=== PATIENT | male | born 1965 | race Hispanic/Latino ===

== ENCOUNTER 2016-05-14 18:41 | Emergency (ER) | payer MEDICAID ==
[2016-05-14 19:24] VITALS: BP 96/55
== END 2016-05-15 00:56 | disposition left against medical advice (07) ==
LOC: ED 18:41
DX: H92.09 Otalgia, unspecified ear (principal); M54.2 Cervicalgia; Z53.21 Procedure and treatment not carried out due to patient leaving prior to being seen by health care provider

== ENCOUNTER 2017-09-07 06:59 | Emergency (ER) | payer SELFPAY ==
[2017-09-07 07:24] VITALS: BP 159/55
[2017-09-07] MEDS ORDERED: TORADOL IM ONE (07:45)
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
== END 2017-09-07 09:20 | disposition home or self-care (01) ==
LOC: ED 06:59
DX: S16.1XXA Strain of muscle, fascia and tendon at neck level, initial encounter (principal); G89.29 Other chronic pain; M54.5 Low back pain; I10 Essential (primary) hypertension; E11.9 Type 2 diabetes mellitus without complications; Z90.49 Acquired absence of other specified parts of digestive tract; Z87.891 Personal history of nicotine dependence; W22.8XXA Striking against or struck by other objects, initial encounter; Y93.89 Activity, other specified; Y92.410 Unspecified street and highway as the place of occurrence of the external cause; Y99.8 Other external cause status
CPT/HCPCS: 72040; 72100; 96372; 99283; J1885

== ENCOUNTER 2018-08-16 11:37 | Emergency (ER) | payer MEDICARE ==
[2018-08-16] MEDS ORDERED: BOOSTRIX IM ONE (11:44)
--- NOTE | 2018-08-16 11:44 | Event Note ---
ED Screening Note Date of service: 08/16/18 Time: 11:41 ED Screening Note: This is a 53 y.o. M. that presents to the ER with puncture wound to left 3rd distal digit. Patient was bitten by his daughters dog last night. The dogs shot record is up to date. Tetanus not UTD. This initial assessment/diagnostic orders/clinical plan/treatment(s) is/are subject to change based on patients health status, clinical progression and re- assessment by fellow clinical providers in the ED. Further treatment and workup at subsequent clinical providers discretion. Patient/guardian urged not to elope from the ED as their condition may be serious if not clinically assessed and managed. Initial orders include: Boostrix XR left fingers ACC for further evaluation
--- NOTE | 2018-08-16 12:09 | XRay Report ---
LEFT FINGER RADIOGRAPHS INDICATION: Puncture wound distal third phalanx. COMPARISON: None similar. FINDINGS: AP view of the left hand with oblique and lateral projections centered on the third digit demonstrate no radiopaque foreign body or bony abnormality. Intact imaged bony articulation. Vascular calcifications noted about the wrist. Subtle laceration may involve the pulp of the third digit. CONCLUSION: Left third digit soft tissue injury distally without acute bony abnormality, as described. Thank you for the opportunity to participate in this patient's care.
--- NOTE | 2018-08-16 12:49 | Emergency Department Report ---
ED Animal Bite HPI - General Chief Complaint: Animal Bite Stated Complaint: DOG BITE ON L FINGER Time Seen by Provider: 08/16/18 11:41 Source: patient Mode of arrival: Ambulatory Limitations: No Limitations - History of Present Illness Initial Comments: D3-year-old male presents to the emergency room for left finger puncture wound from his daughter's dog that happened last night. Patient reports she was trying to break up a dog fight when the other dog bit him. Patient reports he is not up-to-date on his tetanus. Patient reports this mcmillan ppened about 10 PM. Patient reports that the dog has all his vaccines. MD Complaint: animal bite -: Last night Left: Hand (middle digit) Animal: dog Animal Control Notified: No Description: household pet, immunizations UTD Mechanism: bite Context: animals fighting Associated Symptoms: denies: erythema, discharge from wound, bleeding, fever Treatments Prior to Arrival: irrigation - Related Data Patient Tetanus UTD: No Previous Rx's Medication Instructions Recorded Last Taken Type Amitriptyline [Elavil] 25 mg PO QHS tablet 11/22/17 Unknown Rx Cyclobenzaprine [Flexeril 10 MG 10 mg PO TID PRN tablet 11/22/17 Unknown Rx TAB] Lisinopril [Zestril TAB] 10 mg PO QDAY tablet 11/22/17 Unknown Rx Ondansetron [Zofran ODT TAB] 8 mg PO Q8HR tab.rapdis 11/22/17 Unknown Rx Prochlorperazine [Compazine] 10 mg PO Q6HR PRN tablet 11/22/17 Unknown Rx dexAMETHasone [Decadron] 4 mg PO BID tablet 11/22/17 Unknown Rx traMADol [Ultram 50 MG tab] 50 mg PO Q6HR PRN tablet 11/22/17 Unknown Rx Doxycycline Hyclate [Doxycycline 100 mg PO Q12HR #14 tab 06/28/18 Unknown Rx Hyclate TAB] Amoxicillin/Potassium Clav 1 each PO BID #20 tablet 08/16/18 Unknown Rx [Augmentin 875-125 Tablet] Allergies Allergy/AdvReac Type Severity Reaction Status Date / Time No Known Allergies Allergy Verified 08/16/18 11:38 ED Review of Systems ROS: Stated complaint: DOG BITE ON L FINGER Other details as noted in HPI ED Past Medical Hx - Past Medical History Hx Hypertension: Yes Hx Congestive Heart Failure: No Hx Diabetes: Yes Hx Asthma: No Hx COPD: No Additional medical history: CHRONIC BACK PAIN/INJURY - Surgical History Hx Cholecystectomy: Yes Hx Appendectomy: Yes Additional Surgical History: appendectomy - Social History Smoking Status: Never Smoker - Medications Home Medications: Home Medications Medication Instructions Recorded Confirmed Last Taken Type Amitriptyline [Elavil] 25 mg PO QHS tablet 11/22/17 Unknown Rx Cyclobenzaprine [Flexeril 10 MG 10 mg PO TID PRN tablet 11/22/17 Unknown Rx TAB] Lisinopril [Zestril TAB] 10 mg PO QDAY tablet 11/22/17 Unknown Rx Ondansetron [Zofran ODT TAB] 8 mg PO Q8HR tab.rapdis 11/22/17 Unknown Rx Prochlorperazine [Compazine] 10 mg PO Q6HR PRN tablet 11/22/17 Unknown Rx dexAMETHasone [Decadron] 4 mg PO BID tablet 11/22/17 Unknown Rx traMADol [Ultram 50 MG tab] 50 mg PO Q6HR PRN tablet 11/22/17 Unknown Rx Doxycycline Hyclate [Doxycycline 100 mg PO Q12HR #14 tab 06/28/18 Unknown Rx Hyclate TAB] Amoxicillin/Potassium Clav 1 each PO BID #20 tablet 08/16/18 Unknown Rx [Augmentin 875-125 Tablet] ED Physical Exam - General Limitations: No Limitations General appearance: alert, in no apparent distress - Head Head exam: Present: atraumatic, normocephalic - Eye Eye exam: Present: normal appearance - ENT ENT exam: Present: mucous membranes moist - Neck Neck exam: Present: normal inspection - Expanded Upper Extremity Exam Left Shoulder Exam: Present: normal inspection Upper Arm exam: Present: normal inspection Elbow exam: Present: normal inspection Forearm Wrist exam: Present: normal inspection Hand Wrist exam: Present: normal inspection, tenderness (left middle digit), swelling (left middle digit) Vascular: Present: normal capillary refill - Back Exam Back exam: Present: normal inspection - Neurological Exam Neurological exam: Present: alert, oriented X3, normal gait - Psychiatric Psychiatric exam: Present: normal affect, normal mood - Skin Skin exam: Present: warm, dry, intact, normal color. Absent: rash ED Course Vital Signs 08/16/18 11:41 Temperature 98 F Pulse Rate 65 Respiratory 20 Rate Blood Pressure 116/43 O2 Sat by Pulse 96 Oximetry Critical care attestation.: If time is entered above; I have spent that time in minutes in the direct care of this critically ill patient, excluding procedure time. ED Disposition Clinical Impression: Dog bite, Puncture wound Disposition: DC-01 TO HOME OR SELFCARE Is pt being admited?: No Does the pt Need Aspirin: No Condition: Stable Instructions: Animal Bite (ED) Additional Instructions: Complete antibiotics as prescribed. [id number] pain medication as needed. Keep wound clean and dry. Prescriptions: Amoxicillin/Potassium Clav [Augmentin 875-125 Tablet] 1 each PO BID #20 tablet Referrals: Your,provider [Other] - 3-5 Days Forms: Work/School Release Form(ED) Medical Decision Making - Radiology Data Radiology results: report reviewed Patient: LETTY MUNOZ MR#: [id number] : 1965 Acct:[id number] Age/Sex: 53 / M ADM Date: 08/16/18 Loc: ED Attending Dr: Ordering Physician: GRACIELA BARCLAY Date of Service: 08/16/18 Procedure(s): XR finger(s) 2+V LT Accession Number(s): [id number] cc: GRACIELA BARCLAY Fluoro Time In Minutes: LEFT FINGER RADIOGRAPHS INDICATION: Puncture wound distal third phalanx. COMPARISON: None similar. FINDINGS: AP view of the left hand with oblique and lateral projections centered on the third digit demonstrate no radiopaque foreign body or bony abnormality. Intact imaged bony articulation. Vascular calcifications noted about the wrist. Subtle laceration may involve the pulp of the third digit. CONCLUSION: Left third digit soft tissue injury distally without acute bony abnormality, as described. Thank you for the opportunity to participate in this patient's care. Transcribed By: RS Dictated By: JUAN DANIEL TEJADA MD Electronically Authenticated By: JUAN DANIEL TEJADA MD Signed Date/Time: 08/16/18 120 DD/ 04 TD/TT: 08/16/181207
[2018-08-16 13:42] VITALS: BP 117/69
== END 2018-08-16 13:20 | disposition home or self-care (01) ==
LOC: ED 11:37
DX: S61.233A Puncture wound without foreign body of left middle finger without damage to nail, initial encounter (principal); I10 Essential (primary) hypertension; E11.9 Type 2 diabetes mellitus without complications; G89.29 Other chronic pain; M54.9 Dorsalgia, unspecified; Z90.49 Acquired absence of other specified parts of digestive tract; Z79.899 Other long term (current) drug therapy; W54.0XXA Bitten by dog, initial encounter; Y93.89 Activity, other specified; Y92.89 Other specified places as the place of occurrence of the external cause; Y99.8 Other external cause status
CPT/HCPCS: 90471; 90715; 99283

== ENCOUNTER 2020-02-12 14:01 | Inpatient (IN) | payer MEDICARE ==
--- NOTE | 2020-02-12 15:17 | Emergency Department Report ---
HPI - General Chief Complaint: Weakness Time Seen by Provider: 02/12/20 15:07 - HPI HPI: This is a 54-year-old male presents to the emergency department via EMS from home with complaint of a 4-day history of pain to the bilateral shoulders, low back, bilateral legs, as well as pain to the throat. The patient also says that this morning, while walking to the bathroom, he became very dizzy/lightheaded and had a fall. He does admit to hitting his head but is unsure whether or not he lost any consciousness. He was able to get himself up and did not call EMS immediately. The patient did not take anything or receive anything for his symptoms prior to presentation. He has a primary care physician but says he is not able to pronounce their name. He has a history of throat cancer in remission, diabetes, GERD, hypertension. Previous records state that he also has a history of chronic back pains. He denies any problems with bowel or bladder, numbness or paresthesias, or any neurological deficits. ED Past Medical Hx - Past Medical History Hx Hypertension: Yes Hx Congestive Heart Failure: No Hx Diabetes: Yes Hx GERD: Yes Hx of Cancer: Yes (throat) Hx Arthritis: Yes Hx Asthma: No Hx COPD: No Additional medical history: CHRONIC BACK PAIN/INJURY, anxiety - Surgical History Hx Cholecystectomy: Yes Hx Appendectomy: Yes Additional Surgical History: appendectomy - Social History Smoking Status: Former Smoker - Medications Home Medications: Home Medications Medication Instructions Recorded Confirmed Last Taken Type Amitriptyline [Elavil] 25 mg PO QHS tablet 11/22/17 02/13/20 Unknown Rx Ondansetron [Zofran ODT TAB] 8 mg PO Q8HR tab.rapdis 11/22/17 02/13/20 Unknown Rx Prochlorperazine [Compazine] 10 mg PO Q6HR PRN tablet 11/22/17 02/13/20 Unknown Rx lisinopriL [Zestril TAB] 10 mg PO QDAY tablet 11/22/17 02/13/20 Unknown Rx Levothyroxine 100 mcg PO DAILY 02/12/20 02/12/20 Unknown History Mupirocin 1 tab PO BID 02/12/20 02/13/20 Unknown History Tramadol HCl/Acetaminophen 37.5 mg PO BID 02/12/20 02/13/20 Unknown History ED Review of Systems ROS: Stated complaint: GENERAL WEAKNESS/FALL/DEHYDRATED Other details as noted in HPI Comment: All other systems reviewed and negative Constitutional: denies: chills, fever Eyes: denies: eye pain, vision change ENT: denies: ear pain, throat pain Respiratory: cough. denies: shortness of breath Cardiovascular: syncope. denies: chest pain Gastrointestinal: denies: abdominal pain, vomiting Genitourinary: denies: dysuria, discharge Musculoskeletal: back pain, arthralgia, myalgia Skin: denies: rash, lesions Neurological: denies: numbness, paresthesias Physical Exam - Physical Exam Vital Signs: Vital Signs 02/12/20 02/12/20 14:33 14:39 Temperature 96.6 F L 96.6 F L Pulse Rate 64 62 Respiratory 17 17 Rate Blood Pressure 114/57 Blood Pressure 114/57 [Right] O2 Sat by Pulse 98 96 Oximetry Physical Exam: GENERAL: Ill-appearing. HENT: Normocephalic. Atraumatic. No tonsillar hypertrophy, erythema or exudate. No drooling or trismus. There is some type of growth seen to the posterior palate. EYES: Extraocular motions are intact. NECK: Supple. Trachea is midline. CHEST/LUNGS: Clear to auscultation. No tachypnea or accessory muscle use. There is no respiratory distress noted. HEART/CARDIOVASCULAR: Regular. There is no tachycardia. There is no murmur. ABDOMEN: Abdomen is soft, nontender. Patient has normal bowel sounds. SKIN: Skin is warm and dry. NEURO: The patient is awake, alert, and oriented. The patient is cooperative. The patient has no focal neurologic deficits. Normal speech. MUSCULOSKELETAL: There is no tenderness or deformity. There is no limitation range of motion. BACK: Bilateral paraspinal lumbar and thoracic tenderness to palpation. ED Course Vital Signs 02/12/20 02/12/20 14:33 14:39 Temperature 96.6 F L 96.6 F L Pulse Rate 64 62 Respiratory 17 17 Rate Blood Pressure 114/57 Blood Pressure 114/57 [Right] O2 Sat by Pulse 98 96 Oximetry ED Medical Decision Making - Lab Data Result diagrams: 02/12/20 15:46 02/12/20 15:46 Lab Results 12/24/20 12/24/20 12/24/20 Range/Units 15:46 15:46 15:46 WBC 27.1 H (4.5-11.0) K/mm3 RBC 3.37 L (3.65-5.03) M/mm3 Hgb 10.3 L (11.8-15.2) gm/dl Hct 30.5 L (35.5-45.6) % MCV 90 (84-94) fl MCH 30 (28-32) pg MCHC 34 (32-34) % RDW 13.8 (13.2-15.2) % Plt Count 240 (140-440) K/mm3 Seg Neutrophils % [employer] Sodium 133 L (137-145) mmol/L Potassium 4.0 (3.6-5.0) mmol/L Chloride 93.1 L (98-107) mmol/L Carbon Dioxide 32 H (22-30) mmol/L Anion Gap 12 mmol/L BUN 59 H (9-20) mg/dL Creatinine 2.4 H (0.8-1.3) mg/dL Estimated GFR 28 ml/min BUN/Creatinine Ratio 25 % Glucose 98 (75-100) mg/dL Calcium 8.0 L (8.4-10.2) mg/dL Total Bilirubin 0.30 (0.1-1.2) mg/dL AST 260 H (5-40) units/L ALT 65 H (7-56) units/L Alkaline Phosphatase 66 (35-129) units/L Total Creatine Kinase 9691 H (55-170) units/L Troponin T 0.066 H (0.00-0.029) ng/mL Total Protein 6.4 (6.3-8.2) g/dL Albumin 2.7 L (3.9-5) g/dL Albumin/Globulin Ratio 0.7 % Triglycerides 189 H (2-149) mg/dL Cholesterol 143 (50-199) mg/dL LDL Cholesterol Direct 69 (50-130) mg/dL HDL Cholesterol 34 L (40-59) mg/dL Cholesterol/HDL Ratio 4.20 % TSH 33.890 H (0.270-4.200) mlU/mL Free T4 (0.76-1.46) ng/dL Urine Color (Yellow) Urine Turbidity (Clear) Urine pH (5.0-7.0) Ur Specific [place] (1.003-1.030) Urine Protein (Negative) mg/dL Urine Glucose (UA) (Negative) mg/dL Urine Ketones (Negative) mg/dL Urine Blood (Negative) Urine Nitrite (Negative) Urine Bilirubin (Negative) Urine Urobilinogen (<2.0) mg/dL Ur Leukocyte Esterase (Negative) Urine WBC (Auto) (0.0-6.0) /HPF Urine RBC (Auto) (0.0-6.0) /HPF U Epithel Cells (Auto) (0-13.0) /HPF Hyaline Casts /LPF Urine Mucus /HPF Urine Opiates Screen Urine Methadone Screen Ur Barbiturates Screen Ur Phencyclidine Scrn Ur Amphetamines Screen U Benzodiazepines Scrn Urine Cocaine Screen U Marijuana (THC) Screen Drugs of Abuse Note Plasma/Serum Alcohol (0-0.07) % 02/12/20 02/12/20 02/12/20 Range/Units 15:46 17:42 17:42 WBC (4.5-11.0) K/mm3 RBC (3.65-5.03) M/mm3 Hgb (11.8-15.2) gm/dl Hct (35.5-45.6) % MCV (84-94) fl MCH (28-32) pg MCHC (32-34) % RDW (13.2-15.2) % Plt Count (140-440) K/mm3 Seg Neutrophils % Sodium (137-145) mmol/L Potassium (3.6-5.0) mmol/L Chloride (98-107) mmol/L Carbon Dioxide (22-30) mmol/L Anion Gap mmol/L BUN (9-20) mg/dL Creatinine (0.8-1.3) mg/dL Estimated GFR ml/min BUN/Creatinine Ratio % Glucose (75-100) mg/dL Calcium (8.4-10.2) mg/dL Total Bilirubin (0.1-1.2) mg/dL AST (5-40) units/L ALT (7-56) units/L Alkaline Phosphatase (35-129) units/L Total Creatine Kinase (55-170) units/L Troponin T (0.00-0.029) ng/mL Total Protein (6.3-8.2) g/dL Albumin (3.9-5) g/dL Albumin/Globulin Ratio % Triglycerides (2-149) mg/dL Cholesterol (50-199) mg/dL LDL Cholesterol Direct (50-130) mg/dL HDL Cholesterol (40-59) mg/dL Cholesterol/HDL Ratio % TSH (0.270-4.200) mlU/mL Free T4 (0.76-1.46) ng/dL Urine Color Yellow (Yellow) Urine Turbidity Slightly-cloudy (Clear) Urine pH 5.0 (5.0-7.0) Ur Specific [place] 1.014 (1.003-1.030) Urine Protein >500 (Negative) mg/dL Urine Glucose (UA) Neg (Negative) mg/dL Urine Ketones Neg (Negative) mg/dL Urine Blood Lg (Negative) Urine Nitrite Neg (Negative) Urine Bilirubin Neg (Negative) Urine Urobilinogen < 2.0 (<2.0) mg/dL Ur Leukocyte Esterase Neg (Negative) Urine WBC (Auto) 13.0 H (0.0-6.0) /HPF Urine RBC (Auto) 5.0 (0.0-6.0) /HPF U Epithel Cells (Auto) < 1.0 (0-13.0) /HPF Hyaline Casts 2 /LPF Urine Mucus Few /HPF Urine Opiates Screen Negative Urine Methadone Screen Negative Ur Barbiturates Screen Negative Ur Phencyclidine Scrn Negative Ur Amphetamines Screen Negative U Benzodiazepines Scrn Negative Urine Cocaine Screen Negative U Marijuana (THC) Screen Negative Drugs of Abuse Note Disclamer Plasma/Serum Alcohol < 0.01 (0-0.07) % 12/24/20 Range/Units Unknown WBC (4.5-11.0) K/mm3 RBC (3.65-5.03) M/mm3 Hgb (11.8-15.2) gm/dl Hct (35.5-45.6) % MCV (84-94) fl MCH (28-32) pg MCHC (32-34) % RDW (13.2-15.2) % Plt Count (140-440) K/mm3 Seg Neutrophils % Sodium (137-145) mmol/L Potassium (3.6-5.0) mmol/L Chloride (98-107) mmol/L Carbon Dioxide (22-30) mmol/L Anion Gap mmol/L BUN (9-20) mg/dL Creatinine (0.8-1.3) mg/dL Estimated GFR ml/min BUN/Creatinine Ratio % Glucose (75-100) mg/dL Calcium (8.4-10.2) mg/dL Total Bilirubin (0.1-1.2) mg/dL AST (5-40) units/L ALT (7-56) units/L Alkaline Phosphatase (35-129) units/L Total Creatine Kinase (55-170) units/L Troponin T (0.00-0.029) ng/mL Total Protein (6.3-8.2) g/dL Albumin (3.9-5) g/dL Albumin/Globulin Ratio % Triglycerides (2-149) mg/dL Cholesterol (50-199) mg/dL LDL Cholesterol Direct (50-130) mg/dL HDL Cholesterol (40-59) mg/dL Cholesterol/HDL Ratio % TSH (0.270-4.200) mlU/mL Free T4 0.74 L (0.76-1.46) ng/dL Urine Color (Yellow) Urine Turbidity (Clear) Urine pH (5.0-7.0) Ur Specific [place] (1.003-1.030) Urine Protein (Negative) mg/dL Urine Glucose (UA) (Negative) mg/dL Urine Ketones (Negative) mg/dL Urine Blood (Negative) Urine Nitrite (Negative) Urine Bilirubin (Negative) Urine Urobilinogen (<2.0) mg/dL Ur Leukocyte Esterase (Negative) Urine WBC (Auto) (0.0-6.0) /HPF Urine RBC (Auto) (0.0-6.0) /HPF U Epithel Cells (Auto) (0-13.0) /HPF Hyaline Casts /LPF Urine Mucus /HPF Urine Opiates Screen Urine Methadone Screen Ur Barbiturates Screen Ur Phencyclidine Scrn Ur Amphetamines Screen U Benzodiazepines Scrn Urine Cocaine Screen U Marijuana (THC) Screen Drugs of Abuse Note Plasma/Serum Alcohol (0-0.07) % - EKG Data -: EKG Interpreted by Me EKG shows normal: sinus rhythm (PACs), axis, intervals, QRS complexes, ST-T waves Rate: normal - EKG Data When compared to previous EKG there are: no significant change Interpretation: normal EKG, unchanged when compared t (11/22/17) - Radiology Data Radiology results: report reviewed CT head/brain wo con INDICATION / CLINICAL INFORMATION: 54 years Male; dizziness, fall, hit head. TECHNIQUE: Routine CT head without contrast. All CT scans at this location are performed using CT dose reduction for ALARA by means of automated exposure control. COMPARISON: None. FINDINGS: BRAIN / INTRACRANIAL CONTENTS: There appears be mild cerebral white matter disease most consistent with mild periventricular microvascular angiopathy. The jugular system is within normal limits in size and configuration. The motion degrades the image quality. However, there is no clear CT evidence of acute intracranial hemorrhage or significant mass effect. ORBITS: No significant abnormality of visualized orbits. SINUSES / MASTOIDS: There is minimal mucosal thickening within the ethmoid air cells. There is extensive opacification of the right mastoid air cells which appears to extend into the right middle ear cavity. CRANIOCERVICAL JUNCTION: No significant abnormality. ADDITIONAL FINDINGS: None. IMPRESSION: 1. There is no clear CT evidence of acute intracranial process. 2. There is complete opacification of the right mastoid air cells with extension into the right middle ear cavity. CHEST 1 VIEW INDICATION: cough COMPARISON: None FINDINGS: SUPPORT DEVICES: None. HEART / MEDIASTINUM: No significant abnormality. LUNGS / PLEURA: Diffuse reticular nodular parenchymal changes right lung. No pneumothorax. ADDITIONAL FINDINGS: IMPRESSION: 1. Probable inflammatory process right lung - Medical Decision Making This patient presents to the emergency department with a complaint of pain to the bilateral shoulders, upper and lower back, and bilateral lower extremities. He also complains of some throat pain. The patient says that he had an episode of dizziness this morning that led to him having a fall. On examination the patient does have reproducible pain to the bilateral paraspinal thoracic and lumbar back but no midline tenderness, step-off or deformity. The patient is seen moving all of his extremities. A CT scan of the head without contrast was completed that does not show any bleed, shift, mass, ischemia. I do see the read from radiology saying that there is complete opacification of the mastoid and into the inner ear. However the patient has no complaints of any lateral head pain, ear pain, neck pain, and has no tenderness to palpation over the mastoid bone, nor any skin color change or bulging. Chest x-ray was read by radiology as showing a probable inflammatory process of the right lung. Patient's labs shows many abnormalities. He has acute renal failure with a GFR of 28. The patient appears to be in rhabdomyolysis with a CK level of 9600. The patient has been started on IV fluid resuscitation. His first troponin came back at 0.066. This may be secondary to his renal insufficiency and he has no complaints of any chest pain. EKG does not show any morphology consistent with ST elevation myocardial infarction. The troponin will be trended. The patient has a leukocytosis of 27,000. The differential is still pending. The patient has signs of hypothyroidism with a TSH of 33 and a low free T4. Blood alcohol and urine drug screen are negative. The patient was treated empirically with some Rocephin and azithromycin. He was given an aspirin secondary to the elevated troponin level. He will be admitted to the hospital for further evaluation and treatment. Critical Care Time: Yes Critical care time in (mins) excluding proc time.: 35 Critical care attestation.: If time is entered above; I have spent that time in minutes in the direct care of this critically ill patient, excluding procedure time. Critical care time was spent on this patient in doing his initial evaluation, multiple reevaluations, ordering and interpretation of labs and imaging, IV hydration for the rhabdomyolysis and acute renal failure, IV antibiotics, multiple discussions with the patient. Critical Care Time: 35 minutes ED Disposition Clinical Impression: SIRS (systemic inflammatory response syndrome), Elevated troponin, Dehydration Acute renal failure Qualifiers: Acute renal failure type: unspecified Qualified Code(s): N17.9 - Acute kidney failure, unspecified Rhabdomyolysis Qualifiers: Rhabdomyolysis type: non-traumatic Qualified Code(s): M62.82 - Rhabdomyolysis Hypothyroidism Qualifiers: Hypothyroidism type: unspecified Qualified Code(s): E03.9 - Hypothyroidism, unspecified Disposition: OP ADMIT IP TO THIS HOSP Is pt being admited?: Yes Condition: Serious Time of Disposition: 19:39
--- NOTE | 2020-02-12 15:48 | XRay Report ---
CHEST 1 VIEW INDICATION: cough COMPARISON: None FINDINGS: SUPPORT DEVICES: None. HEART / MEDIASTINUM: No significant abnormality. LUNGS / PLEURA: Diffuse reticular nodular parenchymal changes right lung. No pneumothorax. ADDITIONAL FINDINGS: IMPRESSION: 1. Probable inflammatory process right lung Signer Name: Azam Sloan MD Signed: 02/12/2020 3:43 PM Workstation Name: [id number]
--- NOTE | 2020-02-12 16:17 | Cat Scan Report ---
CT head/brain wo con INDICATION / CLINICAL INFORMATION: 54 years Male; dizziness, fall, hit head. TECHNIQUE: Routine CT head without contrast. All CT scans at this location are performed using CT dos e reduction for ALARA by means of automated exposure control. COMPARISON: None. FINDINGS: BRAIN / INTRACRANIAL CONTENTS: There appears be mild cerebral white matter disease most consistent wi th mild periventricular microvascular angiopathy. The jugular system is within normal limits in size and configuration. The motion degrades the image quality. However, there is no clear CT evidence of a cute intracranial hemorrhage or significant mass effect. ORBITS: No significant abnormality of visualized orbits. SINUSES / MASTOIDS: There is minimal mucosal thickening within the ethmoid air cells. There is extens erik opacification of the right mastoid air cells which appears to extend into the right middle ear ca vity. CRANIOCERVICAL JUNCTION: No significant abnormality. ADDITIONAL FINDINGS: None. IMPRESSION: 1. There is no clear CT evidence of acute intracranial process. 2. There is complete opacification of the right mastoid air cells with extension into the right middl e ear cavity. Signer Name: Marito Rose MD Signed: 02/12/2020 4:13 PM Workstation Name: [id number]
[2020-02-12 16:29] LABS: Albumin 2.7 g/dL (3.9-5)
[2020-02-12] MEDS ORDERED: SODIUM CHLORIDE 0.9% 1000 ML 1,000 ML IV ONE ×2 (16:36→18:09)
[2020-02-12] MEDS ORDERED: ASPIRIN 81 MG TAB CHEW PO ONE (16:37)
[2020-02-12 17:38] LABS: Chol/HDL Ratio 4.2 %; Hematocrit 30.5 % (35.5-45.6); Hemoglobin 10.3 gm/dl (11.8-15.2); Mean Corpuscular HGB Conc 34 % (32-34); Mean Corpuscular Volume 90 fl (84-94); Platelet Count 240 K/mm3 (140-440); Red Blood Count 3.37 M/mm3 (3.65-5.03); Red Cell Distribution Width 13.8 % (13.2-15.2)
[2020-02-12 18:10] LABS: Bilirubin,Urine NEG (Negative); Blood,Urine LG (Negative); Color,Urine Yellow (Yellow); Hyaline Casts,Urine 2 /LPF; Mucus,Urine FEW /HPF; Urobilinogen,Urine < 2.0 mg/dL (<2.0)
[2020-02-12 18:11] LABS: Protein,Urine >500 mg/dL (Negative)
[2020-02-12 18:12] LABS: Amphetamine Screen,Urine Negative; Benzodiazepines Screen,Urine Negative; Cannabinoid Screen,Urine Negative; Cocaine Screen,Urine Negative; Methadone Screen,Urine Negative; Opiate Screen,Urine Negative
[2020-02-12] MEDS ORDERED: cefTRIAXone/NS 1 GM/50 ML 1 GM/50 ML BAG IV ONE (18:24)
[2020-02-12] MEDS ORDERED: AZITHROMYCIN 500 MG in SODIUM CHLORIDE 0.9% 250ML 250 ML IV ONE (18:24)
[2020-02-12] MEDS ORDERED: DEXTROSE 50% IN WATER (25GM) 50 ML SYRINGE IV PRN (22:39)
[2020-02-12] MEDS ORDERED: ONDANSETRON 4 MG/2 ML INJ IV PRN (22:39)
[2020-02-12] MEDS ORDERED: MAGNESIUM HYDROXIDE (MOM) ORAL LIQD UDC PO PRN (22:39)
--- NOTE | 2020-02-12 22:55 | History and Physical Report ---
History of Present Illness Date of examination: 02/12/20 Date of admission: 02/12/2020 Chief complaint: Bilateral Shoulder and Back pain Fall History of present illness: 84-year-old male with known history of diabetes mellitus, throat cancer in remission, chronic back pain and hypertension presenting to the emergency room today with a complaint of bilateral shoulder pain, low back pain lower extremity pain and also pain along the throat. He states he was dizzy this morning and felt lightheaded and subsequently had a fall. He denies any loss of consciousness but states that he had he feet his head. He denies any fever or chills, no chest pain or shortness of breath, no nausea or vomiting, no abdominal pain, no hematuria or dysuria. Patient denies any sic k contacts and no recent travel. Denies any contact with anyone with COVID-19. Work-up in the emergency room today reveals slightly elevated troponin, elevated TSH, leukocytosis, elevated creatinine kinase and patient was also found to be in acute renal failure. Patient is being admitted with rhabdomyolysis, acute renal failure, hypothyroidism and elevated troponin. Past History Past Medical History: arthritis, diabetes, GERD, hypertension, hypothyroidism, other (Chronic back pain, anxiety, throat cancer on remission) Past Surgical History: appendectomy, cholecystectomy Social history: smoking Family history: no significant family history Medications and Allergies Allergies Allergy/AdvReac Type Severity Reaction Status Date / Time No Known Allergies Allergy Verified 08/16/18 11:38 Home Medications Medication Instructions Recorded Confirmed Last Taken Type Amitriptyline [Elavil] 25 mg PO QHS tablet 11/22/17 Unknown Rx Ondansetron [Zofran ODT TAB] 8 mg PO Q8HR tab.rapdis 11/22/17 Unknown Rx Prochlorperazine [Compazine] 10 mg PO Q6HR PRN tablet 11/22/17 Unknown Rx lisinopriL [Zestril TAB] 10 mg PO QDAY tablet 11/22/17 Unknown Rx Levothyroxine 100 mcg PO DAILY 02/12/20 02/12/20 Unknown History Mupirocin 1 02/12/20 Unknown History Tramadol HCl/Acetaminophen 37.5 PO BID 02/12/20 Unknown History Active Meds: Active Medications Acetaminophen (Acetaminophen 325 Mg Tab) 650 mg PO Q4H PRN PRN Reason: Pain MILD(1-3)/Fever >100.5/PETER Dextrose (Dextrose 50% In Water (25gm) 50 Ml Syringe) 50 ml IV Q30MIN PRN; Protocol PRN Reason: Hypoglycemia Heparin Sodium (Porcine) (Heparin 5,000 Unit/1 Ml Vial) 5,000 unit SUB-Q Q8HR RYAN Sodium Chloride (Nacl 0.9% 1000 Ml) 1,000 mls @ 150 mls/hr IV DIRECT RYAN Insulin Human Lispro (Insulin Lispro 100 Unit/Ml Vial 3 Ml) 0 unit SUB-Q ACHS RYAN; Protocol Magnesium Hydroxide (Magnesium Hydroxide (Mom) Oral Liqd Udc) 30 ml PO Q4H PRN PRN Reason: Constipation Morphine Sulfate (Morphine 2 Mg/1 Ml Inj) 2 mg IV Q4H PRN PRN Reason: Pain, Moderate (4-6) Ondansetron HCl (Ondansetron 4 Mg/2 Ml Inj) 4 mg IV Q8H PRN PRN Reason: Nausea And Vomiting Sodium Chloride (Sodium Chloride 0.9% 10 Ml Flush Syringe) 10 ml IV BID RYAN Sodium Chloride (Sodium Chloride 0.9% 10 Ml Flush Syringe) 10 ml IV PRN PRN PRN Reason: LINE FLUSH Review of Systems Constitutional: no fever, no chills Ears, nose, mouth and throat: no nasal congestion, no sore throat Cardiovascular: no chest pain, no palpitations Respiratory: no cough, no shortness of breath Gastrointestinal: no abdominal pain, no nausea, no vomiting, no diarrhea Genitourinary Male: no dysuria, no hematuria, no flank pain, no nocturia Musculoskeletal: low back pain, arthritis, no neck pain Integumentary: no rash, no pruritis Neurological: other (Dizziness), no headaches, no confusion Psychiatric: anxiety, no depression Exam - Constitutional Vitals: Temp Pulse Resp BP Pulse Ox 96.6 F L 83 24 138/44 90 02/12/20 14:39 02/12/20 21:01 02/12/20 21:01 02/12/20 21:01 02/12/20 21:01 General appearance: Present: no acute distress, well-nourished - EENT Eyes: Present: PERRL, EOM intact. Absent: scleral icterus ENT: hearing intact, clear oral mucosa, dentition normal - Neck Neck: Present: supple, normal ROM - Respiratory Respiratory effort: normal Respiratory: bilateral: CTA - Cardiovascular Rhythm: regular Heart Sounds: Present: S1 & S2. Absent: gallop, systolic murmur, diastolic murmur, rub - Extremities Extremities: no ischemia, pulses intact, pulses symmetrical, No edema, Full ROM Peripheral Pulses: within normal limits - Abdominal General gastrointestinal: Present: soft, non-tender, non-distended, normal bowel sounds. Absent: mass - Integumentary Integumentary: Present: clear, warm, dry - Musculoskeletal Musculoskeletal: strength equal bilaterally - Psychiatric Psychiatric: appropriate mood/affect, intact judgment & insight, memory intact, cooperative - Neurologic Neurologic: CNII-XII intact, no focal deficits, moves all extremities HEART Score - HEART Score Troponin: Troponin T 0.066 ng/mL (0.00-0.029) H 02/12/20 15:46 Results - Labs CBC & Chem 7: 02/12/20 15:46 02/12/20 15:46 Labs: Abnormal lab results 02/12/20 02/12/2024 Range/Units 15:46 15:46 15:46 WBC 27.1 H (4.5-11.0) K/mm3 RBC 3.37 L (3.65-5.03) M/mm3 Hgb 10.3 L (11.8-15.2) gm/dl Hct 30.5 L (35.5-45.6) % Sodium 133 L (137-145) mmol/L Chloride 93.1 L (98-107) mmol/L Carbon Dioxide 32 H (22-30) mmol/L BUN 59 H (9-20) mg/dL Creatinine 2.4 H (0.8-1.3) mg/dL Calcium 8.0 L (8.4-10.2) mg/dL AST 260 H (5-40) units/L ALT 65 H (7-56) units/L Total Creatine Kinase 9691 H (55-170) units/L Troponin T 0.066 H (0.00-0.029) ng/mL Albumin 2.7 L (3.9-5) g/dL Triglycerides 189 H (2-149) mg/dL HDL Cholesterol 34 L (40-59) mg/dL TSH 33.890 H (0.270-4.200) mlU/mL Free T4 (0.76-1.46) ng/dL Urine WBC (Auto) (0.0-6.0) /HPF 02/12/20 02/12/20 Range/Units 17:42 Unknown WBC (4.5-11.0) K/mm3 RBC (3.65-5.03) M/mm3 Hgb (11.8-15.2) gm/dl Hct (35.5-45.6) % Sodium (137-145) mmol/L Chloride (98-107) mmol/L Carbon Dioxide (22-30) mmol/L BUN (9-20) mg/dL Creatinine (0.8-1.3) mg/dL Calcium (8.4-10.2) mg/dL AST (5-40) units/L ALT (7-56) units/L Total Creatine Kinase (55-170) units/L Troponin T (0.00-0.029) ng/mL Albumin (3.9-5) g/dL Triglycerides (2-149) mg/dL HDL Cholesterol (40-59) mg/dL TSH (0.270-4.200) mlU/mL Free T4 0.74 L (0.76-1.46) ng/dL Urine WBC (Auto) 13.0 H (0.0-6.0) /HPF Assessment and Plan - Patient Problems (1) Acute renal failure Current Visit: Yes Status: Acute Plan to address problem: Patient commenced on IV fluid. Will monitor input and output. We will place consult to nephrology for evaluation and recommendation. (2) Rhabdomyolysis Current Visit: Yes Status: Acute Plan to address problem: Patient commenced on IV fluid. Will monitor creatinine kinase level. (3) Elevated troponin Current Visit: Yes Status: Acute Plan to address problem: No chest pain. Will monitor troponin levels. We will place consult to cardiology if needed. (4) Hypothyroidism Current Visit: Yes Status: Acute Plan to address problem: TSH significantly elevated. Will resume patient's levothyroxine. (5) SIRS (systemic inflammatory response syndrome) Current Visit: Yes Status: Acute (6) Diabetes Current Visit: No Status: Acute Plan to address problem: We will monitor Accu-Cheks. (7) HTN (hypertension) Current Visit: No Status: Acute Qualifiers: Plan to address problem: We will resume routine home medications and monitor vital signs. (8) DVT prophylaxis Current Visit: No Status: Acute Plan to address problem: Patient placed on subcutaneous heparin. (9) Full code status Current Visit: Yes Status: Acute Plan to address problem: Patient is a full code.
[2020-02-12] MEDS: MORPHINE 2 MG/1 ML INJ IV PRN (23:06)
[2020-02-12 23:16] LABS: Platelet Estimate Consistent w Auto; RBC Morphology Normal; Total Cells Counted 100
[2020-02-13] MEDS: SODIUM CHLORIDE 0.9% 1000 ML 1,000 ML IV SCH ×2 (05:23→14:45)
[2020-02-13] MEDS: LEVOTHYROXINE 100 MCG TAB PO SCH (05:26)
[2020-02-13] MEDS: HEPARIN 5,000 UNIT/1 ML VIAL SUB-Q SCH ×3 (05:26→22:46)
[2020-02-13] MEDS: MORPHINE 2 MG/1 ML INJ IV PRN (07:31)
[2020-02-13] MEDS: ACETAMINOPHEN 325 MG TAB PO PRN (08:05)
[2020-02-13] MEDS: INSULIN LISPRO 100 UNIT/ML VIAL 3 mL SUB-Q SCH ×4 (10:51→22:36)
--- NOTE | 2020-02-13 11:05 | Progress Note ---
Assessment and Plan Assessment and plan: Acute renal failure. Etiology secondary to acute kidney injury from vasomotor nephropathy/dehydration. Nephrology consultation pending. Rhabdomyolysis. Patient with elevated CK level. Continue to monitor Elevated troponin. Patient denies chest pain. Check echocardiogram. Hypothyroidism. TSH significantly elevated. Resume Synthroid and consider increasing dose if patient has been compliant with medications. Sepsis. Patient has significant leukocytosis. Afebrile. Etiology likely secondary to UTI. Follow-up urine culture. UTI. Follow-up urine and blood cultures. Diabetes mellitus type 2. Continue Accu-Cheks and sliding scale insulin. Tight glycemic control. Hypertension. Resume antihypertensive medications. DVT prophylaxis. Continue subcutaneous heparin. History Interval history: No new issues overnight. Hospitalist Physical - Constitutional Vitals: Temp Pulse Resp BP Pulse Ox 96.6 F L 81 17 124/47 97 02/12/20 14:39 02/13/20 02:29 02/13/20 01:01 02/13/20 01:01 02/13/20 01:01 General appearance: Present: no acute distress, well-nourished - EENT Eyes: Present: PERRL, EOM intact ENT: hearing intact, clear oral mucosa, dentition normal - Neck Neck: Present: supple, normal ROM - Respiratory Respiratory effort: normal Respiratory: bilateral: CTA - Cardiovascular Rhythm: regular Heart Sounds: Present: S1 & S2. Absent: gallop, rub - Extremities Extremities: no ischemia, No edema, Full ROM - Abdominal General gastrointestinal: soft, non-tender, non-distended, normal bowel sounds - Integumentary Integumentary: Present: clear, warm, dry - Neurologic Neurologic: CNII-XII intact, moves all extremities HEART Score - HEART Score Troponin: Troponin T 0.066 ng/mL (0.00-0.029) H 02/12/20 15:46 Results - Labs CBC & Chem 7: 02/12/20 15:46 02/12/20 15:46 Labs: Laboratory Last Values WBC 27.1 K/mm3 (4.5-11.0) H 02/12/20 15:46 RBC 3.37 M/mm3 (3.65-5.03) L 02/12/20 15:46 Hgb 10.3 gm/dl (11.8-15.2) L 02/12/20 15:46 Hct 30.5 % (35.5-45.6) L 02/12/20 15:46 MCV 90 fl (84-94) 02/12/20 15:46 MCH 30 pg (28-32) 02/12/20 15:46 MCHC 34 % (32-34) 02/12/20 15:46 RDW 13.8 % (13.2-15.2) 02/12/20 15:46 Plt Count 240 K/mm3 (140-440) 02/12/20 15:46 Add Manual Diff Complete 02/12/20 15:46 Total Counted 100 02/12/20 15:46 Seg Neutrophils % [employer] 02/12/20 15:46 Seg Neuts % (Manual) 69.0 % (40.0-70.0) 02/12/20 15:46 Band Neutrophils % 26.0 % 02/12/20 15:46 Lymphocytes % (Manual) 2.0 % (13.4-35.0) L 02/12/20 15:46 Monocytes % (Manual) 3.0 % (0.0-7.3) 02/12/20 15:46 Nucleated RBC % Not Reportable 02/12/20 15:46 Seg Neutrophils # Man 18.7 K/mm3 (1.8-7.7) H 02/12/20 15:46 Band Neutrophils # 7.0 K/mm3 02/12/20 15:46 Lymphocytes # (Manual) 0.5 K/mm3 (1.2-5.4) L 02/12/20 15:46 Abs React Lymphs (Man) 0.0 K/mm3 02/12/20 15:46 Monocytes # (Manual) 0.8 K/mm3 (0.0-0.8) 02/12/20 15:46 Eosinophils # (Manual) 0.0 K/mm3 (0.0-0.4) 02/12/20 15:46 Basophils # (Manual) 0.0 K/mm3 (0.0-0.1) 02/12/20 15:46 Metamyelocytes # 0.0 K/mm3 02/12/20 15:46 Myelocytes # 0.0 K/mm3 02/12/20 15:46 Promyelocytes # 0.0 K/mm3 02/12/20 15:46 Blast Cells # 0.0 K/mm3 02/12/20 15:46 Pathologist Review [employer] 02/12/20 15:46 WBC Morphology Not Reportable 02/12/20 15:46 Hypersegmented Neuts Not Reportable 02/12/20 15:46 Hyposegmented Neuts Not Reportable 02/12/20 15:46 Hypogranular Neuts Not Reportable 02/12/20 15:46 Smudge Cells Not Reportable 02/12/20 15:46 Toxic Granulation Not Reportable 02/12/20 15:46 Toxic Vacuolation Not Reportable 02/12/20 15:46 Dohle Bodies Not Reportable 02/12/20 15:46 Pelger-Huet Anomaly Not Reportable 02/12/20 15:46 Cherelle Rods Not Reportable 02/12/20 15:46 Platelet Estimate Consistent w auto 02/12/20 15:46 Clumped Platelets Not Reportable 02/12/20 15:46 Plt Clumps, EDTA Not Reportable 02/12/20 15:46 Large Platelets Not Reportable 02/12/20 15:46 Giant Platelets Not Reportable 02/12/20 15:46 Platelet Satelliting Not Reportable 02/12/20 15:46 Plt Morphology Comment Not Reportable 02/12/20 15:46 RBC Morphology Normal 02/12/20 15:46 Dimorphic RBCs Not Reportable 02/12/20 15:46 Polychromasia Not Reportable 02/12/20 15:46 Hypochromasia Not Reportable 02/12/20 15:46 Poikilocytosis Not Reportable 02/12/20 15:46 Anisocytosis Not Reportable 02/12/20 15:46 Microcytosis Not Reportable 02/12/20 15:46 Macrocytosis Not Reportable 02/12/20 15:46 Spherocytes Not Reportable 02/12/20 15:46 Pappenheimer Bodies Not Reportable 02/12/20 15:46 Sickle Cells Not Reportable 02/12/20 15:46 Target Cells Not Reportable 02/12/20 15:46 Tear Drop Cells Not Reportable 02/12/20 15:46 Ovalocytes Not Reportable 02/12/20 15:46 Helmet Cells Not Reportable 02/12/20 15:46 [place] Bodies Not Reportable 02/12/20 15:46 [place] Rings Not Reportable 02/12/20 15:46 [place] Cells Not Reportable 02/12/20 15:46 Bite Cells Not Reportable 02/12/20 15:46 Crenated Cell Not Reportable 02/12/20 15:46 Elliptocytes Not Reportable 02/12/20 15:46 Acanthocytes (Spur) Not Reportable 02/12/20 15:46 Rouleaux Not Reportable 02/12/20 15:46 Hemoglobin C Crystals Not Reportable 02/12/20 15:46 Schistocytes Not Reportable 02/12/20 15:46 Malaria parasites Not Reportable 02/12/20 15:46 Christian Bodies Not Reportable 02/12/20 15:46 Hem Pathologist Commnt No 02/12/20 15:46 Sodium 133 mmol/L (137-145) L 02/12/20 15:46 Potassium 4.0 mmol/L (3.6-5.0) 02/12/20 15:46 Chloride 93.1 mmol/L (98-107) L 02/12/20 15:46 Carbon Dioxide 32 mmol/L (22-30) H 02/12/20 15:46 Anion Gap 12 mmol/L 02/12/20 15:46 BUN 59 mg/dL (9-20) H 02/12/20 15:46 Creatinine 2.4 mg/dL (0.8-1.3) H 02/12/20 15:46 Estimated GFR 28 ml/min 02/12/20 15:46 BUN/Creatinine Ratio 25 % 02/12/20 15:46 Glucose 98 mg/dL (75-100) 02/12/20 15:46 POC Glucose 68 mg/dL (70-105) L 02/13/20 07:46 Calcium 8.0 mg/dL (8.4-10.2) L 02/12/20 15:46 Total Bilirubin 0.30 mg/dL (0.1-1.2) 02/12/20 15:46 AST 260 units/L (5-40) H 02/12/20 15:46 ALT 65 units/L (7-56) H 02/12/20 15:46 Alkaline Phosphatase 66 units/L (35-129) 02/12/20 15:46 Total Creatine Kinase 9691 units/L (55-170) H 02/12/20 15:46 Troponin T 0.066 ng/mL (0.00-0.029) H 02/12/20 15:46 Total Protein 6.4 g/dL (6.3-8.2) 02/12/20 15:46 Albumin 2.7 g/dL (3.9-5) L 02/12/20 15:46 Albumin/Globulin Ratio 0.7 % 02/12/20 15:46 Triglycerides 189 mg/dL (2-149) H 02/12/20 15:46 Cholesterol 143 mg/dL (50-199) 02/12/20 15:46 LDL Cholesterol Direct 69 mg/dL (50-130) 02/12/20 15:46 HDL Cholesterol 34 mg/dL (40-59) L 02/12/20 15:46 Cholesterol/HDL Ratio 4.20 % 02/12/20 15:46 TSH 33.890 mlU/mL (0.270-4.200) H 02/12/20 15:46 Free T4 0.74 ng/dL (0.76-1.46) L 02/12/20 Unknown Urine Color Yellow (Yellow) 02/12/20 17:42 Urine Turbidity Slightly-cloudy (Clear) 02/12/20 17:42 Urine pH 5.0 (5.0-7.0) 02/12/20 17:42 Ur Specific [place] 1.014 (1.003-1.030) 02/12/20 17:42 Urine Protein >500 mg/dL (Negative) 02/12/20 17:42 Urine Glucose (UA) Neg mg/dL (Negative) 02/12/20 17:42 Urine Ketones Neg mg/dL (Negative) 02/12/20 17:42 Urine Blood Lg (Negative) 02/12/20 17:42 Urine Nitrite Neg (Negative) 02/12/20 17:42 Urine Bilirubin Neg (Negative) 02/12/20 17:42 Urine Urobilinogen < 2.0 mg/dL (<2.0) 02/12/20 17:42 Ur Leukocyte Esterase Neg (Negative) 02/12/20 17:42 Urine WBC (Auto) 13.0 /HPF (0.0-6.0) H 02/12/20 17:42 Urine RBC (Auto) 5.0 /HPF (0.0-6.0) 02/12/20 17:42 U Epithel Cells (Auto) < 1.0 /HPF (0-13.0) 02/12/20 17:42 Hyaline Casts 2 /LPF 02/12/20 17:42 Urine Mucus Few /HPF 02/12/20 17:42 Urine Opiates Screen Negative 02/12/20 17:42 Urine Methadone Screen Negative 02/12/20 17:42 Ur Barbiturates Screen Negative 02/12/20 17:42 Ur Phencyclidine Scrn Negative 02/12/20 17:42 Ur Amphetamines Screen Negative 02/12/20 17:42 U Benzodiazepines Scrn Negative 02/12/20 17:42 Urine Cocaine Screen Negative 02/12/20 17:42 U Marijuana (THC) Screen Negative 02/12/20 17:42 Drugs of Abuse Note Disclamer 02/12/20 17:42 Plasma/Serum Alcohol < 0.01 % (0-0.07) 02/12/20 15:46 Webb/IV: Voiding Method Urinal IV Catheter Type [Right INT / Saline Lock Antecubital] Active Medications - Current Medications Current Medications: Generic Name Dose Route Start Last Admin Trade Name Freq PRN Reason Stop Dose Admin Acetaminophen 650 mg 02/12/20 22:39 02/13/20 08:05 Acetaminophen 325 Mg Tab PO 650 mg Q4H PRN Administration Pain MILD(1-3)/Fever >100.5/PETER Amitriptyline HCl 25 mg 02/13/20 22:00 Amitriptyline 25 Mg Tab PO QHS RYAN Dextrose 0 ml 02/12/20 22:39 Dextrose 50% In Water (25gm) 50 Ml Syringe IV Q30MIN PRN Hypoglycemia Protocol Heparin Sodium (Porcine) 5,000 unit 02/13/20 06:00 02/13/20 05:26 Heparin 5,000 Unit/1 Ml Vial SUB-Q 5,000 unit Q8HR RYAN Administration Sodium Chloride 1,000 mls @ 150 mls/hr 02/12/20 22:45 02/13/20 05:23 Nacl 0.9% 1000 Ml IV 150 mls/hr DIRECT RYAN Administration Insulin Human Lispro 0 unit 02/13/20 07:30 02/13/20 10:51 Insulin Lispro 100 Unit/Ml Vial 3 Ml SUB-Q Not Given ACHS RYAN Protocol Levothyroxine Sodium 100 mcg 02/13/20 06:00 02/13/20 05:26 Levothyroxine 100 Mcg Tab PO 100 mcg 0600 RYAN Administration Magnesium Hydroxide 30 ml 02/12/20 22:39 Magnesium Hydroxide (Mom) Oral Liqd Udc PO Q4H PRN Constipation Morphine Sulfate 2 mg 02/12/20 22:39 02/13/20 07:31 Morphine 2 Mg/1 Ml Inj IV 2 mg Q4H PRN Administration Pain, Moderate (4-6) Ondansetron HCl 4 mg 02/12/20 22:39 02/12/20 23:06 Ondansetron 4 Mg/2 Ml Inj IV 4 mg Q8H PRN Administration Nausea And Vomiting Sodium Chloride 10 ml 02/13/20 10:00 02/13/20 10:51 Sodium Chloride 0.9% 10 Ml Flush Syringe IV Not Given BID RYAN Sodium Chloride 10 ml 02/12/20 22:39 Sodium Chloride 0.9% 10 Ml Flush Syringe IV PRN PRN LINE FLUSH Nutrition/Malnutrition Assess - Dietary Evaluation Nutrition/Malnutrition Findings: Nutrition Notes Start: 02/13/20 10:18 Freq: Status: Active Protocol: Document 02/13/20 10:20 LM (Rec: 02/13/20 10:26 LM [id number]) Nutrition Notes Need for Assessment generated from: MD Order,heel gouger,MST Initial or Follow up Assessment Current Diagnosis Acute Kidney Injury,Diabetes, Hypertension Other Pertinent Diagnosis multiple wounds,SIRS, Rhabdomyolysis, hypothyroid, throat Ca (in remission) Current Diet Cardiac/consisent CHO Labs/Tests POC glu 68 Pertinent Medications NS at 150ml/hr Height 5 ft 8 in Weight 62.142 kg [place] Body Weight (kg) 70.00 BMI 20.8 Weight Status Appropriate Subjective/Other Information MD consult for diet education. Rn screen for MST. Pt asleep at time of visit. Pt has wounds. Burn Absent Trauma Absent Minimum of two criteria No physical signs of malnutrition #1 Nutrition Diagnosis Increased nutrient needs ( specify in comment below) Comments: Protein Etiology Wound healing As Evidenced by Signs and Symptoms multiple wounds Is patient on ventilator? No Is Patient Ambulatory and/or Out of Bed No REE-([facility]-confined to bed) 5629.912 Calculation Used for Recommendations [facility] Additional Notes Protein: 50-93g (0.8-1.5g/kg) Fluid: 1ml/kcal Nutrition Intervention Change Diet Order: Continue Goal #1 Meet at least 75% of energy and protein needs Goal #2 Wound healing Anticipated Discharge Needs: cardiac/consistent CHO Follow-Up By: 02/17/20 Additional Comments F/u for diet ed needs, full assessment
[2020-02-13 12:48] LABS: Hematocrit 24.7 % (35.5-45.6); Hemoglobin 8.4 gm/dl (11.8-15.2); Mean Corpuscular HGB Conc 34 % (32-34); Mean Corpuscular Volume 90 fl (84-94); Platelet Count 199 K/mm3 (140-440); Red Blood Count 2.74 M/mm3 (3.65-5.03); Red Cell Distribution Width 14.1 % (13.2-15.2)
[2020-02-13 12:57] LABS: INR 1.01 (0.87-1.13)
[2020-02-13 13:08] LABS: Calcium 7.4 mg/dL (8.4-10.2)
[2020-02-13] MEDS: cefTRIAXone/NS 1 GM/50 ML 1 GM/50 ML BAG IV SCH (14:43)
[2020-02-13 16:29] LABS: Total Cells Counted 100
[2020-02-13 16:30] LABS: Platelet Estimate Consistent w Auto; RBC Morphology Normal
--- NOTE | 2020-02-13 17:46 | Consultation ---
History of Present Illness - Reason for Consult Consult date: 02/13/20 acute renal failure - History of Present Illness This is a 84-year-old man with history of diabetes mellitus type 2, hyperte nsion, history of throat cancer currently in remission and chronic back pain who presented with complaints of generalized body aches and dizziness. He also noted an episode of lightheadedness with subsequent fall without loss of consciousness. Work-up in the emergency department was notable for le ukocytosis, elevated CPK and acute kidney injury. Patient was subsequently admitted. Nephrology was consulted for acute kidney injury Past History Past Medical History: arthritis, diabetes, GERD, hypertension, hypothyroidism, other (Chronic back pain, anxiety, throat cancer on remission) Past Surgical History: appendectomy, cholecystectomy Social history: smoking Family history: no significant family history Medications and Allergies Allergies Allergy/AdvReac Type Severity Reaction Status Date / Time No Known Allergies Allergy Verified 08/16/18 11:38 Home Medications Medication Instructions Recorded Confirmed Last Taken Type Amitriptyline [Elavil] 25 mg PO QHS tablet 11/22/17 02/13/20 Unknown Rx Ondansetron [Zofran ODT TAB] 8 mg PO Q8HR tab.rapdis 11/22/17 02/13/20 Unknown Rx Prochlorperazine [Compazine] 10 mg PO Q6HR PRN tablet 11/22/17 02/13/20 Unknown Rx lisinopriL [Zestril TAB] 10 mg PO QDAY tablet 11/22/17 02/13/20 Unknown Rx Levothyroxine 100 mcg PO DAILY 02/12/20 02/12/20 Unknown History Mupirocin 1 tab PO BID 02/12/20 02/13/20 Unknown History Tramadol HCl/Acetaminophen 37.5 mg PO BID 02/12/20 02/13/20 Unknown History Active Meds: Active Medications Acetaminophen (Acetaminophen 325 Mg Tab) 650 mg PO Q4H PRN PRN Reason: Pain MILD(1-3)/Fever >100.5/PETER Last Admin: 02/13/20 08:05 Dose: 650 mg Documented by: Amitriptyline HCl (Amitriptyline 25 Mg Tab) 25 mg PO QHS RYAN Dextrose (Dextrose 50% In Water (25gm) 50 Ml Syringe) 0 ml IV Q30MIN PRN; Protocol PRN Reason: Hypoglycemia Heparin Sodium (Porcine) (Heparin 5,000 Unit/1 Ml Vial) 5,000 unit SUB-Q Q8HR [facility] Last Admin: 02/13/20 14:43 Dose: 5,000 unit Documented by: Sodium Chloride (Nacl 0.9% 1000 Ml) 1,000 mls @ 150 mls/hr IV DIRECT [facility] Last Admin: 02/13/20 14:45 Dose: 150 mls/hr Documented by: Ceftriaxone Sodium (Rocephin/Ns 1 Gm/50 Ml) 1 gm in 50 mls @ 100 mls/hr IV Q24H [facility]; Protocol Last Admin: 02/13/20 14:43 Dose: 100 mls/hr Documented by: Insulin Human Lispro (Insulin Lispro 100 Unit/Ml Vial 3 Ml) 0 unit SUB-Q ACHS [facility]; Protocol Last Admin: 02/13/20 16:37 Dose: Not Given Documented by: Levothyroxine Sodium (Levothyroxine 100 Mcg Tab) 100 mcg PO 0600 [facility] Last Admin: 02/13/20 05:26 Dose: 100 mcg Documented by: Magnesium Hydroxide (Magnesium Hydroxide (Mom) Oral Liqd Udc) 30 ml PO Q4H PRN PRN Reason: Constipation Morphine Sulfate (Morphine 2 Mg/1 Ml Inj) 2 mg IV Q4H PRN PRN Reason: Pain, Moderate (4-6) Last Admin: 02/13/20 07:31 Dose: 2 mg Documented by: Ondansetron HCl (Ondansetron 4 Mg/2 Ml Inj) 4 mg IV Q8H PRN PRN Reason: Nausea And Vomiting Last Admin: 02/12/20 23:06 Dose: 4 mg Documented by: Sodium Chloride (Sodium Chloride 0.9% 10 Ml Flush Syringe) 10 ml IV BID [facility] Last Admin: 02/13/20 10:51 Dose: Not Given Documented by: Sodium Chloride (Sodium Chloride 0.9% 10 Ml Flush Syringe) 10 ml IV PRN PRN PRN Reason: LINE FLUSH Review of Systems Constitutional: weakness, no fever Eyes: bilateral: blurred vision (No), diplopia (No) Ears, nose, mouth and throat: no nose pain, no nasal congestion Cardiovascular: lightheadedness, no chest pain Respiratory: no cough, no shortness of breath Gastrointestinal: no abdominal pain, no nausea, no vomiting Musculoskeletal: low back pain, myalgias, no arm numbness/tingling Integumentary: no rash, no pruritis Neurological: weakness, no syncope Psychiatric: no disorientation, no hallucinations Endocrine: no cold intolerance, no heat intolerance Hematologic/Lymphatic: no easy bleeding Allergic/Immunologic: no urticaria Exam - Vital Signs Vital signs: Vital Signs BP Pulse Ox 114/57 99 02/12/20 14:30 02/12/20 14:30 - Physical Exam Narrative exam: Constitutional: no acute distress Head: NC/AT Neck: supple Lungs: clear to auscultation CV: RRR, no M/R/G Abdomen: soft, non-tender, bowel sounds present Back: nontender Extremities: no edema, pulses WNL Skin: intact Neuro: no focal deficits, alert and oriented x4 Results - Lab Results 02/13/20 12:29 02/13/20 12:29 Most recent lab results Calcium 7.4 mg/dL (8.4-10.2) L 02/13/20 12:29 Assessment and Plan Assessment * Acute kidney injury, unknown baseline * Rhabdomyolysis, mild * Hypocalcemia * Anemia * Hypertension, uncontrolled * Diabetes mellitus Recommendations * Continue IV hydration * Trend CPK * Check renal ultrasound * Check ionized calcium * Check phosphorus * Check renal studies * Continue home antihypertensives * Renally dose medications * Avoid nephrotoxins * Strict I's/O * Keep glucose less than 200 mg/dL
[2020-02-13] MEDS: AMITRIPTYLINE 25 MG TAB PO SCH (22:45)
[2020-02-13] MEDS: guaiFENesin/CODEINE 100-10MG ORAL LIQD 5 ML PO PRN (22:45)
[2020-02-14] MEDS: SODIUM CHLORIDE 0.9% 1000 ML 1,000 ML IV SCH ×4 (00:43→19:41)
[2020-02-14] MEDS: ACETAMINOPHEN 325 MG TAB PO PRN ×3 (00:43→19:43)
[2020-02-14] MEDS: HEPARIN 5,000 UNIT/1 ML VIAL SUB-Q SCH ×4 (05:41→22:09)
[2020-02-14] MEDS: LEVOTHYROXINE 100 MCG TAB PO SCH (05:41)
[2020-02-14 07:52] LABS: Hemoglobin 9.5 gm/dl (11.8-15.2); Mean Corpuscular HGB Conc 34 % (32-34); Mean Corpuscular Volume 90 fl (84-94); Platelet Count 178 K/mm3 (140-440); Red Blood Count 3.11 M/mm3 (3.65-5.03); Red Cell Distribution Width 14.1 % (13.2-15.2)
[2020-02-14 08:16] LABS: Calcium 7.5 mg/dL (8.4-10.2)
[2020-02-14 08:58] LABS: Anisocytosis 1+; Helmet Cells Rare; Total Cells Counted 100
[2020-02-14 08:59] LABS: Platelet Estimate Consistent w Auto
[2020-02-14] MEDS: INSULIN LISPRO 100 UNIT/ML VIAL 3 mL SUB-Q SCH ×3 (10:08→18:53)
--- NOTE | 2020-02-14 11:09 | Progress Note ---
Assessment and Plan Assessment and plan: Acute renal failure. Etiology secondary to acute kidney injury from vasomotor nephropathy/dehydration. Nephrology consultation pending. Rhabdomyolysis. Patient with elevated CK level. Continue to monitor Elevated troponin. Patient denies chest pain. Check echocardiogram. Hypothyroidism. TSH significantly elevated. Resume Synthroid and consider increasing dose if patient has been compliant with medications. Sepsis. Patient has significant leukocytosis. Afebrile. Etiology likely secondary to UTI. Follow-up urine culture. UTI. Follow-up urine and blood cultures. Diabetes mellitus type 2. Continue Accu-Cheks and sliding scale insulin. Tight glycemic control. Hypertension. DVT prophylaxis. Continue subcutaneous heparin. 02/14/2020. Check Covid testing. Hold on restarting lisinopril for blood pressure given the acute renal failure. Start Procardia 60 mg twice daily. Rhabdomyolysis and kidney function improved with IV fluid hydration. Continue to monitor. PT evaluation for deconditioning. Await echocardiogram History Interval history: Patient with complaints of cough, fever and sore throat. Hospitalist Physical - Constitutional Vitals: Temp Pulse Resp BP Pulse Ox 102.3 F H 77 18 194/78 90 02/14/20 07:50 02/14/20 07:50 02/14/20 07:50 02/14/20 07:50 02/14/20 07:50 General appearance: Present: no acute distress, well-nourished - EENT Eyes: Present: PERRL, EOM intact ENT: hearing intact, clear oral mucosa, dentition normal - Neck Neck: Present: supple, normal ROM - Respiratory Respiratory effort: normal Respiratory: bilateral: CTA - Cardiovascular Rhythm: regular Heart Sounds: Present: S1 & S2. Absent: gallop, rub - Extremities Extremities: no ischemia, No edema, Full ROM - Abdominal General gastrointestinal: soft, non-tender, non-distended, normal bowel sounds - Integumentary Integumentary: Present: clear, warm, dry - Neurologic Neurologic: CNII-XII intact, moves all extremities HEART Score - HEART Score Troponin: Troponin T 0.045 ng/mL (0.00-0.029) H D 02/13/20 12:29 Results - Labs CBC & Chem 7: 02/14/20 07:38 02/14/20 07:38 Labs: Laboratory Last Values WBC 6.8 K/mm3 (4.5-11.0) 02/14/20 07:38 RBC 3.11 M/mm3 (3.65-5.03) L 02/14/20 07:38 Hgb 9.5 gm/dl (11.8-15.2) L 02/14/20 07:38 Hct 28.0 % (35.5-45.6) L 02/14/20 07:38 MCV 90 fl (84-94) 02/14/20 07:38 MCH 31 pg (28-32) 02/14/20 07:38 MCHC 34 % (32-34) 02/14/20 07:38 RDW 14.1 % (13.2-15.2) 02/14/20 07:38 Plt Count 178 K/mm3 (140-440) 02/14/20 07:38 Add Manual Diff Complete 02/14/20 07:38 Total Counted 100 02/14/20 07:38 Seg Neutrophils % Educational Adviser 02/14/20 07:38 Seg Neuts % (Manual) 99.0 % (40.0-70.0) H 02/14/20 07:38 Band Neutrophils % 26.0 % 02/12/20 15:46 Lymphocytes % (Manual) 1.0 % (13.4-35.0) L 02/14/20 07:38 Monocytes % (Manual) 3.0 % (0.0-7.3) 02/12/20 15:46 Nucleated RBC % Not Reportable 02/14/20 07:38 Seg Neutrophils # Man 6.7 K/mm3 (1.8-7.7) 02/14/20 07:38 Band Neutrophils # 0.0 K/mm3 02/14/20 07:38 Lymphocytes # (Manual) 0.1 K/mm3 (1.2-5.4) L 02/14/20 07:38 Abs React Lymphs (Man) 0.0 K/mm3 02/14/20 07:38 Monocytes # (Manual) 0.0 K/mm3 (0.0-0.8) 02/14/20 07:38 Eosinophils # (Manual) 0.0 K/mm3 (0.0-0.4) 02/14/20 07:38 Basophils # (Manual) 0.0 K/mm3 (0.0-0.1) 02/14/20 07:38 Metamyelocytes # 0.0 K/mm3 02/14/20 07:38 Myelocytes # 0.0 K/mm3 02/14/20 07:38 Promyelocytes # 0.0 K/mm3 02/14/20 07:38 Blast Cells # 0.0 K/mm3 02/14/20 07:38 Pathologist Review Educational Adviser 02/12/20 15:46 WBC Morphology Not Reportable 02/14/20 07:38 Hypersegmented Neuts Not Reportable 02/14/20 07:38 Hyposegmented Neuts Not Reportable 02/14/20 07:38 Hypogranular Neuts Not Reportable 02/14/20 07:38 Smudge Cells Not Reportable 02/14/20 07:38 Toxic Granulation Not Reportable 02/14/20 07:38 Toxic Vacuolation Not Reportable 02/14/20 07:38 Dohle Bodies Not Reportable 02/14/20 07:38 Pelger-Huet Anomaly Not Reportable 02/14/20 07:38 Cherelle Rods Not Reportable 02/14/20 07:38 Platelet Estimate Consistent w auto 02/14/20 07:38 Clumped Platelets Not Reportable 02/14/20 07:38 Plt Clumps, EDTA Not Reportable 02/14/20 07:38 Large Platelets Not Reportable 02/14/20 07:38 Giant Platelets Not Reportable 02/14/20 07:38 Platelet Satelliting Not Reportable 02/14/20 07:38 Plt Morphology Comment Not Reportable 02/14/20 07:38 RBC Morphology Not Reportable 02/14/20 07:38 Dimorphic RBCs Not Reportable 02/14/20 07:38 Polychromasia Not Reportable 02/14/20 07:38 Hypochromasia Not Reportable 02/14/20 07:38 Poikilocytosis Not Reportable 02/14/20 07:38 Anisocytosis 1+ 02/14/20 07:38 Microcytosis Not Reportable 02/14/20 07:38 Macrocytosis Not Reportable 02/14/20 07:38 Spherocytes Not Reportable 02/14/20 07:38 Pappenheimer Bodies Not Reportable 02/14/20 07:38 Sickle Cells Not Reportable 02/14/20 07:38 Target Cells Not Reportable 02/14/20 07:38 Tear Drop Cells Not Reportable 02/14/20 07:38 Ovalocytes Not Reportable 02/14/20 07:38 Helmet Cells Rare 02/14/20 07:38 [place] Bodies Not Reportable 02/14/20 07:38 [place] Rings Not Reportable 02/14/20 07:38 [place] Cells Not Reportable 02/14/20 07:38 Bite Cells Not Reportable 02/14/20 07:38 Crenated Cell Not Reportable 02/14/20 07:38 Elliptocytes Not Reportable 02/14/20 07:38 Acanthocytes (Spur) Not Reportable 02/14/20 07:38 Rouleaux Not Reportable 02/14/20 07:38 Hemoglobin C Crystals Not Reportable 02/14/20 07:38 Schistocytes Not Reportable 02/14/20 07:38 Malaria parasites Not Reportable 02/14/20 07:38 [place] Bodies Not Reportable 02/14/20 07:38 Hem Pathologist Commnt No 02/14/20 07:38 PT 13.2 Sec. (12.2-14.9) 02/13/20 12:29 INR 1.01 (0.87-1.13) 02/13/20 12:29 Sodium 139 mmol/L (137-145) 02/14/20 07:38 Potassium 3.5 mmol/L (3.6-5.0) L 02/14/20 07:38 Chloride 102.7 mmol/L (98-107) 02/14/20 07:38 Carbon Dioxide 27 mmol/L (22-30) 02/14/20 07:38 Anion Gap 13 mmol/L 02/14/20 07:38 BUN 34 mg/dL (9-20) H 02/14/20 07:38 Creatinine 1.3 mg/dL (0.8-1.3) 02/14/20 07:38 Estimated GFR 57 ml/min 02/14/20 07:38 BUN/Creatinine Ratio 26 % 02/14/20 07:38 Glucose 87 mg/dL (75-100) 02/14/20 07:38 POC Glucose 75 mg/dL (70-105) 02/14/20 08:39 Calcium 7.5 mg/dL (8.4-10.2) L 02/14/20 07:38 Total Bilirubin 0.30 mg/dL (0.1-1.2) 02/12/20 15:46 AST 260 units/L (5-40) H 02/12/20 15:46 ALT 65 units/L (7-56) H 02/12/20 15:46 Alkaline Phosphatase 66 units/L (35-129) 02/12/20 15:46 Total Creatine Kinase 3825 units/L (55-170) H 02/14/20 07:38 Troponin T 0.045 ng/mL (0.00-0.029) H D 02/13/20 12:29 Total Protein 6.4 g/dL (6.3-8.2) 02/12/20 15:46 Albumin 2.7 g/dL (3.9-5) L 02/12/20 15:46 Albumin/Globulin Ratio 0.7 % 02/12/20 15:46 Triglycerides 189 mg/dL (2-149) H 02/12/20 15:46 Cholesterol 143 mg/dL (50-199) 02/12/20 15:46 LDL Cholesterol Direct 69 mg/dL (50-130) 02/12/20 15:46 HDL Cholesterol 34 mg/dL (40-59) L 02/12/20 15:46 Cholesterol/HDL Ratio 4.20 % 02/12/20 15:46 TSH 33.890 mlU/mL (0.270-4.200) H 02/12/20 15:46 Free T4 0.74 ng/dL (0.76-1.46) L 02/12/20 Unknown Urine Color Yellow (Yellow) 02/12/20 17:42 Urine Turbidity Slightly-cloudy (Clear) 02/12/20 17:42 Urine pH 5.0 (5.0-7.0) 02/12/20 17:42 Ur Specific [place] 1.014 (1.003-1.030) 02/12/20 17:42 Urine Protein >500 mg/dL (Negative) 02/12/20 17:42 Urine Glucose (UA) Neg mg/dL (Negative) 02/12/20 17:42 Urine Ketones Neg mg/dL (Negative) 02/12/20 17:42 Urine Blood Lg (Negative) 02/12/20 17:42 Urine Nitrite Neg (Negative) 02/12/20 17:42 Urine Bilirubin Neg (Negative) 02/12/20 17:42 Urine Urobilinogen < 2.0 mg/dL (<2.0) 02/12/20 17:42 Ur Leukocyte Esterase Neg (Negative) 02/12/20 17:42 Urine WBC (Auto) 13.0 /HPF (0.0-6.0) H 02/12/20 17:42 Urine RBC (Auto) 5.0 /HPF (0.0-6.0) 02/12/20 17:42 U Epithel Cells (Auto) < 1.0 /HPF (0-13.0) 02/12/20 17:42 Hyaline Casts 2 /LPF 02/12/20 17:42 Urine Mucus Few /HPF 02/12/20 17:42 Urine Opiates Screen Negative 02/12/20 17:42 Urine Methadone Screen Negative 02/12/20 17:42 Ur Barbiturates Screen Negative 02/12/20 17:42 Ur Phencyclidine Scrn Negative 02/12/20 17:42 Ur Amphetamines Screen Negative 02/12/20 17:42 U Benzodiazepines Scrn Negative 02/12/20 17:42 Urine Cocaine Screen Negative 02/12/20 17:42 U Marijuana (THC) Screen Negative 02/12/20 17:42 Drugs of Abuse Note Disclamer 02/12/20 17:42 Plasma/Serum Alcohol < 0.01 % (0-0.07) 02/12/20 15:46 Microbiology: Microbiology 02/13/20 12:29 Peripheral/Venous Blood Culture - Preliminary Culture in Progress 02/13/20 12:29 Peripheral/Venous Blood Culture - Preliminary Culture in Progress Webb/IV: Voiding Method Urinal IV Catheter Type [Left Forearm Peripheral IV ] IV Catheter Type [Right INT / Saline Lock Antecubital] Active Medications - Current Medications Current Medications: Generic Name Dose Route Start Last Admin Trade Name Freq PRN Reason Stop Dose Admin Acetaminophen 650 mg 02/12/20 22:39 02/14/20 09:25 Acetaminophen 325 Mg Tab PO 650 mg Q4H PRN Administration Pain MILD(1-3)/Fever >100.5/PETER Amitriptyline HCl 25 mg 02/13/20 22:00 02/13/20 22:45 Amitriptyline 25 Mg Tab PO 25 mg QHS RYAN Administration Dextrose 0 ml 02/12/20 22:39 Dextrose 50% In Water (25gm) 50 Ml Syringe IV Q30MIN PRN Hypoglycemia Protocol Heparin Sodium (Porcine) 5,000 unit 02/13/20 06:00 02/14/20 05:41 Heparin 5,000 Unit/1 Ml Vial SUB-Q 5,000 unit Q8HR RYAN Administration Sodium Chloride 1,000 mls @ 150 mls/hr 02/12/20 22:45 02/14/20 05:45 Nacl 0.9% 1000 Ml IV 150 mls/hr DIRECT RYAN Administration Ceftriaxone Sodium 1 gm in 50 mls @ 100 mls/hr 02/13/20 12:00 02/13/20 14:43 Rocephin/Ns 1 Gm/50 Ml IV 100 mls/hr Q24H RYAN Administration Protocol Insulin Human Lispro 0 unit 02/13/20 07:30 02/14/20 10:08 Insulin Lispro 100 Unit/Ml Vial 3 Ml SUB-Q Not Given ACHS RYAN Protocol Levothyroxine Sodium 100 mcg 02/13/20 06:00 02/14/20 05:41 Levothyroxine 100 Mcg Tab PO 100 mcg 0600 RYAN Administration Magnesium Hydroxide 30 ml 02/12/20 22:39 Magnesium Hydroxide (Mom) Oral Liqd Udc PO Q4H PRN Constipation Morphine Sulfate 2 mg 02/12/20 22:39 02/13/20 07:31 Morphine 2 Mg/1 Ml Inj IV 2 mg Q4H PRN Administration Pain, Moderate (4-6) Ondansetron HCl 4 mg 02/12/20 22:39 02/12/20 23:06 Ondansetron 4 Mg/2 Ml Inj IV 4 mg Q8H PRN Administration Nausea And Vomiting Pseudoephedrine/Acetam/Chlorphenir 10 ml 02/13/20 21:25 02/13/20 22:45 Guaifenesin/Codeine 100-10mg Oral Liqd 5 Ml PO 10 ml Q6H PRN Administration Cough Sodium Chloride 10 ml 02/13/20 10:00 02/14/20 10:08 Sodium Chloride 0.9% 10 Ml Flush Syringe IV 10 ml BID RYAN Administration Sodium Chloride 10 ml 02/12/20 22:39 Sodium Chloride 0.9% 10 Ml Flush Syringe IV PRN PRN LINE FLUSH Nutrition/Malnutrition Assess - Dietary Evaluation Nutrition/Malnutrition Findings: Nutrition Notes Start: 02/13/20 10:18 Freq: Status: Active Protocol: Document 02/13/20 10:20 LM (Rec: 02/13/20 10:26 LM [id number]) Nutrition Notes Need for Assessment 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 Rn screen for MST. Pt asleep at time of visit. Pt has wounds. Burn Absent Trauma Absent Minimum of two criteria No physical signs of malnutrition #1 Nutrition Diagnosis Increased nutrient needs ( specify in comment below) Comments: Protein Etiology Wound healing As Evidenced by Signs and Symptoms multiple wounds Is patient on ventilator? No Is Patient Ambulatory and/or Out of Bed No REE-([place]. Jeor-confined to bed) [phone] Calculation [facility] for [facility]ations [facility] Additional Notes Protein: 50-93g (0.8-1.5g/kg) Fluid: 1ml/kcal Nutrition Intervention Change Diet Order: Continue Goal #1 Meet at least 75% of energy and protein needs Goal #2 Wound healing Anticipated Discharge Needs: cardiac/consistent CHO Follow-Up By: 02/17/20 Additional Comments F/u for diet ed needs, full assessment
[2020-02-14] MEDS: NIFEdipine XL 60 MG TAB PO SCH ×2 (13:39→19:45)
[2020-02-14] MEDS: LISINOPRIL 10 MG TAB PO SCH (13:39)
[2020-02-14] MEDS: cefTRIAXone/NS 1 GM/50 ML 1 GM/50 ML BAG IV SCH (13:39)
[2020-02-14] MEDS: guaiFENesin/CODEINE 100-10MG ORAL LIQD 5 ML PO PRN (19:43)
[2020-02-14] MEDS: AMITRIPTYLINE 25 MG TAB PO SCH (19:44)
--- NOTE | 2020-02-14 20:34 | Progress Note ---
Assessment and Plan Assessment * Acute kidney injury, unknown baseline * Rhabdomyolysis, mild * Hypocalcemia, mild * Hypokalemia, mild * Anemia * Hypertension, uncontrolled * Diabetes mellitus Recommendations * Can discontinue IV hydration and encourage p.o. hydration * Trend CPK * Monitor calcium and potassium, replete as needed * Continue home antihypertensives * Renally dose medications * Avoid nephrotoxins * Strict I's/O * Keep glucose less than 200 mg/dL * Renal function has improved to within normal range, will sign off. Please call with questions. Subjective Date of service: 02/14/20 Principal diagnosis: Acute kidney injury Interval history: Patient was seen for his renal issues Nursing, interdisciplinary and consult notes were reviewed Vitals, input and output, medications and labs were reviewed Good urine output, on 3 L of oxygen via nasal cannula Objective - Exam Narrative Exam: Constitutional: no acute distress Head: NC/AT Neck: supple Lungs: clear to auscultation CV: RRR, no M/R/G Abdomen: soft, non-tender, bowel sounds present Back: nontender Extremities: no edema, pulses WNL Skin: intact Neuro: no focal deficits, alert and oriented x4 - Vital Signs Vital signs: Vital Signs - 12hr 02/14/20 02/14/20 02/14/20 10:00 12:00 12:36 Temperature 99.5 F Pulse Rate 74 Respiratory 20 19 Rate Blood Pressure 125/53 O2 Sat by Pulse Oximetry 02/14/20 02/14/20 19:40 19:41 Temperature 100.4 F H Pulse Rate 61 Respiratory 17 Rate Blood Pressure 101/42 O2 Sat by Pulse 87 92 Oximetry - Lab 02/14/20 07:38 02/14/20 07:38 Most recent lab results Calcium 7.5 mg/dL (8.4-10.2) L 02/14/20 07:38 Medications & Allergies - Medications Allergies/Adverse Reactions: Allergies No Known Allergies Allergy (Verified 08/16/18 11:38) Home Medications: Home Medications Medication Instructions Recorded Confirmed Last Taken Type Amitriptyline [Elavil] 25 mg PO QHS tablet 11/22/17 02/13/20 Unknown Rx Ondansetron [Zofran ODT TAB] 8 mg PO Q8HR tab.rapdis 11/22/17 02/13/20 Unknown Rx Prochlorperazine [Compazine] 10 mg PO Q6HR PRN tablet 11/22/17 02/13/20 Unknown Rx lisinopriL [Zestril TAB] 10 mg PO QDAY tablet 11/22/17 02/13/20 Unknown Rx Levothyroxine 100 mcg PO DAILY 02/12/20 02/12/20 Unknown History Mupirocin 1 tab PO BID 02/12/20 02/13/20 Unknown History Tramadol HCl/Acetaminophen 37.5 mg PO BID 02/12/20 02/13/20 Unknown History Active Medications: Generic Name Dose Route Start Last Admin Trade Name Freq PRN Reason Stop Dose Admin Acetaminophen 650 mg 02/12/20 22:39 02/14/20 19:43 Acetaminophen 325 Mg Tab PO 650 mg Q4H PRN Administration Pain MILD(1-3)/Fever >100.5/PETER Amitriptyline HCl 25 mg 02/13/20 22:00 02/14/20 19:44 Amitriptyline 25 Mg Tab PO 25 mg QHS RYAN Administration Dextrose 0 ml 02/12/20 22:39 Dextrose 50% In Water (25gm) 50 Ml Syringe IV Q30MIN PRN Hypoglycemia Protocol Heparin Sodium (Porcine) 5,000 unit 02/13/20 06:00 02/14/20 19:43 Heparin 5,000 Unit/1 Ml Vial SUB-Q 5,000 unit Q8HR RYAN Administration Sodium Chloride 1,000 mls @ 150 mls/hr 02/12/20 22:45 02/14/20 19:41 Nacl 0.9% 1000 Ml IV 150 mls/hr DIRECT RYAN Administration Ceftriaxone Sodium 1 gm in 50 mls @ 100 mls/hr 02/13/20 12:00 02/14/20 13:39 Rocephin/Ns 1 Gm/50 Ml IV 100 mls/hr Q24H RYAN Administration Protocol Insulin Human Lispro 0 unit 02/13/20 07:30 02/14/20 18:53 Insulin Lispro 100 Unit/Ml Vial 3 Ml SUB-Q Not Given ACHS RYAN Protocol Levothyroxine Sodium 100 mcg 02/13/20 06:00 02/14/20 05:41 Levothyroxine 100 Mcg Tab PO 100 mcg 0600 RYAN Administration Lisinopril 10 mg 02/14/20 12:00 02/14/20 13:39 Lisinopril 10 Mg Tab PO 10 mg QDAY RYAN Administration Magnesium Hydroxide 30 ml 02/12/20 22:39 Magnesium Hydroxide (Mom) Oral Liqd Udc PO Q4H PRN Constipation Morphine Sulfate 2 mg 02/12/20 22:39 02/13/20 07:31 Morphine 2 Mg/1 Ml Inj IV 2 mg Q4H PRN Administration Pain, Moderate (4-6) Nifedipine 60 mg 02/14/20 12:00 02/14/20 19:45 Nifedipine Xl 60 Mg Tab PO 60 mg Q12HR RYAN Administration Ondansetron HCl 4 mg 02/12/20 22:39 02/12/20 23:06 Ondansetron 4 Mg/2 Ml Inj IV 4 mg Q8H PRN Administration Nausea And Vomiting Pseudoephedrine/Acetam/Chlorphenir 10 ml 02/13/20 21:25 02/14/20 19:43 Guaifenesin/Codeine 100-10mg Oral Liqd 5 Ml PO 10 ml Q6H PRN Administration Cough Sodium Chloride 10 ml 02/13/20 10:00 02/14/20 19:46 Sodium Chloride 0.9% 10 Ml Flush Syringe IV 10 ml BID RYAN Administration Sodium Chloride 10 ml 02/12/20 22:39 Sodium Chloride 0.9% 10 Ml Flush Syringe IV PRN PRN LINE FLUSH
[2020-02-15] MEDS: INSULIN LISPRO 100 UNIT/ML VIAL 3 mL SUB-Q SCH ×5 (00:52→20:59)
[2020-02-15] MEDS: AMITRIPTYLINE 25 MG TAB PO SCH ×2 (01:08→22:01)
[2020-02-15] MEDS: NIFEdipine XL 60 MG TAB PO SCH (01:10)
[2020-02-15] MEDS ORDERED: SODIUM CHLORIDE 0.9% 1000 ML 1,000 ML IV ONE (01:12)
--- NOTE | 2020-02-15 01:29 | Event Note ---
Date: 02/15/20 Code MET called to room 487. Patient found unresponsive. Blood sugar checked 34 and blood pressure-77/40 1 Amp 50% dextrose given blood rechecked 311 and patient awake. 500 NS bolus given-repeat blood pressure 80/44 and 94/44. Additional 250cc NS given. patient condition has improved.
[2020-02-15] MEDS: LEVOTHYROXINE 100 MCG TAB PO SCH (06:52)
[2020-02-15] MEDS: HEPARIN 5,000 UNIT/1 ML VIAL SUB-Q SCH ×2 (06:52→14:48)
[2020-02-15] MEDS: SODIUM CHLORIDE 0.9% 1000 ML 1,000 ML IV SCH (06:56)
--- NOTE | 2020-02-15 09:47 | Progress Note ---
Assessment and Plan Assessment and plan: Acute renal failure. Etiology secondary to acute kidney injury from vasomotor nephropathy/dehydration. Nephrology consultation pending. Rhabdomyolysis. Patient with elevated CK level. Continue to monitor Elevated troponin. Patient denies chest pain. Check echocardiogram. Hypothyroidism. TSH significantly elevated. Resume Synthroid and consider increasing dose if patient has been compliant with medications. Sepsis. Patient has significant leukocytosis. Afebrile. Etiology likely secondary to UTI. Follow-up urine culture. UTI. Follow-up urine and blood cultures. Diabetes mellitus type 2. Continue Accu-Cheks and sliding scale insulin. Tight glycemic control. Hypertension. DVT prophylaxis. Continue subcutaneous heparin. 02/14/2020. Check Covid testing. Hold on restarting lisinopril for blood pressure given the acute renal failure. Start Procardia 60 mg twice daily. Rhabdomyolysis and kidney function improved with IV fluid hydration. Continue to monitor. PT evaluation for deconditioning. Await echocardiogram 02/15/2020. Patient with asymptomatic hypotension this morning with systolic blood pressure 84. Discontinue Procardia and hold lisinopril for now. Continue IV fluid hydration for acute renal failure/acute kidney injury/rhabdomyolysis. Nurse reports patient had coughing with eating. Speech therapy evaluation for History Interval history: Nurse reports hypotension this morning with systolic blood pressure 84. However, patient asymptomatic Hospitalist Physical - Constitutional Vitals: Temp Pulse Resp BP Pulse Ox 97.9 F 49 L 18 83/46 93 02/15/20 08:24 02/15/20 08:24 02/15/20 08:24 02/15/20 08:24 02/15/20 08:24 General appearance: Present: no acute distress, well-nourished - EENT Eyes: Present: PERRL, EOM intact ENT: hearing intact, clear oral mucosa, dentition normal - Neck Neck: Present: supple, normal ROM - Respiratory Respiratory effort: normal Respiratory: bilateral: CTA - Cardiovascular Rhythm: regular Heart Sounds: Present: S1 & S2. Absent: gallop, rub - Extremities Extremities: no ischemia, No edema, Full ROM - Abdominal General gastrointestinal: soft, non-tender, non-distended, normal bowel sounds - Integumentary Integumentary: Present: clear, warm, dry - Neurologic Neurologic: CNII-XII intact, moves all extremities HEART Score - HEART Score Troponin: Troponin T 0.045 ng/mL (0.00-0.029) H D 02/13/20 12:29 Results - Labs CBC & Chem 7: 02/14/20 07:38 02/14/20 07:38 Labs: Laboratory Last Values WBC 6.8 K/mm3 (4.5-11.0) 02/14/20 07:38 RBC 3.11 M/mm3 (3.65-5.03) L 02/14/20 07:38 Hgb 9.5 gm/dl (11.8-15.2) L 02/14/20 07:38 Hct 28.0 % (35.5-45.6) L 02/14/20 07:38 MCV 90 fl (84-94) 02/14/20 07:38 MCH 31 pg (28-32) 02/14/20 07:38 MCHC 34 % (32-34) 02/14/20 07:38 RDW 14.1 % (13.2-15.2) 02/14/20 07:38 Plt Count 178 K/mm3 (140-440) 02/14/20 07:38 Add Manual Diff Complete 02/14/20 07:38 Total Counted 100 02/14/20 07:38 Seg Neutrophils % Senior [employer] 02/14/20 07:38 Seg Neuts % (Manual) 99.0 % (40.0-70.0) H 02/14/20 07:38 Band Neutrophils % 26.0 % 02/12/20 15:46 Lymphocytes % (Manual) 1.0 % (13.4-35.0) L 02/14/20 07:38 Monocytes % (Manual) 3.0 % (0.0-7.3) 02/12/20 15:46 Nucleated RBC % Not Reportable 02/14/20 07:38 Seg Neutrophils # Man 6.7 K/mm3 (1.8-7.7) 02/14/20 07:38 Band Neutrophils # 0.0 K/mm3 02/14/20 07:38 Lymphocytes # (Manual) 0.1 K/mm3 (1.2-5.4) L 02/14/20 07:38 Abs React Lymphs (Man) 0.0 K/mm3 02/14/20 07:38 Monocytes # (Manual) 0.0 K/mm3 (0.0-0.8) 02/14/20 07:38 Eosinophils # (Manual) 0.0 K/mm3 (0.0-0.4) 02/14/20 07:38 Basophils # (Manual) 0.0 K/mm3 (0.0-0.1) 02/14/20 07:38 Metamyelocytes # 0.0 K/mm3 02/14/20 07:38 Myelocytes # 0.0 K/mm3 02/14/20 07:38 Promyelocytes # 0.0 K/mm3 02/14/20 07:38 Blast Cells # 0.0 K/mm3 02/14/20 07:38 Pathologist Review Senior [employer]er 02/12/20 15:46 WBC Morphology Not Reportable 02/14/20 07:38 Hypersegmented Neuts Not Reportable 02/14/20 07:38 Hyposegmented Neuts Not Reportable 02/14/20 07:38 Hypogranular Neuts Not Reportable 02/14/20 07:38 Smudge Cells Not Reportable 02/14/20 07:38 Toxic Granulation Not Reportable 02/14/20 07:38 Toxic Vacuolation Not Reportable 02/14/20 07:38 Dohle Bodies Not Reportable 02/14/20 07:38 Pelger-Huet Anomaly Not Reportable 02/14/20 07:38 Cherelle Rods Not Reportable 02/14/20 07:38 Platelet Estimate Consistent w auto 02/14/20 07:38 Clumped Platelets Not Reportable 02/14/20 07:38 Plt Clumps, EDTA Not Reportable 02/14/20 07:38 Large Platelets Not Reportable 02/14/20 07:38 Giant Platelets Not Reportable 02/14/20 07:38 Platelet Satelliting Not Reportable 02/14/20 07:38 Plt Morphology Comment Not Reportable 02/14/20 07:38 RBC Morphology Not Reportable 02/14/20 07:38 Dimorphic RBCs Not Reportable 02/14/20 07:38 Polychromasia Not Reportable 02/14/20 07:38 Hypochromasia Not Reportable 02/14/20 07:38 Poikilocytosis Not Reportable 02/14/20 07:38 Anisocytosis 1+ 02/14/20 07:38 Microcytosis Not Reportable 02/14/20 07:38 Macrocytosis Not Reportable 02/14/20 07:38 Spherocytes Not Reportable 02/14/20 07:38 Pappenheimer Bodies Not Reportable 02/14/20 07:38 Sickle Cells Not Reportable 02/14/20 07:38 Target Cells Not Reportable 02/14/20 07:38 Tear Drop Cells Not Reportable 02/14/20 07:38 Ovalocytes Not Reportable 02/14/20 07:38 Helmet Cells Rare 02/14/20 07:38 Mcmahon-Kappa Bodies Not Reportable 02/14/20 07:38 [place] Rings Not Reportable 02/14/20 07:38 [place] Cells Not Reportable 02/14/20 07:38 Bite Cells Not Reportable 02/14/20 07:38 Crenated Cell Not Reportable 02/14/20 07:38 Elliptocytes Not Reportable 02/14/20 07:38 Acanthocytes (Spur) Not Reportable 02/14/20 07:38 Rouleaux Not Reportable 02/14/20 07:38 Hemoglobin C Crystals Not Reportable 02/14/20 07:38 Schistocytes Not Reportable 02/14/20 07:38 Malaria parasites Not Reportable 02/14/20 07:38 Christian Bodies Not Reportable 02/14/20 07:38 Hem Pathologist Commnt No 02/14/20 07:38 PT 13.2 Sec. (12.2-14.9) 02/13/20 12:29 INR 1.01 (0.87-1.13) 02/13/20 12:29 Sodium 139 mmol/L (137-145) 02/14/20 07:38 Potassium 3.5 mmol/L (3.6-5.0) L 02/14/20 07:38 Chloride 102.7 mmol/L (98-107) 02/14/20 07:38 Carbon Dioxide 27 mmol/L (22-30) 02/14/20 07:38 Anion Gap 13 mmol/L 02/14/20 07:38 BUN 34 mg/dL (9-20) H 02/14/20 07:38 Creatinine 1.3 mg/dL (0.8-1.3) 02/14/20 07:38 Estimated GFR 57 ml/min 02/14/20 07:38 BUN/Creatinine Ratio 26 % 02/14/20 07:38 Glucose 87 mg/dL (75-100) 02/14/20 07:38 POC Glucose 184 mg/dL (70-105) H 02/15/20 08:21 Hemoglobin A1c 6.5 % (4-6) H 02/15/20 06:04 Calcium 7.5 mg/dL (8.4-10.2) L 02/14/20 07:38 Total Bilirubin 0.30 mg/dL (0.1-1.2) 02/12/20 15:46 AST 260 units/L (5-40) H 02/12/20 15:46 ALT 65 units/L (7-56) H 02/12/20 15:46 Alkaline Phosphatase 66 units/L (35-129) 02/12/20 15:46 Total Creatine Kinase 1923 units/L (55-170) H 02/15/20 06:04 Troponin T 0.045 ng/mL (0.00-0.029) H D 02/13/20 12:29 Total Protein 6.4 g/dL (6.3-8.2) 02/12/20 15:46 Albumin 2.7 g/dL (3.9-5) L 02/12/20 15:46 Albumin/Globulin Ratio 0.7 % 02/12/20 15:46 Triglycerides 189 mg/dL (2-149) H 02/12/20 15:46 Cholesterol 143 mg/dL (50-199) 02/12/20 15:46 LDL Cholesterol Direct 69 mg/dL (50-130) 02/12/20 15:46 HDL Cholesterol 34 mg/dL (40-59) L 02/12/20 15:46 Cholesterol/HDL Ratio 4.20 % 02/12/20 15:46 TSH 33.890 mlU/mL (0.270-4.200) H 02/12/20 15:46 Free T4 0.74 ng/dL (0.76-1.46) L 02/12/20 Unknown Urine Color Yellow (Yellow) 02/12/20 17:42 Urine Turbidity Slightly-cloudy (Clear) 02/12/20 17:42 Urine pH 5.0 (5.0-7.0) 02/12/20 17:42 Ur Specific [place] 1.014 (1.003-1.030) 02/12/20 17:42 Urine Protein >500 mg/dL (Negative) 02/12/20 17:42 Urine Glucose (UA) Neg mg/dL (Negative) 02/12/20 17:42 Urine Ketones Neg mg/dL (Negative) 02/12/20 17:42 Urine Blood Lg (Negative) 02/12/20 17:42 Urine Nitrite Neg (Negative) 02/12/20 17:42 Urine Bilirubin Neg (Negative) 02/12/20 17:42 Urine Urobilinogen < 2.0 mg/dL (<2.0) 02/12/20 17:42 Ur Leukocyte Esterase Neg (Negative) 02/12/20 17:42 Urine WBC (Auto) 13.0 /HPF (0.0-6.0) H 02/12/20 17:42 Urine RBC (Auto) 5.0 /HPF (0.0-6.0) 02/12/20 17:42 U Epithel Cells (Auto) < 1.0 /HPF (0-13.0) 02/12/20 17:42 Hyaline Casts 2 /LPF 02/12/20 17:42 Urine Mucus Few /HPF 02/12/20 17:42 Urine Opiates Screen Negative 02/12/20 17:42 Urine Methadone Screen Negative 02/12/20 17:42 Ur Barbiturates Screen Negative 02/12/20 17:42 Ur Phencyclidine Scrn Negative 02/12/20 17:42 Ur Amphetamines Screen Negative 02/12/20 17:42 U Benzodiazepines Scrn Negative 02/12/20 17:42 Urine Cocaine Screen Negative 02/12/20 17:42 U Marijuana (THC) Screen Negative 02/12/20 17:42 Drugs of Abuse Note Disclamer 02/12/20 17:42 Plasma/Serum Alcohol < 0.01 % (0-0.07) 02/12/20 15:46 Microbiology: Microbiology 02/13/20 12:29 Peripheral/Venous Blood Culture - Preliminary NO GROWTH AFTER 24 HOURS 02/13/20 12:29 Peripheral/Venous Blood Culture - Preliminary NO GROWTH AFTER 24 HOURS 02/12/20 17:42 Urine,Clean Catch Urine Culture - Preliminary NO GROWTH AFTER 24 HOURS Webb/IV: Voiding Method Urinal IV Catheter Type [Left Forearm Peripheral IV ] IV Catheter Type [Right INT / Saline Lock Antecubital] Active Medications - Current Medications Current Medications: Generic Name Dose Route Start Last Admin Trade Name Freq PRN Reason Stop Dose Admin Acetaminophen 650 mg 02/12/20 22:39 02/14/20 19:43 Acetaminophen 325 Mg Tab PO 650 mg Q4H PRN Administration Pain MILD(1-3)/Fever >100.5/PETER Amitriptyline HCl 25 mg 02/13/20 22:00 02/15/20 01:08 Amitriptyline 25 Mg Tab PO Not Given QHS RYAN Dextrose 0 ml 02/12/20 22:39 02/15/20 00:20 Dextrose 50% In Water (25gm) 50 Ml Syringe IV 50 ml Q30MIN PRN Administration Hypoglycemia Protocol Heparin Sodium (Porcine) 5,000 unit 02/13/20 06:00 02/15/20 06:52 Heparin 5,000 Unit/1 Ml Vial SUB-Q 5,000 unit Q8HR RYAN Administration Sodium Chloride 1,000 mls @ 150 mls/hr 02/12/20 22:45 02/15/20 06:56 Nacl 0.9% 1000 Ml IV 150 mls/hr DIRECT RYAN Administration Ceftriaxone Sodium 1 gm in 50 mls @ 100 mls/hr 02/13/20 12:00 02/14/20 13:39 Rocephin/Ns 1 Gm/50 Ml IV 100 mls/hr Q24H RYAN Administration Protocol Insulin Human Lispro 0 unit 02/13/20 07:30 02/15/20 00:52 Insulin Lispro 100 Unit/Ml Vial 3 Ml SUB-Q Not Given ACHS RYAN Protocol Levothyroxine Sodium 100 mcg 02/13/20 06:00 02/15/20 06:52 Levothyroxine 100 Mcg Tab PO 100 mcg 0600 RYAN Administration Lisinopril 10 mg 02/14/20 12:00 02/14/20 13:39 Lisinopril 10 Mg Tab PO 10 mg QDAY RYAN Administration Magnesium Hydroxide 30 ml 02/12/20 22:39 Magnesium Hydroxide (Mom) Oral Liqd Udc PO Q4H PRN Constipation Morphine Sulfate 2 mg 02/12/20 22:39 02/13/20 07:31 Morphine 2 Mg/1 Ml Inj IV 2 mg Q4H PRN Administration Pain, Moderate (4-6) Nifedipine 60 mg 02/14/20 12:00 02/15/20 01:10 Nifedipine Xl 60 Mg Tab PO Not Given Q12HR [facility] Ondansetron HCl 4 mg 02/12/20 22:39 02/12/20 23:06 Ondansetron 4 Mg/2 Ml Inj IV 4 mg Q8H PRN Administration Nausea And Vomiting Pseudoephedrine/Acetam/Chlorphenir 10 ml 02/13/20 21:25 02/14/20 19:43 Guaifenesin/Codeine 100-10mg Oral Liqd 5 Ml PO 10 ml Q6H PRN Administration Cough Sodium Chloride 10 ml 02/13/20 10:00 02/15/20 01:10 Sodium Chloride 0.9% 10 Ml Flush Syringe IV Not Given BID RYAN Sodium Chloride 10 ml 02/12/20 22:39 Sodium Chloride 0.9% 10 Ml Flush Syringe IV PRN PRN LINE FLUSH Nutrition/Malnutrition Assess - Dietary Evaluation Nutrition/Malnutrition Findings: Nutrition Notes Start: 02/13/20 10:18 Freq: Status: Active Protocol: Document 02/13/20 10:20 LM (Rec: 02/13/20 10:26 LM [id number]) Nutrition Notes Need for Assessment generated from: MD Order,bed manager,MST Initial or Follow up Assessment Current Diagnosis Acute Kidney Injury,Diabetes, Hypertension Other Pertinent Diagnosis multiple wounds,SIRS, Rhabdomyolysis, hypothyroid, throat Ca (in remission) Current Diet Cardiac/consisent CHO Labs/Tests POC glu 68 Pertinent Medications NS at 150ml/hr Height 5 ft 8 in Weight 62.142 kg [place] Body Weight (kg) 70.00 BMI 20.8 Weight Status Appropriate Subjective/Other Information MD consult for diet education. Rn screen for MST. Pt asleep at time of visit. Pt has wounds. Burn Absent Trauma Absent Minimum of two criteria No physical signs of malnutrition #1 Nutrition Diagnosis Increased nutrient needs ( specify in comment below) Comments: Protein Etiology Wound healing As Evidenced by Signs and Symptoms multiple wounds Is patient on ventilator? No Is Patient Ambulatory and/or Out of Bed No REE-([facility]-confined to bed) 0253.005 Calculation Used for Recommendations [facility] Additional Notes Protein: 50-93g (0.8-1.5g/kg) Fluid: 1ml/kcal Nutrition Intervention Change Diet Order: Continue Goal #1 Meet at least 75% of energy and protein needs Goal #2 Wound healing Anticipated Discharge Needs: cardiac/consistent CHO Follow-Up By: 12/29/20 Additional Comments F/u for diet ed needs, full assessment
[2020-02-15] MEDS: LISINOPRIL 10 MG TAB PO SCH (10:35)
[2020-02-15] MEDS: NACL IV SCH ×2 (11:45→22:06)
[2020-02-15] MEDS: D5W IV SCH ×2 (11:45→22:06)
[2020-02-15 11:48] LABS: Calcium 7.3 mg/dL (8.4-10.2)
[2020-02-15 11:51] LABS: C-Reactive Protein 18.2 mg/dL (0.00-1.30)
[2020-02-15] MEDS: cefTRIAXone/NS 1 GM/50 ML 1 GM/50 ML BAG IV SCH (13:11)
--- NOTE | 2020-02-15 20:11 | Progress Note ---
Assessment and Plan Assessment * Acute kidney injury, unknown baseline * Rhabdomyolysis, mild * Hypocalcemia, mild * Hypokalemia, mild * Anemia * Hypertension, uncontrolled * Diabetes mellitus * Covid positive Recommendations * Renal function had improved to within normal range, but has started trending up today. This is likely secondary to sudden decline in blood pressure from antihypertensives leading to ATN. Hold antihypertensives. Hold lisinopril * Keep MAP more than 65 * Status post IV hydration, encourage p.o. hydration * Trend CPK * Monitor calcium and potassium, replete as needed * Continue home antihypertensives * Renally dose medications * Avoid nephrotoxins * Strict I's/O * Keep glucose less than 200 mg/dL Subjective Date of service: 02/15/20 Principal diagnosis: Acute kidney injury Interval history: Patient was seen for his renal issues Nursing, interdisciplinary and consult notes were reviewed Vitals, input and output, medications and labs were reviewed Urine output 960 cc Objective - Exam Narrative Exam: Deferred as patient is Covid positive in order to prevent spread of infection an d for PPE preservation. - Vital Signs Vital signs: Vital Signs - 12hr 02/15/20 02/15/20 02/15/20 08:24 09:59 10:00 Temperature 97.9 F Pulse Rate 49 L Pulse Rate [ 55 L Apical] Pulse Rate [ 55 L From Monitor] Respiratory 18 15 Rate Blood Pressure 83/46 Blood Pressure [Right] O2 Sat by Pulse 93 85 90 Oximetry 02/15/20 02/15/20 02/15/20 12:00 12:05 13:53 Temperature 98.2 F Pulse Rate 54 L 79 Pulse Rate [ Apical] Pulse Rate [ From Monitor] Respiratory 16 Rate Blood Pressure Blood Pressure 94/77 [Right] O2 Sat by Pulse 90 88 Oximetry 02/15/20 02/15/20 14:59 17:07 Temperature 98.1 F 98.4 F Pulse Rate 52 L 89 Pulse Rate [ Apical] Pulse Rate [ From Monitor] Respiratory 19 16 Rate Blood Pressure Blood Pressure 96/71 98/72 [Right] O2 Sat by Pulse 89 92 Oximetry - Lab 02/14/20 07:38 02/15/20 10:48 Most recent lab results Calcium 7.3 mg/dL (8.4-10.2) L 02/15/20 10:48 Medications & Allergies - Medications Allergies/Adverse Reactions: Allergies No Known Allergies Allergy (Verified 08/16/18 11:38) Home Medications: Home Medications Medication Instructions Recorded Confirmed Last Taken Type Amitriptyline [Elavil] 25 mg PO QHS tablet 11/22/17 02/13/20 Unknown Rx Ondansetron [Zofran ODT TAB] 8 mg PO Q8HR tab.rapdis 11/22/17 02/13/20 Unknown Rx Prochlorperazine [Compazine] 10 mg PO Q6HR PRN tablet 11/22/17 02/13/20 Unknown Rx lisinopriL [Zestril TAB] 10 mg PO QDAY tablet 11/22/17 02/13/20 Unknown Rx Levothyroxine 100 mcg PO DAILY 02/12/20 02/12/20 Unknown History Mupirocin 1 tab PO BID 02/12/20 02/13/20 Unknown History Tramadol HCl/Acetaminophen 37.5 mg PO BID 02/12/20 02/13/20 Unknown History Active Medications: Generic Name Dose Route Start Last Admin Trade Name Freq PRN Reason Stop Dose Admin Acetaminophen 650 mg 02/12/20 22:39 02/14/20 19:43 Acetaminophen 325 Mg Tab PO 650 mg Q4H PRN Administration Pain MILD(1-3)/Fever >100.5/PETER Amitriptyline HCl 25 mg 02/13/20 22:00 02/15/20 01:08 Amitriptyline 25 Mg Tab PO Not Given QHS RYAN Dextrose 0 ml 02/12/20 22:39 02/15/20 00:20 Dextrose 50% In Water (25gm) 50 Ml Syringe IV 50 ml Q30MIN PRN Administration Hypoglycemia Protocol Heparin Sodium (Porcine) 5,000 unit 02/13/20 06:00 02/15/20 14:48 Heparin 5,000 Unit/1 Ml Vial SUB-Q 5,000 unit Q8HR RYAN Administration Ceftriaxone Sodium 1 gm in 50 mls @ 100 mls/hr 02/13/20 12:00 02/15/20 13:11 Rocephin/Ns 1 Gm/50 Ml IV 100 mls/hr Q24H RYAN Administration Protocol Dextrose/Sodium Chloride 2,000 mls @ 125 mls/hr 02/15/20 10:00 02/15/20 11:45 D5/0.45ns IV 125 mls/hr DIRECT RYAN Administration Insulin Human Lispro 0 unit 02/13/20 07:30 02/15/20 18:07 Insulin Lispro 100 Unit/Ml Vial 3 Ml SUB-Q Not Given ACHS [facility] Protocol Levothyroxine Sodium 100 mcg 02/13/20 06:00 02/15/20 06:52 Levothyroxine 100 Mcg Tab PO 100 mcg 0600 [facility] Administration Lisinopril 10 mg 02/14/20 12:00 02/15/20 10:35 Lisinopril 10 Mg Tab PO Not Given QDAY [facility] Magnesium Hydroxide 30 ml 02/12/20 22:39 Magnesium Hydroxide (Mom) Oral Liqd Udc PO Q4H PRN Constipation Morphine Sulfate 2 mg 02/12/20 22:39 02/13/20 07:31 Morphine 2 Mg/1 Ml Inj IV 2 mg Q4H PRN Administration Pain, Moderate (4-6) Ondansetron HCl 4 mg 02/12/20 22:39 02/12/20 23:06 Ondansetron 4 Mg/2 Ml Inj IV 4 mg Q8H PRN Administration Nausea And Vomiting Pseudoephedrine/Acetam/Chlorphenir 10 ml 02/13/20 21:25 02/14/20 19:43 Guaifenesin/Codeine 100-10mg Oral Liqd 5 Ml PO 10 ml Q6H PRN Administration Cough Sodium Chloride 10 ml 02/13/20 10:00 02/15/20 13:39 Sodium Chloride 0.9% 10 Ml Flush Syringe IV 10 ml BID RYAN Administration Sodium Chloride 10 ml 02/12/20 22:39 Sodium Chloride 0.9% 10 Ml Flush Syringe IV PRN PRN LINE FLUSH
--- NOTE | 2020-02-15 20:53 | Consultation ---
History of Present Illness Consult date: 02/15/20 Requesting physician: MIRANDA MOORE Reason for consult: dyspnea History of present illness: 54-year-old male with known history of diabetes mellitus, throat cancer in remission, chronic back pain and hypertension presenting to the emergency room with a complaint of bilateral shoulder pain, low back pain lower extremity pain and also pain along the throat. He stated he was dizzy this morning and felt lightheaded and subsequently had a fall. He denies any loss of consciousness. He denies any fever or chills, no chest pain, no nausea or vomiting, no abdominal pain, no hematuria or dysuria. Since admit noted to have hypoxia and SOB, now on HFNC at 100% FiO2 and 40LPM. Active Medications Acetaminophen (Acetaminophen 325 Mg Tab) 650 mg PO Q4H PRN PRN Reason: Pain MILD(1-3)/Fever >100.5/PETER Last Admin: 02/14/20 19:43 Dose: 650 mg Documented by: Amitriptyline HCl (Amitriptyline 25 Mg Tab) 25 mg PO QHS YRAN Last Admin: 02/15/20 01:08 Dose: Not Given Documented by: Dextrose (Dextrose 50% In Water (25gm) 50 Ml Syringe) 0 ml IV Q30MIN PRN; Protocol PRN Reason: Hypoglycemia Last Admin: 02/15/20 00:20 Dose: 50 ml Documented by: Enoxaparin Sodium (Enoxaparin 30 Mg/0.3 Ml Inj) 30 mg SUB-Q BID RYAN; Protocol Ceftriaxone Sodium (Rocephin/Ns 1 Gm/50 Ml) 1 gm in 50 mls @ 100 mls/hr IV Q24H RYAN; Protocol Last Admin: 02/15/20 13:11 Dose: 100 mls/hr Documented by: Dextrose/Sodium Chloride (D5/0.45ns) 2,000 mls @ 125 mls/hr IV DIRECT RYAN Last Admin: 02/15/20 11:45 Dose: 125 mls/hr Documented by: Insulin Human Lispro (Insulin Lispro 100 Unit/Ml Vial 3 Ml) 0 unit SUB-Q ACHS RYAN; Protocol Last Admin: 02/15/20 18:07 Dose: Not Given Documented by: Levothyroxine Sodium (Levothyroxine 100 Mcg Tab) 100 mcg PO 0600 RYAN Last Admin: 02/15/20 06:52 Dose: 100 mcg Documented by: Lisinopril (Lisinopril 10 Mg Tab) 10 mg PO QDAY [facility] Last Admin: 02/15/20 10:35 Dose: Not Given Documented by: Magnesium Hydroxide (Magnesium Hydroxide (Mom) Oral Liqd Udc) 30 ml PO Q4H PRN PRN Reason: Constipation Morphine Sulfate (Morphine 2 Mg/1 Ml Inj) 2 mg IV Q4H PRN PRN Reason: Pain, Moderate (4-6) Last Admin: 02/13/20 07:31 Dose: 2 mg Documented by: Ondansetron HCl (Ondansetron 4 Mg/2 Ml Inj) 4 mg IV Q8H PRN PRN Reason: Nausea And Vomiting Last Admin: 02/12/20 23:06 Dose: 4 mg Documented by: Pseudoephedrine/Acetam/Chlorphenir (Guaifenesin/Codeine 100-10mg Oral Liqd 5 Ml) 10 ml PO Q6H PRN PRN Reason: Cough Last Admin: 02/14/20 19:43 Dose: 10 ml Documented by: Sodium Chloride (Sodium Chloride 0.9% 10 Ml Flush Syringe) 10 ml IV BID [facility] Last Admin: 02/15/20 13:39 Dose: 10 ml Documented by: Sodium Chloride (Sodium Chloride 0.9% 10 Ml Flush Syringe) 10 ml IV PRN PRN PRN Reason: LINE FLUSH Past History Past Medical History: arthritis, diabetes, GERD, hypertension, hypothyroidism, other (Chronic back pain, anxiety, throat cancer on remission) Past Surgical History: appendectomy, cholecystectomy Social history: full code. denies: smoking, alcohol abuse, prescription drug abuse, IV drug use Family history: no significant family history (denies pulm issues) Medications and Allergies Allergies Allergy/AdvReac Type Severity Reaction Status Date / Time No Known Allergies Allergy Verified 08/16/18 11:38 Home Medications Medication Instructions Recorded Confirmed Last Taken Type Amitriptyline [Elavil] 25 mg PO QHS tablet 11/22/17 02/13/20 Unknown Rx Ondansetron [Zofran ODT TAB] 8 mg PO Q8HR tab.rapdis 11/22/17 02/13/20 Unknown Rx Prochlorperazine [Compazine] 10 mg PO Q6HR PRN tablet 11/22/17 02/13/20 Unknown Rx lisinopriL [Zestril TAB] 10 mg PO QDAY tablet 11/22/17 02/13/20 Unknown Rx Levothyroxine 100 mcg PO DAILY 02/12/20 02/12/20 Unknown History Mupirocin 1 tab PO BID 02/12/20 02/13/20 Unknown History Tramadol HCl/Acetaminophen 37.5 mg PO BID 02/12/20 02/13/20 Unknown History Active Meds: Active Medications Acetaminophen (Acetaminophen 325 Mg Tab) 650 mg PO Q4H PRN PRN Reason: Pain MILD(1-3)/Fever >100.5/PETER Last Admin: 02/14/20 19:43 Dose: 650 mg Documented by: Amitriptyline HCl (Amitriptyline 25 Mg Tab) 25 mg PO QHS RYAN Last Admin: 02/15/20 01:08 Dose: Not Given Documented by: Dextrose (Dextrose 50% In Water (25gm) 50 Ml Syringe) 0 ml IV Q30MIN PRN; Protocol PRN Reason: Hypoglycemia Last Admin: 02/15/20 00:20 Dose: 50 ml Documented by: Enoxaparin Sodium (Enoxaparin 30 Mg/0.3 Ml Inj) 30 mg SUB-Q BID RYAN; Protocol Ceftriaxone Sodium (Rocephin/Ns 1 Gm/50 Ml) 1 gm in 50 mls @ 100 mls/hr IV Q24H RYAN; Protocol Last Admin: 02/15/20 13:11 Dose: 100 mls/hr Documented by: Dextrose/Sodium Chloride (D5/0.45ns) 2,000 mls @ 125 mls/hr IV DIRECT RYAN Last Admin: 02/15/20 11:45 Dose: 125 mls/hr Documented by: Insulin Human Lispro (Insulin Lispro 100 Unit/Ml Vial 3 Ml) 0 unit SUB-Q ACHS RYAN; Protocol Last Admin: 02/15/20 18:07 Dose: Not Given Documented by: Levothyroxine Sodium (Levothyroxine 100 Mcg Tab) 100 mcg PO 0600 RYAN Last Admin: 02/15/20 06:52 Dose: 100 mcg Documented by: Lisinopril (Lisinopril 10 Mg Tab) 10 mg PO QDAY RYAN Last Admin: 02/15/20 10:35 Dose: Not Given Documented by: Magnesium Hydroxide (Magnesium Hydroxide (Mom) Oral Liqd Udc) 30 ml PO Q4H PRN PRN Reason: Constipation Morphine Sulfate (Morphine 2 Mg/1 Ml Inj) 2 mg IV Q4H PRN PRN Reason: Pain, Moderate (4-6) Last Admin: 02/13/20 07:31 Dose: 2 mg Documented by: Ondansetron HCl (Ondansetron 4 Mg/2 Ml Inj) 4 mg IV Q8H PRN PRN Reason: Nausea And Vomiting Last Admin: 02/12/20 23:06 Dose: 4 mg Documented by: Pseudoephedrine/Acetam/Chlorphenir (Guaifenesin/Codeine 100-10mg Oral Liqd 5 Ml) 10 ml PO Q6H PRN PRN Reason: Cough Last Admin: 02/14/20 19:43 Dose: 10 ml Documented by: Sodium Chloride (Sodium Chloride 0.9% 10 Ml Flush Syringe) 10 ml IV BID RYAN Last Admin: 02/15/20 13:39 Dose: 10 ml Documented by: Sodium Chloride (Sodium Chloride 0.9% 10 Ml Flush Syringe) 10 ml IV PRN PRN PRN Reason: LINE FLUSH Review of Systems All systems: negative Physical Examination Vital signs: Vital Signs BP Pulse Ox 114/57 99 02/12/20 14:30 02/12/20 14:30 Vital Signs - 24 hr 02/14/20 02/15/20 02/15/20 22:00 00:00 03:30 Temperature 97.6 F Pulse Rate 51 L 51 L Pulse Rate [ Apical] Pulse Rate [ From Monitor] Respiratory 18 17 Rate Blood Pressure 76/37 Blood Pressure [Right] O2 Sat by Pulse 89 Oximetry 02/15/20 02/15/20 02/15/20 04:01 08:24 09:59 Temperature 97.9 F Pulse Rate 51 L 49 L Pulse Rate [ Apical] Pulse Rate [ From Monitor] Respiratory 16 18 Rate Blood Pressure 82/43 83/46 Blood Pressure [Right] O2 Sat by Pulse 89 93 85 Oximetry 02/15/20 02/15/20 02/15/20 10:00 12:00 12:05 Temperature 98.2 F Pulse Rate 54 L 79 Pulse Rate [ 55 L Apical] Pulse Rate [ 55 L From Monitor] Respiratory 15 16 Rate Blood Pressure Blood Pressure 94/77 [Right] O2 Sat by Pulse 90 90 Oximetry 1202/15/20 02/15/20 13:53 14:59 17:07 Temperature 98.1 F 98.4 F Pulse Rate 52 L 89 Pulse Rate [ Apical] Pulse Rate [ From Monitor] Respiratory 19 16 Rate Blood Pressure Blood Pressure 96/71 98/72 [Right] O2 Sat by Pulse 88 89 92 Oximetry 02/15/20 02/15/20 20:21 20:29 Temperature Pulse Rate 89 Pulse Rate [ Apical] Pulse Rate [ From Monitor] Respiratory 16 Rate Blood Pressure Blood Pressure [Right] O2 Sat by Pulse Oximetry General appearance: other (critically ill on HFNC) Eyes: non-icteric ENT: oropharynx moist Neck: supple Effort: normal Ascultation: Bilateral: clear Cardiovascular: regular rate and rhythm (no mrg) Gastrointestinal: normoactive bowel sounds, soft, non-tender Integumentary: normal Extremities: no cyanosis, no edema, pink and warm normal mental status, non-focal exam, pupils equal and round, CN II-XII normal mood appropriate, affect normal Results - Laboratory Findings CBC and BMP: 02/14/20 07:38 02/15/20 10:48 PT/INR, D-dimer PT 13.2 Sec. (12.2-14.9) 02/13/20 12:29 INR 1.01 (0.87-1.13) 02/13/20 12:29 D-Dimer 793.22 ng/mlDDU (0-234) H 02/15/20 10:48 Abnormal lab findings: Abnormal Labs 02/12/20 02/12/20 02/12/20 15:46 15:46 15:46 WBC 27.1 H RBC 3.37 L Hgb 10.3 L Hct 30.5 L Seg Neuts % (Manual) Lymphocytes % (Manual) 2.0 L Seg Neutrophils # Man 18.7 H Lymphocytes # (Manual) 0.5 L D-Dimer Sodium 133 L Potassium Chloride 93.1 L Carbon Dioxide 32 H BUN 59 H Creatinine 2.4 H Glucose POC Glucose Hemoglobin A1c Calcium 8.0 L Ferritin AST 260 H ALT 65 H Lactate Dehydrogenase Total Creatine Kinase 9691 H Troponin T 0.066 H C-Reactive Protein Albumin 2.7 L Triglycerides 189 H HDL Cholesterol 34 L TSH 33.890 H Free T4 Urine WBC (Auto) Coronavirus (PCR) 12/02/12/20 02/13/20 17:42 Unknown 07:46 WBC RBC Hgb Hct Seg Neuts % (Manual) Lymphocytes % (Manual) Seg Neutrophils # Man Lymphocytes # (Manual) D-Dimer Sodium Potassium Chloride Carbon Dioxide BUN Creatinine Glucose POC Glucose 68 L Hemoglobin A1c Calcium Ferritin AST ALT Lactate Dehydrogenase Total Creatine Kinase Troponin T C-Reactive Protein Albumin Triglycerides HDL Cholesterol TSH Free T4 0.74 L Urine WBC (Auto) 13.0 H Coronavirus (PCR) 02/13/20 02/13/20 02/13/20 11:38 12:29 12:29 WBC RBC 2.74 L Hgb 8.4 L Hct 24.7 L Seg Neuts % (Manual) 99.0 H Lymphocytes % (Manual) 1.0 L Seg Neutrophils # Man 10.6 H Lymphocytes # (Manual) 0.1 L D-Dimer Sodium Potassium Chloride Carbon Dioxide BUN 52 H Creatinine 1.7 H Glucose 121 H POC Glucose 134 H Hemoglobin A1c Calcium 7.4 L Ferritin AST ALT Lactate Dehydrogenase Total Creatine Kinase Troponin T C-Reactive Protein Albumin Triglycerides HDL Cholesterol TSH Free T4 Urine WBC (Auto) Coronavirus (PCR) 02/13/20 02/14/20 02/14/20 12:29 07:38 07:38 WBC RBC 3.11 L Hgb 9.5 L Hct 28.0 L Seg Neuts % (Manual) 99.0 H Lymphocytes % (Manual) 1.0 L Seg Neutrophils # Man Lymphocytes # (Manual) 0.1 L D-Dimer Sodium Potassium 3.5 L Chloride Carbon Dioxide BUN 34 H Creatinine Glucose POC Glucose Hemoglobin A1c Calcium 7.5 L Ferritin AST ALT Lactate Dehydrogenase Total Creatine Kinase 6134 H 3825 H Troponin T 0.045 H D C-Reactive Protein Albumin Triglycerides HDL Cholesterol TSH Free T4 Urine WBC (Auto) Coronavirus (PCR) 02/14/20 02/15/20 02/15/20 20:39 00:36 00:53 WBC RBC Hgb Hct Seg Neuts % (Manual) Lymphocytes % (Manual) Seg Neutrophils # Man Lymphocytes # (Manual) D-Dimer Sodium Potassium Chloride Carbon Dioxide BUN Creatinine Glucose POC Glucose 126 H 34 L 311 H Hemoglobin A1c Calcium Ferritin AST ALT Lactate Dehydrogenase Total Creatine Kinase Troponin T C-Reactive Protein Albumin Triglycerides HDL Cholesterol TSH Free T4 Urine WBC (Auto) Coronavirus (PCR) 02/15/20 02/15/20 02/15/20 02:42 06:04 06:04 WBC RBC Hgb Hct Seg Neuts % (Manual) Lymphocytes % (Manual) Seg Neutrophils # Man Lymphocytes # (Manual) D-Dimer Sodium Potassium Chloride Carbon Dioxide BUN Creatinine Glucose POC Glucose 250 H Hemoglobin A1c 6.5 H Calcium Ferritin AST ALT Lactate Dehydrogenase Total Creatine Kinase 1923 H Troponin T C-Reactive Protein Albumin Triglycerides HDL Cholesterol TSH Free T4 Urine WBC (Auto) Coronavirus (PCR) 02/15/20 02/15/20 02/15/20 08:21 10:19 10:48 WBC RBC Hgb Hct Seg Neuts % (Manual) Lymphocytes % (Manual) Seg Neutrophils # Man Lymphocytes # (Manual) D-Dimer Sodium Potassium 3.4 L Chloride 107.8 H Carbon Dioxide BUN 41 H Creatinine 2.5 H D Glucose 166 H POC Glucose 184 H Hemoglobin A1c Calcium 7.3 L Ferritin AST ALT Lactate Dehydrogenase Total Creatine Kinase Troponin T C-Reactive Protein Albumin Triglycerides HDL Cholesterol TSH Free T4 Urine WBC (Auto) Coronavirus (PCR) Positive A 02/15/20 02/15/20 02/15/20 10:48 10:48 10:48 WBC RBC Hgb Hct Seg Neuts % (Manual) Lymphocytes % (Manual) Seg Neutrophils # Man Lymphocytes # (Manual) D-Dimer 793.22 H Sodium Potassium Chloride Carbon Dioxide BUN Creatinine Glucose POC Glucose Hemoglobin A1c Calcium Ferritin 1480.0 H AST ALT Lactate Dehydrogenase 400 H Total Creatine Kinase Troponin T C-Reactive Protein 18.20 H Albumin Triglycerides HDL Cholesterol TSH Free T4 Urine WBC (Auto) Coronavirus (PCR) 02/15/20 02/15/20 12:16 17:26 WBC RBC Hgb Hct Seg Neuts % (Manual) Lymphocytes % (Manual) Seg Neutrophils # Man Lymphocytes # (Manual) D-Dimer Sodium Potassium Chloride Carbon Dioxide BUN Creatinine Glucose POC Glucose 129 H 167 H Hemoglobin A1c Calcium Ferritin AST ALT Lactate Dehydrogenase Total Creatine Kinase Troponin T C-Reactive Protein Albumin Triglycerides HDL Cholesterol TSH Free T4 Urine WBC (Auto) Coronavirus (PCR) - Diagnostic Findings Chest x-ray: report reviewed, image reviewed (bilateral infiltrates, R > L) Assessment and Plan Imp: 1. Covid-19 with viral pneumonia 2. Acute respiratory failure, hypoxia 3. BELKIS 4. Rhabdomyolysis Rec: 1. Add Decardon 6mg PO daily x 10 days 2. Consider Remdesivir if renal function improves 3. ID eval. 4. Change to Lovenox 30mg BID 5. Avoid volume overload 6. Proning as able 7. Transfer to [facility] in progress 8. Further plans pending clinical course; CCt 31 minutes Plan of care reviewed w/ patient, he understands/agrees
[2020-02-15] MEDS: DEXAMETHASONE 4 MG TAB PO SCH (22:01)
[2020-02-15] MEDS: ENOXAPARIN 30 MG/0.3 ML INJ SUB-Q SCH (22:02)
[2020-02-15] MEDS: D5W/0.45% NACL 1,000 ML IV SCH (22:17)
[2020-02-15] MEDS: ACETAMINOPHEN 325 MG TAB PO PRN (23:11)
[2020-02-16 06:07] LABS: Hematocrit 31.7 % (35.5-45.6); Hemoglobin 10.6 gm/dl (11.8-15.2); Mean Corpuscular HGB Conc 33 % (32-34); Mean Corpuscular Volume 92 fl (84-94); Platelet Count 183 K/mm3 (140-440); Red Blood Count 3.46 M/mm3 (3.65-5.03); Red Cell Distribution Width 14.6 % (13.2-15.2)
[2020-02-16 06:26] LABS: Calcium 7.4 mg/dL (8.4-10.2)
[2020-02-16] MEDS: LEVOTHYROXINE 100 MCG TAB PO SCH (06:40)
[2020-02-16 08:38] LABS: Total Cells Counted 100
[2020-02-16 08:39] LABS: Anisocytosis 1+; Platelet Estimate Consistent w Auto
--- NOTE | 2020-02-16 09:06 | Progress Note ---
Assessment and Plan Assessment and plan: Acute renal failure. Etiology secondary to acute kidney injury from vasomotor nephropathy/dehydration. Nephrology consultation pending. Rhabdomyolysis. Patient with elevated CK level. Continue to monitor Elevated troponin. Patient denies chest pain. Check echocardiogram. Hypothyroidism. TSH significantly elevated. Resume Synthroid and consider increasing dose if patient has been compliant with medications. Sepsis. Patient has significant leukocytosis. Afebrile. Etiology likely secondary to UTI. Follow-up urine culture. UTI. Follow-up urine and blood cultures. Covid 19 pneumonia. Patient tested positive 02/15/2020. Diabetes mellitus type 2. Continue Accu-Cheks and sliding scale insulin. Tight glycemic control. Hypertension. DVT prophylaxis. Continue subcutaneous heparin. 02/14/2020. Check Covid testing. Hold on restarting lisinopril for blood pressure given the acute renal failure. Start Procardia 60 mg twice daily. Rhabdomyolysis and kidney function improved with IV fluid hydration. Continue to monitor. PT evaluation for deconditioning. Await echocardiogram 02/15/2020. Patient with asymptomatic hypotension this morning with systolic blood pressure 84. Discontinue Procardia and hold lisinopril for now. Continue IV fluid hydration for acute renal failure/acute kidney injury/rhabdomyolysis. Nurse reports patient had coughing with eating. Speech therapy evaluation for swallow evaluation 02/16/2020. Hypotension has resolved and patient remains asymptomatic. Procardia and lisinopril discontinued. Tenuous IV fluid hydration for acute renal failure/acute kidney injury/rhabdomyolysis given positive Covid infection. Speech therapy reports no evidence of dysphagia. Continue dexamethasone 6 mg p.o. daily x10 days. Consider remdesivir if renal function improves. Await ID consultation. Transfer to [facility] given positive Covid. History Interval history: Hypotension has improved this morning. Patient remains asymptomatic. Hospitalist Physical - Constitutional Vitals: Temp Pulse Resp BP Pulse Ox 98.9 F 54 L 20 118/61 96 02/16/20 08:31 02/16/20 08:31 02/16/20 08:31 02/16/20 08:31 02/16/20 08:31 General appearance: Present: no acute distress, well-nourished - EENT Eyes: Present: PERRL, EOM intact ENT: hearing intact, clear oral mucosa, dentition normal - Neck Neck: Present: supple, normal ROM - Respiratory Respiratory effort: normal Respiratory: bilateral: CTA - Cardiovascular Rhythm: regular Heart Sounds: Present: S1 & S2. Absent: gallop, rub - Extremities Extremities: no ischemia, No edema, Full ROM - Abdominal General gastrointestinal: soft, non-tender, non-distended, normal bowel sounds - Integumentary Integumentary: Present: clear, warm, dry - Neurologic Neurologic: CNII-XII intact, moves all extremities HEART Score - HEART Score Troponin: Troponin T 0.045 ng/mL (0.00-0.029) H D 02/13/20 12:29 Results - Labs CBC & Chem 7: 02/16/20 05:42 02/16/20 05:42 Labs: Laboratory Last Values WBC 7.7 K/mm3 (4.5-11.0) 02/16/20 05:42 RBC 3.46 M/mm3 (3.65-5.03) L 02/16/20 05:42 Hgb 10.6 gm/dl (11.8-15.2) L 02/16/20 05:42 Hct 31.7 % (35.5-45.6) L 02/16/20 05:42 MCV 92 fl (84-94) 02/16/20 05:42 MCH 31 pg (28-32) 02/16/20 05:42 MCHC 33 % (32-34) 02/16/20 05:42 RDW 14.6 % (13.2-15.2) 02/16/20 05:42 Plt Count 183 K/mm3 (140-440) 02/16/20 05:42 Add Manual Diff Complete 02/16/20 05:42 Total Counted 100 02/16/20 05:42 Seg Neutrophils % Motion Picture [employer] 02/16/20 05:42 Seg Neuts % (Manual) 93.0 % (40.0-70.0) H 02/16/20 05:42 Band Neutrophils % 26.0 % 02/12/20 15:46 Lymphocytes % (Manual) 2.0 % (13.4-35.0) L 02/16/20 05:42 Monocytes % (Manual) 5.0 % (0.0-7.3) 02/16/20 05:42 Nucleated RBC % Not Reportable 02/16/20 05:42 Seg Neutrophils # Man 7.2 K/mm3 (1.8-7.7) 02/16/20 05:42 Band Neutrophils # 0.0 K/mm3 02/16/20 05:42 Lymphocytes # (Manual) 0.2 K/mm3 (1.2-5.4) L 02/16/20 05:42 Abs React Lymphs (Man) 0.0 K/mm3 02/16/20 05:42 Monocytes # (Manual) 0.4 K/mm3 (0.0-0.8) 02/16/20 05:42 Eosinophils # (Manual) 0.0 K/mm3 (0.0-0.4) 02/16/20 05:42 Basophils # (Manual) 0.0 K/mm3 (0.0-0.1) 02/16/20 05:42 Metamyelocytes # 0.0 K/mm3 02/16/20 05:42 Myelocytes # 0.0 K/mm3 02/16/20 05:42 Promyelocytes # 0.0 K/mm3 02/16/20 05:42 Blast Cells # 0.0 K/mm3 02/16/20 05:42 Pathologist Review Motion Picture [employer]ographer 02/12/20 15:46 WBC Morphology Not Reportable 02/16/20 05:42 Hypersegmented Neuts Not Reportable 02/16/20 05:42 Hyposegmented Neuts Not Reportable 02/16/20 05:42 Hypogranular Neuts Not Reportable 02/16/20 05:42 Smudge Cells Not Reportable 02/16/20 05:42 Toxic Granulation Not Reportable 02/16/20 05:42 Toxic Vacuolation Not Reportable 02/16/20 05:42 Dohle Bodies Not Reportable 02/16/20 05:42 Pelger-Huet Anomaly Not Reportable 02/16/20 05:42 Cherelle Rods Not Reportable 02/16/20 05:42 Platelet Estimate Consistent w auto 02/16/20 05:42 Clumped Platelets Not Reportable 02/16/20 05:42 Plt Clumps, EDTA Not Reportable 02/16/20 05:42 Large Platelets Not Reportable 02/16/20 05:42 Giant Platelets Not Reportable 02/16/20 05:42 Platelet Satelliting Not Reportable 02/16/20 05:42 Plt Morphology Comment Not Reportable 02/16/20 05:42 RBC Morphology Not Reportable 02/16/20 05:42 Dimorphic RBCs Not Reportable 02/16/20 05:42 Polychromasia Not Reportable 02/16/20 05:42 Hypochromasia Not Reportable 02/16/20 05:42 Poikilocytosis Not Reportable 02/16/20 05:42 Anisocytosis 1+ 02/16/20 05:42 Microcytosis Not Reportable 02/16/20 05:42 Macrocytosis Not Reportable 02/16/20 05:42 Spherocytes Not Reportable 02/16/20 05:42 Pappenheimer Bodies Not Reportable 02/16/20 05:42 Sickle Cells Not Reportable 02/16/20 05:42 Target Cells Not Reportable 02/16/20 05:42 Tear Drop Cells Not Reportable 02/16/20 05:42 Ovalocytes Not Reportable 02/16/20 05:42 Helmet Cells Not Reportable 02/16/20 05:42 [place] Bodies Not Reportable 02/16/20 05:42 [place] Rings Not Reportable 02/16/20 05:42 Eliza Cells Not Reportable 02/16/20 05:42 Bite Cells Not Reportable 02/16/20 05:42 Crenated Cell Not Reportable 02/16/20 05:42 Elliptocytes Not Reportable 02/16/20 05:42 Acanthocytes (Spur) Not Reportable 02/16/20 05:42 Rouleaux Not Reportable 02/16/20 05:42 Hemoglobin C Crystals Not Reportable 02/16/20 05:42 Schistocytes Not Reportable 02/16/20 05:42 Malaria parasites Not Reportable 02/16/20 05:42 Christian Bodies Not Reportable 02/16/20 05:42 Hem Pathologist Commnt No 02/16/20 05:42 PT 13.2 Sec. (12.2-14.9) 02/13/20 12:29 INR 1.01 (0.87-1.13) 02/13/20 12:29 D-Dimer 793.22 ng/mlDDU (0-234) H 02/15/20 10:48 Sodium 139 mmol/L (137-145) 02/16/20 05:42 Potassium 3.6 mmol/L (3.6-5.0) 02/16/20 05:42 Chloride 105.1 mmol/L (98-107) 02/16/20 05:42 Carbon Dioxide 19 mmol/L (22-30) L 02/16/20 05:42 Anion Gap 19 mmol/L 02/16/20 05:42 BUN 31 mg/dL (9-20) H 02/16/20 05:42 Creatinine 2.6 mg/dL (0.8-1.3) H 02/16/20 05:42 Estimated GFR 26 ml/min 02/16/20 05:42 BUN/Creatinine Ratio 12 % 02/16/20 05:42 Glucose 274 mg/dL (75-100) H 02/16/20 05:42 POC Glucose 240 mg/dL (70-105) H 02/16/20 08:33 Hemoglobin A1c 6.5 % (4-6) H 02/15/20 06:04 Calcium 7.4 mg/dL (8.4-10.2) L 02/16/20 05:42 Ferritin 1480.0 ng/mL (30.0-300.0) H 02/15/20 10:48 Total Bilirubin 0.30 mg/dL (0.1-1.2) 02/12/20 15:46 AST 260 units/L (5-40) H 02/12/20 15:46 ALT 65 units/L (7-56) H 02/12/20 15:46 Alkaline Phosphatase 66 units/L (35-129) 02/12/20 15:46 Lactate Dehydrogenase 400 units/L (91-180) H 02/15/20 10:48 Total Creatine Kinase 1894 units/L (55-170) H 02/16/20 05:42 Troponin T 0.045 ng/mL (0.00-0.029) H D 02/13/20 12:29 C-Reactive Protein 18.20 mg/dL (0.00-1.30) H 02/15/20 10:48 Total Protein 6.4 g/dL (6.3-8.2) 02/12/20 15:46 Albumin 2.7 g/dL (3.9-5) L 02/12/20 15:46 Albumin/Globulin Ratio 0.7 % 02/12/20 15:46 Triglycerides 189 mg/dL (2-149) H 12/24/20 15:46 Cholesterol 143 mg/dL (50-199) 02/12/20 15:46 LDL Cholesterol Direct 69 mg/dL (50-130) 02/12/20 15:46 HDL Cholesterol 34 mg/dL (40-59) L 02/12/20 15:46 Cholesterol/HDL Ratio 4.20 % 02/12/20 15:46 Procalcitonin 40.90 ng/mL (<0.15) 02/15/20 10:48 TSH 33.890 mlU/mL (0.270-4.200) H 02/12/20 15:46 Free T4 0.74 ng/dL (0.76-1.46) L 02/12/20 Unknown Urine Color Yellow (Yellow) 02/12/20 17:42 Urine Turbidity Slightly-cloudy (Clear) 02/12/20 17:42 Urine pH 5.0 (5.0-7.0) 02/12/20 17:42 Ur Specific [place] 1.014 (1.003-1.030) 02/12/20 17:42 Urine Protein >500 mg/dL (Negative) 02/12/20 17:42 Urine Glucose (UA) Neg mg/dL (Negative) 02/12/20 17:42 Urine Ketones Neg mg/dL (Negative) 02/12/20 17:42 Urine Blood Lg (Negative) 02/12/20 17:42 Urine Nitrite Neg (Negative) 02/12/20 17:42 Urine Bilirubin Neg (Negative) 02/12/20 17:42 Urine Urobilinogen < 2.0 mg/dL (<2.0) 02/12/20 17:42 Ur Leukocyte Esterase Neg (Negative) 02/12/20 17:42 Urine WBC (Auto) 13.0 /HPF (0.0-6.0) H 02/12/20 17:42 Urine RBC (Auto) 5.0 /HPF (0.0-6.0) 02/12/20 17:42 U Epithel Cells (Auto) < 1.0 /HPF (0-13.0) 02/12/20 17:42 Hyaline Casts 2 /LPF 02/12/20 17:42 Urine Mucus Few /HPF 02/12/20 17:42 Urine Opiates Screen Negative 02/12/20 17:42 Urine Methadone Screen Negative 12/24/20 17:42 Ur Barbiturates Screen Negative 02/12/20 17:42 Ur Phencyclidine Scrn Negative 02/12/20 17:42 Ur Amphetamines Screen Negative 02/12/20 17:42 U Benzodiazepines Scrn Negative 02/12/20 17:42 Urine Cocaine Screen Negative 02/12/20 17:42 U Marijuana (THC) Screen Negative 02/12/20 17:42 Drugs of Abuse Note Disclamer 02/12/20 17:42 Plasma/Serum Alcohol < 0.01 % (0-0.07) 02/12/20 15:46 Coronavirus (PCR) Positive (Negative) A 02/15/20 10:19 Microbiology: Microbiology 02/13/20 12:29 Peripheral/Venous Blood Culture - Preliminary NO GROWTH AFTER 48 HOURS 02/13/20 12:29 Peripheral/Venous Blood Culture - Preliminary NO GROWTH AFTER 48 HOURS 02/12/20 17:42 Urine,Clean Catch Urine Culture - Final NO GROWTH AFTER 48 HOURS Webb/IV: Voiding Method Condom Catheter IV Catheter Type [Left Forearm Peripheral IV ] IV Catheter Type [Right INT / Saline Lock Antecubital] Active Medications - Current Medications Current Medications: Generic Name Dose Route Start Last Admin Trade Name Freq PRN Reason Stop Dose Admin Acetaminophen 650 mg 02/12/20 22:39 02/15/20 23:11 Acetaminophen 325 Mg Tab PO 650 mg Q4H PRN Administration Pain MILD(1-3)/Fever >100.5/PETER Amitriptyline HCl 25 mg 02/13/20 22:00 02/15/20 22:01 Amitriptyline 25 Mg Tab PO 25 mg QHS RYAN Administration Dexamethasone 6 mg 02/15/20 22:00 02/15/20 22:01 Dexamethasone 4 Mg Tab PO 02/24/20 10:01 6 mg DAILY RYAN Administration Dextrose 0 ml 02/12/20 22:39 02/15/20 00:20 Dextrose 50% In Water (25gm) 50 Ml Syringe IV 50 ml Q30MIN PRN Administration Hypoglycemia Protocol Enoxaparin Sodium 30 mg 02/15/20 22:00 02/15/20 22:02 Enoxaparin 30 Mg/0.3 Ml Inj SUB-Q 30 mg BID RYAN Administration Protocol Ceftriaxone Sodium 1 gm in 50 mls @ 100 mls/hr 02/13/20 12:00 02/15/20 13:11 Rocephin/Ns 1 Gm/50 Ml IV 100 mls/hr Q24H RYAN Administration Protocol Dextrose/Sodium Chloride 1,000 mls @ 125 mls/hr 02/15/20 23:00 02/15/20 22:17 D5/0.45ns IV 125 mls/hr DIRECT RYAN Administration Insulin Human Lispro 0 unit 02/13/20 07:30 02/15/20 20:59 Insulin Lispro 100 Unit/Ml Vial 3 Ml SUB-Q Not Given ACHS [facility] Protocol Levothyroxine Sodium 100 mcg 02/13/20 06:00 02/16/20 06:40 Levothyroxine 100 Mcg Tab PO 100 mcg 0600 RYAN Administration Lisinopril 10 mg 02/14/20 12:00 02/15/20 10:35 Lisinopril 10 Mg Tab PO Not Given QDAY RYAN Magnesium Hydroxide 30 ml 02/12/20 22:39 Magnesium Hydroxide (Mom) Oral Liqd Udc PO Q4H PRN Constipation Morphine Sulfate 2 mg 02/12/20 22:39 02/13/20 07:31 Morphine 2 Mg/1 Ml Inj IV 2 mg Q4H PRN Administration Pain, Moderate (4-6) Ondansetron HCl 4 mg 02/12/20 22:39 02/12/20 23:06 Ondansetron 4 Mg/2 Ml Inj IV 4 mg Q8H PRN Administration Nausea And Vomiting Pseudoephedrine/Acetam/Chlorphenir 10 ml 02/13/20 21:25 02/14/20 19:43 Guaifenesin/Codeine 100-10mg Oral Liqd 5 Ml PO 10 ml Q6H PRN Administration Cough Sodium Chloride 10 ml 02/13/20 10:00 02/15/20 22:01 Sodium Chloride 0.9% 10 Ml Flush Syringe IV 10 ml BID RYAN Administration Sodium Chloride 10 ml 02/12/20 22:39 Sodium Chloride 0.9% 10 Ml Flush Syringe IV PRN PRN LINE FLUSH Nutrition/Malnutrition Assess - Dietary Evaluation Nutrition/Malnutrition Findings: Nutrition Notes Start: 02/13/20 10:18 Freq: Status: Active Protocol: Document 02/13/20 10:20 LM (Rec: 02/13/20 10:26 LM [id number]) Nutrition Notes Need for Assessment generated from: MD Order,stogy roller,MST Initial or Follow up Assessment Current Diagnosis Acute Kidney Injury,Diabetes, Hypertension Other Pertinent Diagnosis multiple wounds,SIRS, Rhabdomyolysis, hypothyroid, throat Ca (in remission) Current Diet Cardiac/consisent CHO Labs/Tests POC glu 68 Pertinent Medications NS at 150ml/hr Height 5 ft 8 in Weight 62.142 kg [place] Body Weight (kg) 70.00 BMI 20.8 Weight Status Appropriate Subjective/Other Information MD consult for diet education. Rn screen for MST. Pt asleep at time of visit. Pt has wounds. Burn Absent Trauma Absent Minimum of two criteria No physical signs of malnutrition #1 Nutrition Diagnosis Increased nutrient needs ( specify in comment below) Comments: Protein Etiology Wound healing As Evidenced by Signs and Symptoms multiple wounds Is patient on ventilator? No Is Patient Ambulatory and/or Out of Bed No REE-([facility]-confined to bed) [phone] Calculation Used for Recommendations [facility] Additional Notes Protein: 50-93g (0.8-1.5g/kg) Fluid: 1ml/kcal Nutrition Intervention Change Diet Order: Continue Goal #1 Meet at least 75% of energy and protein needs Goal #2 Wound healing Anticipated Discharge Needs: cardiac/consistent CHO Follow-Up By: 02/17/20 Additional Comments F/u for diet ed needs, full assessment
[2020-02-16] MEDS: INSULIN LISPRO 100 UNIT/ML VIAL 3 mL SUB-Q SCH ×4 (09:15→21:46)
[2020-02-16] MEDS: ENOXAPARIN 30 MG/0.3 ML INJ SUB-Q SCH (09:16)
[2020-02-16] MEDS: guaiFENesin/CODEINE 100-10MG ORAL LIQD 5 ML PO PRN ×2 (09:16→21:46)
[2020-02-16] MEDS: ACETAMINOPHEN 325 MG TAB PO PRN (09:16)
[2020-02-16] MEDS: D5W/0.45% NACL 1,000 ML IV SCH ×2 (09:33→17:19)
--- NOTE | 2020-02-16 10:36 | Progress Note ---
Assessment and Plan Assessment * Acute kidney injury, unknown baseline * Rhabdomyolysis, mild * Hypocalcemia, mild * Hypokalemia, mild * Anemia * Hypertension, uncontrolled * Diabetes mellitus * Covid positive Recommendations * Renal function is stable today, continue ivfs * stop sanket inhibitory * follow up am lytes, ck is better * This is likely secondary to sudden decline in blood pressure from antihypertensives leading to ATN. Hold antihypertensives. Hold lisinopril * Keep MAP more than 65 * Status post IV hydration, encourage p.o. hydration * Trend CPK * Monitor calcium and potassium, replete as needed * Renally dose medications * Avoid nephrotoxins * Strict I's/O * Keep glucose less than 200 mg/dL Subjective Date of service: 02/16/20 Principal diagnosis: Acute kidney injury Interval history: resting in bed Objective - Exam Narrative Exam: Deferred as patient is Covid positive in order to prevent spread of infection and for PPE preservation. - Vital Signs Vital signs: Vital Signs - 12hr 02/15/20 02/15/20 02/16/20 23:11 23:36 04:00 Temperature 98.4 F 98.4 F Pulse Rate 55 L 53 L Respiratory 22 19 18 Rate Blood Pressure Blood Pressure 100/46 105/51 [Right] O2 Sat by Pulse 88 78 L Oximetry 02/16/20 02/16/20 02/16/20 05:00 06:54 08:31 Temperature 98.9 F Pulse Rate 54 L Respiratory 20 Rate Blood Pressure 118/61 Blood Pressure [Right] O2 Sat by Pulse 80 L 96 96 Oximetry - Lab 02/16/20 05:42 02/16/20 05:42 Most recent lab results Calcium 7.4 mg/dL (8.4-10.2) L 02/16/20 05:42 Medications & Allergies - Medications Allergies/Adverse Reactions: Allergies No Known Allergies Allergy (Verified 08/16/18 11:38) Home Medications: Home Medications Medication Instructions Recorded Confirmed Last Taken Type Amitriptyline [Elavil] 25 mg PO QHS tablet 11/22/17 02/13/20 Unknown Rx Ondansetron [Zofran ODT TAB] 8 mg PO Q8HR tab.rapdis 11/22/17 02/13/20 Unknown Rx Prochlorperazine [Compazine] 10 mg PO Q6HR PRN tablet 11/22/17 02/13/20 Unknown Rx lisinopriL [Zestril TAB] 10 mg PO QDAY tablet 11/22/17 02/13/20 Unknown Rx Levothyroxine 100 mcg PO DAILY 02/12/20 02/12/20 Unknown History Mupirocin 1 tab PO BID 02/12/20 02/13/20 Unknown History Tramadol HCl/Acetaminophen 37.5 mg PO BID 02/12/20 02/13/20 Unknown History Active Medications: Generic Name Dose Route Start Last Admin Trade Name Freq PRN Reason Stop Dose Admin Acetaminophen 650 mg 02/12/20 22:39 02/16/20 09:16 Acetaminophen 325 Mg Tab PO 650 mg Q4H PRN Administration Pain MILD(1-3)/Fever >100.5/PETER Amitriptyline HCl 25 mg 02/13/20 22:00 02/15/20 22:01 Amitriptyline 25 Mg Tab PO 25 mg QHS RYAN Administration Dexamethasone 6 mg 02/15/20 22:00 02/15/20 22:01 Dexamethasone 4 Mg Tab PO 02/24/20 10:01 6 mg DAILY RYAN Administration Dextrose 0 ml 02/12/20 22:39 02/15/20 00:20 Dextrose 50% In Water (25gm) 50 Ml Syringe IV 50 ml Q30MIN PRN Administration Hypoglycemia Protocol Enoxaparin Sodium 30 mg 02/15/20 22:00 02/16/20 09:16 Enoxaparin 30 Mg/0.3 Ml Inj SUB-Q 30 mg BID RYAN Administration Protocol Ceftriaxone Sodium 1 gm in 50 mls @ 100 mls/hr 02/13/20 12:00 02/15/20 13:11 Rocephin/Ns 1 Gm/50 Ml IV 100 mls/hr Q24H RYAN Administration Protocol Dextrose/Sodium Chloride 1,000 mls @ 125 mls/hr 02/15/20 23:00 02/16/20 09:33 D5/0.45ns IV 125 mls/hr DIRECT RYAN Administration Insulin Human Lispro 0 unit 02/13/20 07:30 02/16/20 09:15 Insulin Lispro 100 Unit/Ml Vial 3 Ml SUB-Q 3 unit ACHS RYAN Administration Protocol Levothyroxine Sodium 100 mcg 02/13/20 06:00 02/16/20 06:40 Levothyroxine 100 Mcg Tab PO 100 mcg 0600 RYAN Administration Morphine Sulfate 2 mg 02/12/20 22:39 02/13/20 07:31 Morphine 2 Mg/1 Ml Inj IV 2 mg Q4H PRN Administration Pain, Moderate (4-6) Ondansetron HCl 4 mg 02/12/20 22:39 02/12/20 23:06 Ondansetron 4 Mg/2 Ml Inj IV 4 mg Q8H PRN Administration Nausea And Vomiting Pseudoephedrine/Acetam/Chlorphenir 10 ml 02/13/20 21:25 02/16/20 09:16 Guaifenesin/Codeine 100-10mg Oral Liqd 5 Ml PO 10 ml Q6H PRN Administration Cough Sodium Chloride 10 ml 02/13/20 10:00 02/16/20 09:18 Sodium Chloride 0.9% 10 Ml Flush Syringe IV 10 ml BID RYAN Administration Sodium Chloride 10 ml 02/12/20 22:39 Sodium Chloride 0.9% 10 Ml Flush Syringe IV PRN PRN LINE FLUSH
[2020-02-16] MEDS: DEXAMETHASONE 4 MG TAB PO SCH (10:41)
[2020-02-16] MEDS: cefTRIAXone/NS 1 GM/50 ML 1 GM/50 ML BAG IV SCH (13:24)
[2020-02-16] MEDS: LISINOPRIL 10 MG TAB PO SCH (13:26)
--- NOTE | 2020-02-16 13:35 | Progress Note ---
Assessment and Plan 54 y/o male with acute respiratory failure secondary to COVID 19 pneumonia. 1. Prone as tolerated during the day and sleep prone at night if possible 2. Agree with steroids 3. Renal following and fluids ordered by them, ideally patient would benefit from net negative state from an oxygen standpoint. 4. Follow up ID recs, given renal function doubt he is a candidate for remdesivir Guarded prognosis. Subjective Date of service: 02/16/20 Principal diagnosis: Acute kidney injury Interval history: Down to 30 liters, still at 100%. Good sats. On steroids, ID has not seen yet. Orders for proning in. Objective Vital Signs - 12hr 02/16/20 02/16/20 02/16/20 04:00 05:00 06:54 Temperature 98.4 F Pulse Rate 53 L Respiratory 18 Rate Blood Pressure Blood Pressure 105/51 [Right] O2 Sat by Pulse 78 L 80 L 96 Oximetry 02/16/20 08:31 Temperature 98.9 F Pulse Rate 54 L Respiratory 20 Rate Blood Pressure 118/61 Blood Pressure [Right] O2 Sat by Pulse 96 Oximetry Constitutional: other (critically ill on HFNC) Eyes: non-icteric ENT: oropharynx moist Neck: supple Effort: normal Ascultation: Bilateral: clear Cardiovascular: regular rate and rhythm (no mrg) Gastrointestinal: normoactive bowel sounds, soft, non-tender Integumentary: normal Extremities: no cyanosis, no edema, pink and warm Neurologic: normal mental status, non-focal exam, pupils equal and round, CN II- XII normal Psychiatric: mood appropriate, affect normal CBC and BMP: 02/16/20 05:42 02/16/20 05:42 ABG, PT/INR, D-dimer: PT/INR, D-dimer PT 13.2 Sec. (12.2-14.9) 02/13/20 12: INR 1.01 (0.87-1.13) 02/13/20 12:29 D-Dimer 793.22 ng/mlDDU (0-234) H 02/15/20 10:48 Abnormal lab findings: Abnormal Labs 02/12/20 02/12/20 02/12/20 15:46 15:46 15:46 WBC 27.1 H RBC 3.37 L Hgb 10.3 L Hct 30.5 L Seg Neuts % (Manual) Lymphocytes % (Manual) 2.0 L Seg Neutrophils # Man 18.7 H Lymphocytes # (Manual) 0.5 L D-Dimer Sodium 133 L Potassium Chloride 93.1 L Carbon Dioxide 32 H BUN 59 H Creatinine 2.4 H Glucose POC Glucose Hemoglobin A1c Calcium 8.0 L Ferritin AST 260 H ALT 65 H Lactate Dehydrogenase Total Creatine Kinase 9691 H Troponin T 0.066 H C-Reactive Protein Albumin 2.7 L Triglycerides 189 H HDL Cholesterol 34 L TSH 33.890 H Free T4 Urine WBC (Auto) Coronavirus (PCR) 02/12/20 02/12/20 02/13/20 17:42 Unknown 07:46 WBC RBC Hgb Hct Seg Neuts % (Manual) Lymphocytes % (Manual) Seg Neutrophils # Man Lymphocytes # (Manual) D-Dimer Sodium Potassium Chloride Carbon Dioxide BUN Creatinine Glucose POC Glucose 68 L Hemoglobin A1c Calcium Ferritin AST ALT Lactate Dehydrogenase Total Creatine Kinase Troponin T C-Reactive Protein Albumin Triglycerides HDL Cholesterol TSH Free T4 0.74 L Urine WBC (Auto) 13.0 H Coronavirus (PCR) 02/13/20 02/13/20 02/13/20 11:38 12:29 12:29 WBC RBC 2.74 L Hgb 8.4 L Hct 24.7 L Seg Neuts % (Manual) 99.0 H Lymphocytes % (Manual) 1.0 L Seg Neutrophils # Man 10.6 H Lymphocytes # (Manual) 0.1 L D-Dimer Sodium Potassium Chloride Carbon Dioxide BUN 52 H Creatinine 1.7 H Glucose 121 H POC Glucose 134 H Hemoglobin A1c Calcium 7.4 L Ferritin AST ALT Lactate Dehydrogenase Total Creatine Kinase Troponin T C-Reactive Protein Albumin Triglycerides HDL Cholesterol TSH Free T4 Urine WBC (Auto) Coronavirus (PCR) 02/13/20 02/14/20 02/14/20 12:29 07:38 07:38 WBC RBC 3.11 L Hgb 9.5 L Hct 28.0 L Seg Neuts % (Manual) 99.0 H Lymphocytes % (Manual) 1.0 L Seg Neutrophils # Man Lymphocytes # (Manual) 0.1 L D-Dimer Sodium Potassium 3.5 L Chloride Carbon Dioxide BUN 34 H Creatinine Glucose POC Glucose Hemoglobin A1c Calcium 7.5 L Ferritin AST ALT Lactate Dehydrogenase Total Creatine Kinase 6134 H 3825 H Troponin T 0.045 H D C-Reactive Protein Albumin Triglycerides HDL Cholesterol TSH Free T4 Urine WBC (Auto) Coronavirus (PCR) 02/14/20 02/15/20 02/15/20 20:39 00:36 00:53 WBC RBC Hgb Hct Seg Neuts % (Manual) Lymphocytes % (Manual) Seg Neutrophils # Man Lymphocytes # (Manual) D-Dimer Sodium Potassium Chloride Carbon Dioxide BUN Creatinine Glucose POC Glucose 126 H 34 L 311 H Hemoglobin A1c Calcium Ferritin AST ALT Lactate Dehydrogenase Total Creatine Kinase Troponin T C-Reactive Protein Albumin Triglycerides HDL Cholesterol TSH Free T4 Urine WBC (Auto) Coronavirus (PCR) 02/15/20 02/15/20 02/15/20 02:42 06:04 06:04 WBC RBC Hgb Hct Seg Neuts % (Manual) Lymphocytes % (Manual) Seg Neutrophils # Man Lymphocytes # (Manual) D-Dimer Sodium Potassium Chloride Carbon Dioxide BUN Creatinine Glucose POC Glucose 250 H Hemoglobin A1c 6.5 H Calcium Ferritin AST ALT Lactate Dehydrogenase Total Creatine Kinase 1923 H Troponin T C-Reactive Protein Albumin Triglycerides HDL Cholesterol TSH Free T4 Urine WBC (Auto) Coronavirus (PCR) 02/15/20 02/15/20 02/15/20 08:21 10:19 10:48 WBC RBC Hgb Hct Seg Neuts % (Manual) Lymphocytes % (Manual) Seg Neutrophils # Man Lymphocytes # (Manual) D-Dimer Sodium Potassium 3.4 L Chloride 107.8 H Carbon Dioxide BUN 41 H Creatinine 2.5 H D Glucose 166 H POC Glucose 184 H Hemoglobin A1c Calcium 7.3 L Ferritin AST ALT Lactate Dehydrogenase Total Creatine Kinase Troponin T C-Reactive Protein Albumin Triglycerides HDL Cholesterol TSH Free T4 Urine WBC (Auto) Coronavirus (PCR) Positive A 02/15/20 02/15/20 02/15/20 10:48 10:48 10:48 WBC RBC Hgb Hct Seg Neuts % (Manual) Lymphocytes % (Manual) Seg Neutrophils # Man Lymphocytes # (Manual) D-Dimer 793.22 H Sodium Potassium Chloride Carbon Dioxide BUN Creatinine Glucose POC Glucose Hemoglobin A1c Calcium Ferritin 1480.0 H AST ALT Lactate Dehydrogenase 400 H Total Creatine Kinase Troponin T C-Reactive Protein 18.20 H Albumin Triglycerides HDL Cholesterol TSH Free T4 Urine WBC (Auto) Coronavirus (PCR) 02/15/20 02/15/20 02/15/20 12:16 17:26 20:51 WBC RBC Hgb Hct Seg Neuts % (Manual) Lymphocytes % (Manual) Seg Neutrophils # Man Lymphocytes # (Manual) D-Dimer Sodium Potassium Chloride Carbon Dioxide BUN Creatinine Glucose POC Glucose 129 H 167 H 110 H Hemoglobin A1c Calcium Ferritin AST ALT Lactate Dehydrogenase Total Creatine Kinase Troponin T C-Reactive Protein Albumin Triglycerides HDL Cholesterol TSH Free T4 Urine WBC (Auto) Coronavirus (PCR) 02/16/20 02/16/20 02/16/20 05:42 05:42 08:33 WBC RBC 3.46 L Hgb 10.6 L Hct 31.7 L Seg Neuts % (Manual) 93.0 H Lymphocytes % (Manual) 2.0 L Seg Neutrophils # Man Lymphocytes # (Manual) 0.2 L D-Dimer Sodium Potassium Chloride Carbon Dioxide 19 L BUN 31 H Creatinine 2.6 H Glucose 274 H POC Glucose 240 H Hemoglobin A1c Calcium 7.4 L Ferritin AST ALT Lactate Dehydrogenase Total Creatine Kinase 1894 H Troponin T C-Reactive Protein Albumin Triglycerides HDL Cholesterol TSH Free T4 Urine WBC (Auto) Coronavirus (PCR) 02/16/20 12:38 WBC RBC Hgb Hct Seg Neuts % (Manual) Lymphocytes % (Manual) Seg Neutrophils # Man Lymphocytes # (Manual) D-Dimer Sodium Potassium Chloride Carbon Dioxide BUN Creatinine Glucose POC Glucose 222 H Hemoglobin A1c Calcium Ferritin AST ALT Lactate Dehydrogenase Total Creatine Kinase Troponin T C-Reactive Protein Albumin Triglycerides HDL Cholesterol TSH Free T4 Urine WBC (Auto) Coronavirus (PCR)
--- NOTE | 2020-02-16 16:35 | Consultation ---
History of Present Illness - Reason for Consult Consult date: 02/16/20 COVID-19 Requesting physician: MIRANDA MOORE - History of Present Illness The patient is a 54-year-old male with diabetes, throat cancer in remission, back pain, hypertension was admitted to the hospital with bilateral shoulder pain, dizziness and fall. Upon evaluation in the ER, noted to have rhabdomyolysis, acute kidney injury. Subsequently a Covid test was done and came back positive. Infectious diseases was consulted for additional evaluation. Patient also had fever of 102.3 F on February 14, 2020. Currently, is on high flow nasal cannula. Review of Systems: reviewed in the chart, unable to obtain, minimize risk of transmission Past History Past Medical History: arthritis, diabetes, GERD, hypertension, hypothyroidism, other (Chronic back pain, anxiety, throat cancer on remission) Past Surgical History: appendectomy, cholecystectomy Social history: full code. denies: smoking, alcohol abuse, prescription drug abuse, IV drug use Family history: no significant family history (denies pulm issues) Medications and Allergies Allergies Allergy/AdvReac Type Severity Reaction Status Date / Time No Known Allergies Allergy Verified 08/16/18 11:38 Home Medications Medication Instructions Recorded Confirmed Last Taken Type Amitriptyline [Elavil] 25 mg PO QHS tablet 11/22/17 02/13/20 Unknown Rx Ondansetron [Zofran ODT TAB] 8 mg PO Q8HR tab.rapdis 11/22/17 02/13/20 Unknown Rx Prochlorperazine [Compazine] 10 mg PO Q6HR PRN tablet 11/22/17 02/13/20 Unknown Rx lisinopriL [Zestril TAB] 10 mg PO QDAY tablet 11/22/17 02/13/20 Unknown Rx Levothyroxine 100 mcg PO DAILY 02/12/20 02/12/20 Unknown History Mupirocin 1 tab PO BID 02/12/20 02/13/20 Unknown History Tramadol HCl/Acetaminophen 37.5 mg PO BID 02/12/20 02/13/20 Unknown History Active Meds: Active Medications Acetaminophen (Acetaminophen 325 Mg Tab) 650 mg PO Q4H PRN PRN Reason: Pain MILD(1-3)/Fever >100.5/PETER Last Admin: 02/16/20 09:16 Dose: 650 mg Documented by: Amitriptyline HCl (Amitriptyline 25 Mg Tab) 25 mg PO QHS COUNTS INCLUDE 234 BEDS AT THE [facility] Last Admin: 02/15/20 22:01 Dose: 25 mg Documented by: Dexamethasone (Dexamethasone 4 Mg Tab) 6 mg PO DAILY RYAN Stop: 02/24/20 10:01 Last Admin: 02/16/20 10:41 Dose: 6 mg Documented by: Dextrose (Dextrose 50% In Water (25gm) 50 Ml Syringe) 0 ml IV Q30MIN PRN; Protocol PRN Reason: Hypoglycemia Last Admin: 02/15/20 00:20 Dose: 50 ml Documented by: Enoxaparin Sodium (Enoxaparin 30 Mg/0.3 Ml Inj) 30 mg SUB-Q DAILY RYAN; Protocol Ceftriaxone Sodium (Rocephin/Ns 1 Gm/50 Ml) 1 gm in 50 mls @ 100 mls/hr IV Q24H RYAN; Protocol Last Admin: 02/16/20 13:24 Dose: 100 mls/hr Documented by: Dextrose/Sodium Chloride (D5/0.45ns) 1,000 mls @ 125 mls/hr IV DIRECT RYAN Last Admin: 02/16/20 09:33 Dose: 125 mls/hr Documented by: Insulin Human Lispro (Insulin Lispro 100 Unit/Ml Vial 3 Ml) 0 unit SUB-Q ACHS RYAN; Protocol Last Admin: 02/16/20 13:25 Dose: 3 unit Documented by: Levothyroxine Sodium (Levothyroxine 100 Mcg Tab) 100 mcg PO 0600 COUNTS INCLUDE 234 BEDS AT THE [facility] Last Admin: 02/16/20 06:40 Dose: 100 mcg Documented by: Morphine Sulfate (Morphine 2 Mg/1 Ml Inj) 2 mg IV Q4H PRN PRN Reason: Pain, Moderate (4-6) Last Admin: 02/13/20 07:31 Dose: 2 mg Documented by: Ondansetron HCl (Ondansetron 4 Mg/2 Ml Inj) 4 mg IV Q8H PRN PRN Reason: Nausea And Vomiting Last Admin: 02/12/20 23:06 Dose: 4 mg Documented by: Pseudoephedrine/Acetam/Chlorphenir (Guaifenesin/Codeine 100-10mg Oral Liqd 5 Ml) 10 ml PO Q6H PRN PRN Reason: Cough Last Admin: 02/16/20 09:16 Dose: 10 ml Documented by: Sodium Chloride (Sodium Chloride 0.9% 10 Ml Flush Syringe) 10 ml IV BID RYAN Last Admin: 02/16/20 09:18 Dose: 10 ml Documented by: Sodium Chloride (Sodium Chloride 0.9% 10 Ml Flush Syringe) 10 ml IV PRN PRN PRN Reason: LINE FLUSH Last Admin: 02/16/20 13:31 Dose: 10 ml Documented by: Physical Examination - Physical Exam Narrative exam: Physical Exam (reviewed in chart to minimize risk of transmission) Constitutional: deferred Head, Ears, Nose: deferred Eyes: deferred Neck: deferred Oral: deferred Cardiovascular: deferred Respiratory: deferred GI: deferred Musculoskeletal: deferred Skin: deferred Hem/Lymphatic: deferred Psych: deferred Neurological: deferred - Constitutional Vitals: Vital Signs Temp Pulse Resp BP Pulse Ox 98.3 F 54 L 20 129/63 99 02/16/20 15:45 02/16/20 15:45 02/16/20 15:45 02/16/20 15:45 02/16/20 15:45 Temperature -Last 24 Hours Temperature 98.3 F Temperature 98.9 F Temperature 98.4 F Temperature 98.4 F Temperature 98.0 F Temperature 98.4 F Results - Labs CBC & Chem 7: 02/16/20 05:42 02/16/20 05:42 Labs: Abnormal lab results 02/15/20 02/15/20 02/16/20 Range/Units 17:26 20:51 05:42 RBC (3.65-5.03) M/mm3 Hgb (11.8-15.2) gm/dl Hct (35.5-45.6) % Seg Neuts % (Manual) (40.0-70.0) % Lymphocytes % (Manual) (13.4-35.0) % Lymphocytes # (Manual) (1.2-5.4) K/mm3 Carbon Dioxide 19 L (22-30) mmol/L BUN 31 H (9-20) mg/dL Creatinine 2.6 H (0.8-1.3) mg/dL Glucose 274 H (75-100) mg/dL POC Glucose 167 H 110 H (70-105) mg/dL Calcium 7.4 L (8.4-10.2) mg/dL Total Creatine Kinase 1894 H (55-170) units/L 02/16/20 02/16/20 02/16/20 Range/Units 05:42 08:33 12:38 RBC 3.46 L (3.65-5.03) M/mm3 Hgb 10.6 L (11.8-15.2) gm/dl Hct 31.7 L (35.5-45.6) % Seg Neuts % (Manual) 93.0 H (40.0-70.0) % Lymphocytes % (Manual) 2.0 L (13.4-35.0) % Lymphocytes # (Manual) 0.2 L (1.2-5.4) K/mm3 Carbon Dioxide (22-30) mmol/L BUN (9-20) mg/dL Creatinine (0.8-1.3) mg/dL Glucose (75-100) mg/dL POC Glucose 240 H 222 H (70-105) mg/dL Calcium (8.4-10.2) mg/dL Total Creatine Kinase (55-170) units/L 02/16/20 Range/Units 16:24 RBC (3.65-5.03) M/mm3 Hgb (11.8-15.2) gm/dl Hct (35.5-45.6) % Seg Neuts % (Manual) (40.0-70.0) % Lymphocytes % (Manual) (13.4-35.0) % Lymphocytes # (Manual) (1.2-5.4) K/mm3 Carbon Dioxide (22-30) mmol/L BUN (9-20) mg/dL Creatinine (0.8-1.3) mg/dL Glucose (75-100) mg/dL POC Glucose 253 H (70-105) mg/dL Calcium (8.4-10.2) mg/dL Total Creatine Kinase (55-170) units/L - Imaging and Cardiology Chest x-ray: report reviewed, image reviewed (R pneumonia) Assessment and Plan Cultures: SARS CoV2 PCR: Positive Blood culture: No growth Urine culture: No growth A/P: 54-year-old male with diabetes, throat cancer in remission, back pain, hypertension was admitted to the hospital with bilateral shoulder pain, dizziness and fall: #R pneumonia: Secondary to COVID-19 #Acute hypoxic respiratory failure: On HFNC #Acute kidney injury: Creatinine worse today, up to 2.6, not a candidate for remdesivir at this time #Rhabdomyolysis: Improving CK. #Upper back wound: Continue wound care. Does not appear infected. Recs: -Continue IV/PO Dexamethasone 6 mg daily x 10 days -Creatinine worse today, not a candidate for remdesivir at this time -prophylactic anticoagulation based on d-dimer per hospital protocol -trend ferritin, LDH, d-dimer, CRP every 2-3 days for risk stratification and to assess disease progression -Continue empiric antibiotics however procalcitonin elevation is difficult to interpret in the setting of renal failure Amy Carrillo MD, FACP [facility] ([facility] O: [phone] F: [phone]
[2020-02-16] MEDS: AMITRIPTYLINE 25 MG TAB PO SCH (21:46)
[2020-02-17] MEDS: LEVOTHYROXINE 100 MCG TAB PO SCH (05:34)
[2020-02-17] MEDS: D5W/0.45% NACL 1,000 ML IV SCH ×2 (05:39→20:52)
--- NOTE | 2020-02-17 09:01 | Progress Note ---
Assessment and Plan 54 y/o male with acute respiratory failure secondary to COVID 19 pneumonia. 1. Prone as tolerated during the day and sleep prone at night if possible. Appreciate RT for documenting this. Wean FiO2/Flow for sats >88% 2. Agree with steroids, will treat for a total of 10 days. 3. Renal following and fluids ordered by them, ideally patient would benefit from net negative state from an oxygen standpoint, however not possible given diagnosis of Rhabdo. Needs labs today for follow up of this. 4. Follow up ID recs, given renal function doubt he is a candidate for remdesivir Guarded prognosis. Subjective Date of service: 02/17/20 Principal diagnosis: Acute kidney injury Interval history: No acute events. Did prone last night. Currently on 30 liters and 90%. Sat documented at 100. No labs back yet this am. Objective Vital Signs - 12hr 02/16/20 02/16/20 02/17/20 21:33 22:00 04:27 Temperature 97.2 F L Pulse Rate 53 L Pulse Rate [ 55 L Apical] Pulse Rate [ 55 L From Monitor] Respiratory 16 16 16 Rate Blood Pressure 144/69 168/87 Blood Pressure [Right] O2 Sat by Pulse 89 Oximetry 02/17/20 02/17/20 02/17/20 05:08 06:50 08:26 Temperature 97.2 F L Pulse Rate 56 L Pulse Rate [ Apical] Pulse Rate [ From Monitor] Respiratory 16 Rate Blood Pressure Blood Pressure 168/81 [Right] O2 Sat by Pulse 100 100 100 Oximetry Constitutional: other (critically ill on HFNC) Eyes: non-icteric ENT: oropharynx moist Neck: supple Effort: normal Ascultation: Bilateral: clear Cardiovascular: regular rate and rhythm (no mrg) Gastrointestinal: normoactive bowel sounds, soft, non-tender Integumentary: normal Extremities: no cyanosis, no edema, pink and warm Neurologic: normal mental status, non-focal exam, pupils equal and round, CN II- XII normal Psychiatric: mood appropriate, affect normal CBC and BMP: 02/16/20 05:42 02/16/20 05:42 ABG, PT/INR, D-dimer: PT/INR, D-dimer PT 13.2 Sec. (12.2-14.9) 02/13/20 12:29 INR 1.01 (0.87-1.13) 02/13/20 12:29 D-Dimer 793.22 ng/mlDDU (0-234) H 02/15/20 10:48 Abnormal lab findings: Abnormal Labs 02/12/20 02/12/20 02/12/20 15:46 15:46 15:46 WBC 27.1 H RBC 3.37 L Hgb 10.3 L Hct 30.5 L Seg Neuts % (Manual) Lymphocytes % (Manual) 2.0 L Seg Neutrophils # Man 18.7 H Lymphocytes # (Manual) 0.5 L D-Dimer Sodium 133 L Potassium Chloride 93.1 L Carbon Dioxide 32 H BUN 59 H Creatinine 2.4 H Glucose POC Glucose Hemoglobin A1c Calcium 8.0 L Ferritin AST 260 H ALT 65 H Lactate Dehydrogenase Total Creatine Kinase 9691 H Troponin T 0.066 H C-Reactive Protein Albumin 2.7 L Triglycerides 189 H HDL Cholesterol 34 L TSH 33.890 H Free T4 Urine WBC (Auto) Coronavirus (PCR) 02/12/20 02/12/20 02/13/20 17:42 Unknown 07:46 WBC RBC Hgb Hct Seg Neuts % (Manual) Lymphocytes % (Manual) Seg Neutrophils # Man Lymphocytes # (Manual) D-Dimer Sodium Potassium Chloride Carbon Dioxide BUN Creatinine Glucose POC Glucose 68 L Hemoglobin A1c Calcium Ferritin AST ALT Lactate Dehydrogenase Total Creatine Kinase Troponin T C-Reactive Protein Albumin Triglycerides HDL Cholesterol TSH Free T4 0.74 L Urine WBC (Auto) 13.0 H Coronavirus (PCR) 02/13/20 02/13/20 02/13/20 11:38 12:29 12:29 WBC RBC 2.74 L Hgb 8.4 L Hct 24.7 L Seg Neuts % (Manual) 99.0 H Lymphocytes % (Manual) 1.0 L Seg Neutrophils # Man 10.6 H Lymphocytes # (Manual) 0.1 L D-Dimer Sodium Potassium Chloride Carbon Dioxide BUN 52 H Creatinine 1.7 H Glucose 121 H POC Glucose 134 H Hemoglobin A1c Calcium 7.4 L Ferritin AST ALT Lactate Dehydrogenase Total Creatine Kinase Troponin T C-Reactive Protein Albumin Triglycerides HDL Cholesterol TSH Free T4 Urine WBC (Auto) Coronavirus (PCR) 02/13/20 02/14/20 02/14/20 12:29 07:38 07:38 WBC RBC 3.11 L Hgb 9.5 L Hct 28.0 L Seg Neuts % (Manual) 99.0 H Lymphocytes % (Manual) 1.0 L Seg Neutrophils # Man Lymphocytes # (Manual) 0.1 L D-Dimer Sodium Potassium 3.5 L Chloride Carbon Dioxide BUN 34 H Creatinine Glucose POC Glucose Hemoglobin A1c Calcium 7.5 L Ferritin AST ALT Lactate Dehydrogenase Total Creatine Kinase 6134 H 3825 H Troponin T 0.045 H D C-Reactive Protein Albumin Triglycerides HDL Cholesterol TSH Free T4 Urine WBC (Auto) Coronavirus (PCR) 02/14/20 02/15/20 02/15/20 20:39 00:36 00:53 WBC RBC Hgb Hct Seg Neuts % (Manual) Lymphocytes % (Manual) Seg Neutrophils # Man Lymphocytes # (Manual) D-Dimer Sodium Potassium Chloride Carbon Dioxide BUN Creatinine Glucose POC Glucose 126 H 34 L 311 H Hemoglobin A1c Calcium Ferritin AST ALT Lactate Dehydrogenase Total Creatine Kinase Troponin T C-Reactive Protein Albumin Triglycerides HDL Cholesterol TSH Free T4 Urine WBC (Auto) Coronavirus (PCR) 02/15/20 02/15/20 02/15/20 02:42 06:04 06:04 WBC RBC Hgb Hct Seg Neuts % (Manual) Lymphocytes % (Manual) Seg Neutrophils # Man Lymphocytes # (Manual) D-Dimer Sodium Potassium Chloride Carbon Dioxide BUN Creatinine Glucose POC Glucose 250 H Hemoglobin A1c 6.5 H Calcium Ferritin AST ALT Lactate Dehydrogenase Total Creatine Kinase 1923 H Troponin T C-Reactive Protein Albumin Triglycerides HDL Cholesterol TSH Free T4 Urine WBC (Auto) Coronavirus (PCR) 02/15/20 02/15/20 02/15/20 08:21 10:19 10:48 WBC RBC Hgb Hct Seg Neuts % (Manual) Lymphocytes % (Manual) Seg Neutrophils # Man Lymphocytes # (Manual) D-Dimer Sodium Potassium 3.4 L Chloride 107.8 H Carbon Dioxide BUN 41 H Creatinine 2.5 H D Glucose 166 H POC Glucose 184 H Hemoglobin A1c Calcium 7.3 L Ferritin AST ALT Lactate Dehydrogenase Total Creatine Kinase Troponin T C-Reactive Protein Albumin Triglycerides HDL Cholesterol TSH Free T4 Urine WBC (Auto) Coronavirus (PCR) Positive A 02/15/20 02/15/20 02/15/20 10:48 10:48 10:48 WBC RBC Hgb Hct Seg Neuts % (Manual) Lymphocytes % (Manual) Seg Neutrophils # Man Lymphocytes # (Manual) D-Dimer 793.22 H Sodium Potassium Chloride Carbon Dioxide BUN Creatinine Glucose POC Glucose Hemoglobin A1c Calcium Ferritin 1480.0 H AST ALT Lactate Dehydrogenase 400 H Total Creatine Kinase Troponin T C-Reactive Protein 18.20 H Albumin Triglycerides HDL Cholesterol TSH Free T4 Urine WBC (Auto) Coronavirus (PCR) 02/15/20 02/15/20 02/15/20 12:16 17:26 20:51 WBC RBC Hgb Hct Seg Neuts % (Manual) Lymphocytes % (Manual) Seg Neutrophils # Man Lymphocytes # (Manual) D-Dimer Sodium Potassium Chloride Carbon Dioxide BUN Creatinine Glucose POC Glucose 129 H 167 H 110 H Hemoglobin A1c Calcium Ferritin AST ALT Lactate Dehydrogenase Total Creatine Kinase Troponin T C-Reactive Protein Albumin Triglycerides HDL Cholesterol TSH Free T4 Urine WBC (Auto) Coronavirus (PCR) 02/16/20 02/16/20 02/16/20 05:42 05:42 08:33 WBC RBC 3.46 L Hgb 10.6 L Hct 31.7 L Seg Neuts % (Manual) 93.0 H Lymphocytes % (Manual) 2.0 L Seg Neutrophils # Man Lymphocytes # (Manual) 0.2 L D-Dimer Sodium Potassium Chloride Carbon Dioxide 19 L BUN 31 H Creatinine 2.6 H Glucose 274 H POC Glucose 240 H Hemoglobin A1c Calcium 7.4 L Ferritin AST ALT Lactate Dehydrogenase Total Creatine Kinase 1894 H Troponin T C-Reactive Protein Albumin Triglycerides HDL Cholesterol TSH Free T4 Urine WBC (Auto) Coronavirus (PCR) 02/16/20 02/16/20 02/16/20 12:38 16:24 21:29 WBC RBC Hgb Hct Seg Neuts % (Manual) Lymphocytes % (Manual) Seg Neutrophils # Man Lymphocytes # (Manual) D-Dimer Sodium Potassium Chloride Carbon Dioxide BUN Creatinine Glucose POC Glucose 222 H 253 H 279 H Hemoglobin A1c Calcium Ferritin AST ALT Lactate Dehydrogenase Total Creatine Kinase Troponin T C-Reactive Protein Albumin Triglycerides HDL Cholesterol TSH Free T4 Urine WBC (Auto) Coronavirus (PCR) 02/17/20 02/17/20 05:31 07:54 WBC RBC Hgb Hct Seg Neuts % (Manual) Lymphocytes % (Manual) Seg Neutrophils # Man Lymphocytes # (Manual) D-Dimer Sodium Potassium Chloride Carbon Dioxide BUN Creatinine Glucose POC Glucose 471 H Hemoglobin A1c Calcium Ferritin AST ALT Lactate Dehydrogenase Total Creatine Kinase 916 H Troponin T C-Reactive Protein Albumin Triglycerides HDL Cholesterol TSH Free T4 Urine WBC (Auto) Coronavirus (PCR)
[2020-02-17] MEDS: INSULIN LISPRO 100 UNIT/ML VIAL 3 mL SUB-Q SCH ×4 (09:27→21:34)
[2020-02-17] MEDS: DEXAMETHASONE 4 MG TAB PO SCH (09:28)
[2020-02-17] MEDS: ENOXAPARIN 30 MG/0.3 ML INJ SUB-Q SCH (09:28)
--- NOTE | 2020-02-17 12:11 | Progress Note ---
Assessment and Plan Assessment * Acute kidney injury, unknown baseline * Rhabdomyolysis, mild * Hypocalcemia, mild * Hypokalemia, mild * Anemia * Hypertension, uncontrolled * Diabetes mellitus * Covid positive Recommendations * Renal function is stable today, continue ivfs * stop sanket inhibitors * follow up am lytes, ck is better * This is likely secondary to sudden decline in blood pressure from antihypertensives leading to ATN. Hold antihypertensives. Hold lisinopril * Keep MAP more than 65 * Status post IV hydration, encourage p.o. hydration * Trend CPK * Monitor calcium and potassium, replete as needed * Renally dose medications * Avoid nephrotoxins * Strict I's/O * Keep glucose less than 200 mg/dL Subjective Date of service: 02/17/20 Principal diagnosis: Acute kidney injury Interval history: resting in bed Objective - Exam Narrative Exam: Deferred as patient is Covid positive in order to prevent spread of infection and for PPE preservation. - Vital Signs Vital signs: Vital Signs - 12hr 02/17/20 02/17/20 02/17/20 04:27 05:08 06:50 Temperature 97.2 F L Pulse Rate 56 L Respiratory 16 16 Rate Blood Pressure 168/87 Blood Pressure 168/81 [Right] O2 Sat by Pulse 100 100 Oximetry 02/17/20 08:26 Temperature Pulse Rate Respiratory Rate Blood Pressure Blood Pressure [Right] O2 Sat by Pulse 100 Oximetry - Lab 02/16/20 05:42 02/16/20 05:42 Most recent lab results Calcium 7.4 mg/dL (8.4-10.2) L 02/16/20 05:42 Medications & Allergies - Medications Allergies/Adverse Reactions: Allergies No Known Allergies Allergy (Verified 08/16/18 11:38) Home Medications: Home Medications Medication Instructions Recorded Confirmed Last Taken Type Amitriptyline [Elavil] 25 mg PO QHS tablet 11/22/17 02/13/20 Unknown Rx Ondansetron [Zofran ODT TAB] 8 mg PO Q8HR tab.rapdis 11/22/17 02/13/20 Unknown Rx Prochlorperazine [Compazine] 10 mg PO Q6HR PRN tablet 11/22/17 02/13/20 Unknown Rx lisinopriL [Zestril TAB] 10 mg PO QDAY tablet 11/22/17 02/13/20 Unknown Rx Levothyroxine 100 mcg PO DAILY 02/12/20 02/12/20 Unknown History Mupirocin 1 tab PO BID 02/12/20 02/13/20 Unknown History Tramadol HCl/Acetaminophen 37.5 mg PO BID 02/12/20 02/13/20 Unknown History Active Medications: Generic Name Dose Route Start Last Admin Trade Name Freq PRN Reason Stop Dose Admin Acetaminophen 650 mg 02/12/20 22:39 02/16/20 09:16 Acetaminophen 325 Mg Tab PO 650 mg Q4H PRN Administration Pain MILD(1-3)/Fever >100.5/PETER Amitriptyline HCl 25 mg 02/13/20 22:00 02/16/20 21:46 Amitriptyline 25 Mg Tab PO 25 mg QHS RYAN Administration Dexamethasone 6 mg 02/15/20 22:00 02/17/20 09:28 Dexamethasone 4 Mg Tab PO 02/24/20 10:01 6 mg DAILY RYAN Administration Dextrose 0 ml 02/12/20 22:39 02/15/20 00:20 Dextrose 50% In Water (25gm) 50 Ml Syringe IV 50 ml Q30MIN PRN Administration Hypoglycemia Protocol Enoxaparin Sodium 30 mg 02/17/20 10:00 02/17/20 09:28 Enoxaparin 30 Mg/0.3 Ml Inj SUB-Q 30 mg DAILY RYAN Administration Protocol Ceftriaxone Sodium 1 gm in 50 mls @ 100 mls/hr 02/13/20 12:00 02/16/20 13:24 Rocephin/Ns 1 Gm/50 Ml IV 100 mls/hr Q24H RYAN Administration Protocol Dextrose/Sodium Chloride 1,000 mls @ 125 mls/hr 02/15/20 23:00 02/17/20 05:39 D5/0.45ns IV 125 mls/hr DIRECT RYAN Administration Insulin Human Lispro 0 unit 02/13/20 07:30 02/17/20 09:27 Insulin Lispro 100 Unit/Ml Vial 3 Ml SUB-Q 8 unit ACHS RYAN Administration Protocol Levothyroxine Sodium 100 mcg 02/13/20 06:00 02/17/20 05:34 Levothyroxine 100 Mcg Tab PO 100 mcg 0600 RYAN Administration Morphine Sulfate 2 mg 02/12/20 22:39 02/13/20 07:31 Morphine 2 Mg/1 Ml Inj IV 2 mg Q4H PRN Administration Pain, Moderate (4-6) Ondansetron HCl 4 mg 02/12/20 22:39 02/12/20 23:06 Ondansetron 4 Mg/2 Ml Inj IV 4 mg Q8H PRN Administration Nausea And Vomiting Pseudoephedrine/Acetam/Chlorphenir 10 ml 02/13/20 21:25 02/16/20 21:46 Guaifenesin/Codeine 100-10mg Oral Liqd 5 Ml PO 10 ml Q6H PRN Administration Cough Sodium Chloride 10 ml 02/13/20 10:00 02/16/20 21:46 Sodium Chloride 0.9% 10 Ml Flush Syringe IV 10 ml BID RYAN Administration Sodium Chloride 10 ml 02/12/20 22:39 02/16/20 13:31 Sodium Chloride 0.9% 10 Ml Flush Syringe IV 10 ml PRN PRN Administration LINE FLUSH
--- NOTE | 2020-02-17 12:42 | Progress Note ---
Assessment and Plan Cultures: SARS CoV2 PCR: Positive Blood culture: No growth Urine culture: No growth A/P: 54-year-old male with diabetes, throat cancer in remission, back pain, hypertension was admitted to the hospital with bilateral shoulder pain, dizziness and fall: #R pneumonia: Secondary to COVID-19 #Acute hypoxic respiratory failure: On HFNC #Acute kidney injury: Creatinine up to 2.6, not a candidate for remdesivir at this time #Rhabdomyolysis: Improving CK. #Upper back wound: Continue wound care. Does not appear infected. Recs: -Continue IV/PO Dexamethasone 6 mg daily x 10 days -Creatinine elevated, not a candidate for remdesivir -prophylactic anticoagulation based on d-dimer per hospital protocol -trend ferritin, LDH, d-dimer, CRP every 2-3 days for risk stratification and to assess disease progression -Continue empiric antibiotics however procalcitonin elevation is difficult to interpret in the setting of renal failure Amy Carrillo MD, FACP [facility] O: [phone] F: [phone] Subjective Date of service: 02/17/20 Principal diagnosis: Acute kidney injury Interval history: No fever. Remains on HFNC. Objective - Exam Narrative Exam: Physical Exam (reviewed in chart to minimize risk of transmission) Constitutional: deferred Head, Ears, Nose: deferred Eyes: deferred Neck: deferred Oral: deferred Cardiovascular: deferred Respiratory: deferred GI: deferred Musculoskeletal: deferred Skin: deferred Hem/Lymphatic: deferred Psych: deferred Neurological: deferred - Constitutional Vitals: Vital Signs Temp Pulse Resp BP Pulse Ox 97.2 F L 56 L 16 168/81 100 02/17/20 05:08 02/17/20 05:08 02/17/20 05:08 02/17/20 05:08 02/17/20 08:26 Temperature -Last 24 Hours Temperature 97.2 F Temperature 97.2 F Temperature 98.3 F - Labs CBC & Chem 7: 02/16/20 05:42 02/16/20 05:42 Labs: Abnormal lab results 02/16/20 02/16/20 02/17/20 Range/Units 16:24 21:29 05:31 POC Glucose 253 H 279 H (70-105) mg/dL Total Creatine Kinase 916 H (55-170) units/L 02/17/20 Range/Units 07:54 POC Glucose 471 H (70-105) mg/dL Total Creatine Kinase (55-170) units/L
--- NOTE | 2020-02-17 12:58 | Progress Note ---
Assessment and Plan Assessment and plan: Assessment and plan: Acute renal failure. Etiology secondary to acute kidney injury from vasomotor nephropathy/dehydration. Nephrology consultation pending. Bladder scan Rhabdomyolysis. Patient with elevated CK level. Continue to monitor Elevated troponin. Patient denies chest pain. Check echocardiogram. Hypothyroidism. TSH significantly elevated. Resume Synthroid and consider increasing dose if patient has been compliant with medications. Sepsis. Patient has significant leukocytosis. Afebrile. Etiology likely secondary to UTI. Follow-up urine culture. UTI. Follow-up urine and blood cultures. Covid 19 pneumonia. Patient tested positive 02/15/2020. Unable to determine if COVID present on day of admission Diabetes mellitus type 2. Continue Accu-Cheks and sliding scale insulin. Tight glycemic control. Hypertension. Monitor blood pressure closely DVT prophylaxis. Continue subcutaneous heparin. 02/14/2020. Check Covid testing. Hold on restarting lisinopril for blood pressure given the acute renal failure. Start Procardia 60 mg twice daily. Rhabdomyolysis and kidney function improved with IV fluid hydration. Continue to monitor. PT evaluation for deconditioning. Await echocardiogram 02/15/2020. Patient with asymptomatic hypotension this morning with systolic blood pressure 84. Discontinue Procardia and hold lisinopril for now. Continue IV fluid hydration for acute renal failure/acute kidney injury/rhabdomyolysis. Nurse reports patient had coughing with eating. Speech therapy evaluation for swallow evaluation 02/16/2020. Hypotension has resolved and patient remains asymptomatic. Proca rdia and lisinopril discontinued. Tenuous IV fluid hydration for acute renal failure/acute kidney injury/rhabdomyolysis given positive Covid infection. Speech therapy reports no evidence of dysphagia. Continue dexamethasone 6 mg p.o. daily x10 days. Consider remdesivir if renal function improves. Await ID consultation. Transfer to [facility] [place] given positive Covid. 02/16. Nephrology following for BELKIS. Bladder feels distended so we will get a bladder scan. Straight cath if more than [address] a Webb if patient continues to retain.. Flomax if necessary. Continue dexamethasone. History Interval history: He has no complaints today Denies any cough or shortness of breath On high flow oxygen. Hospitalist Physical - Physical exam Narrative exam: VITAL SIGNS: Reviewed. GENERAL: Awake HEAD: No signs of head trauma. EYES: Pupils are equal. Extraocular motions intact. MOUTH: Oropharynx is normal. NECK: No adenopathy, no JVD. CHEST: Chest with diminished breath sounds bilaterally. No wheezes, rales, or rhonchi. CARDIAC: normal S1 and S2, without murmurs, gallops, or rubs. ABDOMEN: Soft, non tender and non distended. No rebound or guarding, and no masses palpated. Bowel Sounds normal. MUSCULOSKELETAL: No edema NEUROLOGIC EXAM: Alert and oriented x3. No focal neurologic deficits SKIN: No obvious lesions - Constitutional Vitals: Temp Pulse Resp BP Pulse Ox 97.2 F L 56 L 16 168/81 100 02/17/20 05:08 02/17/20 05:08 02/17/20 05:08 02/17/20 05:08 02/17/20 08:26 HEART Score - HEART Score Troponin: Troponin T 0.045 ng/mL (0.00-0.029) H D 02/13/20 12:29 Results - Labs CBC & Chem 7: 02/16/20 05:42 02/16/20 05:42 Labs: Laboratory Last Values WBC 7.7 K/mm3 (4.5-11.0) 02/16/20 05:42 RBC 3.46 M/mm3 (3.65-5.03) L 02/16/20 05:42 Hgb 10.6 gm/dl (11.8-15.2) L 02/16/20 05:42 Hct 31.7 % (35.5-45.6) L 02/16/20 05:42 MCV 92 fl (84-94) 02/16/20 05:42 MCH 31 pg (28-32) 02/16/20 05:42 MCHC 33 % (32-34) 02/16/20 05:42 RDW 14.6 % (13.2-15.2) 02/16/20 05:42 Plt Count 183 K/mm3 (140-440) 02/16/20 05:42 Add Manual Diff Complete 02/16/20 05:42 Total Counted 100 02/16/20 05:42 Seg Neutrophils % [employer] Person 02/16/20 05:42 Seg Neuts % (Manual) 93.0 % (40.0-70.0) H 02/16/20 05:42 Band Neutrophils % 26.0 % 02/12/20 15:46 Lymphocytes % (Manual) 2.0 % (13.4-35.0) L 02/16/20 05:42 Monocytes % (Manual) 5.0 % (0.0-7.3) 02/16/20 05:42 Nucleated RBC % Not Reportable 02/16/20 05:42 Seg Neutrophils # Man 7.2 K/mm3 (1.8-7.7) 02/16/20 05:42 Band Neutrophils # 0.0 K/mm3 02/16/20 05:42 Lymphocytes # (Manual) 0.2 K/mm3 (1.2-5.4) L 02/16/20 05:42 Abs React Lymphs (Man) 0.0 K/mm3 02/16/20 05:42 Monocytes # (Manual) 0.4 K/mm3 (0.0-0.8) 02/16/20 05:42 Eosinophils # (Manual) 0.0 K/mm3 (0.0-0.4) 02/16/20 05:42 Basophils # (Manual) 0.0 K/mm3 (0.0-0.1) 02/16/20 05:42 Metamyelocytes # 0.0 K/mm3 02/16/20 05:42 Myelocytes # 0.0 K/mm3 02/16/20 05:42 Promyelocytes # 0.0 K/mm3 02/16/20 05:42 Blast Cells # 0.0 K/mm3 02/16/20 05:42 Pathologist Review Mandolin Rep[employer] Person 02/12/20 15:46 WBC Morphology Not Reportable 02/16/20 05:42 Hypersegmented Neuts Not Reportable 02/16/20 05:42 Hyposegmented Neuts Not Reportable 02/16/20 05:42 Hypogranular Neuts Not Reportable 02/16/20 05:42 Smudge Cells Not Reportable 02/16/20 05:42 Toxic Granulation Not Reportable 02/16/20 05:42 Toxic Vacuolation Not Reportable 02/16/20 05:42 Dohle Bodies Not Reportable 02/16/20 05:42 Pelger-Huet Anomaly Not Reportable 02/16/20 05:42 Cherelle Rods Not Reportable 02/16/20 05:42 Platelet Estimate Consistent w auto 02/16/20 05:42 Clumped Platelets Not Reportable 02/16/20 05:42 Plt Clumps, EDTA Not Reportable 02/16/20 05:42 Large Platelets Not Reportable 02/16/20 05:42 Giant Platelets Not Reportable 02/16/20 05:42 Platelet Satelliting Not Reportable 02/16/20 05:42 Plt Morphology Comment Not Reportable 02/16/20 05:42 RBC Morphology Not Reportable 02/16/20 05:42 Dimorphic RBCs Not Reportable 02/16/20 05:42 Polychromasia Not Reportable 02/16/20 05:42 Hypochromasia Not Reportable 02/16/20 05:42 Poikilocytosis Not Reportable 02/16/20 05:42 Anisocytosis 1+ 02/16/20 05:42 Microcytosis Not Reportable 02/16/20 05:42 Macrocytosis Not Reportable 02/16/20 05:42 Spherocytes Not Reportable 02/16/20 05:42 Pappenheimer Bodies Not Reportable 02/16/20 05:42 Sickle Cells Not Reportable 02/16/20 05:42 Target Cells Not Reportable 02/16/20 05:42 Tear Drop Cells Not Reportable 02/16/20 05:42 Ovalocytes Not Reportable 02/16/20 05:42 Helmet Cells Not Reportable 02/16/20 05:42 Mcmahon-Rafael Pena Bodies Not Reportable 02/16/20 05:42 [place] Rings Not Reportable 02/16/20 05:42 Rosman Cells Not Reportable 02/16/20 05:42 Bite Cells Not Reportable 02/16/20 05:42 Crenated Cell Not Reportable 02/16/20 05:42 Elliptocytes Not Reportable 02/16/20 05:42 Acanthocytes (Spur) Not Reportable 02/16/20 05:42 Rouleaux Not Reportable 02/16/20 05:42 Hemoglobin C Crystals Not Reportable 02/16/20 05:42 Schistocytes Not Reportable 02/16/20 05:42 Malaria parasites Not Reportable 02/16/20 05:42 Christian Bodies Not Reportable 02/16/20 05:42 Hem Pathologist Commnt No 02/16/20 05:42 PT 13.2 Sec. (12.2-14.9) 02/13/20 12:29 INR 1.01 (0.87-1.13) 02/13/20 12:29 D-Dimer 793.22 ng/mlDDU (0-234) H 02/15/20 10:48 Sodium 139 mmol/L (137-145) 02/16/20 05:42 Potassium 3.6 mmol/L (3.6-5.0) 02/16/20 05:42 Chloride 105.1 mmol/L (98-107) 02/16/20 05:42 Carbon Dioxide 19 mmol/L (22-30) L 02/16/20 05:42 Anion Gap 19 mmol/L 02/16/20 05:42 BUN 31 mg/dL (9-20) H 02/16/20 05:42 Creatinine 2.6 mg/dL (0.8-1.3) H 02/16/20 05:42 Estimated GFR 26 ml/min 02/16/20 05:42 BUN/Creatinine Ratio 12 % 02/16/20 05:42 Glucose 274 mg/dL (75-100) H 02/16/20 05:42 POC Glucose 471 mg/dL (70-105) H 02/17/20 07:54 Hemoglobin A1c 6.5 % (4-6) H 02/15/20 06:04 Calcium 7.4 mg/dL (8.4-10.2) L 02/16/20 05:42 Ferritin 1480.0 ng/mL (30.0-300.0) H 02/15/20 10:48 Total Bilirubin 0.30 mg/dL (0.1-1.2) 02/12/20 15:46 AST 260 units/L (5-40) H 02/12/20 15:46 ALT 65 units/L (7-56) H 02/12/20 15:46 Alkaline Phosphatase 66 units/L (35-129) 02/12/20 15:46 Lactate Dehydrogenase 400 units/L (91-180) H 02/15/20 10:48 Total Creatine Kinase 916 units/L (55-170) H 02/17/20 05:31 Troponin T 0.045 ng/mL (0.00-0.029) H D 02/13/20 12:29 C-Reactive Protein 18.20 mg/dL (0.00-1.30) H 02/15/20 10:48 Total Protein 6.4 g/dL (6.3-8.2) 02/12/20 15:46 Albumin 2.7 g/dL (3.9-5) L 02/12/20 15:46 Albumin/Globulin Ratio 0.7 % 02/12/20 15:46 Triglycerides 189 mg/dL (2-149) H 02/12/20 15:46 Cholesterol 143 mg/dL (50-199) 02/12/20 15:46 LDL Cholesterol Direct 69 mg/dL (50-130) 02/12/20 15:46 HDL Cholesterol 34 mg/dL (40-59) L 02/12/20 15:46 Cholesterol/HDL Ratio 4.20 % 02/12/20 15:46 Procalcitonin 40.90 ng/mL (<0.15) 02/15/20 10:48 TSH 33.890 mlU/mL (0.270-4.200) H 02/12/20 15:46 Free T4 0.74 ng/dL (0.76-1.46) L 02/12/20 Unknown Urine Color Yellow (Yellow) 02/12/20 17:42 Urine Turbidity Slightly-cloudy (Clear) 02/12/20 17:42 Urine pH 5.0 (5.0-7.0) 02/12/20 17:42 Ur Specific Keyes 1.014 (1.003-1.030) 02/12/20 17:42 Urine Protein >500 mg/dL (Negative) 02/12/20 17:42 Urine Glucose (UA) Neg mg/dL (Negative) 02/12/20 17:42 Urine Ketones Neg mg/dL (Negative) 02/12/20 17:42 Urine Blood Lg (Negative) 02/12/20 17:42 Urine Nitrite Neg (Negative) 02/12/20 17:42 Urine Bilirubin Neg (Negative) 02/12/20 17:42 Urine Urobilinogen < 2.0 mg/dL (<2.0) 02/12/20 17:42 Ur Leukocyte Esterase Neg (Negative) 02/12/20 17:42 Urine WBC (Auto) 13.0 /HPF (0.0-6.0) H 02/12/20 17:42 Urine RBC (Auto) 5.0 /HPF (0.0-6.0) 02/12/20 17:42 U Epithel Cells (Auto) < 1.0 /HPF (0-13.0) 02/12/20 17:42 Hyaline Casts 2 /LPF 02/12/20 17:42 Urine Mucus Few /HPF 02/12/20 17:42 Urine Opiates Screen Negative 02/12/20 17:42 Urine Methadone Screen Negative 02/12/20 17:42 Ur Barbiturates Screen Negative 02/12/20 17:42 Ur Phencyclidine Scrn Negative 02/12/20 17:42 Ur Amphetamines Screen Negative 02/12/20 17:42 U Benzodiazepines Scrn Negative 02/12/20 17:42 Urine Cocaine Screen Negative 02/12/20 17:42 U Marijuana (THC) Screen Negative 02/12/20 17:42 Drugs of Abuse Note Disclamer 02/12/20 17:42 Plasma/Serum Alcohol < 0.01 % (0-0.07) 02/12/20 15:46 Coronavirus (PCR) Positive (Negative) A 02/15/20 10:19 Microbiology: Microbiology 02/13/20 12:29 Peripheral/Venous Blood Culture - Preliminary NO GROWTH AFTER 72 HOURS 02/13/20 12:29 Peripheral/Venous Blood Culture - Preliminary NO GROWTH AFTER 72 HOURS Webb/IV: Voiding Method Toilet IV Catheter Type [Left Forearm Peripheral IV ] IV Catheter Type [Right INT / Saline Lock Antecubital] Active Medications - Current Medications Current Medications: Generic Name Dose Route Start Last Admin Trade Name Freq PRN Reason Stop Dose Admin Acetaminophen 650 mg 02/12/20 22:39 02/16/20 09:16 Acetaminophen 325 Mg Tab PO 650 mg Q4H PRN Administration Pain MILD(1-3)/Fever >100.5/PETER Amitriptyline HCl 25 mg 02/13/20 22:00 02/16/20 21:46 Amitriptyline 25 Mg Tab PO 25 mg QHS RYAN Administration Dexamethasone 6 mg 02/15/20 22:00 02/17/20 09:28 Dexamethasone 4 Mg Tab PO 02/24/20 10:01 6 mg DAILY RYAN Administration Dextrose 0 ml 02/12/20 22:39 02/15/20 00:20 Dextrose 50% In Water (25gm) 50 Ml Syringe IV 50 ml Q30MIN PRN Administration Hypoglycemia Protocol Enoxaparin Sodium 30 mg 02/17/20 10:00 02/17/20 09:28 Enoxaparin 30 Mg/0.3 Ml Inj SUB-Q 30 mg DAILY RYAN Administration Protocol Ceftriaxone Sodium 1 gm in 50 mls @ 100 mls/hr 02/13/20 12:00 02/16/20 13:24 Rocephin/Ns 1 Gm/50 Ml IV 100 mls/hr Q24H RYAN Administration Protocol Dextrose/Sodium Chloride 1,000 mls @ 125 mls/hr 02/15/20 23:00 02/17/20 05:39 D5/0.45ns IV 125 mls/hr DIRECT RYAN Administration Insulin Human Lispro 0 unit 02/13/20 07:30 02/17/20 09:27 Insulin Lispro 100 Unit/Ml Vial 3 Ml SUB-Q 8 unit ACHS RYAN Administration Protocol Levothyroxine Sodium 100 mcg 02/13/20 06:00 02/17/20 05:34 Levothyroxine 100 Mcg Tab PO 100 mcg 0600 RYAN Administration Morphine Sulfate 2 mg 02/12/20 22:39 02/13/20 07:31 Morphine 2 Mg/1 Ml Inj IV 2 mg Q4H PRN Administration Pain, Moderate (4-6) Ondansetron HCl 4 mg 02/12/20 22:39 02/12/20 23:06 Ondansetron 4 Mg/2 Ml Inj IV 4 mg Q8H PRN Administration Nausea And Vomiting Pseudoephedrine/Acetam/Chlorphenir 10 ml 02/13/20 21:25 02/16/20 21:46 Guaifenesin/Codeine 100-10mg Oral Liqd 5 Ml PO 10 ml Q6H PRN Administration Cough Sodium Chloride 10 ml 02/13/20 10:00 02/16/20 21:46 Sodium Chloride 0.9% 10 Ml Flush Syringe IV 10 ml BID RYAN Administration Sodium Chloride 10 ml 02/12/20 22:39 02/16/20 13:31 Sodium Chloride 0.9% 10 Ml Flush Syringe IV 10 ml PRN PRN Administration LINE FLUSH Nutrition/Malnutrition Assess - Dietary Evaluation Nutrition/Malnutrition Findings: Nutrition Notes Start: 02/13/20 10:18 Freq: Status: Active Protocol: Document 02/13/20 10:20 LM (Rec: 02/13/20 10:26 LM [id number]) Nutrition Notes Need for Assessment generated from: MD Order,cotton ginner,MST Initial or Follow up Assessment Current Diagnosis Acute Kidney Injury,Diabetes, Hypertension Other Pertinent Diagnosis multiple wounds,SIRS, Rhabdomyolysis, hypothyroid, throat Ca (in remission) Current Diet Cardiac/consisent CHO Labs/Tests POC glu 68 Pertinent Medications NS at 150ml/hr Height 5 ft 8 in Weight 62.142 kg [place] Body Weight (kg) 70.00 BMI 20.8 Weight Status Appropriate Subjective/Other Information MD consult for diet education. Rn screen for MST. Pt asleep at time of visit. Pt has wounds. Burn Absent Trauma Absent Minimum of two criteria No physical signs of malnutrition #1 Nutrition Diagnosis Increased nutrient needs ( specify in comment below) Comments: Protein Etiology Wound healing As Evidenced by Signs and Symptoms multiple wounds Is patient on ventilator? No Is Patient Ambulatory and/or Out of Bed No REE-(Boston-St. Jeor-confined to bed) [phone] Calculation Used for Recommendations [place]-St Jeor Additional Notes Protein: 50-93g (0.8-1.5g/kg) Fluid: 1ml/kcal Nutrition Intervention Change Diet Order: Continue Goal #1 Meet at least 75% of energy and protein needs Goal #2 Wound healing Anticipated Discharge Needs: cardiac/consistent CHO Follow-Up By: 02/17/20 Additional Comments F/u for diet ed needs, full assessment
[2020-02-17] MEDS: cefTRIAXone/NS 1 GM/50 ML 1 GM/50 ML BAG IV SCH (13:11)
--- NOTE | 2020-02-17 13:22 | Ultrasound Report ---
ULTRASOUND RENAL INDICATION: BELKIS. COMPARISON: No relevant prior imaging study available. FINDINGS: RIGHT KIDNEY: Size: 11.1 cm. Echogenicity: Normal. Cortical thickness: Normal. Stones: None. Hydronephrosis: Moderate. Cyst or mass: None. LEFT KIDNEY: Size: 11.3 cm. Echogenicity: Normal. Cortical thickness: Normal. Stones: None. Hydronephrosis: Moderate. Cyst or mass: None. Urinary Bladder: No significant abnormality. Free Fluid: Trace. Additional Findings: None. IMPRESSION 1. Moderate bilateral hydronephrosis. 2. Trace free fluid in the upper abdomen. Signer Name: Oskar Arevalo MD Signed: 02/17/2020 1:18 PM Workstation Name: [id number]
[2020-02-17] MEDS: TAMSULOSIN 0.4 MG CAP PO SCH (18:36)
[2020-02-17] MEDS: VALSARTAN 160MG TAB PO SCH (21:10)
[2020-02-17] MEDS: AMITRIPTYLINE 25 MG TAB PO SCH (21:10)
[2020-02-17] MEDS: guaiFENesin/CODEINE 100-10MG ORAL LIQD 5 ML PO PRN (22:40)
[2020-02-18] MEDS: LEVOTHYROXINE 100 MCG TAB PO SCH (05:36)
[2020-02-18 06:20] LABS: Hematocrit 31.6 % (35.5-45.6); Hemoglobin 10.5 gm/dl (11.8-15.2); Mean Corpuscular HGB Conc 33 % (32-34); Mean Corpuscular Volume 90 fl (84-94); Platelet Count 292 K/mm3 (140-440); Red Blood Count 3.51 M/mm3 (3.65-5.03); Red Cell Distribution Width 14.2 % (13.2-15.2)
[2020-02-18 06:49] LABS: Alanine Aminotransferase 57 units/L (7-56); Albumin 2.3 g/dL (3.9-5); BUN/Creatinine Ratio 28; Blood Urea Nitrogen 42 mg/dL (9-20); Calcium 7.8 mg/dL (8.4-10.2); Hemolysis Index 9
--- NOTE | 2020-02-18 07:32 | Progress Note ---
Assessment and Plan 54 y/o male with acute respiratory failure secondary to COVID 19 pneumonia. 1. Prone as tolerated during the day and sleep prone at night if possible. Appreciate RT for documenting this. Wean FiO2/Flow for sats >88% 2. Agree with steroids, will treat for a total of 10 days. 3. Renal function and rhabdo improving. Follow up any new renal recs. Needs BP control. May want to consider stopping robitussin and placing on just tessal on perles or codeine only formula. 4. Not a candidate for remdesivir. Guarded prognosis. Subjective Date of service: 02/18/20 Principal diagnosis: Acute kidney injury Interval history: Still on 30 liters. FiO2 fluctuates between 80-85%. Unable to prone last night secondary to prone. Appreciate RT for documenting such. Remains very hypertensive. Renal function is better today. Objective Vital Signs - 12hr 02/17/20 02/17/20 02/18/20 21:28 22:00 03:32 Temperature 97.4 F L Pulse Rate 51 L Pulse Rate [ 55 L Apical] Pulse Rate [ 55 L From Monitor] Respiratory 24 16 Rate Blood Pressure 177/80 O2 Sat by Pulse 100 95 Oximetry 02/18/20 04:31 Temperature 98.6 F Pulse Rate Pulse Rate [ Apical] Pulse Rate [ From Monitor] Respiratory 20 Rate Blood Pressure 182/94 O2 Sat by Pulse Oximetry Constitutional: other (critically ill on HFNC) Eyes: non-icteric ENT: oropharynx moist Neck: supple Effort: normal Ascultation: Bilateral: clear Cardiovascular: regular rate and rhythm (no mrg) Gastrointestinal: normoactive bowel sounds, soft, non-tender Integumentary: normal Extremities: no cyanosis, no edema, pink and warm Neurologic: normal mental status, non-focal exam, pupils equal and round, CN II- XII normal Psychiatric: mood appropriate, affect normal CBC and BMP: 02/18/20 05:49 02/18/20 05:49 ABG, PT/INR, D-dimer: PT/INR, D-dimer PT 13.2 Sec. (12.2-14.9) 02/13/20 12: INR 1.01 (0.87-1.13) 02/13/20 12:29 D-Dimer 793.22 ng/mlDDU (0-234) H 02/15/20 10:48 Abnormal lab findings: Abnormal Labs 02/12/20 02/12/20 02/12/20 15:46 15:46 15:46 WBC 27.1 H RBC 3.37 L Hgb 10.3 L Hct 30.5 L Seg Neuts % (Manual) Lymphocytes % (Manual) 2.0 L Seg Neutrophils # Man 18.7 H Lymphocytes # (Manual) 0.5 L D-Dimer Sodium 133 L Potassium Chloride 93.1 L Carbon Dioxide 32 H BUN 59 H Creatinine 2.4 H Glucose POC Glucose Hemoglobin A1c Calcium 8.0 L Ferritin AST 260 H ALT 65 H Alkaline Phosphatase Lactate Dehydrogenase Total Creatine Kinase 9691 H Troponin T 0.066 H C-Reactive Protein Total Protein Albumin 2.7 L Triglycerides 189 H HDL Cholesterol 34 L TSH 33.890 H Free T4 Urine WBC (Auto) Coronavirus (PCR) 02/12/20 02/12/20 02/13/20 17:42 Unknown 07:46 WBC RBC Hgb Hct Seg Neuts % (Manual) Lymphocytes % (Manual) Seg Neutrophils # Man Lymphocytes # (Manual) D-Dimer Sodium Potassium Chloride Carbon Dioxide BUN Creatinine Glucose POC Glucose 68 L Hemoglobin A1c Calcium Ferritin AST ALT Alkaline Phosphatase Lactate Dehydrogenase Total Creatine Kinase Troponin T C-Reactive Protein Total Protein Albumin Triglycerides HDL Cholesterol TSH Free T4 0.74 L Urine WBC (Auto) 13.0 H Coronavirus (PCR) 02/13/20 02/13/20 02/13/20 11:38 12:29 12:29 WBC RBC 2.74 L Hgb 8.4 L Hct 24.7 L Seg Neuts % (Manual) 99.0 H Lymphocytes % (Manual) 1.0 L Seg Neutrophils # Man 10.6 H Lymphocytes # (Manual) 0.1 L D-Dimer Sodium Potassium Chloride Carbon Dioxide BUN 52 H Creatinine 1.7 H Glucose 121 H POC Glucose 134 H Hemoglobin A1c Calcium 7.4 L Ferritin AST ALT Alkaline Phosphatase Lactate Dehydrogenase Total Creatine Kinase Troponin T C-Reactive Protein Total Protein Albumin Triglycerides HDL Cholesterol TSH Free T4 Urine WBC (Auto) Coronavirus (PCR) 02/13/20 02/14/20 02/14/20 12:29 07:38 07:38 WBC RBC 3.11 L Hgb 9.5 L Hct 28.0 L Seg Neuts % (Manual) 99.0 H Lymphocytes % (Manual) 1.0 L Seg Neutrophils # Man Lymphocytes # (Manual) 0.1 L D-Dimer Sodium Potassium 3.5 L Chloride Carbon Dioxide BUN 34 H Creatinine Glucose POC Glucose Hemoglobin A1c Calcium 7.5 L Ferritin AST ALT Alkaline Phosphatase Lactate Dehydrogenase Total Creatine Kinase 6134 H 3825 H Troponin T 0.045 H D C-Reactive Protein Total Protein Albumin Triglycerides HDL Cholesterol TSH Free T4 Urine WBC (Auto) Coronavirus (PCR) 02/14/20 02/15/20 02/15/20 20:39 00:36 00:53 WBC RBC Hgb Hct Seg Neuts % (Manual) Lymphocytes % (Manual) Seg Neutrophils # Man Lymphocytes # (Manual) D-Dimer Sodium Potassium Chloride Carbon Dioxide BUN Creatinine Glucose POC Glucose 126 H 34 L 311 H Hemoglobin A1c Calcium Ferritin AST ALT Alkaline Phosphatase Lactate Dehydrogenase Total Creatine Kinase Troponin T C-Reactive Protein Total Protein Albumin Triglycerides HDL Cholesterol TSH Free T4 Urine WBC (Auto) Coronavirus (PCR) 02/15/20 02/15/20 02/15/20 02:42 06:04 06:04 WBC RBC Hgb Hct Seg Neuts % (Manual) Lymphocytes % (Manual) Seg Neutrophils # Man Lymphocytes # (Manual) D-Dimer Sodium Potassium Chloride Carbon Dioxide BUN Creatinine Glucose POC Glucose 250 H Hemoglobin A1c 6.5 H Calcium Ferritin AST ALT Alkaline Phosphatase Lactate Dehydrogenase Total Creatine Kinase 1923 H Troponin T C-Reactive Protein Total Protein Albumin Triglycerides HDL Cholesterol TSH Free T4 Urine WBC (Auto) Coronavirus (PCR) 02/15/20 02/15/20 02/15/20 08:21 10:19 10:48 WBC RBC Hgb Hct Seg Neuts % (Manual) Lymphocytes % (Manual) Seg Neutrophils # Man Lymphocytes # (Manual) D-Dimer Sodium Potassium 3.4 L Chloride 107.8 H Carbon Dioxide BUN 41 H Creatinine 2.5 H D Glucose 166 H POC Glucose 184 H Hemoglobin A1c Calcium 7.3 L Ferritin AST ALT Alkaline Phosphatase Lactate Dehydrogenase Total Creatine Kinase Troponin T C-Reactive Protein Total Protein Albumin Triglycerides HDL Cholesterol TSH Free T4 Urine WBC (Auto) Coronavirus (PCR) Positive A 02/15/20 02/15/20 02/15/20 10:48 10:48 10:48 WBC RBC Hgb Hct Seg Neuts % (Manual) Lymphocytes % (Manual) Seg Neutrophils # Man Lymphocytes # (Manual) D-Dimer 793.22 H Sodium Potassium Chloride Carbon Dioxide BUN Creatinine Glucose POC Glucose Hemoglobin A1c Calcium Ferritin 1480.0 H AST ALT Alkaline Phosphatase Lactate Dehydrogenase 400 H Total Creatine Kinase Troponin T C-Reactive Protein 18.20 H Total Protein Albumin Triglycerides HDL Cholesterol TSH Free T4 Urine WBC (Auto) Coronavirus (PCR) 02/15/20 02/15/20 02/15/20 12:16 17:26 20:51 WBC RBC Hgb Hct Seg Neuts % (Manual) Lymphocytes % (Manual) Seg Neutrophils # Man Lymphocytes # (Manual) D-Dimer Sodium Potassium Chloride Carbon Dioxide BUN Creatinine Glucose POC Glucose 129 H 167 H 110 H Hemoglobin A1c Calcium Ferritin AST ALT Alkaline Phosphatase Lactate Dehydrogenase Total Creatine Kinase Troponin T C-Reactive Protein Total Protein Albumin Triglycerides HDL Cholesterol TSH Free T4 Urine WBC (Auto) Coronavirus (PCR) 02/16/20 02/16/20 02/16/20 05:42 05:42 08:33 WBC RBC 3.46 L Hgb 10.6 L Hct 31.7 L Seg Neuts % (Manual) 93.0 H Lymphocytes % (Manual) 2.0 L Seg Neutrophils # Man Lymphocytes # (Manual) 0.2 L D-Dimer Sodium Potassium Chloride Carbon Dioxide 19 L BUN 31 H Creatinine 2.6 H Glucose 274 H POC Glucose 240 H Hemoglobin A1c Calcium 7.4 L Ferritin AST ALT Alkaline Phosphatase Lactate Dehydrogenase Total Creatine Kinase 1894 H Troponin T C-Reactive Protein Total Protein Albumin Triglycerides HDL Cholesterol TSH Free T4 Urine WBC (Auto) Coronavirus (PCR) 02/16/20 02/16/20 02/16/20 12:38 16:24 21:29 WBC RBC Hgb Hct Seg Neuts % (Manual) Lymphocytes % (Manual) Seg Neutrophils # Man Lymphocytes # (Manual) D-Dimer Sodium Potassium Chloride Carbon Dioxide BUN Creatinine Glucose POC Glucose 222 H 253 H 279 H Hemoglobin A1c Calcium Ferritin AST ALT Alkaline Phosphatase Lactate Dehydrogenase Total Creatine Kinase Troponin T C-Reactive Protein Total Protein Albumin Triglycerides HDL Cholesterol TSH Free T4 Urine WBC (Auto) Coronavirus (PCR) 02/17/20 02/17/20 02/17/20 05:31 07:54 13:35 WBC RBC Hgb Hct Seg Neuts % (Manual) Lymphocytes % (Manual) Seg Neutrophils # Man Lymphocytes # (Manual) D-Dimer Sodium Potassium Chloride Carbon Dioxide BUN Creatinine Glucose POC Glucose 471 H 240 H Hemoglobin A1c Calcium Ferritin AST ALT Alkaline Phosphatase Lactate Dehydrogenase Total Creatine Kinase 916 H Troponin T C-Reactive Protein Total Protein Albumin Triglycerides HDL Cholesterol TSH Free T4 Urine WBC (Auto) Coronavirus (PCR) 02/17/20 02/17/20 02/18/20 16:58 21:26 05:49 WBC RBC Hgb Hct Seg Neuts % (Manual) Lymphocytes % (Manual) Seg Neutrophils # Man Lymphocytes # (Manual) D-Dimer Sodium Potassium Chloride Carbon Dioxide BUN Creatinine Glucose POC Glucose 227 H 148 H Hemoglobin A1c Calcium Ferritin AST ALT Alkaline Phosphatase Lactate Dehydrogenase Total Creatine Kinase 259 H Troponin T C-Reactive Protein Total Protein Albumin Triglycerides HDL Cholesterol TSH Free T4 Urine WBC (Auto) Coronavirus (PCR) 02/18/20 02/18/20 05:49 05:49 WBC RBC 3.51 L Hgb 10.5 L Hct 31.6 L Seg Neuts % (Manual) Lymphocytes % (Manual) Seg Neutrophils # Man Lymphocytes # (Manual) D-Dimer Sodium Potassium Chloride Carbon Dioxide 19 L BUN 42 H Creatinine 1.5 H Glucose 242 H POC Glucose Hemoglobin A1c Calcium 7.8 L Ferritin AST 82 H ALT 57 H Alkaline Phosphatase 140 H Lactate Dehydrogenase Total Creatine Kinase Troponin T C-Reactive Protein Total Protein 4.9 L Albumin 2.3 L Triglycerides HDL Cholesterol TSH Free T4 Urine WBC (Auto) Coronavirus (PCR)
[2020-02-18 07:36] LABS: Band Neutrophils # (Manual) 0.2 K/mm3; Total Cells Counted 100
[2020-02-18 07:37] LABS: Anisocytosis 1+; Platelet Estimate Consistent w Auto
[2020-02-18] MEDS: INSULIN LISPRO 100 UNIT/ML VIAL 3 mL SUB-Q SCH ×4 (09:13→22:46)
[2020-02-18] MEDS: VALSARTAN 160MG TAB PO SCH ×2 (09:20→22:45)
[2020-02-18] MEDS: amLODIPine 10 MG TAB PO SCH (09:21)
[2020-02-18] MEDS: TAMSULOSIN 0.4 MG CAP PO SCH (09:21)
[2020-02-18] MEDS: DEXAMETHASONE 4 MG TAB PO SCH (09:21)
[2020-02-18] MEDS: ENOXAPARIN 30 MG/0.3 ML INJ SUB-Q SCH (09:21)
--- NOTE | 2020-02-18 10:23 | Progress Note ---
Assessment and Plan Assessment * Acute kidney injury, unknown baseline * Rhabdomyolysis, mild * Hypocalcemia, mild * Hypokalemia, mild * Anemia * Hypertension, uncontrolled * Diabetes mellitus * Covid positive Recommendations * Renal function is better today, continue ivfs * stop sanket inhibitors * follow up am lytes, ck is better * This is likely secondary to sudden decline in blood pressure from antihypertensives leading to ATN. Hold antihypertensives. Hold lisinopril * Keep MAP more than 65 * Status post IV hydration, encourage p.o. hydration * Trend CPK * Monitor calcium and potassium, replete as needed * Renally dose medications * Avoid nephrotoxins * Strict I's/O * Keep glucose less than 200 mg/dL Subjective Date of service: 02/18/20 Principal diagnosis: Acute kidney injury Interval history: resting in bed Objective - Exam Narrative Exam: Deferred as patient is Covid positive in order to prevent spread of infection and for PPE preservation. - Vital Signs Vital signs: Vital Signs - 12hr 02/18/20 02/18/20 02/18/20 03:32 04:31 09:20 Temperature 98.6 F Pulse Rate 60 Respiratory 20 Rate Blood Pressure 182/94 198/57 O2 Sat by Pulse 95 Oximetry 02/18/20 02/18/20 09:21 09:22 Temperature Pulse Rate 60 Respiratory Rate Blood Pressure 198/57 O2 Sat by Pulse 98 Oximetry - Lab 02/18/20 05:49 02/18/20 05:49 Most recent lab results Calcium 7.8 mg/dL (8.4-10.2) L 02/18/20 05:49 Medications & Allergies - Medications Allergies/Adverse Reactions: Allergies No Known Allergies Allergy (Verified 08/16/18 11:38) Home Medications: Home Medications Medication Instructions Recorded Confirmed Last Taken Type Amitriptyline [Elavil] 25 mg PO QHS tablet 11/22/17 02/13/20 Unknown Rx Ondansetron [Zofran ODT TAB] 8 mg PO Q8HR tab.rapdis 11/22/17 02/13/20 Unknown Rx Prochlorperazine [Compazine] 10 mg PO Q6HR PRN tablet 11/22/17 02/13/20 Unknown Rx lisinopriL [Zestril TAB] 10 mg PO QDAY tablet 11/22/17 02/13/20 Unknown Rx Levothyroxine 100 mcg PO DAILY 02/12/20 02/12/20 Unknown History Mupirocin 1 tab PO BID 02/12/20 02/13/20 Unknown History Tramadol HCl/Acetaminophen 37.5 mg PO BID 02/12/20 02/13/20 Unknown History Active Medications: Generic Name Dose Route Start Last Admin Trade Name Freq PRN Reason Stop Dose Admin Acetaminophen 650 mg 02/12/20 22:39 02/16/20 09:16 Acetaminophen 325 Mg Tab PO 650 mg Q4H PRN Administration Pain MILD(1-3)/Fever >100.5/PETER Amitriptyline HCl 25 mg 02/13/20 22:00 02/17/20 21:10 Amitriptyline 25 Mg Tab PO 25 mg QHS RYAN Administration Amlodipine Besylate 10 mg 02/18/20 10:00 02/18/20 09:21 Amlodipine 10 Mg Tab PO 10 mg QDAY RYAN Administration Dexamethasone 6 mg 02/15/20 22:00 02/18/20 09:21 Dexamethasone 4 Mg Tab PO 02/24/20 10:01 6 mg DAILY RYAN Administration Dextrose 0 ml 02/12/20 22:39 02/15/20 00:20 Dextrose 50% In Water (25gm) 50 Ml Syringe IV 50 ml Q30MIN PRN Administration Hypoglycemia Protocol Enoxaparin Sodium 30 mg 02/17/20 10:00 02/18/20 09:21 Enoxaparin 30 Mg/0.3 Ml Inj SUB-Q 30 mg DAILY RYAN Administration Protocol Ceftriaxone Sodium 1 gm in 50 mls @ 100 mls/hr 02/13/20 12:00 02/17/20 13:11 Rocephin/Ns 1 Gm/50 Ml IV 100 mls/hr Q24H RYAN Administration Protocol Dextrose/Sodium Chloride 1,000 mls @ 125 mls/hr 02/15/20 23:00 02/17/20 20:52 D5/0.45ns IV 125 mls/hr DIRECT RYAN Administration Insulin Human Lispro 0 unit 02/13/20 07:30 02/18/20 09:13 Insulin Lispro 100 Unit/Ml Vial 3 Ml SUB-Q 3 unit ACHS RYAN Administration Protocol Labetalol HCl 10 mg 02/17/20 20:01 02/18/20 05:36 Labetalol 20 Mg/4 Ml Inj IV 10 mg Q6HR PRN Administration Blood Pressure Levothyroxine Sodium 100 mcg 02/13/20 06:00 02/18/20 05:36 Levothyroxine 100 Mcg Tab PO 100 mcg 0600 RYAN Administration Morphine Sulfate 2 mg 02/12/20 22:39 02/13/20 07:31 Morphine 2 Mg/1 Ml Inj IV 2 mg Q4H PRN Administration Pain, Moderate (4-6) Ondansetron HCl 4 mg 02/12/20 22:39 02/12/20 23:06 Ondansetron 4 Mg/2 Ml Inj IV 4 mg Q8H PRN Administration Nausea And Vomiting Pseudoephedrine/Acetam/Chlorphenir 10 ml 02/13/20 21:25 02/16/20 21:46 Guaifenesin/Codeine 100-10mg Oral Liqd 5 Ml PO 10 ml Q6H PRN Administration Cough Sodium Chloride 10 ml 02/13/20 10:00 02/18/20 09:22 Sodium Chloride 0.9% 10 Ml Flush Syringe IV 10 ml BID RYAN Administration Sodium Chloride 10 ml 02/12/20 22:39 02/16/20 13:31 Sodium Chloride 0.9% 10 Ml Flush Syringe IV 10 ml PRN PRN Administration LINE FLUSH Tamsulosin HCl 0.4 mg 02/17/20 18:00 02/18/20 09:21 Tamsulosin 0.4 Mg Cap PO 0.4 mg QDAY RYAN Administration Valsartan 160 mg 02/17/20 22:00 02/18/20 09:20 Valsartan 160mg Tab PO 160 mg BID RYAN Administration
[2020-02-18] MEDS: D5W/0.45% NACL 1,000 ML IV SCH (11:22)
--- NOTE | 2020-02-18 11:27 | Progress Note ---
Assessment and Plan Assessment and plan: Assessment and plan: Acute renal failure. Etiology secondary to acute kidney injury from vasomotor nephropathy/dehydration. Nephrology consultation pending. Bladder scan Rhabdomyolysis. Patient with elevated CK level. Continue to monitor Elevated troponin. Patient denies chest pain. Check echocardiogram. Hypothyroidism. TSH significantly elevated. Resume Synthroid and consider increasing dose if patient has been compliant with medications. Sepsis. Patient has significant leukocytosis. Afebrile. Etiology likely secondary to UTI. Follow-up urine culture. UTI. Follow-up urine and blood cultures. Covid 19 pneumonia. Patient tested positive 02/15/2020. Unable to determine if COVID present on day of admission Diabetes mellitus type 2. Continue Accu-Cheks and sliding scale insulin. Tight glycemic control. Hypertension. Monitor blood pressure closely urinary retention - Flomax. Maintain wyatt. urology follow up at discharge DVT prophylaxis. Continue subcutaneous heparin. 02/14/2020. Check Covid testing. Hold on restarting lisinopril for blood pressure given the acute renal failure. Start Procardia 60 mg twice daily. Rhabdomyolysis and kidney function improved with IV fluid hydration. Continue to monitor. PT evaluation for deconditioning. Await echocardiogram 02/15/2020. Patient with asymptomatic hypotension this morning with systolic blood pressure 84. Discontinue Procardia and hold lisinopril for now. Continue IV fluid hydration for acute renal failure/acute kidney injury/rhabdomyolysis. Nurse reports patient had coughing with eating. Speech therapy evaluation for swallow evaluation 02/16/2020. Hypotension has resolved and patient remains asymptomatic. Procardia and lisinopril discontinued. Tenuous IV fluid hydration for acute renal failure/acute kidney injury/rhabdomyolysis given positive Covid infection. Speech therapy reports no evidence of dysphagia. Continue dexamethasone 6 mg p.o. daily x10 days. Consider remdesivir if renal function improves. Await ID consultation. Transfer to [facility] given positive Covid. 02/16. Nephrology following for BELKIS. Bladder feels distended so we will get a bladder scan. Straight cath if more than [address] a Wyatt if patient continues to retain.. Flomax if necessary. Continue dexamethasone. 02/17. Has urinary retention so a wyatt has been placed. Now on flomax. He will follow up with urology in the office after discharge. Renal function is better. Still requiriing 15L of oxygen. History Interval history: He has no complaints today Denies any cough or shortness of breath Had urinary retention and now has a wyatt On high flow oxygen 15L Hospitalist Physical - Physical exam Narrative exam: VITAL SIGNS: Reviewed. GENERAL: Awake HEAD: No signs of head trauma. EYES: Pupils are equal. Extraocular motions intact. MOUTH: Oropharynx is normal. NECK: No adenopathy, no JVD. CHEST: Chest with diminished breath sounds bilaterally. No wheezes, rales, or rhonchi. CARDIAC: normal S1 and S2, without murmurs, gallops, or rubs. ABDOMEN: Soft, non tender and non distended. No rebound or guarding, and no masses palpated. Bowel Sounds normal. MUSCULOSKELETAL: No edema NEUROLOGIC EXAM: Alert and oriented x3. No focal neurologic deficits SKIN: No obvious lesions - Constitutional Vitals: Temp Pulse Resp BP Pulse Ox 98.6 F 60 20 198/57 98 02/18/20 04:31 02/18/20 09:21 02/18/20 04:31 02/18/20 09:21 02/18/20 09:22 HEART Score - HEART Score Troponin: Troponin T 0.045 ng/mL (0.00-0.029) H D 02/13/20 12:29 Results - Labs CBC & Chem 7: 02/18/20 05:49 02/18/20 05:49 Labs: Laboratory Last Values WBC 7.6 K/mm3 (4.5-11.0) 02/18/20 05:49 RBC 3.51 M/mm3 (3.65-5.03) L 02/18/20 05:49 Hgb 10.5 gm/dl (11.8-15.2) L 02/18/20 05:49 Hct 31.6 % (35.5-45.6) L 02/18/20 05:49 MCV 90 fl (84-94) 02/18/20 05:49 MCH 30 pg (28-32) 02/18/20 05:49 MCHC 33 % (32-34) 02/18/20 05:49 RDW 14.2 % (13.2-15.2) 02/18/20 05:49 Plt Count 292 K/mm3 (140-440) 02/18/20 05:49 Add Manual Diff Complete 02/18/20 05:49 Total Counted 100 02/18/20 05:49 Seg Neutrophils % [employer] 02/16/20 05:42 Seg Neuts % (Manual) 91.0 % (40.0-70.0) H 02/18/20 05:49 Band Neutrophils % 2.0 % 02/18/20 05:49 Lymphocytes % (Manual) 2.0 % (13.4-35.0) L 02/16/20 05:42 Monocytes % (Manual) 6.0 % (0.0-7.3) 02/18/20 05:49 Metamyelocytes % 1.0 % 02/18/20 05:49 Nucleated RBC % Not Reportable 02/18/20 05:49 Seg Neutrophils # Man 6.9 K/mm3 (1.8-7.7) 02/18/20 05:49 Band Neutrophils # 0.2 K/mm3 02/18/20 05:49 Lymphocytes # (Manual) 0.0 K/mm3 (1.2-5.4) L 02/18/20 05:49 Abs React Lymphs (Man) 0.0 K/mm3 02/18/20 05:49 Monocytes # (Manual) 0.5 K/mm3 (0.0-0.8) 02/18/20 05:49 Eosinophils # (Manual) 0.0 K/mm3 (0.0-0.4) 02/18/20 05:49 Basophils # (Manual) 0.0 K/mm3 (0.0-0.1) 02/18/20 05:49 Metamyelocytes # 0.1 K/mm3 02/18/20 05:49 Myelocytes # 0.0 K/mm3 02/18/20 05:49 Promyelocytes # 0.0 K/mm3 02/18/20 05:49 Blast Cells # 0.0 K/mm3 02/18/20 05:49 Pathologist Review [employer] 02/12/20 15:46 WBC Morphology Not Reportable 02/18/20 05:49 Hypersegmented Neuts Not Reportable 02/18/20 05:49 Hyposegmented Neuts Not Reportable 02/18/20 05:49 Hypogranular Neuts Not Reportable 02/18/20 05:49 Smudge Cells Not Reportable 02/18/20 05:49 Toxic Granulation Not Reportable 02/18/20 05:49 Toxic Vacuolation Not Reportable 02/18/20 05:49 Dohle Bodies Not Reportable 02/18/20 05:49 Pelger-Huet Anomaly Not Reportable 02/18/20 05:49 Cherelle Rods Not Reportable 02/18/20 05:49 Platelet Estimate Consistent w auto 02/18/20 05:49 Clumped Platelets Not Reportable 02/18/20 05:49 Plt Clumps, EDTA Not Reportable 02/18/20 05:49 Large Platelets Not Reportable 02/18/20 05:49 Giant Platelets Not Reportable 02/18/20 05:49 Platelet Satelliting Not Reportable 02/18/20 05:49 Plt Morphology Comment Not Reportable 02/18/20 05:49 RBC Morphology Not Reportable 02/18/20 05:49 Dimorphic RBCs Not Reportable 02/18/20 05:49 Polychromasia Not Reportable 02/18/20 05:49 Hypochromasia Not Reportable 02/18/20 05:49 Poikilocytosis Not Reportable 02/18/20 05:49 Anisocytosis 1+ 02/18/20 05:49 Microcytosis Not Reportable 02/18/20 05:49 Macrocytosis Not Reportable 02/18/20 05:49 Spherocytes Not Reportable 02/18/20 05:49 Pappenheimer Bodies Not Reportable 02/18/20 05:49 Sickle Cells Not Reportable 02/18/20 05:49 Target Cells Not Reportable 02/18/20 05:49 Tear Drop Cells Not Reportable 02/18/20 05:49 Ovalocytes Not Reportable 02/18/20 05:49 Helmet Cells Not Reportable 02/18/20 05:49 Mcmahon-[place] Bodies Not Reportable 02/18/20 05:49 [place] Rings Not Reportable 02/18/20 05:49 Eliza Cells Not Reportable 02/18/20 05:49 Bite Cells Not Reportable 02/18/20 05:49 Crenated Cell Not Reportable 02/18/20 05:49 Elliptocytes Not Reportable 02/18/20 05:49 Acanthocytes (Spur) Not Reportable 02/18/20 05:49 Rouleaux Not Reportable 02/18/20 05:49 Hemoglobin C Crystals Not Reportable 02/18/20 05:49 Schistocytes Not Reportable 02/18/20 05:49 Malaria parasites Not Reportable 02/18/20 05:49 Christian Bodies Not Reportable 02/18/20 05:49 Hem Pathologist Commnt No 02/18/20 05:49 PT 13.2 Sec. (12.2-14.9) 02/13/20 12:29 INR 1.01 (0.87-1.13) 02/13/20 12:29 D-Dimer 793.22 ng/mlDDU (0-234) H 02/15/20 10:48 Sodium 138 mmol/L (137-145) 02/18/20 05:49 Potassium 4.0 mmol/L (3.6-5.0) 02/18/20 05:49 Chloride 104.8 mmol/L (98-107) 02/18/20 05:49 Carbon Dioxide 19 mmol/L (22-30) L 02/18/20 05:49 Anion Gap 18 mmol/L 02/18/20 05:49 BUN 42 mg/dL (9-20) H 02/18/20 05:49 Creatinine 1.5 mg/dL (0.8-1.3) H 02/18/20 05:49 Estimated GFR 48 ml/min 02/18/20 05:49 BUN/Creatinine Ratio 28 % 02/18/20 05:49 Glucose 242 mg/dL (75-100) H 02/18/20 05:49 POC Glucose 204 mg/dL (70-105) H 02/18/20 08:27 Hemoglobin A1c 6.5 % (4-6) H 02/15/20 06:04 Calcium 7.8 mg/dL (8.4-10.2) L 02/18/20 05:49 Ferritin 1480.0 ng/mL (30.0-300.0) H 02/15/20 10:48 Total Bilirubin < 0.20 mg/dL (0.1-1.2) 02/18/20 05:49 AST 82 units/L (5-40) H 02/18/20 05:49 ALT 57 units/L (7-56) H 02/18/20 05:49 Alkaline Phosphatase 140 units/L (35-129) H 02/18/20 05:49 Lactate Dehydrogenase 400 units/L (91-180) H 02/15/20 10:48 Total Creatine Kinase 259 units/L (55-170) H 02/18/20 05:49 Troponin T 0.045 ng/mL (0.00-0.029) H D 02/13/20 12:29 C-Reactive Protein 18.20 mg/dL (0.00-1.30) H 02/15/20 10:48 Total Protein 4.9 g/dL (6.3-8.2) L 02/18/20 05:49 Albumin 2.3 g/dL (3.9-5) L 02/18/20 05:49 Albumin/Globulin Ratio 0.9 % 02/18/20 05:49 Triglycerides 189 mg/dL (2-149) H 02/12/20 15:46 Cholesterol 143 mg/dL (50-199) 02/12/20 15:46 LDL Cholesterol Direct 69 mg/dL (50-130) 02/12/20 15:46 HDL Cholesterol 34 mg/dL (40-59) L 02/12/20 15:46 Cholesterol/HDL Ratio 4.20 % 02/12/20 15:46 Procalcitonin 40.90 ng/mL (<0.15) 02/15/20 10:48 TSH 33.890 mlU/mL (0.270-4.200) H 02/12/20 15:46 Free T4 0.74 ng/dL (0.76-1.46) L 02/12/20 Unknown Urine Color Yellow (Yellow) 02/12/20 17:42 Urine Turbidity Slightly-cloudy (Clear) 02/12/20 17:42 Urine pH 5.0 (5.0-7.0) 02/12/20 17:42 Ur Specific [place] 1.014 (1.003-1.030) 02/12/20 17:42 Urine Protein >500 mg/dL (Negative) 02/12/20 17:42 Urine Glucose (UA) Neg mg/dL (Negative) 02/12/20 17:42 Urine Ketones Neg mg/dL (Negative) 02/12/20 17:42 Urine Blood Lg (Negative) 02/12/20 17:42 Urine Nitrite Neg (Negative) 02/12/20 17:42 Urine Bilirubin Neg (Negative) 02/12/20 17:42 Urine Urobilinogen < 2.0 mg/dL (<2.0) 02/12/20 17:42 Ur Leukocyte Esterase Neg (Negative) 02/12/20 17:42 Urine WBC (Auto) 13.0 /HPF (0.0-6.0) H 02/12/20 17:42 Urine RBC (Auto) 5.0 /HPF (0.0-6.0) 02/12/20 17:42 U Epithel Cells (Auto) < 1.0 /HPF (0-13.0) 02/12/20 17:42 Hyaline Casts 2 /LPF 02/12/20 17:42 Urine Mucus Few /HPF 02/12/20 17:42 Urine Opiates Screen Negative 02/12/20 17:42 Urine Methadone Screen Negative 02/12/20 17:42 Ur Barbiturates Screen Negative 02/12/20 17:42 Ur Phencyclidine Scrn Negative 02/12/20 17:42 Ur Amphetamines Screen Negative 02/12/20 17:42 U Benzodiazepines Scrn Negative 02/12/20 17:42 Urine Cocaine Screen Negative 02/12/20 17:42 U Marijuana (THC) Screen Negative 02/12/20 17:42 Drugs of Abuse Note Disclamer 02/12/20 17:42 Plasma/Serum Alcohol < 0.01 % (0-0.07) 02/12/20 15:46 Coronavirus (PCR) Positive (Negative) A 02/15/20 10:19 Microbiology: Microbiology 02/13/20 12:29 Peripheral/Venous Blood Culture - Preliminary NO GROWTH AFTER 4 DAYS 02/13/20 12:29 Peripheral/Venous Blood Culture - Preliminary NO GROWTH AFTER 4 DAYS Wyatt/IV: Voiding Method Condom Catheter IV Catheter Type [Left Forearm Peripheral IV ] IV Catheter Type [Right INT / Saline Lock Antecubital] Active Medications - Current Medications Current Medications: Generic Name Dose Route Start Last Admin Trade Name Freq PRN Reason Stop Dose Admin Acetaminophen 650 mg 02/12/20 22:39 02/16/20 09:16 Acetaminophen 325 Mg Tab PO 650 mg Q4H PRN Administration Pain MILD(1-3)/Fever >100.5/PETER Amitriptyline HCl 25 mg 02/13/20 22:00 02/17/20 21:10 Amitriptyline 25 Mg Tab PO 25 mg QHS RYAN Administration Amlodipine Besylate 10 mg 02/18/20 10:00 02/18/20 09:21 Amlodipine 10 Mg Tab PO 10 mg QDAY RYAN Administration Dexamethasone 6 mg 02/15/20 22:00 02/18/20 09:21 Dexamethasone 4 Mg Tab PO 02/24/20 10:01 6 mg DAILY RYAN Administration Dextrose 0 ml 02/12/20 22:39 02/15/20 00:20 Dextrose 50% In Water (25gm) 50 Ml Syringe IV 50 ml Q30MIN PRN Administration Hypoglycemia Protocol Enoxaparin Sodium 40 mg 02/19/20 10:00 Enoxaparin 40 Mg/0.4 Ml Inj SUB-Q QDAY@1000 RYAN Hydralazine HCl 50 mg 02/18/20 14:00 Hydralazine 25 Mg Tab PO Q8HR RYAN Ceftriaxone Sodium 1 gm in 50 mls @ 100 mls/hr 02/13/20 12:00 02/17/20 13:11 Rocephin/Ns 1 Gm/50 Ml IV 100 mls/hr Q24H RYAN Administration Protocol Dextrose/Sodium Chloride 1,000 mls @ 125 mls/hr 02/15/20 23:00 02/18/20 11:22 D5/0.45ns IV 125 mls/hr DIRECT RYAN Administration Insulin Human Lispro 0 unit 02/13/20 07:30 02/18/20 09:13 Insulin Lispro 100 Unit/Ml Vial 3 Ml SUB-Q 3 unit ACHS RYAN Administration Protocol Labetalol HCl 10 mg 02/17/20 20:01 02/18/20 05:36 Labetalol 20 Mg/4 Ml Inj IV 10 mg Q6HR PRN Administration Blood Pressure Levothyroxine Sodium 100 mcg 02/13/20 06:00 02/18/20 05:36 Levothyroxine 100 Mcg Tab PO 100 mcg 0600 RYAN Administration Morphine Sulfate 2 mg 02/12/20 22:39 02/13/20 07:31 Morphine 2 Mg/1 Ml Inj IV 2 mg Q4H PRN Administration Pain, Moderate (4-6) Ondansetron HCl 4 mg 02/12/20 22:39 02/12/20 23:06 Ondansetron 4 Mg/2 Ml Inj IV 4 mg Q8H PRN Administration Nausea And Vomiting Pseudoephedrine/Acetam/Chlorphenir 10 ml 02/13/20 21:25 02/16/20 21:46 Guaifenesin/Codeine 100-10mg Oral Liqd 5 Ml PO 10 ml Q6H PRN Administration Cough Sodium Chloride 10 ml 02/13/20 10:00 02/18/20 09:22 Sodium Chloride 0.9% 10 Ml Flush Syringe IV 10 ml BID RYAN Administration Sodium Chloride 10 ml 02/12/20 22:39 02/16/20 13:31 Sodium Chloride 0.9% 10 Ml Flush Syringe IV 10 ml PRN PRN Administration LINE FLUSH Tamsulosin HCl 0.4 mg 02/17/20 18:00 02/18/20 09:21 Tamsulosin 0.4 Mg Cap PO 0.4 mg QDAY RYAN Administration Valsartan 160 mg 02/17/20 22:00 02/18/20 09:20 Valsartan 160mg Tab PO 160 mg BID RYAN Administration Nutrition/Malnutrition Assess - Dietary Evaluation Nutrition/Malnutrition Findings: Nutrition Notes Start: 02/13/20 10:18 Freq: Status: Active Protocol: Document 02/17/20 13:15 NADINE (Rec: 02/17/20 13:25 MTRALEIGH [id number]) Nutrition Notes Initial or Follow up Reassessment Current Diagnosis Diabetes,Hypertension Other Pertinent Diagnosis s/p fall, COVID-19 (+), Rhabdomyolysis, ARF, Hypothyroidism, Throat CA Current Diet Cardiac/Consistent CHO with ground meats Labs/Tests A1C 6.5 Pertinent Medications Decadron, D5 1/2NS at 125ml/hr Height 5 ft 8 in Weight 62.3 kg [place] Body Weight (kg) 70.00 BMI 20.9 Weight Status Appropriate Subjective/Other Information Unable to reach pt via phone at 10:37 and 13:13. He consumed 50% of last two recorded meals. Pt was admitted with c/o bilat shoulder pain, LE pain and throat pain. He is currently on high-flow O2 support. Percent of energy/protein needs met: 58% energy 86% pro Burn Absent Trauma Absent Minimum of two criteria No physical signs of malnutrition #1 Nutrition Diagnosis Increased nutrient needs ( specify in comment below) Diagnosis Progress(for reassessment Continues documentation) Is patient on ventilator? No Is Patient Ambulatory and/or Out of Bed No REE-(Parkman-St. Jeor-confined to bed) [phone] Calculation Used for Recommendations Parkman-St Jeor Additional Notes Pro needs 0.8-1.5g/k-93g/ day Fluid needs 1ml/kcal Nutrition Intervention Change Diet Order: Continue current diet order Add Supplement/Snack (indicate name/kcal Glucerna BID /protein ) Provides kCal: 440 Provides Protein (gm) 20 Goal #1 PO intake of meals plus ONS to meet at least 75% energy and pro needs Goal #2 Wound healing Follow-Up By: 02/19/20 Additional Comments F/U: ONS tolerance/intake
[2020-02-18] MEDS: cefTRIAXone/NS 1 GM/50 ML 1 GM/50 ML BAG IV SCH (12:50)
--- NOTE | 2020-02-18 13:46 | Progress Note ---
Assessment and Plan Cultures: SARS CoV2 PCR: Positive Blood culture: No growth Urine culture: No growth A/P: 54-year-old male with diabetes, throat cancer in remission, back pain, hypertension was admitted to the hospital with bilateral shoulder pain, dizziness and fall: #R pneumonia: Secondary to COVID-19 #Acute hypoxic respiratory failure: On HFNC #Acute kidney injury: improving. #Rhabdomyolysis: Improving CK. #Upper back wound: Continue wound care. Does not appear infected. Recs: -Continue IV/PO Dexamethasone 6 mg daily x 10 days -Creatinine improving, hence will start remdesivir -prophylactic anticoagulation based on d-dimer per hospital protocol -trend ferritin, LDH, d-dimer, CRP every 2-3 days for risk stratification and to assess disease progression -antibiotics completed, Ceftriaxone d/herb Amy Carrillo MD, FACP [facility] O: [phone] F: [phone] Subjective Date of service: 02/18/20 Principal diagnosis: Acute kidney injury Interval history: No fever. Remains on HFNC. Objective - Exam Narrative Exam: Physical Exam (reviewed in chart to minimize risk of transmission) Constitutional: deferred Head, Ears, Nose: deferred Eyes: deferred Neck: deferred Oral: deferred Cardiovascular: deferred Respiratory: deferred GI: deferred Musculoskeletal: deferred Skin: deferred Hem/Lymphatic: deferred Psych: deferred Neurological: deferred - Constitutional Vitals: Vital Signs Temp Pulse Resp BP Pulse Ox 98.4 F 64 18 187/90 89 02/18/20 11:38 02/18/20 11:38 02/18/20 11:38 02/18/20 11:38 02/18/20 11:38 Temperature -Last 24 Hours Temperature 98.4 F Temperature 98.6 F Temperature 97.4 F Temperature 97.3 F - Labs CBC & Chem 7: 02/18/20 05:49 02/18/20 05:49 Labs: Abnormal lab results 02/17/20 02/17/20 02/18/20 Range/Units 16:58 21:26 05:49 RBC (3.65-5.03) M/mm3 Hgb (11.8-15.2) gm/dl Hct (35.5-45.6) % Seg Neuts % (Manual) (40.0-70.0) % Lymphocytes # (Manual) (1.2-5.4) K/mm3 Carbon Dioxide (22-30) mmol/L BUN (9-20) mg/dL Creatinine (0.8-1.3) mg/dL Glucose (75-100) mg/dL POC Glucose 227 H 148 H (70-105) mg/dL Calcium (8.4-10.2) mg/dL AST (5-40) units/L ALT (7-56) units/L Alkaline Phosphatase (35-129) units/L Total Creatine Kinase 259 H (55-170) units/L Total Protein (6.3-8.2) g/dL Albumin (3.9-5) g/dL 02/18/20 02/18/20 02/18/20 Range/Units 05:49 05:49 08:27 RBC 3.51 L (3.65-5.03) M/mm3 Hgb 10.5 L (11.8-15.2) gm/dl Hct 31.6 L (35.5-45.6) % Seg Neuts % (Manual) 91.0 H (40.0-70.0) % Lymphocytes # (Manual) 0.0 L (1.2-5.4) K/mm3 Carbon Dioxide 19 L (22-30) mmol/L BUN 42 H (9-20) mg/dL Creatinine 1.5 H (0.8-1.3) mg/dL Glucose 242 H (75-100) mg/dL POC Glucose 204 H (70-105) mg/dL Calcium 7.8 L (8.4-10.2) mg/dL AST 82 H (5-40) units/L ALT 57 H (7-56) units/L Alkaline Phosphatase 140 H (35-129) units/L Total Creatine Kinase (55-170) units/L Total Protein 4.9 L (6.3-8.2) g/dL Albumin 2.3 L (3.9-5) g/dL 02/18/20 Range/Units 11:38 RBC (3.65-5.03) M/mm3 Hgb (11.8-15.2) gm/dl Hct (35.5-45.6) % Seg Neuts % (Manual) (40.0-70.0) % Lymphocytes # (Manual) (1.2-5.4) K/mm3 Carbon Dioxide (22-30) mmol/L BUN (9-20) mg/dL Creatinine (0.8-1.3) mg/dL Glucose (75-100) mg/dL POC Glucose 208 H (70-105) mg/dL Calcium (8.4-10.2) mg/dL AST (5-40) units/L ALT (7-56) units/L Alkaline Phosphatase (35-129) units/L Total Creatine Kinase (55-170) units/L Total Protein (6.3-8.2) g/dL Albumin (3.9-5) g/dL
[2020-02-18] MEDS: hydrALAZINE 25 MG TAB PO SCH ×2 (14:52→22:45)
[2020-02-18] MEDS: SODIUM CHLORIDE 0.9% 50 ML IVPB IV SCH (14:53)
[2020-02-18] MEDS ORDERED: REMDESIVIR 100 MG VIAL IV ONE (15:00)
[2020-02-18] MEDS ORDERED: REMDESIVIR 200 MG in SODIUM CHLORIDE 0.9% 250ML 250 ML IV ONE (15:00)
[2020-02-18] MEDS: AMITRIPTYLINE 25 MG TAB PO SCH (22:45)
[2020-02-19] MEDS: LEVOTHYROXINE 100 MCG TAB PO SCH (05:49)
[2020-02-19] MEDS: hydrALAZINE 25 MG TAB PO SCH ×3 (05:49→22:23)
[2020-02-19] MEDS: D5W/0.45% NACL 1,000 ML IV SCH (05:50)
[2020-02-19 06:27] LABS: Hematocrit 30.6 % (35.5-45.6); Hemoglobin 10.3 gm/dl (11.8-15.2); Mean Corpuscular HGB Conc 34 % (32-34); Mean Corpuscular Volume 88 fl (84-94); Platelet Count 325 K/mm3 (140-440); Red Blood Count 3.48 M/mm3 (3.65-5.03); Red Cell Distribution Width 14.3 % (13.2-15.2)
[2020-02-19] MEDS: SODIUM CHLORIDE 0.9% 50 ML IVPB IV SCH (06:38)
[2020-02-19 06:43] LABS: Alanine Aminotransferase 53 units/L (7-56); Albumin 2.4 g/dL (3.9-5); BUN/Creatinine Ratio 28; Blood Urea Nitrogen 28 mg/dL (9-20); Calcium 7.8 mg/dL (8.4-10.2); Hemolysis Index 6
[2020-02-19 07:16] LABS: Total Cells Counted 100
[2020-02-19 07:18] LABS: Anisocytosis Few; Hypochromasia Few
[2020-02-19 07:19] LABS: Platelet Estimate Consistent w Auto
[2020-02-19] MEDS ORDERED: POTASSIUM CHLORIDE ER 20 MEQ TAB PO NR (08:00)
[2020-02-19] MEDS: POTASSIUM CHLORIDE 10 MEQ 10 MEQ/100 ML BAG IV SCH ×4 (08:43→12:02)
[2020-02-19] MEDS: INSULIN LISPRO 100 UNIT/ML VIAL 3 mL SUB-Q SCH ×4 (08:45→23:21)
[2020-02-19] MEDS: ENOXAPARIN 40 MG/0.4 ML INJ SUB-Q SCH (08:59)
[2020-02-19] MEDS: amLODIPine 10 MG TAB PO SCH (08:59)
[2020-02-19] MEDS: TAMSULOSIN 0.4 MG CAP PO SCH (08:59)
[2020-02-19] MEDS: VALSARTAN 160MG TAB PO SCH ×2 (08:59→22:23)
[2020-02-19] MEDS: DEXAMETHASONE 4 MG TAB PO SCH (09:00)
--- NOTE | 2020-02-19 10:00 | Progress Note ---
Assessment and Plan Assessment and plan: Assessment and plan: 84-year-old male with known history of diabetes mellitus, throat cancer in remission, chronic back pain and hypertension presenting to the emergency room today with a complaint of bilateral shoulder pain, low back pain lower extremity pain and also pain along the throat. He states he was dizzy this morning and felt lightheaded and subsequently had a fall. He denies any loss of consciousness but states that he had he feet his head. He denies any fever or chills, no chest pain or shortness of breath, no nausea or vomiting, no abdominal pain, no hematuria or dysuria. Patient denies any sick contacts and no recent travel. Denies any contact with anyone with COVID- 19. Work-up in the emergency room today reveals slightly elevated troponin, elevated TSH, leukocytosis, elevated creatinine kinase and patient was also found to be in acute renal failure. Patient is being admitted with rhabdomyolysis, acute renal failure, hypothyroidism and elevated troponin. Patient was started on IV hydration and cardiology was consulted for elevated troponin. Nephrology consulted for rhabdomyolysis and BELKIS. 02/14/2020. Check Covid testing. Hold on restarting lisinopril for blood pressure given the acute renal failure. Start Procardia 60 mg twice daily. Rhabdomyolysis and kidney function improved with IV fluid hydration. Continue to monitor. PT evaluation for deconditioning. Await echocardiogram 02/15/2020. Patient with asymptomatic hypotension this morning with systolic blood pressure 84. Discontinue Procardia and hold lisinopril for now. Continue IV fluid hydration for acute renal failure/acute kidney injury/rhabdomyolysis. Nurse reports patient had coughing with eating. Speech therapy evaluation for swallow evaluation 02/16/2020. Hypotension has resolved and patient remains asymptomatic. Procardia and lisinopril discontinued. Tenuous IV fluid hydration for acute renal failure/acute kidney injury/rhabdomyolysis given positive Covid infection. Speech therapy reports no evidence of dysphagia. Continue dexamethasone 6 mg p.o. daily x10 days. Consider remdesivir if renal function improves. Await ID consultation. Transfer to [facility] [place] given positive Covid. 02/16. Nephrology following for BELKIS. Bladder feels distended so we will get a bladder scan. Straight cath if more than [address] a Wyatt if patient c ontinues to retain.. Flomax if necessary. Continue dexamethasone. 02/17. Has urinary retention so a wyatt has been placed. Now on flomax. He will follow up with urology in the office after discharge. Renal function is better. Still requiring 15L of oxygen. 02/18. Renal function continues to improve-creatinine 1.0 today. Patient has been started on remdesivir. Oxygenation much better-now on 8 L of oxygen. He complains of 4 episodes of diarrhea this a.m. Ordered stool for C. difficile. Continue to monitor. Plan Acute renal failure. Etiology secondary to acute kidney injury from vasomotor nephropathy/dehydration. Was having urinary retention - straiht cath with >1500cc urine. Renal function is now improving Rhabdomyolysis. trend CK Elevated troponin - Likely demand ischemia Hypothyroidism. TSH significantly elevated. Resume Synthroid and consider increasing dose if patient has been compliant with medications. Sepsis - resolved UTI. Completed treatment Covid 19 pneumonia. Patient tested positive 02/15/2020. Unable to determine if COVID present on day of admission. Continue dexamethasone. Started on remdesivir. ID and pulmonology following Diabetes mellitus type 2. Continue Accu-Cheks and sliding scale insulin. Tight glycemic control. Hypertension. Monitor blood pressure closely Urinary retention - Flomax. Maintain wyatt. Needs urology follow up at discharge DVT prophylaxis. Continue subcutaneous heparin. History Interval history: Had multiple episodes of diarrhea. Will check c diff He has been weaned down to 8L. Hospitalist Physical - Physical exam Narrative exam: VITAL SIGNS: Reviewed. GENERAL: Awake HEAD: No signs of head trauma. EYES: Pupils are equal. Extraocular motions intact. MOUTH: Oropharynx is normal. NECK: No adenopathy, no JVD. CHEST: Chest with diminished breath sounds bilaterally. No wheezes, rales, or rhonchi. CARDIAC: normal S1 and S2, without murmurs, gallops, or rubs. ABDOMEN: Soft, non tender and non distended. No rebound or guarding, and no masses palpated. Bowel Sounds normal. MUSCULOSKELETAL: No edema NEUROLOGIC EXAM: Alert and oriented x3. No focal neurologic deficits SKIN: No obvious lesions - Constitutional Vitals: Temp Pulse Resp BP Pulse Ox 98.3 F 61 20 169/68 95 02/19/20 04:13 02/19/20 04:13 02/19/20 04:13 02/19/20 04:13 02/19/20 04:13 HEART Score - HEART Score Troponin: Troponin T 0.045 ng/mL (0.00-0.029) H D 02/13/20 12:29 Results - Labs CBC & Chem 7: 02/19/20 05:51 02/19/20 05:51 Labs: Laboratory Last Values WBC 10.8 K/mm3 (4.5-11.0) 02/19/20 05:51 RBC 3.48 M/mm3 (3.65-5.03) L 02/19/20 05:51 Hgb 10.3 gm/dl (11.8-15.2) L 02/19/20 05:51 Hct 30.6 % (35.5-45.6) L 02/19/20 05:51 MCV 88 fl (84-94) 02/19/20 05:51 MCH 30 pg (28-32) 02/19/20 05:51 MCHC 34 % (32-34) 02/19/20 05:51 RDW 14.3 % (13.2-15.2) 02/19/20 05:51 Plt Count 325 K/mm3 (140-440) 02/19/20 05:51 Add Manual Diff Complete 02/19/20 05:51 Total Counted 100 02/19/20 05:51 Seg Neutrophils % Fisher Eel Spear 02/16/20 05:42 Seg Neuts % (Manual) 87.0 % (40.0-70.0) H 02/19/20 05:51 Band Neutrophils % 2.0 % 02/18/20 05:49 Lymphocytes % (Manual) 7.0 % (13.4-35.0) L 02/19/20 05:51 Monocytes % (Manual) 5.0 % (0.0-7.3) 02/19/20 05:51 Metamyelocytes % 1.0 % 02/19/20 05:51 Nucleated RBC % Not Reportable 02/19/20 05:51 Seg Neutrophils # Man 9.4 K/mm3 (1.8-7.7) H 02/19/20 05:51 Band Neutrophils # 0.0 K/mm3 02/19/20 05:51 Lymphocytes # (Manual) 0.8 K/mm3 (1.2-5.4) L 02/19/20 05:51 Abs React Lymphs (Man) 0.0 K/mm3 02/19/20 05:51 Monocytes # (Manual) 0.5 K/mm3 (0.0-0.8) 02/19/20 05:51 Eosinophils # (Manual) 0.0 K/mm3 (0.0-0.4) 02/19/20 05:51 Basophils # (Manual) 0.0 K/mm3 (0.0-0.1) 02/19/20 05:51 Metamyelocytes # 0.1 K/mm3 02/19/20 05:51 Myelocytes # 0.0 K/mm3 02/19/20 05:51 Promyelocytes # 0.0 K/mm3 02/19/20 05:51 Blast Cells # 0.0 K/mm3 02/19/20 05:51 Pathologist Review Fisher Eel Spear 02/12/20 15:46 WBC Morphology Not Reportable 02/19/20 05:51 Hypersegmented Neuts Not Reportable 02/19/20 05:51 Hyposegmented Neuts Not Reportable 02/19/20 05:51 Hypogranular Neuts Not Reportable 02/19/20 05:51 Smudge Cells Not Reportable 02/19/20 05:51 Toxic Granulation Not Reportable 02/19/20 05:51 Toxic Vacuolation Not Reportable 02/19/20 05:51 Dohle Bodies Not Reportable 02/19/20 05:51 Pelger-Huet Anomaly Not Reportable 02/19/20 05:51 Cherelle Rods Not Reportable 02/19/20 05:51 Platelet Estimate Consistent w auto 02/19/20 05:51 Clumped Platelets Not Reportable 02/19/20 05:51 Plt Clumps, EDTA Not Reportable 02/19/20 05:51 Large Platelets Not Reportable 02/19/20 05:51 Giant Platelets Not Reportable 02/19/20 05:51 Platelet Satelliting Not Reportable 02/19/20 05:51 Plt Morphology Comment Not Reportable 02/19/20 05:51 RBC Morphology Not Reportable 02/19/20 05:51 Dimorphic RBCs Not Reportable 02/19/20 05:51 Polychromasia Not Reportable 02/19/20 05:51 Hypochromasia Few 02/19/20 05:51 Poikilocytosis Not Reportable 02/19/20 05:51 Anisocytosis Few 02/19/20 05:51 Microcytosis Not Reportable 02/19/20 05:51 Macrocytosis Not Reportable 02/19/20 05:51 Spherocytes Not Reportable 02/19/20 05:51 Pappenheimer Bodies Not Reportable 02/19/20 05:51 Sickle Cells Not Reportable 02/19/20 05:51 Target Cells Not Reportable 02/19/20 05:51 Tear Drop Cells Not Reportable 02/19/20 05:51 Ovalocytes Not Reportable 02/19/20 05:51 Helmet Cells Not Reportable 02/19/20 05:51 Mcmahon-Vergas Bodies Not Reportable 02/19/20 05:51 Commack Rings Not Reportable 02/19/20 05:51 Eliza Cells Not Reportable 02/19/20 05:51 Bite Cells Not Reportable 02/19/20 05:51 Crenated Cell Not Reportable 02/19/20 05:51 Elliptocytes Not Reportable 02/19/20 05:51 Acanthocytes (Spur) Not Reportable 02/19/20 05:51 Rouleaux Not Reportable 02/19/20 05:51 Hemoglobin C Crystals Not Reportable 02/19/20 05:51 Schistocytes Not Reportable 02/19/20 05:51 Malaria parasites Not Reportable 02/19/20 05:51 Christian Bodies Not Reportable 02/19/20 05:51 Hem Pathologist Commnt No 02/19/20 05:51 PT 13.2 Sec. (12.2-14.9) 02/13/20 12:29 INR 1.01 (0.87-1.13) 02/13/20 12:29 D-Dimer 793.22 ng/mlDDU (0-234) H 02/15/20 10:48 Sodium 136 mmol/L (137-145) L 02/19/20 05:51 Potassium 3.0 mmol/L (3.6-5.0) L D 02/19/20 05:51 Chloride 100.8 mmol/L (98-107) 02/19/20 05:51 Carbon Dioxide 25 mmol/L (22-30) 02/19/20 05:51 Anion Gap 13 mmol/L 02/19/20 05:51 BUN 28 mg/dL (9-20) H 02/19/20 05:51 Creatinine 1.0 mg/dL (0.8-1.3) 02/19/20 05:51 Estimated GFR > 60 ml/min 02/19/20 05:51 BUN/Creatinine Ratio 28 % 02/19/20 05:51 Glucose 214 mg/dL (75-100) H 02/19/20 05:51 POC Glucose 179 mg/dL (70-105) H 02/19/20 07:47 Hemoglobin A1c 6.5 % (4-6) H 02/15/20 06:04 Calcium 7.8 mg/dL (8.4-10.2) L 02/19/20 05:51 Ferritin 1480.0 ng/mL (30.0-300.0) H 02/15/20 10:48 Total Bilirubin 0.20 mg/dL (0.1-1.2) 02/19/20 05:51 AST 66 units/L (5-40) H 02/19/20 05:51 ALT 53 units/L (7-56) 02/19/20 05:51 Alkaline Phosphatase 117 units/L (35-129) 02/19/20 05:51 Lactate Dehydrogenase 400 units/L (91-180) H 02/15/20 10:48 Total Creatine Kinase 174 units/L (55-170) H 02/19/20 05:51 Troponin T 0.045 ng/mL (0.00-0.029) H D 02/13/20 12:29 C-Reactive Protein 18.20 mg/dL (0.00-1.30) H 02/15/20 10:48 Total Protein 5.4 g/dL (6.3-8.2) L 02/19/20 05:51 Albumin 2.4 g/dL (3.9-5) L 02/19/20 05:51 Albumin/Globulin Ratio 0.8 % 02/19/20 05:51 Triglycerides 189 mg/dL (2-149) H 02/12/20 15:46 Cholesterol 143 mg/dL (50-199) 02/12/20 15:46 LDL Cholesterol Direct 69 mg/dL (50-130) 02/12/20 15:46 HDL Cholesterol 34 mg/dL (40-59) L 02/12/20 15:46 Cholesterol/HDL Ratio 4.20 % 02/12/20 15:46 Procalcitonin 40.90 ng/mL (<0.15) 02/15/20 10:48 TSH 33.890 mlU/mL (0.270-4.200) H 02/12/20 15:46 Free T4 0.74 ng/dL (0.76-1.46) L 02/12/20 Unknown Urine Color Yellow (Yellow) 02/12/20 17:42 Urine Turbidity Slightly-cloudy (Clear) 02/12/20 17:42 Urine pH 5.0 (5.0-7.0) 02/12/20 17:42 Ur Specific [place] 1.014 (1.003-1.030) 02/12/20 17:42 Urine Protein >500 mg/dL (Negative) 02/12/20 17:42 Urine Glucose (UA) Neg mg/dL (Negative) 02/12/20 17:42 Urine Ketones Neg mg/dL (Negative) 02/12/20 17:42 Urine Blood Lg (Negative) 02/12/20 17:42 Urine Nitrite Neg (Negative) 02/12/20 17:42 Urine Bilirubin Neg (Negative) 02/12/20 17:42 Urine Urobilinogen < 2.0 mg/dL (<2.0) 02/12/20 17:42 Ur Leukocyte Esterase Neg (Negative) 02/12/20 17:42 Urine WBC (Auto) 13.0 /HPF (0.0-6.0) H 02/12/20 17:42 Urine RBC (Auto) 5.0 /HPF (0.0-6.0) 02/12/20 17:42 U Epithel Cells (Auto) < 1.0 /HPF (0-13.0) 02/12/20 17:42 Hyaline Casts 2 /LPF 02/12/20 17:42 Urine Mucus Few /HPF 02/12/20 17:42 Urine Opiates Screen Negative 02/12/20 17:42 Urine Methadone Screen Negative 02/12/20 17:42 Ur Barbiturates Screen Negative 02/12/20 17:42 Ur Phencyclidine Scrn Negative 02/12/20 17:42 Ur Amphetamines Screen Negative 02/12/20 17:42 U Benzodiazepines Scrn Negative 02/12/20 17:42 Urine Cocaine Screen Negative 02/12/20 17:42 U Marijuana (THC) Screen Negative 02/12/20 17:42 Drugs of Abuse Note Disclamer 02/12/20 17:42 Plasma/Serum Alcohol < 0.01 % (0-0.07) 02/12/20 15:46 Coronavirus (PCR) Positive (Negative) A 02/15/20 10:19 Microbiology: Microbiology 02/13/20 12:29 Peripheral/Venous Blood Culture - Final NO GROWTH AFTER 5 DAYS 02/13/20 12:29 Peripheral/Venous Blood Culture - Final NO GROWTH AFTER 5 DAYS Wyatt/IV: Voiding Method Condom Catheter IV Catheter Type [Right INT / Saline Lock Forearm] IV Catheter Type [Left Forearm Peripheral IV ] IV Catheter Type [Right INT / Saline Lock Antecubital] Active Medications - Current Medications Current Medications: Generic Name Dose Route Start Last Admin Trade Name Freq PRN Reason Stop Dose Admin Acetaminophen 650 mg 02/12/20 22:39 02/16/20 09:16 Acetaminophen 325 Mg Tab PO 650 mg Q4H PRN Administration Pain MILD(1-3)/Fever >100.5/PETER Amitriptyline HCl 25 mg 02/13/20 22:00 02/18/20 22:45 Amitriptyline 25 Mg Tab PO 25 mg QHS RYAN Administration Amlodipine Besylate 10 mg 02/18/20 10:00 02/19/20 08:59 Amlodipine 10 Mg Tab PO 10 mg QDAY RYAN Administration Dexamethasone 6 mg 02/15/20 22:00 02/19/20 09:00 Dexamethasone 4 Mg Tab PO 02/24/20 10:01 6 mg DAILY RYAN Administration Dextrose 0 ml 02/12/20 22:39 02/15/20 00:20 Dextrose 50% In Water (25gm) 50 Ml Syringe IV 50 ml Q30MIN PRN Administration Hypoglycemia Protocol Enoxaparin Sodium 40 mg 02/19/20 10:00 02/19/20 08:59 Enoxaparin 40 Mg/0.4 Ml Inj SUB-Q 40 mg QDAY@1000 RYAN Administration Hydralazine HCl 50 mg 02/18/20 14:00 02/19/20 05:49 Hydralazine 25 Mg Tab PO 50 mg Q8HR RYAN Administration Dextrose/Sodium Chloride 1,000 mls @ 125 mls/hr 02/15/20 23:00 02/19/20 05:50 D5/0.45ns IV 125 mls/hr DIRECT RYAN Administration REMDESIVIR 100 mg/ Sodium 250 mls @ 500 mls/hr 02/19/20 21:00 Chloride IV 02/22/20 21:29 Q24HR@2100 RYAN Potassium Chloride 10 meq in 100 mls @ 100 mls/hr 02/19/20 09:00 02/19/20 08:43 Kcl 10meq/100ml IV 02/19/20 12:59 100 mls/hr Q1H RYAN Administration Insulin Human Lispro 0 unit 02/13/20 07:30 02/19/20 08:45 Insulin Lispro 100 Unit/Ml Vial 3 Ml SUB-Q 2 unit ACHS RYAN Administration Protocol Labetalol HCl 10 mg 02/17/20 20:01 02/18/20 05:36 Labetalol 20 Mg/4 Ml Inj IV 10 mg Q6HR PRN Administration Blood Pressure Levothyroxine Sodium 100 mcg 02/13/20 06:00 02/19/20 05:49 Levothyroxine 100 Mcg Tab PO 100 mcg 0600 RYAN Administration Morphine Sulfate 2 mg 02/12/20 22:39 02/13/20 07:31 Morphine 2 Mg/1 Ml Inj IV 2 mg Q4H PRN Administration Pain, Moderate (4-6) Ondansetron HCl 4 mg 02/12/20 22:39 02/12/20 23:06 Ondansetron 4 Mg/2 Ml Inj IV 4 mg Q8H PRN Administration Nausea And Vomiting Potassium Chloride 40 meq 02/19/20 08:00 02/19/20 08:43 Potassium Chloride Er 20 Meq Tab PO 02/19/20 11:00 40 meq ONCE@0800 NR Administration Pseudoephedrine/Acetam/Chlorphenir 10 ml 02/13/20 21:25 02/16/20 21:46 Guaifenesin/Codeine 100-10mg Oral Liqd 5 Ml PO 10 ml Q6H PRN Administration Cough Sodium Chloride 10 ml 02/13/20 10:00 02/19/20 09:01 Sodium Chloride 0.9% 10 Ml Flush Syringe IV Not Given BID RYAN Sodium Chloride 10 ml 02/12/20 22:39 02/16/20 13:31 Sodium Chloride 0.9% 10 Ml Flush Syringe IV 10 ml PRN PRN Administration LINE FLUSH Sodium Chloride 50 ml 02/19/20 21:00 Sodium Chloride 0.9% 50 Ml Ivpb IV 02/22/20 21:01 Q24HR@2100 RYAN Tamsulosin HCl 0.4 mg 02/17/20 18:00 02/19/20 08:59 Tamsulosin 0.4 Mg Cap PO 0.4 mg QDAY RYAN Administration Valsartan 160 mg 02/17/20 22:00 02/19/20 08:59 Valsartan 160mg Tab PO 160 mg BID RYAN Administration Nutrition/Malnutrition Assess - Dietary Evaluation Nutrition/Malnutrition Findings: Nutrition Notes Start: 02/13/20 10:18 Freq: Status: Active Protocol: Document 02/17/20 13:15 [facility] (Rec: 02/17/20 13:25 [facility] [id number]) Nutrition Notes Initial or Follow up Reassessment Current Diagnosis Diabetes,Hypertension Other Pertinent Diagnosis s/p fall, COVID-19 (+), Rhabdomyolysis, ARF, Hypothyroidism, Throat CA Current Diet Cardiac/Consistent CHO with ground meats Labs/Tests A1C 6.5 Pertinent Medications Decadron, D5 1/2NS at 125ml/hr Height 5 ft 8 in Weight 62.3 kg [place] Body Weight (kg) 70.00 BMI 20.9 Weight Status Appropriate Subjective/Other Information Unable to reach pt via phone at 10:37 and 13:13. He consumed 50% of last two recorded meals. Pt was admitted with c/o bilat shoulder pain, LE pain and throat pain. He is currently on high-flow O2 support. Percent of energy/protein needs met: 58% energy 86% pro Burn Absent Trauma Absent Minimum of two criteria No physical signs of malnutrition #1 Nutrition Diagnosis Increased nutrient needs ( specify in comment below) Diagnosis Progress(for reassessment Continues documentation) Is patient on ventilator? No Is Patient Ambulatory and/or Out of Bed No REE-([place] Jeor-confined to bed) [phone] Calculation Used for Recommendations [place] Je[place] Additional Notes Pro needs 0.8-1.5g/k-93g/ day Fluid needs 1ml/kcal Nutrition Intervention Change Diet Order: Continue current diet order Add Supplement/Snack (indicate name/kcal Glucerna BID /protein ) Provides kCal: 440 Provides Protein (gm) 20 Goal #1 PO intake of meals plus ONS to meet at least 75% energy and pro needs Goal #2 Wound healing Follow-Up By: 02/19/20 Additional Comments F/U: ONS tolerance/intake
--- NOTE | 2020-02-19 11:09 | Progress Note ---
Assessment and Plan Cultures: SARS CoV2 PCR: Positive Blood culture: No growth Urine culture: No growth A/P: 54-year-old male with diabetes, throat cancer in remission, back pain, hypertension was admitted to the hospital with bilateral shoulder pain, dizziness and fall: #R pneumonia: Secondary to COVID-19. Procal also elevated, antibiotics completed, Ceftriaxone d/herb. On steroids, Remdesivir. #Acute hypoxic respiratory failure: On HFNC #Acute kidney injury: improving. #Rhabdomyolysis: Improving CK. #Upper back wound: Continue wound care. Does not appear infected. Recs: -Continue IV/PO Dexamethasone 6 mg daily x 10 days -Creatinine improving, continue remdesivir, D2 of 5 -prophylactic anticoagulation based on d-dimer per hospital protocol -trend ferritin, LDH, d-dimer, CRP every 2-3 days for risk stratification and to assess disease progression Amy Carrillo MD, FACP [facility] ([facility]) O: [phone] F: [phone] Subjective Date of service: 02/19/20 Principal diagnosis: Acute kidney injury Interval history: No fever. Remains on high flow nasal cannula. Objective - Exam Narrative Exam: Physical Exam (reviewed in chart to minimize risk of transmission) Constitutional: deferred Head, Ears, Nose: deferred Eyes: deferred Neck: deferred Oral: deferred Cardiovascular: deferred Respiratory: deferred GI: deferred Musculoskeletal: deferred Skin: deferred Hem/Lymphatic: deferred Psych: deferred Neurological: deferred - Constitutional Vitals: Vital Signs Temp Pulse Resp BP Pulse Ox 98.3 F 61 20 169/68 94 02/19/20 04:13 02/19/20 04:13 02/19/20 04:13 02/19/20 04:13 02/19/20 10:20 Temperature -Last 24 Hours Temperature 98.3 F Temperature 97.9 F Temperature 98.1 F Temperature 98.1 F Temperature 98.4 F - Labs CBC & Chem 7: 02/19/20 05:51 02/19/20 05:51 Labs: Abnormal lab results 02/18/20 02/18/20 02/18/20 Range/Units 11:38 17:09 21:57 RBC (3.65-5.03) M/mm3 Hgb (11.8-15.2) gm/dl Hct (35.5-45.6) % Seg Neuts % (Manual) (40.0-70.0) % Lymphocytes % (Manual) (13.4-35.0) % Seg Neutrophils # Man (1.8-7.7) K/mm3 Lymphocytes # (Manual) (1.2-5.4) K/mm3 Sodium (137-145) mmol/L Potassium (3.6-5.0) mmol/L BUN (9-20) mg/dL Glucose (75-100) mg/dL POC Glucose 208 H 207 H 218 H (70-105) mg/dL Calcium (8.4-10.2) mg/dL AST (5-40) units/L Total Creatine Kinase (55-170) units/L Total Protein (6.3-8.2) g/dL Albumin (3.9-5) g/dL 02/19/20 02/19/20 02/19/20 Range/Units 05:51 05:51 05:51 RBC 3.48 L (3.65-5.03) M/mm3 Hgb 10.3 L (11.8-15.2) gm/dl Hct 30.6 L (35.5-45.6) % Seg Neuts % (Manual) 87.0 H (40.0-70.0) % Lymphocytes % (Manual) 7.0 L (13.4-35.0) % Seg Neutrophils # Man 9.4 H (1.8-7.7) K/mm3 Lymphocytes # (Manual) 0.8 L (1.2-5.4) K/mm3 Sodium 136 L (137-145) mmol/L Potassium 3.0 L D (3.6-5.0) mmol/L BUN 28 H (9-20) mg/dL Glucose 214 H (75-100) mg/dL POC Glucose (70-105) mg/dL Calcium 7.8 L (8.4-10.2) mg/dL AST 66 H (5-40) units/L Total Creatine Kinase 174 H (55-170) units/L Total Protein 5.4 L (6.3-8.2) g/dL Albumin 2.4 L (3.9-5) g/dL 02/19/20 Range/Units 07:47 RBC (3.65-5.03) M/mm3 Hgb (11.8-15.2) gm/dl Hct (35.5-45.6) % Seg Neuts % (Manual) (40.0-70.0) % Lymphocytes % (Manual) (13.4-35.0) % Seg Neutrophils # Man (1.8-7.7) K/mm3 Lymphocytes # (Manual) (1.2-5.4) K/mm3 Sodium (137-145) mmol/L Potassium (3.6-5.0) mmol/L BUN (9-20) mg/dL Glucose (75-100) mg/dL POC Glucose 179 H (70-105) mg/dL Calcium (8.4-10.2) mg/dL AST (5-40) units/L Total Creatine Kinase (55-170) units/L Total Protein (6.3-8.2) g/dL Albumin (3.9-5) g/dL
[2020-02-19] MEDS ORDERED: D5W/0.45% NACL 1,000 ML with POTASSIUM CHLORIDE 20 MEQ IV SCH (11:34)
--- NOTE | 2020-02-19 11:40 | Progress Note ---
Assessment and Plan Assessment * Acute kidney injury, unknown baseline * Rhabdomyolysis, mild * Hypocalcemia, mild * Hypokalemia, mild * Anemia * Hypertension, uncontrolled * Diabetes mellitus * Covid positive Recommendations * Renal function is better today, continue ivfs * replete k and mag prn * stopped sanket inhibitors * follow up am lytes * Keep MAP more than 65 * encourage p.o. hydration * Monitor calcium and potassium, replete as needed * Renally dose medications * Avoid nephrotoxins * Strict I's/O * Keep glucose less than 200 mg/dL Subjective Date of service: 02/19/20 Principal diagnosis: Acute kidney injury Interval history: resting in bed Objective - Exam Narrative Exam: Deferred as patient is Covid positive in order to prevent spread of infection and for PPE preservation. - Vital Signs Vital signs: Vital Signs - 12hr 02/19/20 02/19/20 02/19/20 00:39 04:00 04:13 Temperature 97.9 F 98.3 F Pulse Rate 63 61 Respiratory 18 20 Rate Blood Pressure 156/72 169/68 O2 Sat by Pulse 98 97 95 Oximetry 02/19/20 10:20 Temperature Pulse Rate Respiratory Rate Blood Pressure O2 Sat by Pulse 94 Oximetry - Lab 02/19/20 05:51 02/19/20 05:51 Most recent lab results Calcium 7.8 mg/dL (8.4-10.2) L 02/19/20 05:51 Medications & Allergies - Medications Allergies/Adverse Reactions: Allergies No Known Allergies Allergy (Verified 08/16/18 11:38) Home Medications: Home Medications Medication Instructions Recorded Confirmed Last Taken Type Amitriptyline [Elavil] 25 mg PO QHS tablet 11/22/17 02/13/20 Unknown Rx Ondansetron [Zofran ODT TAB] 8 mg PO Q8HR tab.rapdis 11/22/17 02/13/20 Unknown Rx Prochlorperazine [Compazine] 10 mg PO Q6HR PRN tablet 11/22/17 02/13/20 Unknown Rx lisinopriL [Zestril TAB] 10 mg PO QDAY tablet 11/22/17 02/13/20 Unknown Rx Levothyroxine 100 mcg PO DAILY 02/12/20 02/12/20 Unknown History Mupirocin 1 tab PO BID 12/24/20 12/25/20 Unknown History Tramadol HCl/Acetaminophen 37.5 mg PO BID 02/12/20 02/13/20 Unknown History Active Medications: Generic Name Dose Route Start Last Admin Trade Name Freq PRN Reason Stop Dose Admin Acetaminophen 650 mg 02/12/20 22:39 02/16/20 09:16 Acetaminophen 325 Mg Tab PO 650 mg Q4H PRN Administration Pain MILD(1-3)/Fever >100.5/PETER Amitriptyline HCl 25 mg 02/13/20 22:00 02/18/20 22:45 Amitriptyline 25 Mg Tab PO 25 mg QHS RYAN Administration Amlodipine Besylate 10 mg 02/18/20 10:00 02/19/20 08:59 Amlodipine 10 Mg Tab PO 10 mg QDAY RYAN Administration Dexamethasone 6 mg 02/15/20 22:00 02/19/20 09:00 Dexamethasone 4 Mg Tab PO 02/24/20 10:01 6 mg DAILY RAYN Administration Dextrose 0 ml 02/12/20 22:39 02/15/20 00:20 Dextrose 50% In Water (25gm) 50 Ml Syringe IV 50 ml Q30MIN PRN Administration Hypoglycemia Protocol Enoxaparin Sodium 40 mg 02/19/20 10:00 02/19/20 08:59 Enoxaparin 40 Mg/0.4 Ml Inj SUB-Q 40 mg QDAY@1000 RYAN Administration Hydralazine HCl 50 mg 02/18/20 14:00 02/19/20 05:49 Hydralazine 25 Mg Tab PO 50 mg Q8HR RYAN Administration REMDESIVIR 100 mg/ Sodium 250 mls @ 500 mls/hr 02/19/20 21:00 Chloride IV 02/22/20 21:29 Q24HR@2100 RYAN Potassium Chloride 10 meq in 100 mls @ 100 mls/hr 02/19/20 09:00 02/19/20 11:00 Kcl 10meq/100ml IV 02/19/20 12:59 100 mls/hr Q1H RYAN Administration Potassium Chloride 20 meq/ 1,010 mls @ 100 mls/hr 02/19/20 11:34 Dextrose/Sodium Chloride IV DIRECT RYAN Magnesium Sulfate 2 gm in 50 mls @ 25 mls/hr 02/19/20 11:38 Magnesium Sulfate 2gm/50ml IV 02/19/20 13:37 ONCE ONE Insulin Human Lispro 0 unit 02/13/20 07:30 02/19/20 08:45 Insulin Lispro 100 Unit/Ml Vial 3 Ml SUB-Q 2 unit ACHS RYAN Administration Protocol Labetalol HCl 10 mg 02/17/20 20:01 02/18/20 05:36 Labetalol 20 Mg/4 Ml Inj IV 10 mg Q6HR PRN Administration Blood Pressure Levothyroxine Sodium 100 mcg 02/13/20 06:00 02/19/20 05:49 Levothyroxine 100 Mcg Tab PO 100 mcg 0600 RYAN Administration Morphine Sulfate 2 mg 02/12/20 22:39 02/13/20 07:31 Morphine 2 Mg/1 Ml Inj IV 2 mg Q4H PRN Administration Pain, Moderate (4-6) Ondansetron HCl 4 mg 02/12/20 22:39 02/12/20 23:06 Ondansetron 4 Mg/2 Ml Inj IV 4 mg Q8H PRN Administration Nausea And Vomiting Pseudoephedrine/Acetam/Chlorphenir 10 ml 02/13/20 21:25 02/16/20 21:46 Guaifenesin/Codeine 100-10mg Oral Liqd 5 Ml PO 10 ml Q6H PRN Administration Cough Sodium Chloride 10 ml 02/13/20 10:00 02/19/20 09:01 Sodium Chloride 0.9% 10 Ml Flush Syringe IV Not Given BID RYAN Sodium Chloride 10 ml 02/12/20 22:39 02/16/20 13:31 Sodium Chloride 0.9% 10 Ml Flush Syringe IV 10 ml PRN PRN Administration LINE FLUSH Sodium Chloride 50 ml 02/19/20 21:00 Sodium Chloride 0.9% 50 Ml Ivpb IV 02/22/20 21:01 Q24HR@2100 RYAN Tamsulosin HCl 0.4 mg 02/17/20 18:00 02/19/20 08:59 Tamsulosin 0.4 Mg Cap PO 0.4 mg QDAY RYAN Administration Valsartan 160 mg 02/17/20 22:00 02/19/20 08:59 Valsartan 160mg Tab PO 160 mg BID RYAN Administration
[2020-02-19] MEDS ORDERED: FUROSEMIDE 40 MG/4 ML INJ IV ONE (13:13)
--- NOTE | 2020-02-19 13:18 | Progress Note ---
Assessment and Plan 54 y/o male with acute respiratory failure secondary to COVID 19 pneumonia. 1. Prone as tolerated during the day and sleep prone at night if possible. Appreciate RT for documenting this. Wean FiO2/Flow for sats >88% 2. Agree with steroids, will treat for a total of 10 days. 3. Renal function and rhabdo improving. Follow up any new renal recs. Needs BP control. May want to consider stopping robitussin and placing on just tessal on perles or codeine only formula. will ask renal bout lasix therapy tomorrow if oxygen requirement not able to be weaned back down. 4. Not a candidate for remdesivir. Guarded prognosis. Subjective Date of service: 02/19/20 Principal diagnosis: Acute kidney injury Interval history: Back up to 14 liters HFNC. BP elevated. Objective Vital Signs - 12hr 02/19/20 02/19/20 02/19/20 04:00 04:13 10:20 Temperature 98.3 F Pulse Rate 61 Respiratory 20 Rate Blood Pressure 169/68 O2 Sat by Pulse 97 95 94 Oximetry 02/19/20 12:18 Temperature 98.2 F Pulse Rate 69 Respiratory 19 Rate Blood Pressure 153/72 O2 Sat by Pulse 95 Oximetry Constitutional: other (critically ill on HFNC) Eyes: non-icteric ENT: oropharynx moist Neck: supple Effort: normal Ascultation: Bilateral: clear Cardiovascular: regular rate and rhythm (no mrg) Gastrointestinal: normoactive bowel sounds, soft, non-tender Integumentary: normal Extremities: no cyanosis, no edema, pink and warm Neurologic: normal mental status, non-focal exam, pupils equal and round, CN II- XII normal Psychiatric: mood appropriate, affect normal CBC and BMP: 02/19/20 05:51 02/19/20 05:51 ABG, PT/INR, D-dimer: PT/INR, D-dimer PT 13.2 Sec. (12.2-14.9) 02/13/20 12: INR 1.01 (0.87-1.13) 02/13/20 12:29 D-Dimer 793.22 ng/mlDDU (0-234) H 02/15/20 10:48 Abnormal lab findings: Abnormal Labs 02/12/20 02/12/20 02/12/20 15:46 15:46 15:46 WBC 27.1 H RBC 3.37 L Hgb 10.3 L Hct 30.5 L Seg Neuts % (Manual) Lymphocytes % (Manual) 2.0 L Seg Neutrophils # Man 18.7 H Lymphocytes # (Manual) 0.5 L D-Dimer Sodium 133 L Potassium Chloride 93.1 L Carbon Dioxide 32 H BUN 59 H Creatinine 2.4 H Glucose POC Glucose Hemoglobin A1c Calcium 8.0 L Ferritin AST 260 H ALT 65 H Alkaline Phosphatase Lactate Dehydrogenase Total Creatine Kinase 9691 H Troponin T 0.066 H C-Reactive Protein Total Protein Albumin 2.7 L Triglycerides 189 H HDL Cholesterol 34 L TSH 33.890 H Free T4 Urine WBC (Auto) Coronavirus (PCR) 02/12/20 02/12/20 02/13/20 17:42 Unknown 07:46 WBC RBC Hgb Hct Seg Neuts % (Manual) Lymphocytes % (Manual) Seg Neutrophils # Man Lymphocytes # (Manual) D-Dimer Sodium Potassium Chloride Carbon Dioxide BUN Creatinine Glucose POC Glucose 68 L Hemoglobin A1c Calcium Ferritin AST ALT Alkaline Phosphatase Lactate Dehydrogenase Total Creatine Kinase Troponin T C-Reactive Protein Total Protein Albumin Triglycerides HDL Cholesterol TSH Free T4 0.74 L Urine WBC (Auto) 13.0 H Coronavirus (PCR) 02/13/20 02/13/20 02/13/20 11:38 12:29 12:29 WBC RBC 2.74 L Hgb 8.4 L Hct 24.7 L Seg Neuts % (Manual) 99.0 H Lymphocytes % (Manual) 1.0 L Seg Neutrophils # Man 10.6 H Lymphocytes # (Manual) 0.1 L D-Dimer Sodium Potassium Chloride Carbon Dioxide BUN 52 H Creatinine 1.7 H Glucose 121 H POC Glucose 134 H Hemoglobin A1c Calcium 7.4 L Ferritin AST ALT Alkaline Phosphatase Lactate Dehydrogenase Total Creatine Kinase Troponin T C-Reactive Protein Total Protein Albumin Triglycerides HDL Cholesterol TSH Free T4 Urine WBC (Auto) Coronavirus (PCR) 02/13/20 02/14/20 02/14/20 12:29 07:38 07:38 WBC RBC 3.11 L Hgb 9.5 L Hct 28.0 L Seg Neuts % (Manual) 99.0 H Lymphocytes % (Manual) 1.0 L Seg Neutrophils # Man Lymphocytes # (Manual) 0.1 L D-Dimer Sodium Potassium 3.5 L Chloride Carbon Dioxide BUN 34 H Creatinine Glucose POC Glucose Hemoglobin A1c Calcium 7.5 L Ferritin AST ALT Alkaline Phosphatase Lactate Dehydrogenase Total Creatine Kinase 6134 H 3825 H Troponin T 0.045 H D C-Reactive Protein Total Protein Albumin Triglycerides HDL Cholesterol TSH Free T4 Urine WBC (Auto) Coronavirus (PCR) 02/14/20 02/15/20 02/15/20 20:39 00:36 00:53 WBC RBC Hgb Hct Seg Neuts % (Manual) Lymphocytes % (Manual) Seg Neutrophils # Man Lymphocytes # (Manual) D-Dimer Sodium Potassium Chloride Carbon Dioxide BUN Creatinine Glucose POC Glucose 126 H 34 L 311 H Hemoglobin A1c Calcium Ferritin AST ALT Alkaline Phosphatase Lactate Dehydrogenase Total Creatine Kinase Troponin T C-Reactive Protein Total Protein Albumin Triglycerides HDL Cholesterol TSH Free T4 Urine WBC (Auto) Coronavirus (PCR) 02/15/20 02/15/20 02/15/20 02:42 06:04 06:04 WBC RBC Hgb Hct Seg Neuts % (Manual) Lymphocytes % (Manual) Seg Neutrophils # Man Lymphocytes # (Manual) D-Dimer Sodium Potassium Chloride Carbon Dioxide BUN Creatinine Glucose POC Glucose 250 H Hemoglobin A1c 6.5 H Calcium Ferritin AST ALT Alkaline Phosphatase Lactate Dehydrogenase Total Creatine Kinase 1923 H Troponin T C-Reactive Protein Total Protein Albumin Triglycerides HDL Cholesterol TSH Free T4 Urine WBC (Auto) Coronavirus (PCR) 02/15/20 02/15/20 02/15/20 08:21 10:19 10:48 WBC RBC Hgb Hct Seg Neuts % (Manual) Lymphocytes % (Manual) Seg Neutrophils # Man Lymphocytes # (Manual) D-Dimer Sodium Potassium 3.4 L Chloride 107.8 H Carbon Dioxide BUN 41 H Creatinine 2.5 H D Glucose 166 H POC Glucose 184 H Hemoglobin A1c Calcium 7.3 L Ferritin AST ALT Alkaline Phosphatase Lactate Dehydrogenase Total Creatine Kinase Troponin T C-Reactive Protein Total Protein Albumin Triglycerides HDL Cholesterol TSH Free T4 Urine WBC (Auto) Coronavirus (PCR) Positive A 02/15/20 02/15/20 02/15/20 10:48 10:48 10:48 WBC RBC Hgb Hct Seg Neuts % (Manual) Lymphocytes % (Manual) Seg Neutrophils # Man Lymphocytes # (Manual) D-Dimer 793.22 H Sodium Potassium Chloride Carbon Dioxide BUN Creatinine Glucose POC Glucose Hemoglobin A1c Calcium Ferritin 1480.0 H AST ALT Alkaline Phosphatase Lactate Dehydrogenase 400 H Total Creatine Kinase Troponin T C-Reactive Protein 18.20 H Total Protein Albumin Triglycerides HDL Cholesterol TSH Free T4 Urine WBC (Auto) Coronavirus (PCR) 02/15/20 02/15/20 02/15/20 12:16 17:26 20:51 WBC RBC Hgb Hct Seg Neuts % (Manual) Lymphocytes % (Manual) Seg Neutrophils # Man Lymphocytes # (Manual) D-Dimer Sodium Potassium Chloride Carbon Dioxide BUN Creatinine Glucose POC Glucose 129 H 167 H 110 H Hemoglobin A1c Calcium Ferritin AST ALT Alkaline Phosphatase Lactate Dehydrogenase Total Creatine Kinase Troponin T C-Reactive Protein Total Protein Albumin Triglycerides HDL Cholesterol TSH Free T4 Urine WBC (Auto) Coronavirus (PCR) 02/16/20 02/16/20 02/16/20 05:42 05:42 08:33 WBC RBC 3.46 L Hgb 10.6 L Hct 31.7 L Seg Neuts % (Manual) 93.0 H Lymphocytes % (Manual) 2.0 L Seg Neutrophils # Man Lymphocytes # (Manual) 0.2 L D-Dimer Sodium Potassium Chloride Carbon Dioxide 19 L BUN 31 H Creatinine 2.6 H Glucose 274 H POC Glucose 240 H Hemoglobin A1c Calcium 7.4 L Ferritin AST ALT Alkaline Phosphatase Lactate Dehydrogenase Total Creatine Kinase 1894 H Troponin T C-Reactive Protein Total Protein Albumin Triglycerides HDL Cholesterol TSH Free T4 Urine WBC (Auto) Coronavirus (PCR) 02/16/20 02/16/20 02/16/20 12:38 16:24 21:29 WBC RBC Hgb Hct Seg Neuts % (Manual) Lymphocytes % (Manual) Seg Neutrophils # Man Lymphocytes # (Manual) D-Dimer Sodium Potassium Chloride Carbon Dioxide BUN Creatinine Glucose POC Glucose 222 H 253 H 279 H Hemoglobin A1c Calcium Ferritin AST ALT Alkaline Phosphatase Lactate Dehydrogenase Total Creatine Kinase Troponin T C-Reactive Protein Total Protein Albumin Triglycerides HDL Cholesterol TSH Free T4 Urine WBC (Auto) Coronavirus (PCR) 02/17/20 02/17/20 02/17/20 05:31 07:54 13:35 WBC RBC Hgb Hct Seg Neuts % (Manual) Lymphocytes % (Manual) Seg Neutrophils # Man Lymphocytes # (Manual) D-Dimer Sodium Potassium Chloride Carbon Dioxide BUN Creatinine Glucose POC Glucose 471 H 240 H Hemoglobin A1c Calcium Ferritin AST ALT Alkaline Phosphatase Lactate Dehydrogenase Total Creatine Kinase 916 H Troponin T C-Reactive Protein Total Protein Albumin Triglycerides HDL Cholesterol TSH Free T4 Urine WBC (Auto) Coronavirus (PCR) 02/17/20 02/17/20 02/18/20 16:58 21:26 05:49 WBC RBC Hgb Hct Seg Neuts % (Manual) Lymphocytes % (Manual) Seg Neutrophils # Man Lymphocytes # (Manual) D-Dimer Sodium Potassium Chloride Carbon Dioxide BUN Creatinine Glucose POC Glucose 227 H 148 H Hemoglobin A1c Calcium Ferritin AST ALT Alkaline Phosphatase Lactate Dehydrogenase Total Creatine Kinase 259 H Troponin T C-Reactive Protein Total Protein Albumin Triglycerides HDL Cholesterol TSH Free T4 Urine WBC (Auto) Coronavirus (PCR) 02/18/20 02/18/20 02/18/20 05:49 05:49 08:27 WBC RBC 3.51 L Hgb 10.5 L Hct 31.6 L Seg Neuts % (Manual) 91.0 H Lymphocytes % (Manual) Seg Neutrophils # Man Lymphocytes # (Manual) 0.0 L D-Dimer Sodium Potassium Chloride Carbon Dioxide 19 L BUN 42 H Creatinine 1.5 H Glucose 242 H POC Glucose 204 H Hemoglobin A1c Calcium 7.8 L Ferritin AST 82 H ALT 57 H Alkaline Phosphatase 140 H Lactate Dehydrogenase Total Creatine Kinase Troponin T C-Reactive Protein Total Protein 4.9 L Albumin 2.3 L Triglycerides HDL Cholesterol TSH Free T4 Urine WBC (Auto) Coronavirus (PCR) 02/18/20 02/18/20 02/18/20 11:38 17:09 21:57 WBC RBC Hgb Hct Seg Neuts % (Manual) Lymphocytes % (Manual) Seg Neutrophils # Man Lymphocytes # (Manual) D-Dimer Sodium Potassium Chloride Carbon Dioxide BUN Creatinine Glucose POC Glucose 208 H 207 H 218 H Hemoglobin A1c Calcium Ferritin AST ALT Alkaline Phosphatase Lactate Dehydrogenase Total Creatine Kinase Troponin T C-Reactive Protein Total Protein Albumin Triglycerides HDL Cholesterol TSH Free T4 Urine WBC (Auto) Coronavirus (PCR) 02/19/20 02/19/20 02/19/20 05:51 05:51 05:51 WBC RBC 3.48 L Hgb 10.3 L Hct 30.6 L Seg Neuts % (Manual) 87.0 H Lymphocytes % (Manual) 7.0 L Seg Neutrophils # Man 9.4 H Lymphocytes # (Manual) 0.8 L D-Dimer Sodium 136 L Potassium 3.0 L D Chloride Carbon Dioxide BUN 28 H Creatinine Glucose 214 H POC Glucose Hemoglobin A1c Calcium 7.8 L Ferritin AST 66 H ALT Alkaline Phosphatase Lactate Dehydrogenase Total Creatine Kinase 174 H Troponin T C-Reactive Protein Total Protein 5.4 L Albumin 2.4 L Triglycerides HDL Cholesterol TSH Free T4 Urine WBC (Auto) Coronavirus (PCR) 02/19/20 02/19/20 07:47 12:12 WBC RBC Hgb Hct Seg Neuts % (Manual) Lymphocytes % (Manual) Seg Neutrophils # Man Lymphocytes # (Manual) D-Dimer Sodium Potassium Chloride Carbon Dioxide BUN Creatinine Glucose POC Glucose 179 H 144 H Hemoglobin A1c Calcium Ferritin AST ALT Alkaline Phosphatase Lactate Dehydrogenase Total Creatine Kinase Troponin T C-Reactive Protein Total Protein Albumin Triglycerides HDL Cholesterol TSH Free T4 Urine WBC (Auto) Coronavirus (PCR)
[2020-02-19] MEDS ORDERED: MAGNESIUM SULFATE 2 GM/50 ML BAG IV ONE (15:30)
[2020-02-19] MEDS: REMDESIVIR 100 MG in SODIUM CHLORIDE 0.9% 250ML 250 ML IV SCH (22:22)
[2020-02-19] MEDS: AMITRIPTYLINE 25 MG TAB PO SCH (22:22)
[2020-02-20] MEDS: SODIUM CHLORIDE 0.9% 50 ML IVPB IV SCH ×2 (00:42→23:58)
[2020-02-20] MEDS: D5W/0.45% NACL/KCL 20 MEQ 20 MEQ/1,000 ML BAG IV SCH ×2 (00:42→13:45)
[2020-02-20 06:04] LABS: Hematocrit 30.9 % (35.5-45.6); Hemoglobin 10.5 gm/dl (11.8-15.2); Mean Corpuscular HGB Conc 34 % (32-34); Mean Corpuscular Volume 88 fl (84-94); Platelet Count 363 K/mm3 (140-440); Red Blood Count 3.51 M/mm3 (3.65-5.03); Red Cell Distribution Width 14.5 % (13.2-15.2)
[2020-02-20 06:14] LABS: Lymphocytes # (Auto) 0.4 K/mm3 (1.2-5.4); Lymphocytes % (Auto) 2.6 % (13.4-35.0); Monocytes # (Auto) 1.1 K/mm3 (0.0-0.8); Monocytes % (Auto) 7.3 % (0.0-7.3)
[2020-02-20 06:18] LABS: Alanine Aminotransferase 48 units/L (7-56); Albumin 2.6 g/dL (3.9-5); BUN/Creatinine Ratio 31; Blood Urea Nitrogen 28 mg/dL (9-20); Calcium 7.8 mg/dL (8.4-10.2); Hemolysis Index 5
[2020-02-20 06:19] LABS: BUN/Creatinine Ratio 25; Blood Urea Nitrogen 27 mg/dL (9-20); Calcium 7.8 mg/dL (8.4-10.2); Hemolysis Index 2
[2020-02-20 06:23] LABS: Bilirubin,Direct < 0.2 mg/dL (0-0.2)
[2020-02-20] MEDS: LEVOTHYROXINE 100 MCG TAB PO SCH (06:31)
[2020-02-20] MEDS: hydrALAZINE 25 MG TAB PO SCH ×3 (06:31→23:52)
[2020-02-20] MEDS: INSULIN LISPRO 100 UNIT/ML VIAL 3 mL SUB-Q SCH ×3 (07:30→23:57)
[2020-02-20] MEDS ORDERED: POTASSIUM CHLORIDE ER 20 MEQ TAB PO ONE ×2 (08:01→14:00)
[2020-02-20] MEDS ORDERED: MAGNESIUM SULFATE 2 GM/50 ML BAG IV ONE (08:01)
--- NOTE | 2020-02-20 08:03 | Progress Note ---
Assessment and Plan Assessment * Acute kidney injury, unknown baseline * Rhabdomyolysis, mild * Hypocalcemia, mild * Hypokalemia, mild * hypomagnsemia * Anemia * Hypertension, uncontrolled * Diabetes mellitus * Covid positive Recommendations * Renal function is better today, continue ivfs * replete k and mag prn * stopped sanket inhibitors * follow up am lytes * Keep MAP more than 65 * encourage p.o. hydration * Monitor calcium and potassium, replete as needed * Renally dose medications * Avoid nephrotoxins * Strict I's/O * Keep glucose less than 200 mg/dL Subjective Date of service: 02/20/20 Principal diagnosis: Acute kidney injury Interval history: resting in bed Objective - Exam Narrative Exam: Deferred as patient is Covid positive in order to prevent spread of infection and for PPE preservation. - Vital Signs Vital signs: Vital Signs - 12hr 02/19/20 02/19/20 02/19/20 22:00 22:21 22:46 Temperature 97.6 F 97.6 F Pulse Rate 64 68 Respiratory 18 18 Rate Blood Pressure 161/76 149/60 O2 Sat by Pulse 100 99 98 Oximetry 02/20/20 02/20/20 02:41 06:03 Temperature 97.8 F Pulse Rate 66 Respiratory 18 Rate Blood Pressure 147/61 O2 Sat by Pulse 97 95 Oximetry - Lab 02/20/20 04:10 02/20/20 04:10 Most recent lab results Calcium 7.8 mg/dL (8.4-10.2) L 02/20/20 04:10 Calcium 7.8 mg/dL (8.4-10.2) L 02/20/20 04:10 Magnesium 1.40 mg/dL (1.7-2.3) L 02/20/20 04:10 Medications & Allergies - Medications Allergies/Adverse Reactions: Allergies No Known Allergies Allergy (Verified 08/16/18 11:38) Home Medications: Home Medications Medication Instructions Recorded Confirmed Last Taken Type Amitriptyline [Elavil] 25 mg PO QHS tablet 11/22/17 02/13/20 Unknown Rx Ondansetron [Zofran ODT TAB] 8 mg PO Q8HR tab.rapdis 11/22/17 02/13/20 Unknown Rx Prochlorperazine [Compazine] 10 mg PO Q6HR PRN tablet 11/22/17 02/13/20 Unknown Rx lisinopriL [Zestril TAB] 10 mg PO QDAY tablet 11/22/17 02/13/20 Unknown Rx Levothyroxine 100 mcg PO DAILY 02/12/20 02/12/20 Unknown History Mupirocin 1 tab PO BID 02/12/20 02/13/20 Unknown History Tramadol HCl/Acetaminophen 37.5 mg PO BID 02/12/20 02/13/20 Unknown History Active Medications: Generic Name Dose Route Start Last Admin Trade Name Freq PRN Reason Stop Dose Admin Acetaminophen 650 mg 02/12/20 22:39 02/16/20 09:16 Acetaminophen 325 Mg Tab PO 650 mg Q4H PRN Administration Pain MILD(1-3)/Fever >100.5/PETER Amitriptyline HCl 25 mg 02/13/20 22:00 02/19/20 22:22 Amitriptyline 25 Mg Tab PO 25 mg QHS RYAN Administration Amlodipine Besylate 10 mg 02/18/20 10:00 02/19/20 08:59 Amlodipine 10 Mg Tab PO 10 mg QDAY RYAN Administration Dexamethasone 6 mg 02/15/20 22:00 02/19/20 09:00 Dexamethasone 4 Mg Tab PO 02/24/20 10:01 6 mg DAILY RYAN Administration Dextrose 0 ml 02/12/20 22:39 02/15/20 00:20 Dextrose 50% In Water (25gm) 50 Ml Syringe IV 50 ml Q30MIN PRN Administration Hypoglycemia Protocol Enoxaparin Sodium 40 mg 02/19/20 10:00 02/19/20 08:59 Enoxaparin 40 Mg/0.4 Ml Inj SUB-Q 40 mg QDAY@1000 RYAN Administration Hydralazine HCl 50 mg 02/18/20 14:00 02/20/20 06:31 Hydralazine 25 Mg Tab PO 50 mg Q8HR RYAN Administration REMDESIVIR 100 mg/ Sodium 250 mls @ 500 mls/hr 02/19/20 21:00 02/19/20 22:22 Chloride IV 02/22/20 21:29 500 mls/hr Q24HR@2100 RYAN Administration Potassium Chloride/Dextrose/Sod Cl 20 meq in 1,000 mls @ 100 mls/hr 02/19/20 12:00 02/20/20 00:42 D5w/0.45% Nacl/Kcl 20 Meq IV 100 mls/hr DIRECT RYAN Administration Magnesium Sulfate 2 gm in 50 mls @ 25 mls/hr 02/20/20 08:01 Magnesium Sulfate 2gm/50ml IV 02/20/20 10:00 ONCE ONE Insulin Human Lispro 0 unit 02/13/20 07:30 02/19/20 23:21 Insulin Lispro 100 Unit/Ml Vial 3 Ml SUB-Q 4 unit ACHS RYAN Administration Protocol Labetalol HCl 10 mg 02/17/20 20:01 02/18/20 05:36 Labetalol 20 Mg/4 Ml Inj IV 10 mg Q6HR PRN Administration Blood Pressure Levothyroxine Sodium 100 mcg 02/13/20 06:00 02/20/20 06:31 Levothyroxine 100 Mcg Tab PO 100 mcg 0600 RYAN Administration Morphine Sulfate 2 mg 02/12/20 22:39 02/13/20 07:31 Morphine 2 Mg/1 Ml Inj IV 2 mg Q4H PRN Administration Pain, Moderate (4-6) Ondansetron HCl 4 mg 02/12/20 22:39 02/12/20 23:06 Ondansetron 4 Mg/2 Ml Inj IV 4 mg Q8H PRN Administration Nausea And Vomiting Potassium Chloride 40 meq 02/20/20 08:01 Potassium Chloride Er 20 Meq Tab PO 02/20/20 08:02 ONCE ONE Pseudoephedrine/Acetam/Chlorphenir 10 ml 02/13/20 21:25 02/16/20 21:46 Guaifenesin/Codeine 100-10mg Oral Liqd 5 Ml PO 10 ml Q6H PRN Administration Cough Sodium Chloride 10 ml 02/13/20 10:00 02/19/20 22:23 Sodium Chloride 0.9% 10 Ml Flush Syringe IV 10 ml BID RYAN Administration Sodium Chloride 10 ml 02/12/20 22:39 02/16/20 13:31 Sodium Chloride 0.9% 10 Ml Flush Syringe IV 10 ml PRN PRN Administration LINE FLUSH Sodium Chloride 50 ml 02/19/20 21:00 02/20/20 00:42 Sodium Chloride 0.9% 50 Ml Ivpb IV 02/22/20 21:01 50 ml Q24HR@2100 RYAN Administration Tamsulosin HCl 0.4 mg 02/17/20 18:00 02/19/20 08:59 Tamsulosin 0.4 Mg Cap PO 0.4 mg QDAY RYAN Administration Valsartan 160 mg 02/17/20 22:00 02/19/20 22:23 Valsartan 160mg Tab PO 160 mg BID RYAN Administration
--- NOTE | 2020-02-20 10:39 | Progress Note ---
Assessment and Plan 54 y/o male with acute respiratory failure secondary to COVID 19 pneumonia. 1. Prone as tolerated during the day and sleep prone at night if possible. Wean FiO2/Flow for sats >88% 2. Agree with steroids, will treat for a total of 10 days. 3. Renal function continues to improve 4. Not a candidate for remdesivir. Guarded prognosis. Subjective Date of service: 02/20/20 Principal diagnosis: Acute kidney injury Interval history: Now back down to 7 liters. Objective Vital Signs - 12hr 02/19/20 02/20/20 02/20/20 22:46 02:41 06:03 Temperature 97.6 F 97.8 F Pulse Rate 68 66 Respiratory 18 18 Rate Blood Pressure 149/60 147/61 O2 Sat by Pulse 98 97 95 Oximetry Constitutional: other (critically ill on HFNC) Eyes: non-icteric ENT: oropharynx moist Neck: supple Effort: normal Ascultation: Bilateral: clear Cardiovascular: regular rate and rhythm (no mrg) Gastrointestinal: normoactive bowel sounds, soft, non-tender Integumentary: normal Extremities: no cyanosis, no edema, pink and warm Neurologic: normal mental status, non-focal exam, pupils equal and round, CN II- XII normal Psychiatric: mood appropriate, affect normal CBC and BMP: 02/20/20 04:10 02/20/20 04:10 ABG, PT/INR, D-dimer: PT/INR, D-dimer PT 13.2 Sec. (12.2-14.9) 02/13/20 12:29 INR 1.01 (0.87-1.13) 02/13/20 12:29 D-Dimer 793.22 ng/mlDDU (0-234) H 02/15/20 10:48 Abnormal lab findings: Abnormal Labs 02/12/20 02/12/20 02/12/20 15:46 15:46 15:46 WBC 27.1 H RBC 3.37 L Hgb 10.3 L Hct 30.5 L Lymph % (Auto) Lymph # (Auto) Levy # (Auto) Seg Neutrophils % Seg Neuts % (Manual) Lymphocytes % (Manual) 2.0 L Seg Neutrophils # Seg Neutrophils # Man 18.7 H Lymphocytes # (Manual) 0.5 L D-Dimer Sodium 133 L Potassium Chloride 93.1 L Carbon Dioxide 32 H BUN 59 H Creatinine 2.4 H Glucose POC Glucose Hemoglobin A1c Calcium 8.0 L Magnesium Ferritin AST 260 H ALT 65 H Alkaline Phosphatase Lactate Dehydrogenase Total Creatine Kinase 9691 H Troponin T 0.066 H C-Reactive Protein Total Protein Albumin 2.7 L Triglycerides 189 H HDL Cholesterol 34 L TSH 33.890 H Free T4 Urine WBC (Auto) Coronavirus (PCR) 02/12/20 02/12/20 02/13/20 17:42 Unknown 07:46 WBC RBC Hgb Hct Lymph % (Auto) Lymph # (Auto) Levy # (Auto) Seg Neutrophils % Seg Neuts % (Manual) Lymphocytes % (Manual) Seg Neutrophils # Seg Neutrophils # Man Lymphocytes # (Manual) D-Dimer Sodium Potassium Chloride Carbon Dioxide BUN Creatinine Glucose POC Glucose 68 L Hemoglobin A1c Calcium Magnesium Ferritin AST ALT Alkaline Phosphatase Lactate Dehydrogenase Total Creatine Kinase Troponin T C-Reactive Protein Total Protein Albumin Triglycerides HDL Cholesterol TSH Free T4 0.74 L Urine WBC (Auto) 13.0 H Coronavirus (PCR) 02/13/20 02/13/20 02/13/20 11:38 12:29 12:29 WBC RBC 2.74 L Hgb 8.4 L Hct 24.7 L Lymph % (Auto) Lymph # (Auto) Levy # (Auto) Seg Neutrophils % Seg Neuts % (Manual) 99.0 H Lymphocytes % (Manual) 1.0 L Seg Neutrophils # Seg Neutrophils # Man 10.6 H Lymphocytes # (Manual) 0.1 L D-Dimer Sodium Potassium Chloride Carbon Dioxide BUN 52 H Creatinine 1.7 H Glucose 121 H POC Glucose 134 H Hemoglobin A1c Calcium 7.4 L Magnesium Ferritin AST ALT Alkaline Phosphatase Lactate Dehydrogenase Total Creatine Kinase Troponin T C-Reactive Protein Total Protein Albumin Triglycerides HDL Cholesterol TSH Free T4 Urine WBC (Auto) Coronavirus (PCR) 02/13/20 02/14/20 02/14/20 12:29 07:38 07:38 WBC RBC 3.11 L Hgb 9.5 L Hct 28.0 L Lymph % (Auto) Lymph # (Auto) Levy # (Auto) Seg Neutrophils % Seg Neuts % (Manual) 99.0 H Lymphocytes % (Manual) 1.0 L Seg Neutrophils # Seg Neutrophils # Man Lymphocytes # (Manual) 0.1 L D-Dimer Sodium Potassium 3.5 L Chloride Carbon Dioxide BUN 34 H Creatinine Glucose POC Glucose Hemoglobin A1c Calcium 7.5 L Magnesium Ferritin AST ALT Alkaline Phosphatase Lactate Dehydrogenase Total Creatine Kinase 6134 H 3825 H Troponin T 0.045 H D C-Reactive Protein Total Protein Albumin Triglycerides HDL Cholesterol TSH Free T4 Urine WBC (Auto) Coronavirus (PCR) 02/14/20 02/15/20 02/15/20 20:39 00:36 00:53 WBC RBC Hgb Hct Lymph % (Auto) Lymph # (Auto) Levy # (Auto) Seg Neutrophils % Seg Neuts % (Manual) Lymphocytes % (Manual) Seg Neutrophils # Seg Neutrophils # Man Lymphocytes # (Manual) D-Dimer Sodium Potassium Chloride Carbon Dioxide BUN Creatinine Glucose POC Glucose 126 H 34 L 311 H Hemoglobin A1c Calcium Magnesium Ferritin AST ALT Alkaline Phosphatase Lactate Dehydrogenase Total Creatine Kinase Troponin T C-Reactive Protein Total Protein Albumin Triglycerides HDL Cholesterol TSH Free T4 Urine WBC (Auto) Coronavirus (PCR) 02/15/20 02/15/20 02/15/20 02:42 06:04 06:04 WBC RBC Hgb Hct Lymph % (Auto) Lymph # (Auto) Levy # (Auto) Seg Neutrophils % Seg Neuts % (Manual) Lymphocytes % (Manual) Seg Neutrophils # Seg Neutrophils # Man Lymphocytes # (Manual) D-Dimer Sodium Potassium Chloride Carbon Dioxide BUN Creatinine Glucose POC Glucose 250 H Hemoglobin A1c 6.5 H Calcium Magnesium Ferritin AST ALT Alkaline Phosphatase Lactate Dehydrogenase Total Creatine Kinase 1923 H Troponin T C-Reactive Protein Total Protein Albumin Triglycerides HDL Cholesterol TSH Free T4 Urine WBC (Auto) Coronavirus (PCR) 02/15/20 02/15/20 02/15/20 08:21 10:19 10:48 WBC RBC Hgb Hct Lymph % (Auto) Lymph # (Auto) Levy # (Auto) Seg Neutrophils % Seg Neuts % (Manual) Lymphocytes % (Manual) Seg Neutrophils # Seg Neutrophils # Man Lymphocytes # (Manual) D-Dimer Sodium Potassium 3.4 L Chloride 107.8 H Carbon Dioxide BUN 41 H Creatinine 2.5 H D Glucose 166 H POC Glucose 184 H Hemoglobin A1c Calcium 7.3 L Magnesium Ferritin AST ALT Alkaline Phosphatase Lactate Dehydrogenase Total Creatine Kinase Troponin T C-Reactive Protein Total Protein Albumin Triglycerides HDL Cholesterol TSH Free T4 Urine WBC (Auto) Coronavirus (PCR) Positive A 02/15/20 02/15/20 02/15/20 10:48 10:48 10:48 WBC RBC Hgb Hct Lymph % (Auto) Lymph # (Auto) Levy # (Auto) Seg Neutrophils % Seg Neuts % (Manual) Lymphocytes % (Manual) Seg Neutrophils # Seg Neutrophils # Man Lymphocytes # (Manual) D-Dimer 793.22 H Sodium Potassium Chloride Carbon Dioxide BUN Creatinine Glucose POC Glucose Hemoglobin A1c Calcium Magnesium Ferritin 1480.0 H AST ALT Alkaline Phosphatase Lactate Dehydrogenase 400 H Total Creatine Kinase Troponin T C-Reactive Protein 18.20 H Total Protein Albumin Triglycerides HDL Cholesterol TSH Free T4 Urine WBC (Auto) Coronavirus (PCR) 02/15/20 02/15/20 02/15/20 12:16 17:26 20:51 WBC RBC Hgb Hct Lymph % (Auto) Lymph # (Auto) Levy # (Auto) Seg Neutrophils % Seg Neuts % (Manual) Lymphocytes % (Manual) Seg Neutrophils # Seg Neutrophils # Man Lymphocytes # (Manual) D-Dimer Sodium Potassium Chloride Carbon Dioxide BUN Creatinine Glucose POC Glucose 129 H 167 H 110 H Hemoglobin A1c Calcium Magnesium Ferritin AST ALT Alkaline Phosphatase Lactate Dehydrogenase Total Creatine Kinase Troponin T C-Reactive Protein Total Protein Albumin Triglycerides HDL Cholesterol TSH Free T4 Urine WBC (Auto) Coronavirus (PCR) 02/16/20 02/16/20 02/16/20 05:42 05:42 08:33 WBC RBC 3.46 L Hgb 10.6 L Hct 31.7 L Lymph % (Auto) Lymph # (Auto) Levy # (Auto) Seg Neutrophils % Seg Neuts % (Manual) 93.0 H Lymphocytes % (Manual) 2.0 L Seg Neutrophils # Seg Neutrophils # Man Lymphocytes # (Manual) 0.2 L D-Dimer Sodium Potassium Chloride Carbon Dioxide 19 L BUN 31 H Creatinine 2.6 H Glucose 274 H POC Glucose 240 H Hemoglobin A1c Calcium 7.4 L Magnesium Ferritin AST ALT Alkaline Phosphatase Lactate Dehydrogenase Total Creatine Kinase 1894 H Troponin T C-Reactive Protein Total Protein Albumin Triglycerides HDL Cholesterol TSH Free T4 Urine WBC (Auto) Coronavirus (PCR) 02/16/20 02/16/20 02/16/20 12:38 16:24 21:29 WBC RBC Hgb Hct Lymph % (Auto) Lymph # (Auto) Levy # (Auto) Seg Neutrophils % Seg Neuts % (Manual) Lymphocytes % (Manual) Seg Neutrophils # Seg Neutrophils # Man Lymphocytes # (Manual) D-Dimer Sodium Potassium Chloride Carbon Dioxide BUN Creatinine Glucose POC Glucose 222 H 253 H 279 H Hemoglobin A1c Calcium Magnesium Ferritin AST ALT Alkaline Phosphatase Lactate Dehydrogenase Total Creatine Kinase Troponin T C-Reactive Protein Total Protein Albumin Triglycerides HDL Cholesterol TSH Free T4 Urine WBC (Auto) Coronavirus (PCR) 02/17/20 02/17/20 02/17/20 05:31 07:54 13:35 WBC RBC Hgb Hct Lymph % (Auto) Lymph # (Auto) Levy # (Auto) Seg Neutrophils % Seg Neuts % (Manual) Lymphocytes % (Manual) Seg Neutrophils # Seg Neutrophils # Man Lymphocytes # (Manual) D-Dimer Sodium Potassium Chloride Carbon Dioxide BUN Creatinine Glucose POC Glucose 471 H 240 H Hemoglobin A1c Calcium Magnesium Ferritin AST ALT Alkaline Phosphatase Lactate Dehydrogenase Total Creatine Kinase 916 H Troponin T C-Reactive Protein Total Protein Albumin Triglycerides HDL Cholesterol TSH Free T4 Urine WBC (Auto) Coronavirus (PCR) 02/17/20 02/17/20 02/18/20 16:58 21:26 05:49 WBC RBC Hgb Hct Lymph % (Auto) Lymph # (Auto) Levy # (Auto) Seg Neutrophils % Seg Neuts % (Manual) Lymphocytes % (Manual) Seg Neutrophils # Seg Neutrophils # Man Lymphocytes # (Manual) D-Dimer Sodium Potassium Chloride Carbon Dioxide BUN Creatinine Glucose POC Glucose 227 H 148 H Hemoglobin A1c Calcium Magnesium Ferritin AST ALT Alkaline Phosphatase Lactate Dehydrogenase Total Creatine Kinase 259 H Troponin T C-Reactive Protein Total Protein Albumin Triglycerides HDL Cholesterol TSH Free T4 Urine WBC (Auto) Coronavirus (PCR) 02/18/20 02/18/20 02/18/20 05:49 05:49 08:27 WBC RBC 3.51 L Hgb 10.5 L Hct 31.6 L Lymph % (Auto) Lymph # (Auto) Levy # (Auto) Seg Neutrophils % Seg Neuts % (Manual) 91.0 H Lymphocytes % (Manual) Seg Neutrophils # Seg Neutrophils # Man Lymphocytes # (Manual) 0.0 L D-Dimer Sodium Potassium Chloride Carbon Dioxide 19 L BUN 42 H Creatinine 1.5 H Glucose 242 H POC Glucose 204 H Hemoglobin A1c Calcium 7.8 L Magnesium Ferritin AST 82 H ALT 57 H Alkaline Phosphatase 140 H Lactate Dehydrogenase Total Creatine Kinase Troponin T C-Reactive Protein Total Protein 4.9 L Albumin 2.3 L Triglycerides HDL Cholesterol TSH Free T4 Urine WBC (Auto) Coronavirus (PCR) 02/18/20 02/18/20 02/18/20 11:38 17:09 21:57 WBC RBC Hgb Hct Lymph % (Auto) Lymph # (Auto) Levy # (Auto) Seg Neutrophils % Seg Neuts % (Manual) Lymphocytes % (Manual) Seg Neutrophils # Seg Neutrophils # Man Lymphocytes # (Manual) D-Dimer Sodium Potassium Chloride Carbon Dioxide BUN Creatinine Glucose POC Glucose 208 H 207 H 218 H Hemoglobin A1c Calcium Magnesium Ferritin AST ALT Alkaline Phosphatase Lactate Dehydrogenase Total Creatine Kinase Troponin T C-Reactive Protein Total Protein Albumin Triglycerides HDL Cholesterol TSH Free T4 Urine WBC (Auto) Coronavirus (PCR) 02/19/20 02/19/20 02/19/20 05:51 05:51 05:51 WBC RBC 3.48 L Hgb 10.3 L Hct 30.6 L Lymph % (Auto) Lymph # (Auto) Levy # (Auto) Seg Neutrophils % Seg Neuts % (Manual) 87.0 H Lymphocytes % (Manual) 7.0 L Seg Neutrophils # Seg Neutrophils # Man 9.4 H Lymphocytes # (Manual) 0.8 L D-Dimer Sodium 136 L Potassium 3.0 L D Chloride Carbon Dioxide BUN 28 H Creatinine Glucose 214 H POC Glucose Hemoglobin A1c Calcium 7.8 L Magnesium Ferritin AST 66 H ALT Alkaline Phosphatase Lactate Dehydrogenase Total Creatine Kinase 174 H Troponin T C-Reactive Protein Total Protein 5.4 L Albumin 2.4 L Triglycerides HDL Cholesterol TSH Free T4 Urine WBC (Auto) Coronavirus (PCR) 02/19/20 02/19/20 02/19/20 07:47 12:12 13:50 WBC RBC Hgb Hct Lymph % (Auto) Lymph # (Auto) Levy # (Auto) Seg Neutrophils % Seg Neuts % (Manual) Lymphocytes % (Manual) Seg Neutrophils # Seg Neutrophils # Man Lymphocytes # (Manual) D-Dimer Sodium Potassium Chloride Carbon Dioxide BUN Creatinine Glucose POC Glucose 179 H 144 H Hemoglobin A1c Calcium Magnesium 1.20 L Ferritin AST ALT Alkaline Phosphatase Lactate Dehydrogenase Total Creatine Kinase Troponin T C-Reactive Protein Total Protein Albumin Triglycerides HDL Cholesterol TSH Free T4 Urine WBC (Auto) Coronavirus (PCR) 02/19/20 02/19/20 02/20/20 17:16 22:38 04:10 WBC RBC Hgb Hct Lymph % (Auto) Lymph # (Auto) Levy # (Auto) Seg Neutrophils % Seg Neuts % (Manual) Lymphocytes % (Manual) Seg Neutrophils # Seg Neutrophils # Man Lymphocytes # (Manual) D-Dimer Sodium Potassium 3.0 L Chloride Carbon Dioxide BUN 27 H Creatinine Glucose 185 H POC Glucose 269 H 281 H Hemoglobin A1c Calcium 7.8 L Magnesium 1.40 L Ferritin AST ALT Alkaline Phosphatase Lactate Dehydrogenase Total Creatine Kinase Troponin T C-Reactive Protein Total Protein Albumin Triglycerides HDL Cholesterol TSH Free T4 Urine WBC (Auto) Coronavirus (PCR) 02/20/20 02/20/20 02/20/20 04:10 04:10 07:50 WBC 15.2 H RBC 3.51 L Hgb 10.5 L Hct 30.9 L Lymph % (Auto) 2.6 L Lymph # (Auto) 0.4 L Levy # (Auto) 1.1 H Seg Neutrophils % 90.1 H Seg Neuts % (Manual) Lymphocytes % (Manual) Seg Neutrophils # 13.7 H Seg Neutrophils # Man Lymphocytes # (Manual) D-Dimer Sodium Potassium 3.0 L Chloride Carbon Dioxide BUN 28 H Creatinine Glucose 183 H POC Glucose 159 H Hemoglobin A1c Calcium 7.8 L Magnesium Ferritin AST 45 H ALT Alkaline Phosphatase Lactate Dehydrogenase Total Creatine Kinase Troponin T C-Reactive Protein Total Protein 5.5 L Albumin 2.6 L Triglycerides HDL Cholesterol TSH Free T4 Urine WBC (Auto) Coronavirus (PCR)
--- NOTE | 2020-02-20 11:17 | Progress Note ---
Subjective Date of service: 02/20/20 Principal diagnosis: Acute kidney injury Interval history: Assessment and plan: 84-year-old male with known history of diabetes mellitus, throat cancer in remission, chronic back pain and hypertension presenting to the emergency room today with a complaint of bilateral shoulder pain, low back pain lower extremity pain and also pain along the throat. He states he was dizzy this morning and felt lightheaded and subsequently had a fall. He denies any loss of consciousness but states that he had he feet his head. He denies any fever or chills, no chest pain or shortness of breath, no nausea or vomiting, no abdominal pain, no hematuria or dysuria. Patient denies any sick contacts and no recent travel. Denies any contact with anyone with COVID- 19. Work-up in the emergency room today reveals slightly elevated troponin, elevated TSH, leukocytosis, elevated creatinine kinase and patient was also found to be in acute renal failure. Patient is being admitted with rhabdomyolysis, acute renal failure, hypothyroidism and elevated troponin. Patient was started on IV hydration and cardiology was consulted for elevated troponin. Nephrology consulted for rhabdomyolysis and BELKIS. 02/14/2020. Check Covid testing. Hold on restarting lisinopril for blood pressure given the acute renal failure. Start Procardia 60 mg twice daily. Rhabdomyolysis and kidney function improved with IV fluid hydration. Continue to monitor. PT evaluation for deconditioning. Await echocardiogram 02/15/2020. Patient with asymptomatic hypotension this morning with systolic blood pressure 84. Discontinue Procardia and hold lisinopril for now. Continue IV fluid hydration for acute renal failure/acute kidney injury/rhabdomyolysis. Nurse reports patient had coughing with eating. Speech therapy evaluation for swallow evaluation 02/16/2020. Hypotension has resolved and patient remains asymptomatic. Procardia and lisinopril discontinued. Tenuous IV fluid hydration for acute renal failure/acute kidney injury/rhabdomyolysis given positive Covid infection. Speech therapy reports no evidence of dysphagia. Continue dexamethasone 6 mg p.o. daily x10 days. Consider remdesivir if renal function improves. Await ID consultation. Transfer to [facility] given positive Covid. 02/16. Nephrology following for BELKIS. Bladder feels distended so we will get a bladder scan. Straight cath if more than [address] a Wyatt if patient continues to retain.. Flomax if necessary. Continue dexamethasone. 02/17. Has urinary retention so a wyatt has been placed. Now on flomax. He will follow up with urology in the office after discharge. Renal function is better. Still requiring 15L of oxygen. 02/18. Renal function continues to improve-creatinine 1.0 today. Patient has been started on remdesivir. Oxygenation much better-now on 8 L of oxygen. He complains of 4 episodes of diarrhea this a.m. Ordered stool for C. difficile. Continue to monitor. 02/20/20 Patient is alert and oriented offers no specific complaints except feeling tired and mild dry cough. He denies shortness of breath, fever or chills States he had 2 loose bowel movements today. Lab results reviewed. ID and pulmonary notes reviewed Plan Acute renal failure. Resolved Rhabdomyolysis. Resolved Elevated troponin - Likely demand ischemia Hypothyroidism. Continue Synthroid Sepsis - resolved UTI. Completed treatment Covid 19 pneumonia. Patient tested positive 02/15/2020. Unable to determine if COVID present on day of admission. Continue dexamethasone. Started on remdesivir. ID and pulmonology following Diabetes mellitus type 2. Continue Accu-Cheks and sliding scale insulin. Hypertension. Monitor blood pressure closely Urinary retention - Flomax. Maintain wyatt. Needs urology follow up at discharge Hypokalemia Potassium supplements ordered Monitor electrolytes Hypomagnesemia Magnesium supplemented IV today DVT prophylaxis. Continue subcutaneous heparin. Interval history: Had 2 bowel movements this morning Stool for C. difficile ordered He has been weaned down to 8L. Narrative exam: VITAL SIGNS: Reviewed. GENERAL: Awake HEAD: No signs of head trauma. EYES: Pupils are equal. EOMI MOUTH: Oropharynx is normal. NECK: No adenopathy, no JVD. CHEST: Clear to auscultation CARDIAC: Regular rate and rhythm ABDOMEN: Soft, non tender and non distended. MUSCULOSKELETAL: No edema NEUROLOGIC EXAM: Alert and oriented x3. No focal neurologic deficits SKIN: No obvious lesions Objective - Constitutional Vitals: Vital Signs - 12hr 02/20/20 02/20/20 02:41 06:03 Temperature 97.8 F Pulse Rate 66 Respiratory 18 Rate Blood Pressure 147/61 O2 Sat by Pulse 97 95 Oximetry - Labs CBC & Chem 7: 02/20/20 04:10 02/20/20 04:10 Labs: Abnormal lab results 02/19/20 02/19/20 02/19/20 Range/Units 12:12 13:50 17:16 WBC (4.5-11.0) K/mm3 RBC (3.65-5.03) M/mm3 Hgb (11.8-15.2) gm/dl Hct (35.5-45.6) % Lymph % (Auto) (13.4-35.0) % Lymph # (Auto) (1.2-5.4) K/mm3 Cameron # (Auto) (0.0-0.8) K/mm3 Seg Neutrophils % (40.0-70.0) % Seg Neutrophils # (1.8-7.7) K/mm3 Potassium (3.6-5.0) mmol/L BUN (9-20) mg/dL Glucose (75-100) mg/dL POC Glucose 144 H 269 H (70-105) mg/dL Calcium (8.4-10.2) mg/dL Magnesium 1.20 L (1.7-2.3) mg/dL AST (5-40) units/L Total Protein (6.3-8.2) g/dL Albumin (3.9-5) g/dL 02/19/20 02/20/20 02/20/20 Range/Units 22:38 04:10 04:10 WBC 15.2 H (4.5-11.0) K/mm3 RBC 3.51 L (3.65-5.03) M/mm3 Hgb 10.5 L (11.8-15.2) gm/dl Hct 30.9 L (35.5-45.6) % Lymph % (Auto) 2.6 L (13.4-35.0) % Lymph # (Auto) 0.4 L (1.2-5.4) K/mm3 Cameron # (Auto) 1.1 H (0.0-0.8) K/mm3 Seg Neutrophils % 90.1 H (40.0-70.0) % Seg Neutrophils # 13.7 H (1.8-7.7) K/mm3 Potassium 3.0 L (3.6-5.0) mmol/L BUN 27 H (9-20) mg/dL Glucose 185 H (75-100) mg/dL POC Glucose 281 H (70-105) mg/dL Calcium 7.8 L (8.4-10.2) mg/dL Magnesium 1.40 L (1.7-2.3) mg/dL AST (5-40) units/L Total Protein (6.3-8.2) g/dL Albumin (3.9-5) g/dL 02/20/20 02/20/20 Range/Units 04:10 07:50 WBC (4.5-11.0) K/mm3 RBC (3.65-5.03) M/mm3 Hgb (11.8-15.2) gm/dl Hct (35.5-45.6) % Lymph % (Auto) (13.4-35.0) % Lymph # (Auto) (1.2-5.4) K/mm3 Cameron # (Auto) (0.0-0.8) K/mm3 Seg Neutrophils % (40.0-70.0) % Seg Neutrophils # (1.8-7.7) K/mm3 Potassium 3.0 L (3.6-5.0) mmol/L BUN 28 H (9-20) mg/dL Glucose 183 H (75-100) mg/dL POC Glucose 159 H (70-105) mg/dL Calcium 7.8 L (8.4-10.2) mg/dL Magnesium (1.7-2.3) mg/dL AST 45 H (5-40) units/L Total Protein 5.5 L (6.3-8.2) g/dL Albumin 2.6 L (3.9-5) g/dL HEART Score - HEART Score Troponin: Troponin T 0.045 ng/mL (0.00-0.029) H D 02/13/20 12:29
[2020-02-20] MEDS: VALSARTAN 160MG TAB PO SCH ×2 (13:34→23:53)
[2020-02-20] MEDS: DEXAMETHASONE 4 MG TAB PO SCH (13:34)
[2020-02-20] MEDS: TAMSULOSIN 0.4 MG CAP PO SCH (13:35)
[2020-02-20] MEDS: ENOXAPARIN 40 MG/0.4 ML INJ SUB-Q SCH (13:35)
[2020-02-20] MEDS: amLODIPine 10 MG TAB PO SCH (13:36)
[2020-02-20] MEDS: AMITRIPTYLINE 25 MG TAB PO SCH (21:25)
[2020-02-20] MEDS: REMDESIVIR 100 MG in SODIUM CHLORIDE 0.9% 250ML 250 ML IV SCH (23:20)
[2020-02-21] MEDS: LEVOTHYROXINE 100 MCG TAB PO SCH (06:23)
[2020-02-21] MEDS: hydrALAZINE 25 MG TAB PO SCH ×3 (06:24→23:54)
[2020-02-21 07:17] LABS: BUN/Creatinine Ratio 30; Blood Urea Nitrogen 27 mg/dL (9-20); Calcium 7.6 mg/dL (8.4-10.2); Hemolysis Index 3
--- NOTE | 2020-02-21 07:18 | Progress Note ---
Assessment and Plan Assessment * Acute kidney injury, unknown baseline * Rhabdomyolysis, * Hypocalcemia * Hypokalemia * hypomagnsemia * Anemia * Hypertension, uncontrolled * Diabetes mellitus * Covid positive Recommendations * Renal function is better today, continue ivfs * replete k and mag prn, k pending today * stopped sanket inhibitors * follow up am lytes * Keep MAP more than 65 * encourage p.o. hydration * Monitor calcium and potassium, replete as needed * Renally dose medications * Avoid nephrotoxins * Strict I's/O * Keep glucose less than 200 mg/dL Subjective Date of service: 02/21/20 Principal diagnosis: Acute kidney injury Interval history: resting in bed Objective - Exam Narrative Exam: Deferred as patient is Covid positive in order to prevent spread of infection and for PPE preservation. - Vital Signs Vital signs: Vital Signs - 12hr 02/20/20 02/20/20 02/20/20 23:49 23:52 23:53 Temperature 99.0 F Pulse Rate 69 69 69 Respiratory 18 Rate Blood Pressure 135/58 135/58 135/58 O2 Sat by Pulse 97 Oximetry 02/21/20 02/21/20 02/21/20 03:17 06:12 06:24 Temperature 99.0 F Pulse Rate 64 64 Respiratory 20 Rate Blood Pressure 169/63 163/69 O2 Sat by Pulse 92 99 Oximetry - Lab 02/20/20 04:10 02/20/20 04:10 Most recent lab results Calcium 7.8 mg/dL (8.4-10.2) L 02/20/20 04:10 Calcium 7.8 mg/dL (8.4-10.2) L 02/20/20 04:10 Magnesium 1.40 mg/dL (1.7-2.3) L 02/20/20 04:10 Medications & Allergies - Medications Allergies/Adverse Reactions: Allergies No Known Allergies Allergy (Verified 08/16/18 11:38) Home Medications: Home Medications Medication Instructions Recorded Confirmed Last Taken Type Amitriptyline [Elavil] 25 mg PO QHS tablet 11/22/17 02/13/20 Unknown Rx Ondansetron [Zofran ODT TAB] 8 mg PO Q8HR tab.rapdis 11/22/17 02/13/20 Unknown Rx Prochlorperazine [Compazine] 10 mg PO Q6HR PRN tablet 11/22/17 02/13/20 Unknown Rx lisinopriL [Zestril TAB] 10 mg PO QDAY tablet 11/22/17 02/13/20 Unknown Rx Levothyroxine 100 mcg PO DAILY 02/12/20 02/12/20 Unknown History Mupirocin 1 tab PO BID 02/12/20 02/13/20 Unknown History Tramadol HCl/Acetaminophen 37.5 mg PO BID 02/12/20 02/13/20 Unknown History Active Medications: Generic Name Dose Route Start Last Admin Trade Name Freq PRN Reason Stop Dose Admin Acetaminophen 650 mg 02/12/20 22:39 02/16/20 09:16 Acetaminophen 325 Mg Tab PO 650 mg Q4H PRN Administration Pain MILD(1-3)/Fever >100.5/PETER Amitriptyline HCl 25 mg 02/13/20 22:00 02/20/20 21:25 Amitriptyline 25 Mg Tab PO 25 mg QHS RYAN Administration Amlodipine Besylate 10 mg 02/18/20 10:00 02/20/20 13:36 Amlodipine 10 Mg Tab PO 10 mg QDAY RYAN Administration Dexamethasone 6 mg 02/15/20 22:00 02/20/20 13:34 Dexamethasone 4 Mg Tab PO 02/24/20 10:01 6 mg DAILY RYAN Administration Dextrose 0 ml 02/12/20 22:39 02/15/20 00:20 Dextrose 50% In Water (25gm) 50 Ml Syringe IV 50 ml Q30MIN PRN Administration Hypoglycemia Protocol Enoxaparin Sodium 40 mg 02/19/20 10:00 02/20/20 13:35 Enoxaparin 40 Mg/0.4 Ml Inj SUB-Q 40 mg QDAY@1000 RYAN Administration Hydralazine HCl 50 mg 02/18/20 14:00 02/21/20 06:24 Hydralazine 25 Mg Tab PO 50 mg Q8HR RYAN Administration REMDESIVIR 100 mg/ Sodium 250 mls @ 500 mls/hr 02/19/20 21:00 02/20/20 23:20 Chloride IV 02/22/20 21:29 500 mls/hr Q24HR@2100 RYAN Administration Potassium Chloride/Dextrose/Sod Cl 20 meq in 1,000 mls @ 100 mls/hr 02/19/20 12:00 02/20/20 13:45 D5w/0.45% Nacl/Kcl 20 Meq IV 100 mls/hr DIRECT RYAN Administration Insulin Human Lispro 0 unit 02/13/20 07:30 02/20/20 23:57 Insulin Lispro 100 Unit/Ml Vial 3 Ml SUB-Q 6 unit ACHS RYAN Administration Protocol Labetalol HCl 10 mg 02/17/20 20:01 02/18/20 05:36 Labetalol 20 Mg/4 Ml Inj IV 10 mg Q6HR PRN Administration Blood Pressure Levothyroxine Sodium 100 mcg 02/13/20 06:00 02/21/20 06:23 Levothyroxine 100 Mcg Tab PO 100 mcg 0600 RYAN Administration Morphine Sulfate 2 mg 02/12/20 22:39 02/13/20 07:31 Morphine 2 Mg/1 Ml Inj IV 2 mg Q4H PRN Administration Pain, Moderate (4-6) Ondansetron HCl 4 mg 02/12/20 22:39 02/12/20 23:06 Ondansetron 4 Mg/2 Ml Inj IV 4 mg Q8H PRN Administration Nausea And Vomiting Pseudoephedrine/Acetam/Chlorphenir 10 ml 02/13/20 21:25 02/16/20 21:46 Guaifenesin/Codeine 100-10mg Oral Liqd 5 Ml PO 10 ml Q6H PRN Administration Cough Sodium Chloride 10 ml 02/13/20 10:00 02/20/20 21:25 Sodium Chloride 0.9% 10 Ml Flush Syringe IV 10 ml BID RYAN Administration Sodium Chloride 10 ml 02/12/20 22:39 02/16/20 13:31 Sodium Chloride 0.9% 10 Ml Flush Syringe IV 10 ml PRN PRN Administration LINE FLUSH Sodium Chloride 50 ml 02/19/20 21:00 02/20/20 23:58 Sodium Chloride 0.9% 50 Ml Ivpb IV 02/22/20 21:01 50 ml Q24HR@2100 RYAN Administration Tamsulosin HCl 0.4 mg 02/17/20 18:00 02/20/20 13:35 Tamsulosin 0.4 Mg Cap PO 0.4 mg QDAY RYAN Administration Valsartan 160 mg 02/17/20 22:00 02/20/20 23:53 Valsartan 160mg Tab PO Not Given BID [facility]
[2020-02-21 07:31] LABS: Hematocrit 29.2 % (35.5-45.6); Hemoglobin 9.6 gm/dl (11.8-15.2); Mean Corpuscular HGB Conc 33 % (32-34); Mean Corpuscular Volume 91 fl (84-94); Platelet Count 382 K/mm3 (140-440); Red Blood Count 3.23 M/mm3 (3.65-5.03); Red Cell Distribution Width 14.6 % (13.2-15.2)
[2020-02-21] MEDS: INSULIN LISPRO 100 UNIT/ML VIAL 3 mL SUB-Q SCH ×5 (08:29→23:55)
[2020-02-21 08:30] LABS: Band Neutrophils # (Manual) 0.1 K/mm3; Total Cells Counted 100
[2020-02-21 08:31] LABS: Anisocytosis 1+; Burr Cells 1+; Platelet Estimate Consistent w Auto; Poikilocytosis 1+
[2020-02-21] MEDS: amLODIPine 10 MG TAB PO SCH (10:15)
[2020-02-21] MEDS: VALSARTAN 160MG TAB PO SCH ×2 (10:15→23:53)
[2020-02-21] MEDS: TAMSULOSIN 0.4 MG CAP PO SCH (10:15)
[2020-02-21] MEDS: DEXAMETHASONE 4 MG TAB PO SCH (10:15)
[2020-02-21] MEDS: ENOXAPARIN 40 MG/0.4 ML INJ SUB-Q SCH (10:16)
--- NOTE | 2020-02-21 10:36 | Progress Note ---
Subjective Date of service: 02/21/20 Principal diagnosis: Acute kidney injury Interval history: Assessment and plan: 84-year-old male with known history of diabetes mellitus, throat cancer in remission, chronic back pain and hypertension presenting to the emergency room today with a complaint of bilateral shoulder pain, low back pain lower extremity pain and also pain along the throat. He states he was dizzy this morning and felt lightheaded and subsequently had a fall. He denies any loss of consciousness but states that he had he feet his head. He denies any fever or chills, no chest pain or shortness of breath, no nausea or vomiting, no abdominal pain, no hematuria or dysuria. Patient denies any sick contacts and no recent travel. Denies any contact with anyone with COVID- 19. Work-up in the emergency room today reveals slightly elevated troponin, elevated TSH, leukocytosis, elevated creatinine kinase and patient was also found to be in acute renal failure. Patient is being admitted with rhabdomyolysis, acute renal failure, hypothyroidism and elevated troponin. Patient was started on IV hydration and cardiology was consulted for elevated troponin. Nephrology consulted for rhabdomyolysis and BELKIS. 02/14/2020. Check Covid testing. Hold on restarting lisinopril for blood pressure given the acute renal failure. Start Procardia 60 mg twice daily. Rhabdomyolysis and kidney function improved with IV fluid hydration. Continue to monitor. PT evaluation for deconditioning. Await echocardiogram 02/15/2020. Patient with asymptomatic hypotension this morning with systolic blood pressure 84. Discontinue Procardia and hold lisinopril for now. Continue IV fluid hydration for acute renal failure/acute kidney injury/rhabdomyolysis. Nurse reports patient had coughing with eating. Speech therapy evaluation for swallow evaluation 02/16/2020. Hypotension has resolved and patient remains asymptomatic. Procardia and lisinopril discontinued. Tenuous IV fluid hydration for acute renal failure/acute kidney injury/rhabdomyolysis given positive Covid infection. Speech therapy reports no evidence of dysphagia. Continue dexamethasone 6 mg p.o. daily x10 days. Consider remdesivir if renal function improves. Await ID consultation. Transfer to [facility] given positive Covid. 02/16. Nephrology following for BELKIS. Bladder feels distended so we will get a bladder scan. Straight cath if more than [address] a Wyatt if patient continues to retain.. Flomax if necessary. Continue dexamethasone. 02/17. Has urinary retention so a wyatt has been placed. Now on flomax. He will follow up with urology in the office after discharge. Renal function is better. Still requiring 15L of oxygen. 02/18. Renal function continues to improve-creatinine 1.0 today. Patient has been started on remdesivir. Oxygenation much better-now on 8 L of oxygen. He complains of 4 episodes of diarrhea this a.m. Ordered stool for C. difficile. Continue to monitor. 02/20/20 Patient is alert and oriented offers no specific complaints except feeling tired and mild dry cough. He denies shortness of breath, fever or chills States he had 2 loose bowel movements today. Lab results reviewed. ID and pulmonary notes reviewed 02/20 awake and alert, no specific complaints except weakness, also having intermittent diarrhea. Stool for C. difficile was ordered 2 days ago. yet to be collected. Discussed with RN. Lab results reviewed. Accu-Cheks reviewed. Poorly controlled Plan Acute renal failure. Resolved We will stop IV fluids Rhabdomyolysis. Resolved Elevated troponin - Likely demand ischemia Hypothyroidism. Continue Synthroid Sepsis - resolved UTI. Completed treatment Covid 19 pneumonia. Patient tested positive 02/15/2020. Unable to determine if COVID present on day of admission. Continue dexamethasone.x 10 days. on remdesivir day 4 Diabetes mellitus type 2. Accu-Cheks reviewed .continue insulin sliding scale . Will add Levemir 10 units once daily at at bedtime Hypertension. Fair Continue present medications including amlodipine valsartan and hydralazine Urinary retention - Flomax. Maintain wyatt. Needs urology follow up at discharge Hypokalemia Improved Monitor electrolytes Hypomagnesemia Magnesium supplemented DVT prophylaxis. Continue subcutaneous heparin. Interval history: Had 2 bowel movements this morning Stool for C. difficile ordered He has been weaned down to 8L. Narrative exam: VITAL SIGNS: Reviewed. GENERAL: Awake HEAD: No signs of head trauma. EYES: Pupils are equal. EOMI MOUTH: Oropharynx is normal. NECK: No adenopathy, no JVD. CHEST: Clear to auscultation CARDIAC: Regular rate and rhythm ABDOMEN: Soft, non tender and non distended. MUSCULOSKELETAL: No edema NEUROLOGIC EXAM: Alert and oriented x3. No focal neurologic deficits SKIN: No obvious lesions Objective - Constitutional Vitals: Vital Signs - 12hr 02/20/20 02/20/20 02/20/20 23:49 23:52 23:53 Temperature 99.0 F Pulse Rate 69 69 69 Respiratory 18 Rate Blood Pressure 135/58 135/58 135/58 O2 Sat by Pulse 97 Oximetry 02/21/20 02/21/20 02/21/20 03:17 06:12 06:24 Temperature 99.0 F Pulse Rate 64 64 Respiratory 20 Rate Blood Pressure 169/63 163/69 O2 Sat by Pulse 92 99 Oximetry 02/21/20 10:21 Temperature Pulse Rate Respiratory Rate Blood Pressure O2 Sat by Pulse 94 Oximetry - Labs CBC & Chem 7: 02/21/20 04:58 02/21/20 04:58 Labs: Abnormal lab results 02/20/20 02/20/20 02/20/20 Range/Units 11:26 16:30 21:58 WBC (4.5-11.0) K/mm3 RBC (3.65-5.03) M/mm3 Hgb (11.8-15.2) gm/dl Hct (35.5-45.6) % Seg Neuts % (Manual) (40.0-70.0) % Seg Neutrophils # Man (1.8-7.7) K/mm3 Lymphocytes # (Manual) (1.2-5.4) K/mm3 Sodium (137-145) mmol/L BUN (9-20) mg/dL Glucose (75-100) mg/dL POC Glucose 177 H 266 H 312 H (70-105) mg/dL Calcium (8.4-10.2) mg/dL 02/21/20 02/21/20 02/21/20 Range/Units 04:58 04:58 08:00 WBC 12.5 H (4.5-11.0) K/mm3 RBC 3.23 L (3.65-5.03) M/mm3 Hgb 9.6 L (11.8-15.2) gm/dl Hct 29.2 L (35.5-45.6) % Seg Neuts % (Manual) 97.0 H (40.0-70.0) % Seg Neutrophils # Man 12.1 H (1.8-7.7) K/mm3 Lymphocytes # (Manual) 0.0 L (1.2-5.4) K/mm3 Sodium 136 L (137-145) mmol/L BUN 27 H (9-20) mg/dL Glucose 270 H (75-100) mg/dL POC Glucose 255 H (70-105) mg/dL Calcium 7.6 L (8.4-10.2) mg/dL HEART Score - HEART Score Troponin: Troponin T 0.045 ng/mL (0.00-0.029) H D 02/13/20 12:29
--- NOTE | 2020-02-21 11:12 | Progress Note ---
Assessment and Plan 54 y/o male with acute respiratory failure secondary to COVID 19 pneumonia. 1. Needs ambulatory walk test. If qualifies for home O2 please order. 2. Agree with steroids, will treat for a total of 10 days. 3. Renal function continues to improve 4. [place] oliver, if oxygen is needed or not, would prepare patient for discharge in the next 12-36 hours. Can follow up in office with repeat walk test to see if oxygen is still needed if he ends up qualifying for it. Subjective Date of service: 02/21/20 Principal diagnosis: Acute kidney injury Interval history: patient down to 2 liters NC. Stable. Good sats. Still not proning. Lying in bed with covers overhead. Objective Vital Signs - 12hr 02/20/20 02/20/20 02/20/20 23:49 23:52 23:53 Temperature 99.0 F Pulse Rate 69 69 69 Respiratory 18 Rate Blood Pressure 135/58 135/58 135/58 O2 Sat by Pulse 97 Oximetry 02/21/20 02/21/20 02/21/20 03:17 06:12 06:24 Temperature 99.0 F Pulse Rate 64 64 Respiratory 20 Rate Blood Pressure 169/63 163/69 O2 Sat by Pulse 92 99 Oximetry 02/21/20 10:21 Temperature Pulse Rate Respiratory Rate Blood Pressure O2 Sat by Pulse 94 Oximetry Constitutional: other (critically ill on HFNC) Eyes: non-icteric ENT: oropharynx moist Neck: supple Effort: normal Ascultation: Bilateral: clear Cardiovascular: regular rate and rhythm (no mrg) Gastrointestinal: normoactive bowel sounds, soft, non-tender Integumentary: normal Extremities: no cyanosis, no edema, pink and warm Neurologic: normal mental status, non-focal exam, pupils equal and round, CN II-XII normal Psychiatric: mood appropriate, affect normal CBC and BMP: 02/21/20 04:58 02/21/20 04:58 ABG, PT/INR, D-dimer: PT/INR, D-dimer PT 13.2 Sec. (12.2-14.9) 02/13/20 12:29 INR 1.01 (0.87-1.13) 02/13/20 12:29 D-Dimer 793.22 ng/mlDDU (0-234) H 12/27/20 10:48 Abnormal lab findings: Abnormal Labs 02/12/20 02/12/20 02/12/20 15:46 15:46 15:46 WBC 27.1 H RBC 3.37 L Hgb 10.3 L Hct 30.5 L Lymph % (Auto) Lymph # (Auto) [place] # (Auto) Seg Neutrophils % Seg Neuts % (Manual) Lymphocytes % (Manual) 2.0 L Seg Neutrophils # Seg Neutrophils # Man 18.7 H Lymphocytes # (Manual) 0.5 L D-Dimer Sodium 133 L Potassium Chloride 93.1 L Carbon Dioxide 32 H BUN 59 H Creatinine 2.4 H Glucose POC Glucose Hemoglobin A1c Calcium 8.0 L Magnesium Ferritin AST 260 H ALT 65 H Alkaline Phosphatase Lactate Dehydrogenase Total Creatine Kinase 9691 H Troponin T 0.066 H C-Reactive Protein Total Protein Albumin 2.7 L Triglycerides 189 H HDL Cholesterol 34 L TSH 33.890 H Free T4 Urine WBC (Auto) Coronavirus (PCR) 02/12/20 02/12/20 02/13/20 17:42 Unknown 07:46 WBC RBC Hgb Hct Lymph % (Auto) Lymph # (Auto) [place] # (Auto) Seg Neutrophils % Seg Neuts % (Manual) Lymphocytes % (Manual) Seg Neutrophils # Seg Neutrophils # Man Lymphocytes # (Manual) D-Dimer Sodium Potassium Chloride Carbon Dioxide BUN Creatinine Glucose POC Glucose 68 L Hemoglobin A1c Calcium Magnesium Ferritin AST ALT Alkaline Phosphatase Lactate Dehydrogenase Total Creatine Kinase Troponin T C-Reactive Protein Total Protein Albumin Triglycerides HDL Cholesterol TSH Free T4 0.74 L Urine WBC (Auto) 13.0 H Coronavirus (PCR) 02/13/20 02/13/20 02/13/20 11:38 12:29 12:29 WBC RBC 2.74 L Hgb 8.4 L Hct 24.7 L Lymph % (Auto) Lymph # (Auto) [place] # (Auto) Seg Neutrophils % Seg Neuts % (Manual) 99.0 H Lymphocytes % (Manual) 1.0 L Seg Neutrophils # Seg Neutrophils # Man 10.6 H Lymphocytes # (Manual) 0.1 L D-Dimer Sodium Potassium Chloride Carbon Dioxide BUN 52 H Creatinine 1.7 H Glucose 121 H POC Glucose 134 H Hemoglobin A1c Calcium 7.4 L Magnesium Ferritin AST ALT Alkaline Phosphatase Lactate Dehydrogenase Total Creatine Kinase Troponin T C-Reactive Protein Total Protein Albumin Triglycerides HDL Cholesterol TSH Free T4 Urine WBC (Auto) Coronavirus (PCR) 02/13/20 02/14/20 02/14/20 12:29 07:38 07:38 WBC RBC 3.11 L Hgb 9.5 L Hct 28.0 L Lymph % (Auto) Lymph # (Auto) [place] # (Auto) Seg Neutrophils % Seg Neuts % (Manual) 99.0 H Lymphocytes % (Manual) 1.0 L Seg Neutrophils # Seg Neutrophils # Man Lymphocytes # (Manual) 0.1 L D-Dimer Sodium Potassium 3.5 L Chloride Carbon Dioxide BUN 34 H Creatinine Glucose POC Glucose Hemoglobin A1c Calcium 7.5 L Magnesium Ferritin AST ALT Alkaline Phosphatase Lactate Dehydrogenase Total Creatine Kinase 6134 H 3825 H Troponin T 0.045 H D C-Reactive Protein Total Protein Albumin Triglycerides HDL Cholesterol TSH Free T4 Urine WBC (Auto) Coronavirus (PCR) 02/14/20 02/15/20 02/15/20 20:39 00:36 00:53 WBC RBC Hgb Hct Lymph % (Auto) Lymph # (Auto) [place] # (Auto) Seg Neutrophils % Seg Neuts % (Manual) Lymphocytes % (Manual) Seg Neutrophils # Seg Neutrophils # Man Lymphocytes # (Manual) D-Dimer Sodium Potassium Chloride Carbon Dioxide BUN Creatinine Glucose POC Glucose 126 H 34 L 311 H Hemoglobin A1c Calcium Magnesium Ferritin AST ALT Alkaline Phosphatase Lactate Dehydrogenase Total Creatine Kinase Troponin T C-Reactive Protein Total Protein Albumin Triglycerides HDL Cholesterol TSH Free T4 Urine WBC (Auto) Coronavirus (PCR) 02/15/20 02/15/20 02/15/20 02:42 06:04 06:04 WBC RBC Hgb Hct Lymph % (Auto) Lymph # (Auto) [place] # (Auto) Seg Neutrophils % Seg Neuts % (Manual) Lymphocytes % (Manual) Seg Neutrophils # Seg Neutrophils # Man Lymphocytes # (Manual) D-Dimer Sodium Potassium Chloride Carbon Dioxide BUN Creatinine Glucose POC Glucose 250 H Hemoglobin A1c 6.5 H Calcium Magnesium Ferritin AST ALT Alkaline Phosphatase Lactate Dehydrogenase Total Creatine Kinase 1923 H Troponin T C-Reactive Protein Total Protein Albumin Triglycerides HDL Cholesterol TSH Free T4 Urine WBC (Auto) Coronavirus (PCR) 02/15/20 02/15/20 02/15/20 08:21 10:19 10:48 WBC RBC Hgb Hct Lymph % (Auto) Lymph # (Auto) [place] # (Auto) Seg Neutrophils % Seg Neuts % (Manual) Lymphocytes % (Manual) Seg Neutrophils # Seg Neutrophils # Man Lymphocytes # (Manual) D-Dimer Sodium Potassium 3.4 L Chloride 107.8 H Carbon Dioxide BUN 41 H Creatinine 2.5 H D Glucose 166 H POC Glucose 184 H Hemoglobin A1c Calcium 7.3 L Magnesium Ferritin AST ALT Alkaline Phosphatase Lactate Dehydrogenase Total Creatine Kinase Troponin T C-Reactive Protein Total Protein Albumin Triglycerides HDL Cholesterol TSH Free T4 Urine WBC (Auto) Coronavirus (PCR) Positive A 02/15/20 02/15/20 02/15/20 10:48 10:48 10:48 WBC RBC Hgb Hct Lymph % (Auto) Lymph # (Auto) [place] # (Auto) Seg Neutrophils % Seg Neuts % (Manual) Lymphocytes % (Manual) Seg Neutrophils # Seg Neutrophils # Man Lymphocytes # (Manual) D-Dimer 793.22 H Sodium Potassium Chloride Carbon Dioxide BUN Creatinine Glucose POC Glucose Hemoglobin A1c Calcium Magnesium Ferritin 1480.0 H AST ALT Alkaline Phosphatase Lactate Dehydrogenase 400 H Total Creatine Kinase Troponin T C-Reactive Protein 18.20 H Total Protein Albumin Triglycerides HDL Cholesterol TSH Free T4 Urine WBC (Auto) Coronavirus (PCR) 02/15/20 02/15/20 02/15/20 12:16 17:26 20:51 WBC RBC Hgb Hct Lymph % (Auto) Lymph # (Auto) [place] # (Auto) Seg Neutrophils % Seg Neuts % (Manual) Lymphocytes % (Manual) Seg Neutrophils # Seg Neutrophils # Man Lymphocytes # (Manual) D-Dimer Sodium Potassium Chloride Carbon Dioxide BUN Creatinine Glucose POC Glucose 129 H 167 H 110 H Hemoglobin A1c Calcium Magnesium Ferritin AST ALT Alkaline Phosphatase Lactate Dehydrogenase Total Creatine Kinase Troponin T C-Reactive Protein Total Protein Albumin Triglycerides HDL Cholesterol TSH Free T4 Urine WBC (Auto) Coronavirus (PCR) 02/16/20 02/16/20 02/16/20 05:42 05:42 08:33 WBC RBC 3.46 L Hgb 10.6 L Hct 31.7 L Lymph % (Auto) Lymph # (Auto) [place] # (Auto) Seg Neutrophils % Seg Neuts % (Manual) 93.0 H Lymphocytes % (Manual) 2.0 L Seg Neutrophils # Seg Neutrophils # Man Lymphocytes # (Manual) 0.2 L D-Dimer Sodium Potassium Chloride Carbon Dioxide 19 L BUN 31 H Creatinine 2.6 H Glucose 274 H POC Glucose 240 H Hemoglobin A1c Calcium 7.4 L Magnesium Ferritin AST ALT Alkaline Phosphatase Lactate Dehydrogenase Total Creatine Kinase 1894 H Troponin T C-Reactive Protein Total Protein Albumin Triglycerides HDL Cholesterol TSH Free T4 Urine WBC (Auto) Coronavirus (PCR) 02/16/20 02/16/20 02/16/20 12:38 16:24 21:29 WBC RBC Hgb Hct Lymph % (Auto) Lymph # (Auto) [place] # (Auto) Seg Neutrophils % Seg Neuts % (Manual) Lymphocytes % (Manual) Seg Neutrophils # Seg Neutrophils # Man Lymphocytes # (Manual) D-Dimer Sodium Potassium Chloride Carbon Dioxide BUN Creatinine Glucose POC Glucose 222 H 253 H 279 H Hemoglobin A1c Calcium Magnesium Ferritin AST ALT Alkaline Phosphatase Lactate Dehydrogenase Total Creatine Kinase Troponin T C-Reactive Protein Total Protein Albumin Triglycerides HDL Cholesterol TSH Free T4 Urine WBC (Auto) Coronavirus (PCR) 02/17/20 02/17/20 02/17/20 05:31 07:54 13:35 WBC RBC Hgb Hct Lymph % (Auto) Lymph # (Auto) [place] # (Auto) Seg Neutrophils % Seg Neuts % (Manual) Lymphocytes % (Manual) Seg Neutrophils # Seg Neutrophils # Man Lymphocytes # (Manual) D-Dimer Sodium Potassium Chloride Carbon Dioxide BUN Creatinine Glucose POC Glucose 471 H 240 H Hemoglobin A1c Calcium Magnesium Ferritin AST ALT Alkaline Phosphatase Lactate Dehydrogenase Total Creatine Kinase 916 H Troponin T C-Reactive Protein Total Protein Albumin Triglycerides HDL Cholesterol TSH Free T4 Urine WBC (Auto) Coronavirus (PCR) 02/17/20 02/17/20 02/18/20 16:58 21:26 05:49 WBC RBC Hgb Hct Lymph % (Auto) Lymph # (Auto) [place] # (Auto) Seg Neutrophils % Seg Neuts % (Manual) Lymphocytes % (Manual) Seg Neutrophils # Seg Neutrophils # Man Lymphocytes # (Manual) D-Dimer Sodium Potassium Chloride Carbon Dioxide BUN Creatinine Glucose POC Glucose 227 H 148 H Hemoglobin A1c Calcium Magnesium Ferritin AST ALT Alkaline Phosphatase Lactate Dehydrogenase Total Creatine Kinase 259 H Troponin T C-Reactive Protein Total Protein Albumin Triglycerides HDL Cholesterol TSH Free T4 Urine WBC (Auto) Coronavirus (PCR) 02/18/20 02/18/20 02/18/20 05:49 05:49 08:27 WBC RBC 3.51 L Hgb 10.5 L Hct 31.6 L Lymph % (Auto) Lymph # (Auto) [place] # (Auto) Seg Neutrophils % Seg Neuts % (Manual) 91.0 H Lymphocytes % (Manual) Seg Neutrophils # Seg Neutrophils # Man Lymphocytes # (Manual) 0.0 L D-Dimer Sodium Potassium Chloride Carbon Dioxide 19 L BUN 42 H Creatinine 1.5 H Glucose 242 H POC Glucose 204 H Hemoglobin A1c Calcium 7.8 L Magnesium Ferritin AST 82 H ALT 57 H Alkaline Phosphatase 140 H Lactate Dehydrogenase Total Creatine Kinase Troponin T C-Reactive Protein Total Protein 4.9 L Albumin 2.3 L Triglycerides HDL Cholesterol TSH Free T4 Urine WBC (Auto) Coronavirus (PCR) 02/18/20 02/18/20 02/18/20 11:38 17:09 21:57 WBC RBC Hgb Hct Lymph % (Auto) Lymph # (Auto) [place] # (Auto) Seg Neutrophils % Seg Neuts % (Manual) Lymphocytes % (Manual) Seg Neutrophils # Seg Neutrophils # Man Lymphocytes # (Manual) D-Dimer Sodium Potassium Chloride Carbon Dioxide BUN Creatinine Glucose POC Glucose 208 H 207 H 218 H Hemoglobin A1c Calcium Magnesium Ferritin AST ALT Alkaline Phosphatase Lactate Dehydrogenase Total Creatine Kinase Troponin T C-Reactive Protein Total Protein Albumin Triglycerides HDL Cholesterol TSH Free T4 Urine WBC (Auto) Coronavirus (PCR) 02/19/20 02/19/20 02/19/20 05:51 05:51 05:51 WBC RBC 3.48 L Hgb 10.3 L Hct 30.6 L Lymph % (Auto) Lymph # (Auto) [place] # (Auto) Seg Neutrophils % Seg Neuts % (Manual) 87.0 H Lymphocytes % (Manual) 7.0 L Seg Neutrophils # Seg Neutrophils # Man 9.4 H Lymphocytes # (Manual) 0.8 L D-Dimer Sodium 136 L Potassium 3.0 L D Chloride Carbon Dioxide BUN 28 H Creatinine Glucose 214 H POC Glucose Hemoglobin A1c Calcium 7.8 L Magnesium Ferritin AST 66 H ALT Alkaline Phosphatase Lactate Dehydrogenase Total Creatine Kinase 174 H Troponin T C-Reactive Protein Total Protein 5.4 L Albumin 2.4 L Triglycerides HDL Cholesterol TSH Free T4 Urine WBC (Auto) Coronavirus (PCR) 02/19/20 02/19/20 02/19/20 07:47 12:12 13:50 WBC RBC Hgb Hct Lymph % (Auto) Lymph # (Auto) [place] # (Auto) Seg Neutrophils % Seg Neuts % (Manual) Lymphocytes % (Manual) Seg Neutrophils # Seg Neutrophils # Man Lymphocytes # (Manual) D-Dimer Sodium Potassium Chloride Carbon Dioxide BUN Creatinine Glucose POC Glucose 179 H 144 H Hemoglobin A1c Calcium Magnesium 1.20 L Ferritin AST ALT Alkaline Phosphatase Lactate Dehydrogenase Total Creatine Kinase Troponin T C-Reactive Protein Total Protein Albumin Triglycerides HDL Cholesterol TSH Free T4 Urine WBC (Auto) Coronavirus (PCR) 02/19/20 02/19/20 02/20/20 17:16 22:38 04:10 WBC RBC Hgb Hct Lymph % (Auto) Lymph # (Auto) [place] # (Auto) Seg Neutrophils % Seg Neuts % (Manual) Lymphocytes % (Manual) Seg Neutrophils # Seg Neutrophils # Man Lymphocytes # (Manual) D-Dimer Sodium Potassium 3.0 L Chloride Carbon Dioxide BUN 27 H Creatinine Glucose 185 H POC Glucose 269 H 281 H Hemoglobin A1c Calcium 7.8 L Magnesium 1.40 L Ferritin AST ALT Alkaline Phosphatase Lactate Dehydrogenase Total Creatine Kinase Troponin T C-Reactive Protein Total Protein Albumin Triglycerides HDL Cholesterol TSH Free T4 Urine WBC (Auto) Coronavirus (PCR) 02/20/20 02/20/20 02/20/20 04:10 04:10 07:50 WBC 15.2 H RBC 3.51 L Hgb 10.5 L Hct 30.9 L Lymph % (Auto) 2.6 L Lymph # (Auto) 0.4 L [place] # (Auto) 1.1 H Seg Neutrophils % 90.1 H Seg Neuts % (Manual) Lymphocytes % (Manual) Seg Neutrophils # 13.7 H Seg Neutrophils # Man Lymphocytes # (Manual) D-Dimer Sodium Potassium 3.0 L Chloride Carbon Dioxide BUN 28 H Creatinine Glucose 183 H POC Glucose 159 H Hemoglobin A1c Calcium 7.8 L Magnesium Ferritin AST 45 H ALT Alkaline Phosphatase Lactate Dehydrogenase Total Creatine Kinase Troponin T C-Reactive Protein Total Protein 5.5 L Albumin 2.6 L Triglycerides HDL Cholesterol TSH Free T4 Urine WBC (Auto) Coronavirus (PCR) 02/20/20 02/20/20 02/20/20 11:26 16:30 21:58 WBC RBC Hgb Hct Lymph % (Auto) Lymph # (Auto) [place] # (Auto) Seg Neutrophils % Seg Neuts % (Manual) Lymphocytes % (Manual) Seg Neutrophils # Seg Neutrophils # Man Lymphocytes # (Manual) D-Dimer Sodium Potassium Chloride Carbon Dioxide BUN Creatinine Glucose POC Glucose 177 H 266 H 312 H Hemoglobin A1c Calcium Magnesium Ferritin AST ALT Alkaline Phosphatase Lactate Dehydrogenase Total Creatine Kinase Troponin T C-Reactive Protein Total Protein Albumin Triglycerides HDL Cholesterol TSH Free T4 Urine WBC (Auto) Coronavirus (PCR) 02/21/20 02/21/20 02/21/20 04:58 04:58 08:00 WBC 12.5 H RBC 3.23 L Hgb 9.6 L Hct 29.2 L Lymph % (Auto) Lymph # (Auto) [place] # (Auto) Seg Neutrophils % Seg Neuts % (Manual) 97.0 H Lymphocytes % (Manual) Seg Neutrophils # Seg Neutrophils # Man 12.1 H Lymphocytes # (Manual) 0.0 L D-Dimer Sodium 136 L Potassium Chloride Carbon Dioxide BUN 27 H Creatinine Glucose 270 H POC Glucose 255 H Hemoglobin A1c Calcium 7.6 L Magnesium Ferritin AST ALT Alkaline Phosphatase Lactate Dehydrogenase Total Creatine Kinase Troponin T C-Reactive Protein Total Protein Albumin Triglycerides HDL Cholesterol TSH Free T4 Urine WBC (Auto) Coronavirus (PCR)
[2020-02-21] MEDS: REMDESIVIR 100 MG in SODIUM CHLORIDE 0.9% 250ML 250 ML IV SCH (21:30)
[2020-02-21] MEDS: AMITRIPTYLINE 25 MG TAB PO SCH (21:34)
[2020-02-21] MEDS ORDERED: INSULIN GLARGINE 100 UNITS/ML SUB-Q SCH (22:00)
[2020-02-21] MEDS: SODIUM CHLORIDE 0.9% 50 ML IVPB IV SCH (23:00)
[2020-02-22] MEDS: LEVOTHYROXINE 100 MCG TAB PO SCH (06:06)
[2020-02-22] MEDS: hydrALAZINE 25 MG TAB PO SCH ×3 (06:07→15:50)
[2020-02-22 06:29] LABS: Basophils % (Auto) 0.1 % (0.0-1.8); Hematocrit 28.1 % (35.5-45.6); Hemoglobin 9.5 gm/dl (11.8-15.2); Lymphocytes # (Auto) 0.5 K/mm3 (1.2-5.4); Lymphocytes % (Auto) 4.9 % (13.4-35.0); Mean Corpuscular HGB Conc 34 % (32-34); Mean Corpuscular Volume 89 fl (84-94); Monocytes # (Auto) 1.1 K/mm3 (0.0-0.8); Monocytes % (Auto) 10.5 % (0.0-7.3); Platelet Count 378 K/mm3 (140-440); Red Blood Count 3.17 M/mm3 (3.65-5.03); Red Cell Distribution Width 14.7 % (13.2-15.2)
[2020-02-22 06:37] LABS: Calcium 7.7 mg/dL (8.4-10.2); Hemolysis Index 4
[2020-02-22 06:48] LABS: BUN/Creatinine Ratio 1; Blood Urea Nitrogen 1 mg/dL (9-20)
[2020-02-22] MEDS: VALSARTAN 160MG TAB PO SCH (10:28)
[2020-02-22] MEDS: ENOXAPARIN 40 MG/0.4 ML INJ SUB-Q SCH (10:28)
[2020-02-22] MEDS: DEXAMETHASONE 4 MG TAB PO SCH (10:28)
[2020-02-22] MEDS: amLODIPine 10 MG TAB PO SCH (10:29)
[2020-02-22] MEDS: TAMSULOSIN 0.4 MG CAP PO SCH (10:29)
[2020-02-22] MEDS: INSULIN LISPRO 100 UNIT/ML VIAL 3 mL SUB-Q SCH ×2 (10:29→14:00)
[2020-02-22 11:03] VITALS: BP 127/57
--- NOTE | 2020-02-22 12:00 | Progress Note ---
Assessment and Plan Assessment * Acute kidney injury, unknown baseline * Rhabdomyolysis, * Hypocalcemia * Hypokalemia * hypomagnsemia * Anemia * Hypertension, uncontrolled * Diabetes mellitus * Covid positive Recommendations * Renal function is better today, continue ivfs * replete k and mag prn, * noted sanket inhibitors * follow up am lytes * Keep MAP more than 65 * encourage p.o. hydration * Monitor calcium and potassium, replete as needed * Renally dose medications * Avoid nephrotoxins * Strict I's/O * Keep glucose less than 200 mg/dL Subjective Date of service: 02/22/20 Principal diagnosis: Acute kidney injury Interval history: resting in bed Objective - Exam Narrative Exam: Deferred as patient is Covid positive in order to prevent spread of infection and for PPE preservation. - Vital Signs Vital signs: Vital Signs - 12hr 02/22/20 02/22/20 02/22/20 05:59 06:07 10:14 Temperature 98.1 F 97.8 F Pulse Rate 64 64 65 Respiratory 20 20 Rate Blood Pressure 143/66 143/66 127/57 O2 Sat by Pulse 95 92 Oximetry - Lab 02/22/20 04:33 02/22/20 04:33 Most recent lab results Calcium 7.7 mg/dL (8.4-10.2) L 02/22/20 04:33 Magnesium 1.40 mg/dL (1.7-2.3) L 02/20/20 04:10 Medications & Allergies - Medications Allergies/Adverse Reactions: Allergies No Known Allergies Allergy (Verified 08/16/18 11:38) Home Medications: Home Medications Medication Instructions Recorded Confirmed Last Taken Type Amitriptyline [Elavil] 25 mg PO QHS tablet 11/22/17 02/13/20 Unknown Rx Ondansetron [Zofran ODT TAB] 8 mg PO Q8HR tab.rapdis 11/22/17 02/13/20 Unknown Rx Prochlorperazine [Compazine] 10 mg PO Q6HR PRN tablet 11/22/17 02/13/20 Unknown Rx lisinopriL [Zestril TAB] 10 mg PO QDAY tablet 11/22/17 02/13/20 Unknown Rx Levothyroxine 100 mcg PO DAILY 02/12/20 02/12/20 Unknown History Mupirocin 1 tab PO BID 02/12/20 02/13/20 Unknown History Tramadol HCl/Acetaminophen 37.5 mg PO BID 02/12/20 02/13/20 Unknown History Active Medications: Generic Name Dose Route Start Last Admin Trade Name Freq PRN Reason Stop Dose Admin Acetaminophen 650 mg 02/12/20 22:39 02/16/20 09:16 Acetaminophen 325 Mg Tab PO 650 mg Q4H PRN Administration Pain MILD(1-3)/Fever >100.5/PETER Amitriptyline HCl 25 mg 02/13/20 22:00 02/21/20 21:34 Amitriptyline 25 Mg Tab PO 25 mg QHS RYAN Administration Amlodipine Besylate 10 mg 02/18/20 10:00 02/22/20 10:29 Amlodipine 10 Mg Tab PO 10 mg QDAY RYAN Administration Dexamethasone 6 mg 02/15/20 22:00 02/22/20 10:28 Dexamethasone 4 Mg Tab PO 02/24/20 10:01 6 mg DAILY RYAN Administration Dextrose 0 ml 02/12/20 22:39 02/15/20 00:20 Dextrose 50% In Water (25gm) 50 Ml Syringe IV 50 ml Q30MIN PRN Administration Hypoglycemia Protocol Enoxaparin Sodium 40 mg 02/19/20 10:00 02/22/20 10:28 Enoxaparin 40 Mg/0.4 Ml Inj SUB-Q 40 mg QDAY@1000 RYAN Administration Hydralazine HCl 50 mg 02/18/20 14:00 02/22/20 06:07 Hydralazine 25 Mg Tab PO 50 mg Q8HR RYAN Administration REMDESIVIR 100 mg/ Sodium 250 mls @ 500 mls/hr 02/19/20 21:00 02/21/20 21:30 Chloride IV 02/22/20 21:29 500 mls/hr Q24HR@2100 RYAN Administration Insulin Glargine 10 units 02/21/20 22:00 02/21/20 23:54 Insulin Glargine 100 Units/Ml SUB-Q 10 units QHS RYAN Administration Insulin Human Lispro 0 unit 02/13/20 07:30 02/22/20 10:29 Insulin Lispro 100 Unit/Ml Vial 3 Ml SUB-Q Not Given ACHS RYAN Protocol Labetalol HCl 10 mg 02/17/20 20:01 02/18/20 05:36 Labetalol 20 Mg/4 Ml Inj IV 10 mg Q6HR PRN Administration Blood Pressure Levothyroxine Sodium 100 mcg 02/13/20 06:00 02/22/20 06:06 Levothyroxine 100 Mcg Tab PO 100 mcg 0600 RYAN Administration Morphine Sulfate 2 mg 02/12/20 22:39 02/13/20 07:31 Morphine 2 Mg/1 Ml Inj IV 2 mg Q4H PRN Administration Pain, Moderate (4-6) Ondansetron HCl 4 mg 02/12/20 22:39 02/12/20 23:06 Ondansetron 4 Mg/2 Ml Inj IV 4 mg Q8H PRN Administration Nausea And Vomiting Pseudoephedrine/Acetam/Chlorphenir 10 ml 02/13/20 21:25 02/16/20 21:46 Guaifenesin/Codeine 100-10mg Oral Liqd 5 Ml PO 10 ml Q6H PRN Administration Cough Sodium Chloride 10 ml 02/13/20 10:00 02/22/20 10:29 Sodium Chloride 0.9% 10 Ml Flush Syringe IV 10 ml BID RYAN Administration Sodium Chloride 10 ml 02/12/20 22:39 02/16/20 13:31 Sodium Chloride 0.9% 10 Ml Flush Syringe IV 10 ml PRN PRN Administration LINE FLUSH Sodium Chloride 50 ml 02/19/20 21:00 02/21/20 23:00 Sodium Chloride 0.9% 50 Ml Ivpb IV 02/22/20 21:01 50 ml Q24HR@2100 RYAN Administration Tamsulosin HCl 0.4 mg 02/17/20 18:00 02/22/20 10:29 Tamsulosin 0.4 Mg Cap PO 0.4 mg QDAY RYAN Administration Valsartan 160 mg 02/17/20 22:00 02/22/20 10:28 Valsartan 160mg Tab PO 160 mg BID RYAN Administration
--- NOTE | 2020-02-22 13:15 | Discharge Summary ---
Providers - Providers Date of Admission: 02/12/20 22:40 Date of discharge: 02/22/20 Attending physician: MITZI LAY 02/12/20 17:16 Speech Therapy Evaluation and Treat [CONS] Urgent Reason For Exam: failed swallow screen 02/12/20 22:39 Consult to Physician [CONS] Routine Comment: Consulting Provider: JAEL AUGUSTIN Physician Instructions: Reason For Exam: Acute Renal failure 02/12/20 22:40 Consult to Dietitian/Nutrition [CONS] Routine Physician Instructions: Reason For Exam: Reason for Consult: Diet education 02/13/20 06:56 Consult to Wound/ET Nurse [CONS] Routine Reason For Exam: wound eval 02/14/20 11:07 Physical Therapy Evaluation and Treat [CONS] Routine Comment: Reason For Exam: deconditioning 02/15/20 10:03 Consult to Physician [CONS] Routine Comment: Consulting Provider: RIK MORAN Physician Instructions: Reason For Exam: suspected covid Consult to Physician [CONS] Routine Comment: Consulting Provider: SHAKA VU Physician Instructions: Reason For Exam: suspected covid 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 He states he was dizzy this morning and felt lightheaded and subsequently had a fall. He denies any loss of consciousness but states that he had he feet his head. He denies any fever or chills, no chest pain or shortness of breath, no nausea or vomiting, no abdominal pain, no hematuria or dysuria. Patient denies any sick contacts and no recent travel. Denies any contact with anyone with COVID- 19. Work-up in the emergency room today reveals slightly elevated troponin, elevated TSH, leukocytosis, elevated creatinine kinase and patient was also found to be in acute renal failure. Patient is being admitted with rhabdomyolysis, acute renal failure, hypothyroidism and elevated troponin. Patient was started on IV hydration and cardiology was consulted for elevated troponin. Nephrology consulted for rhabdomyolysis and BELKIS. 02/14/2020. Check Covid testing. Hold on restarting lisinopril for blood pressure given the acute renal failure. Start Procardia 60 mg twice daily. Rhabdomyolysis and kidney function improved with IV fluid hydration. Continue to monitor. PT evaluation for deconditioning. Await echocardiogram 02/15/2020. Patient with asymptomatic hypotension this morning with systolic blood pressure 84. Discontinue Procardia and hold lisinopril for now. Continue IV fluid hydration for acute renal failure/acute kidney injury/rhabdomyolysis. Nurse reports patient had coughing with eating. Speech therapy evaluation for swallow evaluation 02/16/2020. Hypotension has resolved and patient remains asymptomatic. Procardia and lisinopril discontinued. Tenuous IV fluid hydration for acute renal failure/acute kidney injury/rhabdomyolysis given positive Covid infection. Speech therapy reports no evidence of dysphagia. Continue dexamethasone 6 mg p.o. daily x10 days. Consider remdesivir if renal function improves. Await ID consultation. Transfer to [facility] given positive Covid. 02/16. Nephrology following for BELKIS. Bladder feels distended so we will get a bladder scan. Straight cath if more than [address] a Wyatt if patient co ntinues to retain.. Flomax if necessary. Continue dexamethasone. 02/17. Has urinary retention so a wyatt has been placed. Now on flomax. He will follow up with urology in the office after discharge. Renal function is better. Still requiring 15L of oxygen. 02/18. Renal function continues to improve-creatinine 1.0 today. Patient has been started on remdesivir. Oxygenation much better-now on 8 L of oxygen. He complains of 4 episodes of diarrhea this a.m. Ordered stool for C. difficile. Continue to monitor. 02/20/20 Patient is alert and oriented offers no specific complaints except feeling tired and mild dry cough. He denies shortness of breath, fever or chills States he had 2 loose bowel movements today. Lab results reviewed. ID and pulmonary notes reviewed 02/20 awake and alert, no specific complaints except weakness, also having intermittent diarrhea. Stool for C. difficile was ordered 2 days ago. yet to be collected. Discussed with RN. Lab results reviewed. Accu-Cheks reviewed. Poorly controlled / doing well, no complaints, PT note reviewed, oxygen saturation on room air at rest and ambulation results reviewed, patient is medically stable for discharge Follow-up with PCP and pulmonary Plan Acute hypoxic respiratory failure Weaned off nasal cannula pt sat on RA 97% pt sat with activity 93% Acute renal failure. Resolved Rhabdomyolysis. Resolved Elevated troponin - Likely demand ischemia Hypothyroidism. Continue Synthroid Sepsis - resolved UTI. Completed treatment Covid 19 pneumonia. Patient tested positive 02/15/2020. Unable to determine if COVID present on day of admission. Continue dexamethasone.x 10 days. Completed remdesivir course Decadron for 3 more days Diabetes mellitus type 2. Continue home medication Hypertension. Fair Continue present medications including amlodipine valsartan and hydralazine Urinary retention - Flomax. Maintain wyatt. Needs urology follow up at discharge Hypokalemia Improved Hypomagnesemia Magnesium supplemented Narrative exam: VITAL SIGNS: Reviewed. GENERAL: Awake HEAD: No signs of head trauma. EYES: Pupils are equal. EOMI NECK: No adenopathy, no JVD. CHEST: Clear to auscultation CARDIAC: Regular rate and rhythm ABDOMEN: Soft, non tender and non distended. MUSCULOSKELETAL: No edema NEUROLOGIC EXAM: Alert and oriented x3. No focal neurologic deficits SKIN: No obvious lesions Disposition: DC-01 TO HOME OR SELFCARE Core Measure Documentation - Palliative Care Palliative Care/ Comfort Measures: Not Applicable - Core Measures Any of the following diagnoses?: none Exam - Constitutional Vitals: Temp Pulse Resp BP Pulse Ox 97.8 F 65 20 127/57 92 02/22/20 10:14 02/22/20 10:14 02/22/20 10:14 02/22/20 10:14 02/22/20 12:30 Plan Activity: advance as tolerated Weight Bearing Status: Weight Bear as Tolerated Diet: regular, low fat, low cholesterol, low salt, diabetic Special Instructions: physical therapy (Home PT), occupational therapy (Home OT) Durable Medical Equipment Needed Upon Discharge: Walker-Rolling Follow up with: JONAH NORIEGA MD [Primary Care Provider] - 7 Days RIK MORAN MD [Staff Physician] - 10 Days GLEN MARKS MD [Staff Physician] - 7 Days Prescriptions: amLODIPine 10 mg PO QDAY #30 tablet hydrALAZINE [Apresoline TAB] 50 mg PO Q8HR #90 tablet dexAMETHasone [Decadron] 6 mg PO DAILY #3 tablet Valsartan [Diovan] 160 mg PO BID #60 tablet Tamsulosin [Flomax] 0.4 mg PO QDAY #30 capsule
[2020-02-22] MEDS ORDERED: POTASSIUM CHLORIDE ER 20 MEQ TAB PO SCH (13:30)
--- NOTE | 2020-02-22 14:08 | Progress Note ---
Assessment and Plan 54 y/o male with acute respiratory failure secondary to COVID 19 pneumonia. No objection to discharge. 1. Needs ambulatory walk test. If qualifies for home O2 please order. 2. Agree with steroids, will treat for a total of 10 days. 3. Renal function continues to improve 4. Martinez oliver, if oxygen is needed or not, would prepare patient for discharge in the next 12-36 hours. Can follow up in office with repeat walk test to see if oxygen is still needed if he ends up qualifying for it. Subjective Date of service: 02/22/20 Principal diagnosis: Acute kidney injury Interval history: Patient being discharged today. Weaned to room air at rest. Objective Vital Signs - 12hr 02/22/20 02/22/20 02/22/20 05:59 06:07 10:14 Temperature 98.1 F 97.8 F Pulse Rate 64 64 65 Respiratory 20 20 Rate Blood Pressure 143/66 143/66 127/57 O2 Sat by Pulse 95 92 Oximetry 02/22/20 12:30 Temperature Pulse Rate Respiratory Rate Blood Pressure O2 Sat by Pulse 92 Oximetry Constitutional: other (critically ill on HFNC) Eyes: non-icteric ENT: oropharynx moist Neck: supple Effort: normal Ascultation: Bilateral: clear Cardiovascular: regular rate and rhythm (no mrg) Gastrointestinal: normoactive bowel sounds, soft, non-tender Integumentary: normal Extremities: no cyanosis, no edema, pink and warm Neurologic: normal mental status, non-focal exam, pupils equal and round, CN II- XII normal Psychiatric: mood appropriate, affect normal CBC and BMP: 02/22/20 04:33 02/22/20 04:33 ABG, PT/INR, D-dimer: PT/INR, D-dimer PT 13.2 Sec. (12.2-14.9) 02/13/20 12:29 INR 1.01 (0.87-1.13) 02/13/20 12:29 D-Dimer 793.22 ng/mlDDU (0-234) H 02/15/20 10:48 Abnormal lab findings: Abnormal Labs 02/12/20 02/12/20 02/12/20 15:46 15:46 15:46 WBC 27.1 H RBC 3.37 L Hgb 10.3 L Hct 30.5 L Lymph % (Auto) [place] % (Auto) Lymph # (Auto) [place] # (Auto) Seg Neutrophils % Seg Neuts % (Manual) Lymphocytes % (Manual) 2.0 L Seg Neutrophils # Seg Neutrophils # Man 18.7 H Lymphocytes # (Manual) 0.5 L D-Dimer Sodium 133 L Potassium Chloride 93.1 L Carbon Dioxide 32 H BUN 59 H Creatinine 2.4 H Glucose POC Glucose Hemoglobin A1c Calcium 8.0 L Magnesium Ferritin AST 260 H ALT 65 H Alkaline Phosphatase Lactate Dehydrogenase Total Creatine Kinase 9691 H Troponin T 0.066 H C-Reactive Protein Total Protein Albumin 2.7 L Triglycerides 189 H HDL Cholesterol 34 L TSH 33.890 H Free T4 Urine WBC (Auto) Coronavirus (PCR) 02/12/20 02/12/20 02/13/20 17:42 Unknown 07:46 WBC RBC Hgb Hct Lymph % (Auto) [place] % (Auto) Lymph # (Auto) [place] # (Auto) Seg Neutrophils % Seg Neuts % (Manual) Lymphocytes % (Manual) Seg Neutrophils # Seg Neutrophils # Man Lymphocytes # (Manual) D-Dimer Sodium Potassium Chloride Carbon Dioxide BUN Creatinine Glucose POC Glucose 68 L Hemoglobin A1c Calcium Magnesium Ferritin AST ALT Alkaline Phosphatase Lactate Dehydrogenase Total Creatine Kinase Troponin T C-Reactive Protein Total Protein Albumin Triglycerides HDL Cholesterol TSH Free T4 0.74 L Urine WBC (Auto) 13.0 H Coronavirus (PCR) 02/13/20 02/13/20 02/13/20 11:38 12:29 12:29 WBC RBC 2.74 L Hgb 8.4 L Hct 24.7 L Lymph % (Auto) [place] % (Auto) Lymph # (Auto) [place] # (Auto) Seg Neutrophils % Seg Neuts % (Manual) 99.0 H Lymphocytes % (Manual) 1.0 L Seg Neutrophils # Seg Neutrophils # Man 10.6 H Lymphocytes # (Manual) 0.1 L D-Dimer Sodium Potassium Chloride Carbon Dioxide BUN 52 H Creatinine 1.7 H Glucose 121 H POC Glucose 134 H Hemoglobin A1c Calcium 7.4 L Magnesium Ferritin AST ALT Alkaline Phosphatase Lactate Dehydrogenase Total Creatine Kinase Troponin T C-Reactive Protein Total Protein Albumin Triglycerides HDL Cholesterol TSH Free T4 Urine WBC (Auto) Coronavirus (PCR) 02/13/20 02/14/20 02/14/20 12:29 07:38 07:38 WBC RBC 3.11 L Hgb 9.5 L Hct 28.0 L Lymph % (Auto) [place] % (Auto) Lymph # (Auto) [place] # (Auto) Seg Neutrophils % Seg Neuts % (Manual) 99.0 H Lymphocytes % (Manual) 1.0 L Seg Neutrophils # Seg Neutrophils # Man Lymphocytes # (Manual) 0.1 L D-Dimer Sodium Potassium 3.5 L Chloride Carbon Dioxide BUN 34 H Creatinine Glucose POC Glucose Hemoglobin A1c Calcium 7.5 L Magnesium Ferritin AST ALT Alkaline Phosphatase Lactate Dehydrogenase Total Creatine Kinase 6134 H 3825 H Troponin T 0.045 H D C-Reactive Protein Total Protein Albumin Triglycerides HDL Cholesterol TSH Free T4 Urine WBC (Auto) Coronavirus (PCR) 02/14/20 02/15/20 02/15/20 20:39 00:36 00:53 WBC RBC Hgb Hct Lymph % (Auto) [place] % (Auto) Lymph # (Auto) [place] # (Auto) Seg Neutrophils % Seg Neuts % (Manual) Lymphocytes % (Manual) Seg Neutrophils # Seg Neutrophils # Man Lymphocytes # (Manual) D-Dimer Sodium Potassium Chloride Carbon Dioxide BUN Creatinine Glucose POC Glucose 126 H 34 L 311 H Hemoglobin A1c Calcium Magnesium Ferritin AST ALT Alkaline Phosphatase Lactate Dehydrogenase Total Creatine Kinase Troponin T C-Reactive Protein Total Protein Albumin Triglycerides HDL Cholesterol TSH Free T4 Urine WBC (Auto) Coronavirus (PCR) 02/15/20 02/15/20 02/15/20 02:42 06:04 06:04 WBC RBC Hgb Hct Lymph % (Auto) [place] % (Auto) Lymph # (Auto) [place] # (Auto) Seg Neutrophils % Seg Neuts % (Manual) Lymphocytes % (Manual) Seg Neutrophils # Seg Neutrophils # Man Lymphocytes # (Manual) D-Dimer Sodium Potassium Chloride Carbon Dioxide BUN Creatinine Glucose POC Glucose 250 H Hemoglobin A1c 6.5 H Calcium Magnesium Ferritin AST ALT Alkaline Phosphatase Lactate Dehydrogenase Total Creatine Kinase 1923 H Troponin T C-Reactive Protein Total Protein Albumin Triglycerides HDL Cholesterol TSH Free T4 Urine WBC (Auto) Coronavirus (PCR) 02/15/20 02/15/20 02/15/20 08:21 10:19 10:48 WBC RBC Hgb Hct Lymph % (Auto) [place] % (Auto) Lymph # (Auto) [place] # (Auto) Seg Neutrophils % Seg Neuts % (Manual) Lymphocytes % (Manual) Seg Neutrophils # Seg Neutrophils # Man Lymphocytes # (Manual) D-Dimer Sodium Potassium 3.4 L Chloride 107.8 H Carbon Dioxide BUN 41 H Creatinine 2.5 H D Glucose 166 H POC Glucose 184 H Hemoglobin A1c Calcium 7.3 L Magnesium Ferritin AST ALT Alkaline Phosphatase Lactate Dehydrogenase Total Creatine Kinase Troponin T C-Reactive Protein Total Protein Albumin Triglycerides HDL Cholesterol TSH Free T4 Urine WBC (Auto) Coronavirus (PCR) Positive A 02/15/20 02/15/20 02/15/20 10:48 10:48 10:48 WBC RBC Hgb Hct Lymph % (Auto) [place] % (Auto) Lymph # (Auto) [place] # (Auto) Seg Neutrophils % Seg Neuts % (Manual) Lymphocytes % (Manual) Seg Neutrophils # Seg Neutrophils # Man Lymphocytes # (Manual) D-Dimer 793.22 H Sodium Potassium Chloride Carbon Dioxide BUN Creatinine Glucose POC Glucose Hemoglobin A1c Calcium Magnesium Ferritin 1480.0 H AST ALT Alkaline Phosphatase Lactate Dehydrogenase 400 H Total Creatine Kinase Troponin T C-Reactive Protein 18.20 H Total Protein Albumin Triglycerides HDL Cholesterol TSH Free T4 Urine WBC (Auto) Coronavirus (PCR) 02/15/20 02/15/20 02/15/20 12:16 17:26 20:51 WBC RBC Hgb Hct Lymph % (Auto) [place] % (Auto) Lymph # (Auto) [place] # (Auto) Seg Neutrophils % Seg Neuts % (Manual) Lymphocytes % (Manual) Seg Neutrophils # Seg Neutrophils # Man Lymphocytes # (Manual) D-Dimer Sodium Potassium Chloride Carbon Dioxide BUN Creatinine Glucose POC Glucose 129 H 167 H 110 H Hemoglobin A1c Calcium Magnesium Ferritin AST ALT Alkaline Phosphatase Lactate Dehydrogenase Total Creatine Kinase Troponin T C-Reactive Protein Total Protein Albumin Triglycerides HDL Cholesterol TSH Free T4 Urine WBC (Auto) Coronavirus (PCR) 02/16/20 02/16/20 02/16/20 05:42 05:42 08:33 WBC RBC 3.46 L Hgb 10.6 L Hct 31.7 L Lymph % (Auto) [place] % (Auto) Lymph # (Auto) [place] # (Auto) Seg Neutrophils % Seg Neuts % (Manual) 93.0 H Lymphocytes % (Manual) 2.0 L Seg Neutrophils # Seg Neutrophils # Man Lymphocytes # (Manual) 0.2 L D-Dimer Sodium Potassium Chloride Carbon Dioxide 19 L BUN 31 H Creatinine 2.6 H Glucose 274 H POC Glucose 240 H Hemoglobin A1c Calcium 7.4 L Magnesium Ferritin AST ALT Alkaline Phosphatase Lactate Dehydrogenase Total Creatine Kinase 1894 H Troponin T C-Reactive Protein Total Protein Albumin Triglycerides HDL Cholesterol TSH Free T4 Urine WBC (Auto) Coronavirus (PCR) 02/16/20 02/16/20 02/16/20 12:38 16:24 21:29 WBC RBC Hgb Hct Lymph % (Auto) [place] % (Auto) Lymph # (Auto) [place] # (Auto) Seg Neutrophils % Seg Neuts % (Manual) Lymphocytes % (Manual) Seg Neutrophils # Seg Neutrophils # Man Lymphocytes # (Manual) D-Dimer Sodium Potassium Chloride Carbon Dioxide BUN Creatinine Glucose POC Glucose 222 H 253 H 279 H Hemoglobin A1c Calcium Magnesium Ferritin AST ALT Alkaline Phosphatase Lactate Dehydrogenase Total Creatine Kinase Troponin T C-Reactive Protein Total Protein Albumin Triglycerides HDL Cholesterol TSH Free T4 Urine WBC (Auto) Coronavirus (PCR) 02/17/20 02/17/20 02/17/20 05:31 07:54 13:35 WBC RBC Hgb Hct Lymph % (Auto) [place] % (Auto) Lymph # (Auto) [place] # (Auto) Seg Neutrophils % Seg Neuts % (Manual) Lymphocytes % (Manual) Seg Neutrophils # Seg Neutrophils # Man Lymphocytes # (Manual) D-Dimer Sodium Potassium Chloride Carbon Dioxide BUN Creatinine Glucose POC Glucose 471 H 240 H Hemoglobin A1c Calcium Magnesium Ferritin AST ALT Alkaline Phosphatase Lactate Dehydrogenase Total Creatine Kinase 916 H Troponin T C-Reactive Protein Total Protein Albumin Triglycerides HDL Cholesterol TSH Free T4 Urine WBC (Auto) Coronavirus (PCR) 02/17/20 02/17/20 02/18/20 16:58 21:26 05:49 WBC RBC Hgb Hct Lymph % (Auto) [place] % (Auto) Lymph # (Auto) [place] # (Auto) Seg Neutrophils % Seg Neuts % (Manual) Lymphocytes % (Manual) Seg Neutrophils # Seg Neutrophils # Man Lymphocytes # (Manual) D-Dimer Sodium Potassium Chloride Carbon Dioxide BUN Creatinine Glucose POC Glucose 227 H 148 H Hemoglobin A1c Calcium Magnesium Ferritin AST ALT Alkaline Phosphatase Lactate Dehydrogenase Total Creatine Kinase 259 H Troponin T C-Reactive Protein Total Protein Albumin Triglycerides HDL Cholesterol TSH Free T4 Urine WBC (Auto) Coronavirus (PCR) 02/18/20 02/18/20 02/18/20 05:49 05:49 08:27 WBC RBC 3.51 L Hgb 10.5 L Hct 31.6 L Lymph % (Auto) [place] % (Auto) Lymph # (Auto) [place] # (Auto) Seg Neutrophils % Seg Neuts % (Manual) 91.0 H Lymphocytes % (Manual) Seg Neutrophils # Seg Neutrophils # Man Lymphocytes # (Manual) 0.0 L D-Dimer Sodium Potassium Chloride Carbon Dioxide 19 L BUN 42 H Creatinine 1.5 H Glucose 242 H POC Glucose 204 H Hemoglobin A1c Calcium 7.8 L Magnesium Ferritin AST 82 H ALT 57 H Alkaline Phosphatase 140 H Lactate Dehydrogenase Total Creatine Kinase Troponin T C-Reactive Protein Total Protein 4.9 L Albumin 2.3 L Triglycerides HDL Cholesterol TSH Free T4 Urine WBC (Auto) Coronavirus (PCR) 02/18/20 02/18/20 02/18/20 11:38 17:09 21:57 WBC RBC Hgb Hct Lymph % (Auto) [place] % (Auto) Lymph # (Auto) [place] # (Auto) Seg Neutrophils % Seg Neuts % (Manual) Lymphocytes % (Manual) Seg Neutrophils # Seg Neutrophils # Man Lymphocytes # (Manual) D-Dimer Sodium Potassium Chloride Carbon Dioxide BUN Creatinine Glucose POC Glucose 208 H 207 H 218 H Hemoglobin A1c Calcium Magnesium Ferritin AST ALT Alkaline Phosphatase Lactate Dehydrogenase Total Creatine Kinase Troponin T C-Reactive Protein Total Protein Albumin Triglycerides HDL Cholesterol TSH Free T4 Urine WBC (Auto) Coronavirus (PCR) 02/19/20 02/19/20 02/19/20 05:51 05:51 05:51 WBC RBC 3.48 L Hgb 10.3 L Hct 30.6 L Lymph % (Auto) [place] % (Auto) Lymph # (Auto) [place] # (Auto) Seg Neutrophils % Seg Neuts % (Manual) 87.0 H Lymphocytes % (Manual) 7.0 L Seg Neutrophils # Seg Neutrophils # Man 9.4 H Lymphocytes # (Manual) 0.8 L D-Dimer Sodium 136 L Potassium 3.0 L D Chloride Carbon Dioxide BUN 28 H Creatinine Glucose 214 H POC Glucose Hemoglobin A1c Calcium 7.8 L Magnesium Ferritin AST 66 H ALT Alkaline Phosphatase Lactate Dehydrogenase Total Creatine Kinase 174 H Troponin T C-Reactive Protein Total Protein 5.4 L Albumin 2.4 L Triglycerides HDL Cholesterol TSH Free T4 Urine WBC (Auto) Coronavirus (PCR) 02/19/20 02/19/20 02/19/20 07:47 12:12 13:50 WBC RBC Hgb Hct Lymph % (Auto) [place] % (Auto) Lymph # (Auto) [place] # (Auto) Seg Neutrophils % Seg Neuts % (Manual) Lymphocytes % (Manual) Seg Neutrophils # Seg Neutrophils # Man Lymphocytes # (Manual) D-Dimer Sodium Potassium Chloride Carbon Dioxide BUN Creatinine Glucose POC Glucose 179 H 144 H Hemoglobin A1c Calcium Magnesium 1.20 L Ferritin AST ALT Alkaline Phosphatase Lactate Dehydrogenase Total Creatine Kinase Troponin T C-Reactive Protein Total Protein Albumin Triglycerides HDL Cholesterol TSH Free T4 Urine WBC (Auto) Coronavirus (PCR) 02/19/20 02/19/20 02/20/20 17:16 22:38 04:10 WBC RBC Hgb Hct Lymph % (Auto) [place] % (Auto) Lymph # (Auto) [place] # (Auto) Seg Neutrophils % Seg Neuts % (Manual) Lymphocytes % (Manual) Seg Neutrophils # Seg Neutrophils # Man Lymphocytes # (Manual) D-Dimer Sodium Potassium 3.0 L Chloride Carbon Dioxide BUN 27 H Creatinine Glucose 185 H POC Glucose 269 H 281 H Hemoglobin A1c Calcium 7.8 L Magnesium 1.40 L Ferritin AST ALT Alkaline Phosphatase Lactate Dehydrogenase Total Creatine Kinase Troponin T C-Reactive Protein Total Protein Albumin Triglycerides HDL Cholesterol TSH Free T4 Urine WBC (Auto) Coronavirus (PCR) 02/20/20 02/20/20 02/20/20 04:10 04:10 07:50 WBC 15.2 H RBC 3.51 L Hgb 10.5 L Hct 30.9 L Lymph % (Auto) 2.6 L [place] % (Auto) Lymph # (Auto) 0.4 L [place] # (Auto) 1.1 H Seg Neutrophils % 90.1 H Seg Neuts % (Manual) Lymphocytes % (Manual) Seg Neutrophils # 13.7 H Seg Neutrophils # Man Lymphocytes # (Manual) D-Dimer Sodium Potassium 3.0 L Chloride Carbon Dioxide BUN 28 H Creatinine Glucose 183 H POC Glucose 159 H Hemoglobin A1c Calcium 7.8 L Magnesium Ferritin AST 45 H ALT Alkaline Phosphatase Lactate Dehydrogenase Total Creatine Kinase Troponin T C-Reactive Protein Total Protein 5.5 L Albumin 2.6 L Triglycerides HDL Cholesterol TSH Free T4 Urine WBC (Auto) Coronavirus (PCR) 02/20/20 02/20/20 02/20/20 11:26 16:30 21:58 WBC RBC Hgb Hct Lymph % (Auto) [place] % (Auto) Lymph # (Auto) [place] # (Auto) Seg Neutrophils % Seg Neuts % (Manual) Lymphocytes % (Manual) Seg Neutrophils # Seg Neutrophils # Man Lymphocytes # (Manual) D-Dimer Sodium Potassium Chloride Carbon Dioxide BUN Creatinine Glucose POC Glucose 177 H 266 H 312 H Hemoglobin A1c Calcium Magnesium Ferritin AST ALT Alkaline Phosphatase Lactate Dehydrogenase Total Creatine Kinase Troponin T C-Reactive Protein Total Protein Albumin Triglycerides HDL Cholesterol TSH Free T4 Urine WBC (Auto) Coronavirus (PCR) 02/21/20 02/21/20 02/21/20 04:58 04:58 08:00 WBC 12.5 H RBC 3.23 L Hgb 9.6 L Hct 29.2 L Lymph % (Auto) [place] % (Auto) Lymph # (Auto) [place] # (Auto) Seg Neutrophils % Seg Neuts % (Manual) 97.0 H Lymphocytes % (Manual) Seg Neutrophils # Seg Neutrophils # Man 12.1 H Lymphocytes # (Manual) 0.0 L D-Dimer Sodium 136 L Potassium Chloride Carbon Dioxide BUN 27 H Creatinine Glucose 270 H POC Glucose 255 H Hemoglobin A1c Calcium 7.6 L Magnesium Ferritin AST ALT Alkaline Phosphatase Lactate Dehydrogenase Total Creatine Kinase Troponin T C-Reactive Protein Total Protein Albumin Triglycerides HDL Cholesterol TSH Free T4 Urine WBC (Auto) Coronavirus (PCR) 02/21/20 02/21/20 02/21/20 11:46 16:55 22:51 WBC RBC Hgb Hct Lymph % (Auto) [place] % (Auto) Lymph # (Auto) [place] # (Auto) Seg Neutrophils % Seg Neuts % (Manual) Lymphocytes % (Manual) Seg Neutrophils # Seg Neutrophils # Man Lymphocytes # (Manual) D-Dimer Sodium Potassium Chloride Carbon Dioxide BUN Creatinine Glucose POC Glucose 203 H 218 H 206 H Hemoglobin A1c Calcium Magnesium Ferritin AST ALT Alkaline Phosphatase Lactate Dehydrogenase Total Creatine Kinase Troponin T C-Reactive Protein Total Protein Albumin Triglycerides HDL Cholesterol TSH Free T4 Urine WBC (Auto) Coronavirus (PCR) 02/22/20 02/22/20 02/22/20 04:33 04:33 11:54 WBC RBC 3.17 L Hgb 9.5 L Hct 28.1 L Lymph % (Auto) 4.9 L [place] % (Auto) 10.5 H Lymph # (Auto) 0.5 L [place] # (Auto) 1.1 H Seg Neutrophils % 84.5 H Seg Neuts % (Manual) Lymphocytes % (Manual) Seg Neutrophils # 9.3 H Seg Neutrophils # Man Lymphocytes # (Manual) D-Dimer Sodium Potassium 3.5 L Chloride Carbon Dioxide BUN 1 L Creatinine Glucose 112 H POC Glucose 66 L Hemoglobin A1c Calcium 7.7 L Magnesium Ferritin AST ALT Alkaline Phosphatase Lactate Dehydrogenase Total Creatine Kinase Troponin T C-Reactive Protein Total Protein Albumin Triglycerides HDL Cholesterol TSH Free T4 Urine WBC (Auto) Coronavirus (PCR)
== END 2020-02-22 16:30 | disposition home health service (06) | DRG 871 ==
LOC: ED 14:01 → 4A 22:40 → OBSVTOIN 22:40 → 4A 23:29 → 3A 02-16 17:59
PROVIDERS: ADMIT Internal Medicine Geriatric Medicine; ATTEND Internal Medicine
PROC: XW033E5 Introduction of Remdesivir Anti-infective into Peripheral Vein, Percutaneous Approach, New Technology Group 5 (ICD-10-PCS; principal; 2020-02-18)
DX: A41.89 Other specified sepsis (principal); U07.1 COVID-19; N17.0 Acute kidney failure with tubular necrosis; J96.01 Acute respiratory failure with hypoxia; I21.A1 Myocardial infarction type 2; J12.82 Pneumonia due to coronavirus disease 2019; M62.82 Rhabdomyolysis; N39.0 Urinary tract infection, site not specified; E11.9 Type 2 diabetes mellitus without complications; I10 Essential (primary) hypertension; K21.9 Gastro-esophageal reflux disease without esophagitis; F41.9 Anxiety disorder, unspecified; M19.90 Unspecified osteoarthritis, unspecified site; M54.9 Dorsalgia, unspecified; G89.29 Other chronic pain; Z90.49 Acquired absence of other specified parts of digestive tract; Z87.891 Personal history of nicotine dependence; E86.0 Dehydration; E03.9 Hypothyroidism, unspecified; E83.51 Hypocalcemia; D64.9 Anemia, unspecified; E87.6 Hypokalemia; E83.42 Hypomagnesemia; S20.409A Unspecified superficial injuries of unspecified back wall of thorax, initial encounter; W18.30XA Fall on same level, unspecified, initial encounter; Y93.89 Activity, other specified; Y92.89 Other specified places as the place of occurrence of the external cause
CPT/HCPCS: 36415; 70450; 71045; 76770; 80048; 80053; 80061; 80076; 80307; 80320; 81001; 82550; 82728; 82962; 83036; 83615; 83735; 84145; 84439; 84443; 84484; 85007; 85025; 85379; 85610; 86140; 87040; 87086; 90471; 93005; 94760; 96365; 96375; 96376; G0378; G0480; J0456; J0696; J1644; J1650; J1815; J1940; J2270; J2405; J3475; J3480; J7030; J7050; J8540; U0003

== ENCOUNTER 2020-09-02 14:58 | Inpatient (IN) | payer MEDICARE ==
[2020-09-02] MEDS ORDERED: SODIUM CHLORIDE 0.9% 500 ML 500 ML IV ONE (20:04)
--- NOTE | 2020-09-02 20:30 | XRay Report ---
CHEST 2 VIEWS INDICATION / CLINICAL INFORMATION: dizziness. COMPARISON: Radiographs dated 02/12/2020. FINDINGS: SUPPORT DEVICES: None. HEART / MEDIASTINUM: No significant abnormality. LUNGS / PLEURA: Patchy airspace opacity in the right middle lobe. No pneumothorax. ADDITIONAL FINDINGS: Cholecystectomy clips in the right upper quadrant. IMPRESSION: 1. Right middle lobe airspace opacity compatible with pneumonia. Signer Name: Weston Crawford MD Signed: 09/02/2020 8:26 PM Workstation Name: [id number]
[2020-09-02 20:32] LABS: Basophils % (Auto) 0.5 % (0.0-1.8); Eosinophils % (Auto) 0.5 % (0.0-4.3); Hematocrit 26.8 % (35.5-45.6); Hemoglobin 8.8 gm/dl (11.8-15.2); Lymphocytes # (Auto) 1.1 K/mm3 (1.2-5.4); Lymphocytes % (Auto) 12.1 % (13.4-35.0); Mean Corpuscular HGB Conc 33 % (32-34); Mean Corpuscular Volume 92 fl (84-94); Monocytes # (Auto) 0.9 K/mm3 (0.0-0.8); Monocytes % (Auto) 10.3 % (0.0-7.3); Platelet Count 226 K/mm3 (140-440); Red Blood Count 2.93 M/mm3 (3.65-5.03); Red Cell Distribution Width 14.7 % (13.2-15.2)
[2020-09-02 20:51] LABS: Albumin 3.4 g/dL (3.9-5)
[2020-09-02 21:03] LABS: Chol/HDL Ratio 3.73 %
[2020-09-02] MEDS ORDERED: SODIUM CHLORIDE 0.9% 1000 ML 1,000 ML IV ONE (21:07)
[2020-09-02] MEDS ORDERED: cefTRIAXone/NS 1 GM/50 ML 1 GM/50 ML BAG IV ONE (21:10)
--- NOTE | 2020-09-02 21:16 | Emergency Department Report ---
ED Dizziness HPI - General Chief Complaint: Dizziness Stated Complaint: ABD PAINS Time Seen by Provider: 09/02/20 19:47 Source: patient Mode of arrival: Ambulatory Limitations: No Limitations - History of Present Illness Initial Comments: Patient is a 55-year-old male with history of diabetes, GERD, hypertension, and HTN, who presents for Dizziness and lightheadedness x 2 days. pt denies fever or chills, no n/v,no chest pain, no diaphoresis, no sob, no productive cough. Symptoms are exacerbated by activity , symptoms are relieved by nothing, pt jose antonio ve self to ed , is currently ambulatory with with steady gait, denies numbness, paralysis, or extremity weakness . pt denies smoking MD Complaint: dizziness Onset/Timin -: days(s) Timing: gradual onset Severity: moderate Improves With: nothing Worsens With: exertion - Related Data Home Medications Medication Instructions Recorded Confirmed Last Taken Levothyroxine 100 mcg PO DAILY 02/12/20 02/12/20 Unknown Mupirocin 1 tab PO BID 02/12/20 02/13/20 Unknown Tramadol HCl/Acetaminophen 37.5 mg PO BID 02/12/20 02/13/20 Unknown Previous Rx's Medication Instructions Recorded Last Taken Type Ondansetron [Zofran ODT TAB] 8 mg PO Q8HR tab.rapdis 11/22/17 Unknown Rx Prochlorperazine [Compazine] 10 mg PO Q6HR PRN tablet 11/22/17 Unknown Rx Levothyroxine [Synthroid] 100 mcg PO 0600 tablet 02/22/20 Unknown Rx Tamsulosin [Flomax] 0.4 mg PO QDAY #30 capsule 02/22/20 Unknown Rx Valsartan [Diovan] 160 mg PO BID #60 tablet 02/22/20 Unknown Rx amLODIPine 10 mg PO QDAY #30 tablet 02/22/20 Unknown Rx dexAMETHasone [Decadron] 6 mg PO DAILY #3 tablet 02/22/20 Unknown Rx hydrALAZINE [Apresoline TAB] 50 mg PO Q8HR #90 tablet 02/22/20 Unknown Rx Allergies Allergy/AdvReac Type Severity Reaction Status Date / Time No Known Allergies Allergy Verified 08/16/18 11:38 ED Review of Systems ROS: Stated complaint: ABD PAINS Other details as noted in HPI Constitutional: malaise, other (fatigue ). denies: chills, fever Eyes: denies: eye pain, eye discharge, vision change ENT: denies: ear pain, throat pain Respiratory: denies: cough, shortness of breath, wheezing Cardiovascular: denies: chest pain, palpitations, dyspnea on exertion, syncope Endocrine: no symptoms reported Gastrointestinal: denies: abdominal pain, nausea, vomiting, diarrhea Genitourinary: denies: urgency, dysuria Musculoskeletal: as per HPI Skin: denies: rash, lesions Neurological: vertigo. denies: headache, weakness, numbness, paresthesias, confusion Psychiatric: denies: anxiety, depression Hematological/Lymphatic: denies: easy bleeding, easy bruising ED Past Medical Hx - Past Medical History Hx Hypertension: Yes Hx Congestive Heart Failure: No Hx Diabetes: Yes Hx GERD: Yes Hx Arthritis: Yes Hx Asthma: No Hx COPD: No Additional medical history: CHRONIC BACK PAIN/INJURY, anxiety - Surgical History Hx Cholecystectomy: Yes Hx Appendectomy: Yes Additional Surgical History: appendectomy - Social History Smoking Status: Never Smoker - Medications Home Medications: Home Medications Medication Instructions Recorded Confirmed Last Taken Type Ondansetron [Zofran ODT TAB] 8 mg PO Q8HR tab.rapdis 11/22/17 02/13/20 Unknown Rx Prochlorperazine [Compazine] 10 mg PO Q6HR PRN tablet 11/22/17 02/13/20 Unknown Rx Levothyroxine 100 mcg PO DAILY 02/12/20 02/12/20 Unknown History Mupirocin 1 tab PO BID 02/12/20 02/13/20 Unknown History Tramadol HCl/Acetaminophen 37.5 mg PO BID 02/12/20 02/13/20 Unknown History Levothyroxine [Synthroid] 100 mcg PO 0600 tablet 02/22/20 Unknown Rx Tamsulosin [Flomax] 0.4 mg PO QDAY #30 capsule 02/22/20 Unknown Rx Valsartan [Diovan] 160 mg PO BID #60 tablet 02/22/20 Unknown Rx amLODIPine 10 mg PO QDAY #30 tablet 02/22/20 Unknown Rx dexAMETHasone [Decadron] 6 mg PO DAILY #3 tablet 02/22/20 Unknown Rx hydrALAZINE [Apresoline TAB] 50 mg PO Q8HR #90 tablet 02/22/20 Unknown Rx ED Physical Exam - General Limitations: No Limitations General appearance: alert, in no apparent distress - Head Head exam: Present: atraumatic, normocephalic - Eye Eye exam: Present: normal appearance, PERRL, EOMI Pupils: Present: normal accommodation - ENT ENT exam: Present: mucous membranes moist - Neck Neck exam: Present: normal inspection, full ROM. Absent: tenderness - Respiratory Respiratory exam: Present: normal lung sounds bilaterally. Absent: respiratory distress, wheezes, stridor, chest wall tenderness - Cardiovascular Cardiovascular Exam: Present: normal rhythm, bradycardia, normal heart sounds - GI/Abdominal GI/Abdominal exam: Present: soft, normal bowel sounds. Absent: distended, te nderness, guarding, rebound, rigid, bruit, hernia - Rectal Rectal exam: Present: deferred - Extremities Exam Extremities exam: Present: normal inspection, full ROM, normal capillary refill. Absent: tenderness, pedal edema - Back Exam Back exam: Present: normal inspection, full ROM. Absent: CVA tenderness (R), CVA tenderness (L) - Neurological Exam Neurological exam: Present: alert, oriented X3, CN II-XII intact, normal gait, reflexes normal. Absent: motor sensory deficit - Expanded Neurological Exam Expanded Patient oriented to: Present: person, place, time Speech: Present: fluid speech Motor strength exam: RUE: 5, LUE: 5, RLE: 5, LLE: 5 Best Eye Response ([place]): (4) open spontaneously Best Motor Response (José Miguel): (6) obeys commands Best Verbal Response (José Miguel): (5) oriented José Miguel Total: 15 - Psychiatric Psychiatric exam: Present: normal affect, normal mood - Skin Skin exam: Present: warm, dry, intact, normal color. Absent: rash ED Course Vital Signs 09/02/20 17:01 Temperature 97.5 F L Pulse Rate 54 L Respiratory 18 Rate Blood Pressure 129/48 O2 Sat by Pulse 97 Oximetry ED Medical Decision Making - Lab Data Result diagrams: 09/02/20 20:17 09/02/20 20:17 - EKG Data EKG shows normal: sinus rhythm Rate: bradycardia - EKG Data When compared to previous EKG there are: no significant change Interpretation: no acute changes (SB no STEMI interp by ed attending) - Radiology Data Radiology results: report reviewed, image reviewed CHEST 2 VIEWS INDICATION / CLINICAL INFORMATION: dizziness. COMPARISON: Radiographs dated 02/12/2020. FINDINGS: SUPPORT DEVICES: None. HEART / MEDIASTINUM: No significant abnorma lity. LUNGS / PLEURA: Patchy airspace opacity in the right middle lobe. No pneumothorax. ADDITIONAL FINDINGS: Cholecystectomy clips in the right upper quadrant. IMPRESSION: 1. Right middle lobe airspace opacity compatible with pneumonia. Signer Name: Weston Crawford MD Signed: 09/02/2020 8:26 PM Workstation Name: [email or web address] Transcribed By: DB Dictated By: WESTON CRAWFORD MD Electronically Authenticated By: WESTON CRAWFORD MD Signed Date/Time: 09/02/202025 DD/ 23 TD/TT: - Medical Decision Making EKG sinus bradycardia no ST elevated MS interpreted by ED attending, troponin 0 0.074, chest x-ray right middle lobe opacity, creatinine 1.8, there is no chest pain, discussed case with ED attending, recommendation admit hospitalist diagnosis elevated troponin, discussed same with patient, patient verbalized agreement and understanding with treatment plan, Page hospitalist at this time with Hospitalist Dr. Carter, advised will return call for patient handoff, Critical care attestation.: If time is entered above; I have spent that time in minutes in the direct care of this critically ill patient, excluding procedure time. ED Disposition Clinical Impression: Elevated troponin CAP (community acquired pneumonia) Qualifiers: Laterality: right Lung location: middle lobe of lung Qualified Code(s): J18.9 - Pneumonia, unspecified organism Disposition: OP ADMIT IP TO THIS HOSP Is pt being admited?: Yes Does the pt Need Aspirin: No Condition: Stable Instructions: Bacterial Pneumonia (ED) Time of Disposition: 21:30
[2020-09-02] MEDS ORDERED: traMADol 50 MG TAB PO PRN (21:49)
[2020-09-02] MEDS ORDERED: MORPHINE 4 MG/1 ML INJ IV PRN (21:49)
[2020-09-02] MEDS ORDERED: NITROGLYCERIN 0.4 MG TAB SUBL SL PRN (21:49)
[2020-09-02] MEDS ORDERED: ACETAMINOPHEN 325 MG TAB PO PRN (21:49)
[2020-09-02] MEDS ORDERED: ACETAMINOPHEN PO SCH (22:00)
[2020-09-02] MEDS ORDERED: TRAMADOL HCL PO SCH (22:00)
--- NOTE | 2020-09-02 22:02 | History and Physical Report ---
History of Present Illness Date of examination: 09/02/20 Date of admission: 09/02/20 Chief complaint: Dizziness lightheadedness History of present illness: 55-year-old male with history of diabetes, GERD, hypertension, and HTN was brought to the emergency room because of dizziness and lightheadedness x 2 days. pt denies fever or chills, no n/v,no chest pain, no diaphoresis, no sob, no productive cough. Symptoms are exacerbated by activity , symptoms are relieved by nothing, pt drove self to ed , is currently ambulatory with with steady gait, denies numbness, paralysis, or extremity weakness . pt denies smoking In the emergency room patient is found to have elevated troponin 0.074. Chest x-ray compatible with right middle lobe pneumonia Past History Past Medical History: arthritis, diabetes, GERD, hypertension, other (Chronic back pain) Medications and Allergies Allergies Allergy/AdvReac Type Severity Reaction Status Date / Time No Known Allergies Allergy Verified 08/16/18 11:38 Home Medications Medication Instructions Recorded Confirmed Last Taken Type Ondansetron [Zofran ODT TAB] 8 mg PO Q8HR tab.rapdis 11/22/17 02/13/20 Unknown Rx Prochlorperazine [Compazine] 10 mg PO Q6HR PRN tablet 11/22/17 02/13/20 Unknown Rx Levothyroxine 100 mcg PO DAILY 02/12/20 02/12/20 Unknown History Mupirocin 1 tab PO BID 02/12/20 02/13/20 Unknown History Tramadol HCl/Acetaminophen 37.5 mg PO BID 02/12/20 02/13/20 Unknown History Levothyroxine [Synthroid] 100 mcg PO 0600 tablet 02/22/20 Unknown Rx Tamsulosin [Flomax] 0.4 mg PO QDAY #30 capsule 02/22/20 Unknown Rx Valsartan [Diovan] 160 mg PO BID #60 tablet 02/22/20 Unknown Rx amLODIPine 10 mg PO QDAY #30 tablet 02/22/20 Unknown Rx dexAMETHasone [Decadron] 6 mg PO DAILY #3 tablet 02/22/20 Unknown Rx hydrALAZINE [Apresoline TAB] 50 mg PO Q8HR #90 tablet 02/22/20 Unknown Rx Active Meds: Active Medications Acetaminophen (Acetaminophen 325 Mg Tab) 650 mg PO Q6H PRN PRN Reason: Pain, Mild (1-3) Amlodipine Besylate (Amlodipine 10 Mg Tab) 10 mg PO QDAY [facility] Aspirin (Aspirin Ec 325 Mg Tab) 325 mg PO QDAY [facility] Atorvastatin Calcium (Atorvastatin 40 Mg Tab) 40 mg PO QHS [facility] Dexamethasone (Dexamethasone 4 Mg Tab) 6 mg PO DAILY [facility] Heparin Sodium (Porcine) (Heparin 5,000 Unit/1 Ml Vial) 5,000 unit SUB-Q Q8HR [facility] Hydralazine HCl (Hydralazine 25 Mg Tab) 50 mg PO Q8HR [facility] Sodium Chloride (Nacl 0.9% 1000 Ml) 1,000 mls @ 999 mls/hr IV BOLUS ONE Stop: 09/02/20 22:07 Last Admin: 09/02/20 21:32 Dose: 999 mls/hr Documented by: Ceftriaxone Sodium (Rocephin/Ns 2 Gm/100 Ml) 2 gm in 100 mls @ 200 mls/hr IV Q24H RYAN; Protocol Azithromycin (Zithromax/Ns) 500 mg in 250 mls @ 250 mls/hr IV Q24H RYNA; Protocol Levothyroxine Sodium (Levothyroxine 100 Mcg Tab) 100 mcg PO 0600 [facility] Miscellaneous Medication (Tramadol Hcl/Acetaminophen) 37.5 mg PO BID [facility] Morphine Sulfate (Morphine 4 Mg/1 Ml Inj) 2 mg IV Q5MIN PRN PRN Reason: Chest Pain Nitroglycerin (Nitroglycerin 0.4 Mg Tab Subl) 0.4 mg SL Q5M PRN PRN Reason: Chest Pain Ondansetron HCl (Ondansetron 8 Mg Odt Tab) 8 mg PO Q8HR [facility] Pantoprazole Sodium (Pantoprazole 40 Mg Tab) 40 mg PO QDAY [facility] Sodium Chloride (Sodium Chloride 0.9% 10 Ml Flush Syringe) 10 ml IV PRN PRN PRN Reason: LINE FLUSH Tamsulosin HCl (Tamsulosin 0.4 Mg Cap) 0.4 mg PO QDAY [facility] Tramadol HCl (Tramadol 50 Mg Tab) 50 mg PO Q6H PRN PRN Reason: Pain, Moderate (4-6) Valsartan (Valsartan 160mg Tab) 160 mg PO BID [facility] Review of Systems Constitutional: other (Dizziness) Cardiovascular: lightheadedness, other Exam - Constitutional Vitals: Temp Pulse Resp BP Pulse Ox 97.5 F L 54 L 18 129/48 97 09/02/20 17:01 09/02/20 17:01 09/02/20 17:01 09/02/20 17:01 09/02/20 17:01 General appearance: Present: no acute distress, well-nourished - EENT Eyes: Present: PERRL ENT: hearing intact, clear oral mucosa - Neck Neck: Present: supple, normal ROM - Respiratory Respiratory effort: normal Respiratory: bilateral: diminished - Cardiovascular Heart Sounds: Present: S1 & S2. Absent: rub, click - Extremities Extremities: pulses symmetrical, No edema Peripheral Pulses: within normal limits - Abdominal General gastrointestinal: Present: soft, non-tender, non-distended, normal bowel sounds Male genitourinary: Present: normal - Integumentary Integumentary: Present: clear, warm, dry - Musculoskeletal Musculoskeletal: gait normal, strength equal bilaterally - Psychiatric Psychiatric: appropriate mood/affect, intact judgment & insight - Neurologic Neurologic: CNII-XII intact, moves all extremities HEART Score - HEART Score Troponin: Troponin T 0.074 ng/mL (0.00-0.029) H 09/02/20 20:17 Results - Labs CBC & Chem 7: 09/02/20 20:17 09/02/20 20:17 Labs: Laboratory Last Values WBC 8.7 K/mm3 (4.5-11.0) 09/02/20 20:17 RBC 2.93 M/mm3 (3.65-5.03) L 09/02/20 20:17 Hgb 8.8 gm/dl (11.8-15.2) L 09/02/20 20:17 Hct 26.8 % (35.5-45.6) L 09/02/20 20:17 MCV 92 fl (84-94) 09/02/20 20:17 MCH 30 pg (28-32) 09/02/20 20:17 MCHC 33 % (32-34) 09/02/20 20:17 RDW 14.7 % (13.2-15.2) 09/02/20 20:17 Plt Count 226 K/mm3 (140-440) 09/02/20 20:17 Lymph % (Auto) 12.1 % (13.4-35.0) L 09/02/20 20:17 [place] % (Auto) 10.3 % (0.0-7.3) H 09/02/20 20:17 Eos % (Auto) 0.5 % (0.0-4.3) 09/02/20 20:17 Baso % (Auto) 0.5 % (0.0-1.8) 09/02/20 20:17 Lymph # (Auto) 1.1 K/mm3 (1.2-5.4) L 09/02/20 20:17 [place] # (Auto) 0.9 K/mm3 (0.0-0.8) H 09/02/20 20:17 Eos # (Auto) 0.0 K/mm3 (0.0-0.4) 09/02/20 20:17 Baso # (Auto) 0.0 K/mm3 (0.0-0.1) 09/02/20 20:17 Seg Neutrophils % 76.6 % (40.0-70.0) H 09/02/20 20:17 Seg Neutrophils # 6.7 K/mm3 (1.8-7.7) 09/02/20 20:17 Sodium 139 mmol/L (137-145) 09/02/20 20:17 Potassium 4.6 mmol/L (3.6-5.0) 09/02/20 20:17 Chloride 100.6 mmol/L (98-107) 09/02/20 20:17 Carbon Dioxide 28 mmol/L (22-30) 09/02/20 20:17 Anion Gap 15 mmol/L 09/02/20 20:17 BUN 22 mg/dL (9-20) H 09/02/20 20:17 Creatinine 1.8 mg/dL (0.8-1.3) H 09/02/20 20:17 Estimated GFR 39 ml/min 09/02/20 20:17 BUN/Creatinine Ratio 12 % 09/02/20 20:17 Glucose 227 mg/dL (75-100) H 09/02/20 20:17 Lactic Acid 1.00 mmol/L (0.7-2.0) 09/02/20 21:15 Calcium 9.0 mg/dL (8.4-10.2) 09/02/20 20:17 Total Bilirubin 0.20 mg/dL (0.1-1.2) 09/02/20 20:17 AST 11 units/L (5-40) 09/02/20 20:17 ALT 7 units/L (7-56) 09/02/20 20:17 Alkaline Phosphatase 84 units/L (35-129) 09/02/20 20:17 Troponin T 0.074 ng/mL (0.00-0.029) H 09/02/20 20:17 Total Protein 6.9 g/dL (6.3-8.2) 09/02/20 20:17 Albumin 3.4 g/dL (3.9-5) L 09/02/20 20:17 Albumin/Globulin Ratio 1.0 % 09/02/20 20:17 Triglycerides 88 mg/dL (2-149) 09/02/20 20:17 Cholesterol 172 mg/dL (50-199) 09/02/20 20:17 LDL Cholesterol Direct 119 mg/dL (50-130) 09/02/20 20:17 HDL Cholesterol 46 mg/dL (40-59) 09/02/20 20:17 Cholesterol/HDL Ratio 3.73 % 09/02/20 20:17 - Imaging and Cardiology Chest x-ray: report reviewed Assessment and Plan VTE prophylaxis?: Chemical Plan of care discussed with patient/family: Yes - Patient Problems (1) ACS (acute coronary syndrome) Current Visit: No Status: Acute Plan to address problem: Admit the patient to the medical telemetry. Aspirin 325 mg p.o. daily. Lipitor 40 mg p.o. daily. Nitroglycerin as needed. Serial cardiac enzyme. Echocardiogram. Reconsult cardiology (2) CAP (community acquired pneumonia) Current Visit: Yes Status: Acute Qualifiers: Laterality: right Lung location: middle lobe of lung Qualified Code(s): J18.9 - Pneumonia, unspecified organism Plan to address problem: Oxygen per nasal cannula 3 L/min. DuoNeb by nebulizer every 4 hours. Rocephin 2 g IV daily. Zithromax 500 IV daily. We will do the blood cultures sputum culture. Recheck CBC in the morning (3) Acute renal failure Current Visit: No Status: Acute Qualifiers: Acute renal failure type: unspecified Qualified Code(s): N17.9 - Acute kidney failure, unspecified Plan to address problem: Avoid nephrotoxic drug. We will monitor the renal function closely. Renally dose medication. Recheck BMP in the morning (4) Diabetes Current Visit: No Status: Acute Plan to address problem: 1800 kcal ADA diet. We will put the patient on insulin sliding scale moderate dose and diabetic education. Repeat BMP in the morning (5) Diastolic CHF Current Visit: No Status: Acute Qualifiers: Heart failure chronicity: acute Qualified Code(s): I50.31 - Acute diastolic (congestive) heart failure Plan to address problem: Stable. We will monitor the patient closely. We continue the home medication. Echocardiogram. Cardiology consult (6) HTN (hypertension) Current Visit: No Status: Acute Plan to address problem: Hydralazine 50 mg p.o. every 8 hours. Valsartan 160 mg p.o. twice daily. We will monitor the blood pressure closely (7) DVT prophylaxis Current Visit: No Status: Acute Plan to address problem: Heparin 5000 units subcu every 8 hours for DVT prophylaxis. Protonix 40 mg p.o. daily for GI prophylaxis. Patient is a full code
[2020-09-02] MEDS ORDERED: DEXTROSE 50% IN WATER (25GM) 50 ML SYRINGE IV PRN (22:09)
[2020-09-02 23:47] LABS: Basophils # (Auto) 0.1 K/mm3 (0.0-0.1); Basophils % (Auto) 0.7 % (0.0-1.8); Eosinophils # (Auto) 0.1 K/mm3 (0.0-0.4); Eosinophils % (Auto) 1.3 % (0.0-4.3); Hematocrit 26.1 % (35.5-45.6); Hemoglobin 8.5 gm/dl (11.8-15.2); Lymphocytes # (Auto) 1.4 K/mm3 (1.2-5.4); Lymphocytes % (Auto) 15.6 % (13.4-35.0); Mean Corpuscular HGB Conc 33 % (32-34); Mean Corpuscular Volume 92 fl (84-94); Monocytes # (Auto) 0.9 K/mm3 (0.0-0.8); Monocytes % (Auto) 9.9 % (0.0-7.3); Platelet Count 261 K/mm3 (140-440); Red Blood Count 2.84 M/mm3 (3.65-5.03); Red Cell Distribution Width 14.8 % (13.2-15.2)
[2020-09-03 00:06] LABS: Calcium 8.2 mg/dL (8.4-10.2)
[2020-09-03] MEDS: ONDANSETRON 8 MG ODT TAB PO SCH ×4 (02:03→21:38)
[2020-09-03] MEDS: AZITHROMYCIN/NS 500 MG/250 ML 500 MG/250 ML BAG IV SCH (02:32)
[2020-09-03] MEDS ORDERED: hydrALAZINE 20 MG/1 ML INJ IV PRN (02:53)
[2020-09-03] MEDS: LEVOTHYROXINE 100 MCG TAB PO SCH (06:15)
[2020-09-03] MEDS: HEPARIN 5,000 UNIT/1 ML VIAL SUB-Q SCH ×4 (06:16→23:43)
[2020-09-03] MEDS: hydrALAZINE 25 MG TAB PO SCH ×4 (06:16→23:43)
[2020-09-03 06:32] LABS: Basophils # (Auto) 0.1 K/mm3 (0.0-0.1); Basophils % (Auto) 0.7 % (0.0-1.8); Eosinophils # (Auto) 0.2 K/mm3 (0.0-0.4); Eosinophils % (Auto) 2.2 % (0.0-4.3); Hematocrit 24.9 % (35.5-45.6); Hemoglobin 8.3 gm/dl (11.8-15.2); Lymphocytes # (Auto) 1.2 K/mm3 (1.2-5.4); Lymphocytes % (Auto) 15.4 % (13.4-35.0); Mean Corpuscular HGB Conc 33 % (32-34); Mean Corpuscular Volume 90 fl (84-94); Monocytes # (Auto) 0.8 K/mm3 (0.0-0.8); Monocytes % (Auto) 9.7 % (0.0-7.3); Platelet Count 242 K/mm3 (140-440); Red Blood Count 2.77 M/mm3 (3.65-5.03); Red Cell Distribution Width 14.3 % (13.2-15.2)
[2020-09-03 06:55] LABS: Calcium 8.1 mg/dL (8.4-10.2)
[2020-09-03] MEDS: INSULIN LISPRO 100 UNIT/ML SUB-Q SCH ×4 (08:28→21:40)
--- NOTE | 2020-09-03 10:18 | Electrocardiograph Report ---
[facility] Test Date: 2020-09-02 Test Time: 17:13:04 Pat Name: LETTY MUNOZ Department: Room: A477 1 Gender: M Handbook Writer: OLGA : 1965 Requested By: ARMIN CHINO Order Number: [id number] Reading MD: Devon Bear Measurements Intervals [place] Rate: 58 P: 83 UT: 144 QRS: 62 QRSD: 83 T: 69 QT: 464 QTc: 456 Interpretive Statements Sinus bradycardia Supraventricular bigeminy No previous ECG available for comparison Electronically Signed On 09-03-2020 10:18:03 EDT by Devon Bear
--- NOTE | 2020-09-03 10:24 | Electrocardiograph Report ---
[facility] Test Date: 2020-09-03 Test Time: 07:39:20 Pat Name: LETTY MUNOZ Department: Room: A477 1 Gender: M [employer] Supervisor: HARJIT : 1965 Requested By: FREDRICK QUIÑONES Order Number: [id number] Reading MD: Devon Bear Measurements Intervals [place] Rate: 57 P: 81 ID: [id number] QRS: 55 QRSD: 96 T: 65 QT: 470 QTc: 457 Interpretive Statements Sinus rhythm Supraventricular bigeminy Compared to ECG 09/02/2020 17:13:04 Sinus bradycardia no longer present Electronically Signed On 09-03-2020 10:24:44 EDT by Devon Bear
[2020-09-03] MEDS: ASPIRIN EC 325 MG TAB PO SCH (13:19)
[2020-09-03] MEDS: TAMSULOSIN 0.4 MG CAP PO SCH (13:19)
[2020-09-03] MEDS: amLODIPine 10 MG TAB PO SCH (13:20)
[2020-09-03] MEDS: VALSARTAN 160MG TAB PO SCH ×3 (13:20→23:43)
[2020-09-03] MEDS: PANTOPRAZOLE 40 MG TAB PO SCH (13:32)
--- NOTE | 2020-09-03 13:41 | Consultation ---
History of Present Illness Consult date: 09/03/20 Consult reason: chest pain History of present illness: The patient is a 55-year-old man with a history of chronic anemia and chronic hypertension. His outpatient follow-up with medications and doctor visits is questionable. Two years ago, he underwent stress thallium and echo tests for atypical chest pain, both of which were negative. Left ventricular ejection fraction was 60 to 65%. He is admitted to the hospital at this time with primary complaints of intermittent lightheadedness and dizziness for 2 days. On presentation here, his systolic blood pressure was in the 200s, and remains persistently elevated. There was no exertional chest pain, no shortness of breath, no palpitations. There is no lower extremity edema. ECG on presentation is a sinus bradycardia in the high 50s, no ischemic changes. Laboratory values show a hematocrit of 24-26, consistent with his chronic anemia. The TSH was elevated at 4.7. The troponin was borderline at 0.05, unchanged on serial measurements. Past History Past Medical History: anemia, arthritis, diabetes, GERD, hypertension, other (Chronic back pain) Medications and Allergies Allergies Allergy/AdvReac Type Severity Reaction Status Date / Time No Known Allergies Allergy Verified 08/16/18 11:38 Home Medications Medication Instructions Recorded Confirmed Last Taken Type Ondansetron [Zofran ODT TAB] 8 mg PO Q8HR tab.rapdis 11/22/17 02/13/20 Unknown Rx Prochlorperazine [Compazine] 10 mg PO Q6HR PRN tablet 11/22/17 02/13/20 Unknown Rx Levothyroxine 100 mcg PO DAILY 02/12/20 02/12/20 Unknown History Mupirocin 1 tab PO BID 02/12/20 02/13/20 Unknown History Tramadol HCl/Acetaminophen 37.5 mg PO BID 02/12/20 02/13/20 Unknown History Levothyroxine [Synthroid] 100 mcg PO 0600 tablet 02/22/20 Unknown Rx Tamsulosin [Flomax] 0.4 mg PO QDAY #30 capsule 02/22/20 Unknown Rx Valsartan [Diovan] 160 mg PO BID #60 tablet 02/22/20 Unknown Rx amLODIPine 10 mg PO QDAY #30 tablet 02/22/20 Unknown Rx dexAMETHasone [Decadron] 6 mg PO DAILY #3 tablet 02/22/20 Unknown Rx hydrALAZINE [Apresoline TAB] 50 mg PO Q8HR #90 tablet 02/22/20 Unknown Rx Active Meds: Active Medications Acetaminophen (Acetaminophen 325 Mg Tab) 650 mg PO Q6H PRN PRN Reason: Pain, Mild (1-3) Amlodipine Besylate (Amlodipine 10 Mg Tab) 10 mg PO QDAY [facility] Last Admin: 09/03/20 13:20 Dose: 10 mg Documented by: Aspirin (Aspirin Ec 325 Mg Tab) 325 mg PO QDAY [facility] Last Admin: 09/03/20 13:19 Dose: 325 mg Documented by: Atorvastatin Calcium (Atorvastatin 40 Mg Tab) 40 mg PO QHS [facility] Dexamethasone (Dexamethasone 4 Mg Tab) 6 mg PO DAILY [facility] Dextrose (Dextrose 50% In Water (25gm) 50 Ml Syringe) 50 ml IV Q30MIN PRN; Protocol PRN Reason: Hypoglycemia Heparin Sodium (Porcine) (Heparin 5,000 Unit/1 Ml Vial) 5,000 unit SUB-Q Q8HR [facility] Last Admin: 09/03/20 13:29 Dose: 5,000 unit Documented by: Hydralazine HCl (Hydralazine 25 Mg Tab) 50 mg PO Q8HR [facility] Last Admin: 09/03/20 13:39 Dose: 50 mg Documented by: Hydralazine HCl (Hydralazine 20 Mg/1 Ml Inj) 10 mg IV Q6HR PRN PRN Reason: Blood Pressure Last Admin: 09/03/20 03:04 Dose: 10 mg Documented by: Ceftriaxone Sodium (Rocephin/Ns 2 Gm/100 Ml) 2 gm in 100 mls @ 200 mls/hr IV Q24H [facility]; Protocol Azithromycin (Zithromax/Ns) 500 mg in 250 mls @ 250 mls/hr IV Q24H [facility]; Protocol Last Admin: 09/03/20 02:32 Dose: 250 mls/hr Documented by: Insulin Human Lispro (Insulin Lispro 100 Unit/Ml) 0 unit SUB-Q ACHS [facility]; Protocol Last Admin: 09/03/20 12:00 Dose: Not Given Documented by: Levothyroxine Sodium (Levothyroxine 100 Mcg Tab) 100 mcg PO 0600 [facility] Last Admin: 09/03/20 06:15 Dose: 100 mcg Documented by: Morphine Sulfate (Morphine 4 Mg/1 Ml Inj) 2 mg IV Q5MIN PRN PRN Reason: Chest Pain Nitroglycerin (Nitroglycerin 0.4 Mg Tab Subl) 0.4 mg SL Q5M PRN PRN Reason: Chest Pain Ondansetron HCl (Ondansetron 8 Mg Odt Tab) 8 mg PO Q8HR [facility] Last Admin: 09/03/20 06:15 Dose: 8 mg Documented by: Pantoprazole Sodium (Pantoprazole 40 Mg Tab) 40 mg PO QDAY [facility] Last Admin: 09/03/20 13:32 Dose: 40 mg Documented by: Sodium Chloride (Sodium Chloride 0.9% 10 Ml Flush Syringe) 10 ml IV PRN PRN PRN Reason: LINE FLUSH Tamsulosin HCl (Tamsulosin 0.4 Mg Cap) 0.4 mg PO QDAY [facility] Last Admin: 09/03/20 13:19 Dose: 0.4 mg Documented by: Tramadol HCl (Tramadol 50 Mg Tab) 50 mg PO Q6H PRN PRN Reason: Pain, Moderate (4-6) Valsartan (Valsartan 160mg Tab) 160 mg PO BID [facility] Last Admin: 09/03/20 13:20 Dose: 160 mg Documented by: Review of Systems Cardiovascular: lightheadedness, no chest pain, no orthopnea, no palpitations, no rapid/irregular heart beat, no edema, no syncope, no shortness of breath Physical Examination Vital Signs Temp Pulse Resp BP Pulse Ox 97.5 F L 54 L 18 129/48 97 09/02/20 17:01 09/02/20 17:01 09/02/20 17:01 09/02/20 17:01 09/02/20 17:01 General appearance: no acute distress HEENT: Positive: PERRL Neck: Positive: neck supple Cardiac: Positive: Reg Rate and Rhythm Lungs: Positive: clear to auscultation Neuro: Positive: Grossly Intact Abdomen: Positive: Soft Male genitourinary: Positive: deferred Skin: Positive: Clear Extremities: Absent: edema Results 09/03/20 06:02 09/03/20 06:02 Cardiac Enzymes 09/02/20 Range/Units 20:17 AST 11 (5-40) units/L Lipids 09/02/20 Range/Units 20:17 Triglycerides 88 (2-149) mg/dL Cholesterol 172 (50-199) mg/dL HDL Cholesterol 46 (40-59) mg/dL Cholesterol/HDL Ratio 3.73 % CBC 09/02/20 09/02/20 09/03/20 Range/Units 20:17 23:28 06:02 WBC 8.7 9.1 8.1 (4.5-11.0) K/mm3 RBC 2.93 L 2.84 L 2.77 L (3.65-5.03) M/mm3 Hgb 8.8 L 8.5 L 8.3 L (11.8-15.2) gm/dl Hct 26.8 L 26.1 L 24.9 L (35.5-45.6) % Plt Count 226 261 242 (140-440) K/mm3 Lymph # (Auto) 1.1 L 1.4 1.2 (1.2-5.4) K/mm3 Bibb # (Auto) 0.9 H 0.9 H 0.8 (0.0-0.8) K/mm3 Eos # (Auto) 0.0 0.1 0.2 (0.0-0.4) K/mm3 Baso # (Auto) 0.0 0.1 0.1 (0.0-0.1) K/mm3 Comprehensive Metabolic Panel 09/02/20 09/02/20 09/03/20 Range/Units 20:17 23:28 06:02 Sodium 139 137 136 L (137-145) mmol/L Potassium 4.6 4.3 4.2 (3.6-5.0) mmol/L Chloride 100.6 102.8 104.7 (98-107) mmol/L Carbon Dioxide 28 25 23 (22-30) mmol/L BUN 22 H 21 H 18 (9-20) mg/dL Creatinine 1.8 H 1.6 H 1.5 H (0.8-1.3) mg/dL Glucose 227 H 123 H 107 H (75-100) mg/dL Calcium 9.0 8.2 L 8.1 L (8.4-10.2) mg/dL AST 11 (5-40) units/L ALT 7 (7-56) units/L Alkaline Phosphatase 84 (35-129) units/L Total Protein 6.9 (6.3-8.2) g/dL Albumin 3.4 L (3.9-5) g/dL EKG interpretations - Telemetry EKG Rhythm: Sinus Bradycardia Assessment and Plan - Patient Problems (1) Dizziness Current Visit: Yes Status: Acute Plan to address problem: Patient presents with dizziness, lightheadedness associated with severe uncontrolled hypertension. There are no palpitations. There is no anginal type chest pain, no other cardiac complaints. On presentation, he has a sinus bradycardia 57. His TSH is mildly elevated, suggesting an underlying mild hypothyroidism. Etiology of his presenting dizziness and lightheadedness may be symptoms of uncontrolled hypertension, but we need to continue telemetry monitoring for possible cardiac bradycardia arrhythmias. An echocardiogram done today shows normal left ventricular systolic function with ejection fraction 60 to 65%. We will make recommendations for optimal blood pressure control and management. We will defer to internal medicine for further work-up and management of the possible hypothyroid state, and his chronic anemia. Otherwise conservative cardiac management and follow-up.
[2020-09-03] MEDS: DEXAMETHASONE 4 MG TAB PO SCH (14:33)
[2020-09-03] MEDS: cefTRIAXone/NS 2 GM/100 ML 2 GM/100 ML BAG IV SCH (14:33)
--- NOTE | 2020-09-03 14:57 | Progress Note ---
Assessment and Plan Assessment and plan: Is a 55-year-old male who presents with dizziness and near syncope. All symptoms have resolved at this time, work-up for ACS is pending - Patient Problems (1) ACS (acute coronary syndrome) Current Visit: No Status: Acute Plan to address problem: Cardiology consulted Echocardiogram pending Elevated troponins (2) CAP (community acquired pneumonia) Current Visit: Yes Status: Acute Qualifiers: Laterality: right Lung location: middle lobe of lung Qualified Code(s): J18.9 - Pneumonia, unspecified organism Plan to address problem: Continue Rocephin and Zithromax Blood cultures are pending Urinary tract infection Patient currently on ceftriaxone Urine cultures pending (3) Acute renal failure Current Visit: No Status: Acute Qualifiers: Acute renal failure type: unspecified Qualified Code(s): N17.9 - Acute kidney failure, unspecified Plan to address problem: Avoid nephrotoxic drug. We will monitor the renal function closely. Renally dose medication. Recheck BMP in the morning (4) Diabetes Current Visit: No Status: Acute Plan to address problem: Insulin sliding scale (5) Diastolic CHF Current Visit: No Status: Acute Qualifiers: Heart failure chronicity: acute Qualified Code(s): I50.31 - Acute diastolic (congestive) heart failure Plan to address problem: (6) HTN (hypertension) Current Visit: No Status: Acute Plan to address problem: Hydralazine 50 mg p.o. every 8 hours. Valsartan 160 mg p.o. twice daily. We will monitor the blood pressure closely (7) DVT prophylaxis Current Visit: No Status: Acute Plan to address problem: Heparin 5000 units subcu every 8 hours for DVT prophylaxis. Protonix 40 mg p.o. daily for GI prophylaxis. Patient is a full code History Interval history: 09/03/2020: Patient eating, no shortness of breath, states that all symptoms have resolved. Hospitalist Physical - Physical exam Narrative exam: General appearance: no acute distress, thin EENT: PERRL, EOM intact, hearing intact, clear oral mucosa Neck: Present: supple, normal ROM Respiratory: bilateral CTA, negative: rales, rhonchi, wheezing Cardiovascular: Regular rate/rhythm, Normal S1 & S2. No gallop, rub Extremities: no ischemia, No edema, normal temperature, normal color, Full ROM Abdominal: soft, no tenderness, non-distended, normal bowel sounds Integumentary: Present: clear, warm, dry no wounds, no erythema noted Psychiatric: appropriate mood/affect, intact judgment & insight Neurologic: CNII-XII intact, moves all extremities, no sensory or motor abnormalities - Constitutional Vitals: Temp Pulse Resp BP Pulse Ox 97.9 F 60 16 156/70 97 09/03/20 11:18 09/03/20 13:39 09/03/20 11:18 09/03/20 13:39 09/03/20 13:30 General appearance: Present: no acute distress, well-nourished HEART Score - HEART Score Troponin: Troponin T 0.051 ng/mL (0.00-0.029) H 09/03/20 06:02 Results - Labs CBC & Chem 7: 09/03/20 06:02 09/03/20 06:02 Labs: Laboratory Last Values WBC 8.1 K/mm3 (4.5-11.0) 09/03/20 06:02 RBC 2.77 M/mm3 (3.65-5.03) L 09/03/20 06:02 Hgb 8.3 gm/dl (11.8-15.2) L 09/03/20 06:02 Hct 24.9 % (35.5-45.6) L 09/03/20 06:02 MCV 90 fl (84-94) 09/03/20 06:02 MCH 30 pg (28-32) 09/03/20 06:02 MCHC 33 % (32-34) 09/03/20 06:02 RDW 14.3 % (13.2-15.2) 09/03/20 06:02 Plt Count 242 K/mm3 (140-440) 09/03/20 06:02 Lymph % (Auto) 15.4 % (13.4-35.0) 09/03/20 06:02 Whitley % (Auto) 9.7 % (0.0-7.3) H 09/03/20 06:02 Eos % (Auto) 2.2 % (0.0-4.3) 09/03/20 06:02 Baso % (Auto) 0.7 % (0.0-1.8) 09/03/20 06:02 Lymph # (Auto) 1.2 K/mm3 (1.2-5.4) 09/03/20 06:02 Whitley # (Auto) 0.8 K/mm3 (0.0-0.8) 09/03/20 06:02 Eos # (Auto) 0.2 K/mm3 (0.0-0.4) 09/03/20 06:02 Baso # (Auto) 0.1 K/mm3 (0.0-0.1) 09/03/20 06:02 Seg Neutrophils % 72.0 % (40.0-70.0) H 09/03/20 06:02 Seg Neutrophils # 5.9 K/mm3 (1.8-7.7) 09/03/20 06:02 Sodium 136 mmol/L (137-145) L 09/03/20 06:02 Potassium 4.2 mmol/L (3.6-5.0) 09/03/20 06:02 Chloride 104.7 mmol/L (98-107) 09/03/20 06:02 Carbon Dioxide 23 mmol/L (22-30) 09/03/20 06:02 Anion Gap 13 mmol/L 09/03/20 06:02 BUN 18 mg/dL (9-20) 09/03/20 06:02 Creatinine 1.5 mg/dL (0.8-1.3) H 09/03/20 06:02 Estimated GFR 48 ml/min 09/03/20 06:02 BUN/Creatinine Ratio 12 % 09/03/20 06:02 Glucose 107 mg/dL (75-100) H 09/03/20 06:02 POC Glucose 110 mg/dL (70-105) H 09/03/20 11:15 Lactic Acid 1.00 mmol/L (0.7-2.0) 09/02/20 21:15 Calcium 8.1 mg/dL (8.4-10.2) L 09/03/20 06:02 Total Bilirubin 0.20 mg/dL (0.1-1.2) 09/02/20 20:17 AST 11 units/L (5-40) 09/02/20 20:17 ALT 7 units/L (7-56) 09/02/20 20:17 Alkaline Phosphatase 84 units/L (35-129) 09/02/20 20:17 Troponin T 0.051 ng/mL (0.00-0.029) H 09/03/20 06:02 Total Protein 6.9 g/dL (6.3-8.2) 09/02/20 20:17 Albumin 3.4 g/dL (3.9-5) L 09/02/20 20:17 Albumin/Globulin Ratio 1.0 % 09/02/20 20:17 Triglycerides 88 mg/dL (2-149) 09/02/20 20:17 Cholesterol 172 mg/dL (50-199) 09/02/20 20:17 LDL Cholesterol Direct 119 mg/dL (50-130) 09/02/20 20:17 HDL Cholesterol 46 mg/dL (40-59) 09/02/20 20:17 Cholesterol/HDL Ratio 3.73 % 09/02/20 20:17 TSH 4.710 mlU/mL (0.270-4.200) H 09/02/20 21:28 Microbiology: Microbiology 09/02/20 21:15 Peripheral/Venous Blood Culture - Preliminary Culture in Progress 09/02/20 21:15 Peripheral/Venous Blood Culture - Preliminary Culture in Progress Active Medications - Current Medications Current Medications: Generic Name Dose Route Start Last Admin Trade Name Freq PRN Reason Stop Dose Admin Acetaminophen 650 mg 09/02/20 21:49 Acetaminophen 325 Mg Tab PO Q6H PRN Pain, Mild (1-3) Amlodipine Besylate 10 mg 09/03/20 10:00 09/03/20 13:20 Amlodipine 10 Mg Tab PO 10 mg QDAY [facility] Administration Aspirin 325 mg 09/03/20 10:00 09/03/20 13:19 Aspirin Ec 325 Mg Tab PO 325 mg QDAY [facility] Administration Atorvastatin Calcium 40 mg 09/02/20 22:00 Atorvastatin 40 Mg Tab PO QHS [facility] Dexamethasone 6 mg 09/03/20 10:00 09/03/20 14:33 Dexamethasone 4 Mg Tab PO 6 mg DAILY [facility] Administration Dextrose 50 ml 09/02/20 22:09 Dextrose 50% In Water (25gm) 50 Ml Syringe IV Q30MIN PRN Hypoglycemia Protocol Heparin Sodium (Porcine) 5,000 unit 09/02/20 22:00 09/03/20 13:29 Heparin 5,000 Unit/1 Ml Vial SUB-Q 5,000 unit Q8HR [facility] Administration Hydralazine HCl 50 mg 09/02/20 22:00 09/03/20 13:39 Hydralazine 25 Mg Tab PO 50 mg Q8HR [facility] Administration Hydralazine HCl 10 mg 09/03/20 02:53 09/03/20 03:04 Hydralazine 20 Mg/1 Ml Inj IV 10 mg Q6HR PRN Administration Blood Pressure Ceftriaxone Sodium 2 gm in 100 mls @ 200 mls/hr 09/03/20 10:00 09/03/20 14:33 Rocephin/Ns 2 Gm/100 Ml IV 200 mls/hr Q24H [facility] Administration Protocol Azithromycin 500 mg in 250 mls @ 250 mls/hr 09/02/20 22:00 09/03/20 02:32 Zithromax/Ns IV 250 mls/hr Q24H [facility] Administration Protocol Insulin Human Lispro 0 unit 09/03/20 07:30 09/03/20 12:00 Insulin Lispro 100 Unit/Ml SUB-Q Not Given ACHS [facility] Protocol Levothyroxine Sodium 100 mcg 09/03/20 06:00 09/03/20 06:15 Levothyroxine 100 Mcg Tab PO 100 mcg 0600 [facility] Administration Morphine Sulfate 2 mg 09/02/20 21:49 Morphine 4 Mg/1 Ml Inj IV Q5MIN PRN Chest Pain Nitroglycerin 0.4 mg 09/02/20 21:49 Nitroglycerin 0.4 Mg Tab Subl SL Q5M PRN Chest Pain Ondansetron HCl 8 mg 09/02/20 22:00 09/03/20 14:33 Ondansetron 8 Mg Odt Tab PO 8 mg Q8HR [facility] Administration Pantoprazole Sodium 40 mg 09/03/20 10:00 09/03/20 13:32 Pantoprazole 40 Mg Tab PO 40 mg QDAY [facility] Administration Sodium Chloride 10 ml 09/02/20 21:49 Sodium Chloride 0.9% 10 Ml Flush Syringe IV PRN PRN LINE FLUSH Tamsulosin HCl 0.4 mg 09/03/20 10:00 09/03/20 13:19 Tamsulosin 0.4 Mg Cap PO 0.4 mg QDAY [facility] Administration Tramadol HCl 50 mg 09/02/20 21:49 Tramadol 50 Mg Tab PO Q6H PRN Pain, Moderate (4-6) Valsartan 160 mg 09/02/20 22:00 09/03/20 13:20 Valsartan 160mg Tab PO 160 mg BID [facility] Administration Nutrition/Malnutrition Assess - Dietary Evaluation Nutrition/Malnutrition Findings: Nutrition Notes Start: 09/03/20 12:00 Freq: Status: Active Protocol: Document 09/03/20 12:00 YAIMA (Rec: 09/03/20 12:04 [email or web address] [id number]) Nutrition Notes Need for Assessment generated from: MD Order,Education Initial or Follow up Brief Note Current Diagnosis Acute Kidney Injury,Diabetes, Hypertension,Heart Failure Other Pertinent Diagnosis CAP Current Diet NPO Labs/Tests BP 217/82 Subjective/Other Information MD consult for diet education. Pt accpeted HTN education. Pt reports eating fried food often. Pt is trying to gain weight and he does not want ONS. Pt open to double protein portions when diet advances. #1 Nutrition Diagnosis Food and nutrition-related knowledge deficit Etiology no prior HTN diet education As Evidenced by Signs and Symptoms pt had questions about high Na foods Nutrition Intervention Teaching Recipient Patient Learning Readiness Good Teaching Methods Discussion,Handout Response to Teaching Verbalize understanding Education Handouts Provided HTN Nutrition Therapy Barriers to Learning No Barriers RD phone number provided Yes Patient aware of follow up options Yes Revisit per MD consult or patient Sign Off request:
[2020-09-03 18:49] LABS: Bacteria,Urine 1+ /HPF (Negative); Bilirubin,Urine NEG (Negative); Blood,Urine MOD (Negative); Color,Urine Straw (Yellow); Mucus,Urine FEW /HPF; Urobilinogen,Urine < 2.0 mg/dL (<2.0)
[2020-09-04] MEDS: AZITHROMYCIN/NS 500 MG/250 ML 500 MG/250 ML BAG IV SCH ×2 (01:03→22:05)
[2020-09-04] MEDS: hydrALAZINE 25 MG TAB PO SCH ×3 (05:59→22:09)
[2020-09-04] MEDS: LEVOTHYROXINE 100 MCG TAB PO SCH (05:59)
[2020-09-04] MEDS: ONDANSETRON 8 MG ODT TAB PO SCH ×3 (05:59→22:08)
[2020-09-04] MEDS: HEPARIN 5,000 UNIT/1 ML VIAL SUB-Q SCH ×3 (06:00→22:11)
[2020-09-04] MEDS: INSULIN LISPRO 100 UNIT/ML SUB-Q SCH ×4 (08:21→22:24)
[2020-09-04] MEDS: amLODIPine 10 MG TAB PO SCH (09:04)
[2020-09-04] MEDS: ASPIRIN EC 325 MG TAB PO SCH (09:04)
[2020-09-04] MEDS: VALSARTAN 160MG TAB PO SCH ×2 (09:04→22:09)
[2020-09-04] MEDS: TAMSULOSIN 0.4 MG CAP PO SCH (09:04)
[2020-09-04] MEDS: PANTOPRAZOLE 40 MG TAB PO SCH (09:05)
--- NOTE | 2020-09-04 09:50 | Progress Note ---
Assessment and Plan Assessment and plan: Is a 55-year-old male who presents with dizziness and near syncope. All symptoms have resolved at this time, work-up for ACS is pending - Patient Problems ACS (acute coronary syndrome), ruled out Current Visit: No Status: Acute Plan to address problem: Cardiology consulted, conservative management for now, watch for severe bradycardia. Echocardiogram normal EF Elevated troponins CAP (community acquired pneumonia) Current Visit: Yes Status: Acute Qualifiers: Laterality: right Lung location: middle lobe of lung Qualified Code(s): J18.9 - Pneumonia, unspecified organism Plan to address problem: Continue Rocephin and Zithromax Blood cultures are no growth to date Urinary tract infection Patient currently on ceftriaxone Urine cultures pending Acute kidney injury secondary to dehydration Current Visit: No Status: Acute Qualifiers: Acute renal failure type: unspecified Qualified Code(s): N17.9 - Acute kidney failure, unspecified Plan to address problem: Avoid nephrotoxic drug. We will monitor the renal function closely. Renally dose medication. Recheck BMP in the morning Continue fluids, resolving Diabetes Current Visit: No Status: Acute Plan to address problem: Insulin sliding scale HTN (hypertension) Current Visit: No Status: Acute Plan to address problem: Hydralazine 50 mg p.o. every 8 hours. Valsartan 160 mg p.o. twice daily. Amlodipine 10 mg daily Urinary retention Flomax DVT prophylaxis Current Visit: No Status: Acute Plan to address problem: Heparin 5000 units subcu every 8 hours for DVT prophylaxis. Protonix 40 mg p.o. daily for GI prophylaxis. Patient is a full code Disposition: Patient without any symptoms, will defer to cardiology if patient needs a temporary cardiac monitoring device or if patient can just be discharged home with follow-up. History Interval history: 09/03/2020: Patient eating, no shortness of breath, states that all symptoms have resolved. 09/04/2020: Patient eating, no shortness of breath or syncopal episodes, patient walking around. Telemetry stated patient's lowest heart rate was 53 bpm overnight. Hospitalist Physical - Physical exam Narrative exam: General appearance: no acute distress, thin EENT: PERRL, EOM intact, hearing intact, clear oral mucosa Neck: Present: supple, normal ROM Respiratory: bilateral CTA, negative: rales, rhonchi, wheezing Cardiovascular: Regular rate/rhythm, Normal S1 & S2. No gallop, rub Extremities: no ischemia, No edema, normal temperature, normal color, Full ROM Abdominal: soft, no tenderness, non-distended, normal bowel sounds Integumentary: Present: clear, warm, dry no wounds, no erythema noted Psychiatric: appropriate mood/affect, intact judgment & insight Neurologic: CNII-XII intact, moves all extremities, no sensory or motor abnormalities - Constitutional Vitals: Temp Pulse Resp BP Pulse Ox 97.1 F L 71 18 94/52 97 09/04/20 08:25 09/04/20 09:04 09/04/20 08:25 09/04/20 09:04 09/04/20 08:25 HEART Score - HEART Score Troponin: Troponin T 0.051 ng/mL (0.00-0.029) H 09/03/20 06:02 Results - Labs CBC & Chem 7: 09/03/20 06:02 09/03/20 06:02 Labs: Laboratory Last Values WBC 8.1 K/mm3 (4.5-11.0) 09/03/20 06:02 RBC 2.77 M/mm3 (3.65-5.03) L 09/03/20 06:02 Hgb 8.3 gm/dl (11.8-15.2) L 09/03/20 06:02 Hct 24.9 % (35.5-45.6) L 09/03/20 06:02 MCV 90 fl (84-94) 09/03/20 06:02 MCH 30 pg (28-32) 09/03/20 06:02 MCHC 33 % (32-34) 09/03/20 06:02 RDW 14.3 % (13.2-15.2) 09/03/20 06:02 Plt Count 242 K/mm3 (140-440) 09/03/20 06:02 Lymph % (Auto) 15.4 % (13.4-35.0) 09/03/20 06:02 [place] % (Auto) 9.7 % (0.0-7.3) H 09/03/20 06:02 Eos % (Auto) 2.2 % (0.0-4.3) 09/03/20 06:02 Baso % (Auto) 0.7 % (0.0-1.8) 09/03/20 06:02 Lymph # (Auto) 1.2 K/mm3 (1.2-5.4) 09/03/20 06:02 [place] # (Auto) 0.8 K/mm3 (0.0-0.8) 09/03/20 06:02 Eos # (Auto) 0.2 K/mm3 (0.0-0.4) 09/03/20 06:02 Baso # (Auto) 0.1 K/mm3 (0.0-0.1) 09/03/20 06:02 Seg Neutrophils % 72.0 % (40.0-70.0) H 09/03/20 06:02 Seg Neutrophils # 5.9 K/mm3 (1.8-7.7) 09/03/20 06:02 Sodium 136 mmol/L (137-145) L 09/03/20 06:02 Potassium 4.2 mmol/L (3.6-5.0) 09/03/20 06:02 Chloride 104.7 mmol/L (98-107) 09/03/20 06:02 Carbon Dioxide 23 mmol/L (22-30) 09/03/20 06:02 Anion Gap 13 mmol/L 09/03/20 06:02 BUN 18 mg/dL (9-20) 09/03/20 06:02 Creatinine 1.5 mg/dL (0.8-1.3) H 09/03/20 06:02 Estimated GFR 48 ml/min 09/03/20 06:02 BUN/Creatinine Ratio 12 % 09/03/20 06:02 Glucose 107 mg/dL (75-100) H 09/03/20 06:02 POC Glucose 173 mg/dL (70-105) H 09/04/20 07:32 Lactic Acid 1.00 mmol/L (0.7-2.0) 09/02/20 21:15 Calcium 8.1 mg/dL (8.4-10.2) L 09/03/20 06:02 Total Bilirubin 0.20 mg/dL (0.1-1.2) 09/02/20 20:17 AST 11 units/L (5-40) 09/02/20 20:17 ALT 7 units/L (7-56) 09/02/20 20:17 Alkaline Phosphatase 84 units/L (35-129) 09/02/20 20:17 Troponin T 0.051 ng/mL (0.00-0.029) H 09/03/20 06:02 Total Protein 6.9 g/dL (6.3-8.2) 09/02/20 20:17 Albumin 3.4 g/dL (3.9-5) L 09/02/20 20:17 Albumin/Globulin Ratio 1.0 % 09/02/20 20:17 Triglycerides 88 mg/dL (2-149) 09/02/20 20: Cholesterol 172 mg/dL (50-199) 09/02/20 20:17 LDL Cholesterol Direct 119 mg/dL (50-130) 09/02/20 20:17 HDL Cholesterol 46 mg/dL (40-59) 09/02/20 20:17 Cholesterol/HDL Ratio 3.73 % 09/02/20 20:17 TSH 4.710 mlU/mL (0.270-4.200) H 09/02/20 21:28 Urine Color Straw (Yellow) 09/03/20 18:32 Urine Turbidity Clear (Clear) 09/03/20 18:32 Urine pH 6.0 (5.0-7.0) 09/03/20 18:32 Ur Specific [place] 1.005 (1.003-1.030) 09/03/20 18:32 Urine Protein 100 mg/dl mg/dL (Negative) 09/03/20 18:32 Urine Glucose (UA) Neg mg/dL (Negative) 09/03/20 18:32 Urine Ketones Neg mg/dL (Negative) 09/03/20 18:32 Urine Blood Mod (Negative) 09/03/20 18:32 Urine Nitrite Neg (Negative) 09/03/20 18:32 Urine Bilirubin Neg (Negative) 09/03/20 18:32 Urine Urobilinogen < 2.0 mg/dL (<2.0) 09/03/20 18:32 Ur Leukocyte Esterase Lg (Negative) 09/03/20 18:32 Urine WBC (Auto) 27.0 /HPF (0.0-6.0) H 09/03/20 18:32 Urine RBC (Auto) 7.0 /HPF (0.0-6.0) 09/03/20 18:32 Urine Bacteria (Auto) 1+ /HPF (Negative) 09/03/20 18:32 Urine Mucus Few /HPF 09/03/20 18:32 Urine Yeast (Budding) Few /HPF 09/03/20 18:32 Microbiology: Microbiology 09/02/20 21:15 Peripheral/Venous Blood Culture - Preliminary NO GROWTH AFTER 24 HOURS 09/02/20 21:15 Peripheral/Venous Blood Culture - Preliminary NO GROWTH AFTER 24 HOURS Webb/IV: Voiding Method Urinal Active Medications - Current Medications Current Medications: Generic Name Dose Route Start Last Admin Trade Name Freq PRN Reason Stop Dose Admin Acetaminophen 650 mg 09/02/20 21:49 Acetaminophen 325 Mg Tab PO Q6H PRN Pain, Mild (1-3) Amlodipine Besylate 10 mg 09/03/20 10:00 09/04/20 09:04 Amlodipine 10 Mg Tab PO Not Given QDAY RYAN Aspirin 325 mg 09/03/20 10:00 09/04/20 09:04 Aspirin Ec 325 Mg Tab PO 325 mg QDAY RYAN Administration Atorvastatin Calcium 40 mg 09/02/20 22:00 09/03/20 23:44 Atorvastatin 40 Mg Tab PO Not Given QHS RYAN Dexamethasone 6 mg 09/03/20 10:00 09/03/20 14:33 Dexamethasone 4 Mg Tab PO 09/05/20 10:01 6 mg DAILY RYAN Administration Dextrose 50 ml 09/02/20 22:09 Dextrose 50% In Water (25gm) 50 Ml Syringe IV Q30MIN PRN Hypoglycemia Protocol Heparin Sodium (Porcine) 5,000 unit 09/02/20 22:00 09/04/20 06:00 Heparin 5,000 Unit/1 Ml Vial SUB-Q 5,000 unit Q8HR RYAN Administration Hydralazine HCl 50 mg 09/02/20 22:00 09/04/20 05:59 Hydralazine 25 Mg Tab PO 50 mg Q8HR RYAN Administration Hydralazine HCl 10 mg 09/03/20 02:53 09/03/20 03:04 Hydralazine 20 Mg/1 Ml Inj IV 10 mg Q6HR PRN Administration Blood Pressure Ceftriaxone Sodium 2 gm in 100 mls @ 200 mls/hr 09/03/20 10:00 09/03/20 14:33 Rocephin/Ns 2 Gm/100 Ml IV 200 mls/hr Q24H RYAN Administration Protocol Azithromycin 500 mg in 250 mls @ 250 mls/hr 09/02/20 22:00 09/04/20 01:03 Zithromax/Ns IV 250 mls/hr Q24H RYAN Administration Protocol Insulin Human Lispro 0 unit 09/03/20 07:30 09/04/20 08:21 Insulin Lispro 100 Unit/Ml SUB-Q 2 unit ACHS RYAN Administration Protocol Levothyroxine Sodium 100 mcg 09/03/20 06:00 09/04/20 05:59 Levothyroxine 100 Mcg Tab PO 100 mcg 0600 RYAN Administration Morphine Sulfate 2 mg 09/02/20 21:49 Morphine 4 Mg/1 Ml Inj IV Q5MIN PRN Chest Pain Nitroglycerin 0.4 mg 09/02/20 21:49 Nitroglycerin 0.4 Mg Tab Subl SL Q5M PRN Chest Pain Ondansetron HCl 8 mg 09/02/20 22:00 09/04/20 05:59 Ondansetron 8 Mg Odt Tab PO 8 mg Q8HR RYAN Administration Pantoprazole Sodium 40 mg 09/03/20 10:00 09/04/20 09:05 Pantoprazole 40 Mg Tab PO 40 mg QDAY RYAN Administration Sodium Chloride 10 ml 09/02/20 21:49 Sodium Chloride 0.9% 10 Ml Flush Syringe IV PRN PRN LINE FLUSH Tamsulosin HCl 0.4 mg 09/03/20 10:00 09/04/20 09:04 Tamsulosin 0.4 Mg Cap PO 0.4 mg QDAY RYAN Administration Tramadol HCl 50 mg 09/02/20 21:49 Tramadol 50 Mg Tab PO Q6H PRN Pain, Moderate (4-6) Valsartan 160 mg 09/02/20 22:00 09/04/20 09:04 Valsartan 160mg Tab PO Not Given BID [facility] Nutrition/Malnutrition Assess - Dietary Evaluation Nutrition/Malnutrition Findings: Nutrition Notes Start: 09/03/20 12:00 Freq: Status: Active Protocol: Document 09/03/20 12:00 YAIMA (Rec: 09/03/20 12:04 YAIMA [id number]) Nutrition Notes Need for Assessment generated from: MD Order,Education Initial or Follow up Brief Note Current Diagnosis Acute Kidney Injury,Diabetes, Hypertension,Heart Failure Other Pertinent Diagnosis CAP Current Diet NPO Labs/Tests BP 217/82 Subjective/Other Information MD consult for diet education. Pt accpeted HTN education. Pt reports eating fried food often. Pt is trying to gain weight and he does not want ONS. Pt open to double protein portions when diet advances. #1 Nutrition Diagnosis Food and nutrition-related knowledge deficit Etiology no prior HTN diet education As Evidenced by Signs and Symptoms pt had questions about high Na foods Nutrition Intervention Teaching Recipient Patient Learning Readiness Good Teaching Methods Discussion,Handout Response to Teaching Verbalize understanding Education Handouts Provided HTN Nutrition Therapy Barriers to Learning No Barriers RD phone number provided Yes Patient aware of follow up options Yes Revisit per MD consult or patient Sign Off request:
[2020-09-04] MEDS: cefTRIAXone/NS 2 GM/100 ML 2 GM/100 ML BAG IV SCH (11:10)
[2020-09-04] MEDS: DEXAMETHASONE 4 MG TAB PO SCH (11:11)
[2020-09-04 11:31] LABS: Calcium 8.8 mg/dL (8.4-10.2)
--- NOTE | 2020-09-04 13:11 | Progress Note ---
Assessment and Plan - Patient Problems (1) Dizziness Current Visit: Yes Status: Acute Plan to address problem: Symptoms of headache and dizziness have resolved following optimal blood pressure control. Echocardiogram done on this presentation showed normal left ventricular systolic function, no acute cardiac issues, stable for cardiac discharge. We have recommended outpatient cardiac follow-up in 3 to 5 days post discharge. Subjective Date of service: 09/04/20 Interval history: Patient is comfortable, no chest pain, no cardiac complaints, looks and feels better. Blood pressure is much better controlled on current regimen of valsartan and amlodipine. Objective Vital Signs Temp Pulse Resp BP BP Pulse Ox 09/04/20 10:58 98.4 F 69 18 114/61 94 09/04/20 10:00 65 09/04/20 09:04 71 94/52 09/04/20 08:28 94/52 09/04/20 08:25 97.1 F L 71 18 64/45 97 09/04/20 08:10 97.4 F L 62 20 103/33 97 09/04/20 04:15 97.9 F 69 18 129/64 94 09/04/20 01:30 97.8 F 62 18 90/37 96 09/03/20 22:54 20 09/03/20 20:52 97.6 F 70 18 106/69 98 09/03/20 20:47 98.2 F 54 L 16 94/46 90 09/03/20 20:35 70 09/03/20 15:58 98.6 F 61 16 107/42 97 09/03/20 13:39 60 156/70 09/03/20 13:30 60 156/70 97 09/03/20 13:20 62 136/52 09/03/20 13:18 62 - Physical Examination HEENT: Positive: PERRL Neck: Positive: neck supple Cardiac: Positive: Reg Rate and Rhythm Lungs: Positive: Decreased Breath Sounds Neuro: Positive: Grossly Intact Abdomen: Positive: Soft Skin: Positive: Clear Extremities: Absent: edema - Labs and Meds Comprehensive Metabolic Panel 09/04/20 Range/Units 11:03 Sodium 134 L (137-145) mmol/L Potassium 5.4 H D (3.6-5.0) mmol/L Chloride 99.0 (98-107) mmol/L Carbon Dioxide 27 (22-30) mmol/L BUN 25 H (9-20) mg/dL Creatinine 2.2 H (0.8-1.3) mg/dL Glucose 166 H (75-100) mg/dL Calcium 8.8 (8.4-10.2) mg/dL
[2020-09-04] MEDS ORDERED: SODIUM POLYSTYRENE 15 GM/60 ML ORAL LIQD PO ONE (14:00)
[2020-09-04] MEDS: SODIUM CHLORIDE 0.9% 1000 ML 1,000 ML IV SCH (15:05)
[2020-09-04] MEDS: METOPROLOL SUCCINATE XL 25 MG TAB PO SCH (17:10)
[2020-09-05] MEDS: SODIUM CHLORIDE 0.9% 1000 ML 1,000 ML IV SCH (02:23)
[2020-09-05] MEDS: hydrALAZINE 25 MG TAB PO SCH ×2 (06:00→14:12)
[2020-09-05] MEDS: LEVOTHYROXINE 100 MCG TAB PO SCH (06:01)
[2020-09-05] MEDS: HEPARIN 5,000 UNIT/1 ML VIAL SUB-Q SCH ×2 (06:01→14:12)
[2020-09-05] MEDS: ONDANSETRON 8 MG ODT TAB PO SCH ×2 (06:04→14:13)
[2020-09-05] MEDS: INSULIN LISPRO 100 UNIT/ML SUB-Q SCH ×3 (08:49→17:16)
[2020-09-05 09:41] LABS: Calcium 8.5 mg/dL (8.4-10.2)
--- NOTE | 2020-09-05 09:49 | Progress Note ---
Assessment and Plan Assessment and plan: Is a 55-year-old male who presents with dizziness and near syncope. All symptoms have resolved at this time, work-up for ACS is pending - Patient Problems ACS (acute coronary syndrome), ruled out Current Visit: No Status: Acute Plan to address problem: Cardiology consulted, conservative management for now, watch for severe bradycardia. Echocardiogram normal EF Elevated troponins CAP (community acquired pneumonia) Current Visit: Yes Status: Acute Qualifiers: Laterality: right Lung location: middle lobe of lung Qualified Code(s): J18.9 - Pneumonia, unspecified organism Plan to address problem: Continue Rocephin and Zithromax Blood cultures are no growth to date Hypomagnesia Slight, start p.o. magnesium Urinary tract infection Patient currently on ceftriaxone Urine cultures pending Acute kidney injury secondary to dehydration, resolved Current Visit: No Status: Acute Qualifiers: Acute renal failure type: unspecified Qualified Code(s): N17.9 - Acute kidney failure, unspecified Plan to address problem: Avoid nephrotoxic drug. We will monitor the renal function closely. Renally dose medication. Diabetes Current Visit: No Status: Acute Plan to address problem: Insulin sliding scale HTN (hypertension) Current Visit: No Status: Acute Plan to address problem: Hydralazine 50 mg p.o. every 8 hours. Valsartan 160 mg p.o. twice daily. Amlodipine 10 mg daily Urinary retention Flomax DVT prophylaxis Current Visit: No Status: Acute Plan to address problem: Heparin 5000 units subcu every 8 hours for DVT prophylaxis. Protonix 40 mg p.o. daily for GI prophylaxis. Patient is a full code Disposition: Patient doing well, DC patient when cleared by cardiology History Interval history: 09/03/2020: Patient eating, no shortness of breath, states that all symptoms have resolved. 09/04/2020: Patient eating, no shortness of breath or syncopal episodes, patient walking around. Telemetry stated patient's lowest heart rate was 53 bpm overnight. 09/05/2020: Patient states that he is feeling better, no chest pain shortness of breath. Patient did have 13 beats of V. tach last night, patient was started on metoprolol per cardiology. No additional V. tach overnight. Labs have improved with fluids. Hospitalist Physical - Physical exam Narrative exam: General appearance: no acute distress, thin EENT: PERRL, EOM intact, hearing intact, clear oral mucosa Neck: Present: supple, normal ROM Respiratory: bilateral CTA, negative: rales, rhonchi, wheezing Cardiovascular: Regular rate/rhythm, Normal S1 & S2. No gallop, rub Extremities: no ischemia, No edema, normal temperature, normal color, Full ROM Abdominal: soft, no tenderness, non-distended, normal bowel sounds Integumentary: Present: clear, warm, dry no wounds, no erythema noted Psychiatric: appropriate mood/affect, intact judgment & insight Neurologic: CNII-XII intact, moves all extremities, no sensory or motor abnormalities - Constitutional Vitals: Temp Pulse Resp BP Pulse Ox 96.8 F L 60 18 111/54 97 09/05/20 09:08 09/05/20 09:00 09/05/20 05:31 09/05/20 09:00 09/05/20 09:00 HEART Score - HEART Score Troponin: Troponin T 0.051 ng/mL (0.00-0.029) H 09/03/20 06:02 Results - Labs CBC & Chem 7: 09/03/20 06:02 09/05/20 09:01 Labs: Laboratory Last Values WBC 8.1 K/mm3 (4.5-11.0) 09/03/20 06:02 RBC 2.77 M/mm3 (3.65-5.03) L 09/03/20 06:02 Hgb 8.3 gm/dl (11.8-15.2) L 09/03/20 06:02 Hct 24.9 % (35.5-45.6) L 09/03/20 06:02 MCV 90 fl (84-94) 09/03/20 06:02 MCH 30 pg (28-32) 09/03/20 06:02 MCHC 33 % (32-34) 09/03/20 06:02 RDW 14.3 % (13.2-15.2) 09/03/20 06:02 Plt Count 242 K/mm3 (140-440) 09/03/20 06:02 Lymph % (Auto) 15.4 % (13.4-35.0) 09/03/20 06:02 [place] % (Auto) 9.7 % (0.0-7.3) H 09/03/20 06:02 Eos % (Auto) 2.2 % (0.0-4.3) 09/03/20 06:02 Baso % (Auto) 0.7 % (0.0-1.8) 09/03/20 06:02 Lymph # (Auto) 1.2 K/mm3 (1.2-5.4) 09/03/20 06:02 [place] # (Auto) 0.8 K/mm3 (0.0-0.8) 09/03/20 06:02 Eos # (Auto) 0.2 K/mm3 (0.0-0.4) 09/03/20 06:02 Baso # (Auto) 0.1 K/mm3 (0.0-0.1) 09/03/20 06:02 Seg Neutrophils % 72.0 % (40.0-70.0) H 09/03/20 06:02 Seg Neutrophils # 5.9 K/mm3 (1.8-7.7) 09/03/20 06:02 Sodium 137 mmol/L (137-145) 09/05/20 09:01 Potassium 4.0 mmol/L (3.6-5.0) D 09/05/20 09:01 Chloride 102.5 mmol/L (98-107) 09/05/20 09:01 Carbon Dioxide 27 mmol/L (22-30) 09/05/20 09:01 Anion Gap 12 mmol/L 09/05/20 09:01 BUN 21 mg/dL (9-20) H 09/05/20 09:01 Creatinine 1.7 mg/dL (0.8-1.3) H 09/05/20 09:01 Estimated GFR 42 ml/min 09/05/20 09:01 BUN/Creatinine Ratio 12 % 09/05/20 09:01 Glucose 104 mg/dL (75-100) H 09/05/20 09:01 POC Glucose 86 mg/dL (70-105) 09/05/20 07:56 Lactic Acid 1.00 mmol/L (0.7-2.0) 09/02/20 21:15 Calcium 8.5 mg/dL (8.4-10.2) 09/05/20 09:01 Magnesium 1.60 mg/dL (1.7-2.3) L 09/05/20 09:01 Total Bilirubin 0.20 mg/dL (0.1-1.2) 09/02/20 20:17 AST 11 units/L (5-40) 09/02/20 20:17 ALT 7 units/L (7-56) 09/02/20 20:17 Alkaline Phosphatase 84 units/L (35-129) 09/02/20 20:17 Troponin T 0.051 ng/mL (0.00-0.029) H 09/03/20 06:02 Total Protein 6.9 g/dL (6.3-8.2) 09/02/20 20:17 Albumin 3.4 g/dL (3.9-5) L 09/02/20 20:17 Albumin/Globulin Ratio 1.0 % 09/02/20 20:17 Triglycerides 88 mg/dL (2-149) 09/02/20 20:17 Cholesterol 172 mg/dL (50-199) 09/02/20 20:17 LDL Cholesterol Direct 119 mg/dL (50-130) 09/02/20 20:17 HDL Cholesterol 46 mg/dL (40-59) 09/02/20 20:17 Cholesterol/HDL Ratio 3.73 % 09/02/20 20:17 TSH 4.710 mlU/mL (0.270-4.200) H 09/02/20 21:28 Urine Color Straw (Yellow) 09/03/20 18:32 Urine Turbidity Clear (Clear) 09/03/20 18:32 Urine pH 6.0 (5.0-7.0) 09/03/20 18:32 Ur Specific [place] 1.005 (1.003-1.030) 09/03/20 18:32 Urine Protein 100 mg/dl mg/dL (Negative) 09/03/20 18:32 Urine Glucose (UA) Neg mg/dL (Negative) 09/03/20 18:32 Urine Ketones Neg mg/dL (Negative) 09/03/20 18:32 Urine Blood Mod (Negative) 09/03/20 18:32 Urine Nitrite Neg (Negative) 09/03/20 18:32 Urine Bilirubin Neg (Negative) 09/03/20 18:32 Urine Urobilinogen < 2.0 mg/dL (<2.0) 09/03/20 18:32 Ur Leukocyte Esterase Lg (Negative) 09/03/20 18:32 Urine WBC (Auto) 27.0 /HPF (0.0-6.0) H 09/03/20 18:32 Urine RBC (Auto) 7.0 /HPF (0.0-6.0) 09/03/20 18:32 Urine Bacteria (Auto) 1+ /HPF (Negative) 09/03/20 18:32 Urine Mucus Few /HPF 09/03/20 18:32 Urine Yeast (Budding) Few /HPF 09/03/20 18:32 Microbiology: Microbiology 09/02/20 21:15 Peripheral/Venous Blood Culture - Preliminary NO GROWTH AFTER 48 HOURS 09/02/20 21:15 Peripheral/Venous Blood Culture - Preliminary NO GROWTH AFTER 48 HOURS Webb/IV: Voiding Method Urinal Active Medications - Current Medications Current Medications: Generic Name Dose Route Start Last Admin Trade Name Freq PRN Reason Stop Dose Admin Acetaminophen 650 mg 09/02/20 21:49 Acetaminophen 325 Mg Tab PO Q6H PRN Pain, Mild (1-3) Amlodipine Besylate 10 mg 09/03/20 10:00 09/04/20 09:04 Amlodipine 10 Mg Tab PO Not Given QDAY RYAN Aspirin 325 mg 09/03/20 10:00 09/04/20 09:04 Aspirin Ec 325 Mg Tab PO 325 mg QDAY RYAN Administration Atorvastatin Calcium 40 mg 09/02/20 22:00 09/04/20 22:09 Atorvastatin 40 Mg Tab PO 40 mg QHS RYAN Administration Dexamethasone 6 mg 09/03/20 10:00 09/04/20 11:11 Dexamethasone 4 Mg Tab PO 09/05/20 10:01 6 mg DAILY RYAN Administration Dextrose 50 ml 09/02/20 22:09 Dextrose 50% In Water (25gm) 50 Ml Syringe IV Q30MIN PRN Hypoglycemia Protocol Heparin Sodium (Porcine) 5,000 unit 09/02/20 22:00 09/05/20 06:01 Heparin 5,000 Unit/1 Ml Vial SUB-Q 5,000 unit Q8HR RYAN Administration Hydralazine HCl 50 mg 09/02/20 22:00 09/05/20 06:00 Hydralazine 25 Mg Tab PO 50 mg Q8HR RYAN Administration Hydralazine HCl 10 mg 09/03/20 02:53 09/03/20 03:04 Hydralazine 20 Mg/1 Ml Inj IV 10 mg Q6HR PRN Administration Blood Pressure Ceftriaxone Sodium 2 gm in 100 mls @ 200 mls/hr 09/03/20 10:00 09/04/20 17:01 Rocephin/Ns 2 Gm/100 Ml IV Infused Q24H RYAN Infusion Protocol Azithromycin 500 mg in 250 mls @ 250 mls/hr 09/02/20 22:00 09/04/20 22:05 Zithromax/Ns IV 09/06/20 22:59 250 mls/hr Q24H RYAN Administration Protocol Sodium Chloride 1,000 mls @ 100 mls/hr 09/04/20 14:00 09/05/20 02:23 Nacl 0.9% 1000 Ml IV 100 mls/hr DIRECT RYAN Administration Insulin Human Lispro 0 unit 09/03/20 07:30 09/05/20 08:49 Insulin Lispro 100 Unit/Ml SUB-Q Not Given ACHS [facility] Protocol Levothyroxine Sodium 100 mcg 09/03/20 06:00 09/05/20 06:01 Levothyroxine 100 Mcg Tab PO 100 mcg 0600 RYAN Administration Magnesium Oxide 400 mg 09/05/20 10:00 Magnesium Oxide 400 Mg Tab PO QDAY RYAN Metoprolol Succinate 25 mg 09/04/20 16:00 09/04/20 17:10 Metoprolol Succinate Xl 25 Mg Tab PO 25 mg QDAY RYAN Administration Morphine Sulfate 2 mg 09/02/20 21:49 Morphine 4 Mg/1 Ml Inj IV Q5MIN PRN Chest Pain Nitroglycerin 0.4 mg 09/02/20 21:49 Nitroglycerin 0.4 Mg Tab Subl SL Q5M PRN Chest Pain Ondansetron HCl 8 mg 09/02/20 22:00 09/05/20 06:04 Ondansetron 8 Mg Odt Tab PO 8 mg Q8HR RYAN Administration Pantoprazole Sodium 40 mg 09/03/20 10:00 09/04/20 09:05 Pantoprazole 40 Mg Tab PO 40 mg QDAY RYAN Administration Sodium Chloride 10 ml 09/02/20 21:49 Sodium Chloride 0.9% 10 Ml Flush Syringe IV PRN PRN LINE FLUSH Tamsulosin HCl 0.4 mg 09/03/20 10:00 09/04/20 09:04 Tamsulosin 0.4 Mg Cap PO 0.4 mg QDAY RYAN Administration Tramadol HCl 50 mg 09/02/20 21:49 09/04/20 22:10 Tramadol 50 Mg Tab PO 50 mg Q6H PRN Administration Pain, Moderate (4-6) Valsartan 160 mg 09/02/20 22:00 09/04/20 22:09 Valsartan 160mg Tab PO 160 mg BID RYAN Administration Nutrition/Malnutrition Assess - Dietary Evaluation Nutrition/Malnutrition Findings: Nutrition Notes Start: 09/03/20 12:00 Freq: Status: Active Protocol: Document 09/03/20 12:00 YAIMA (Rec: 09/03/20 12:04 [id number]) Nutrition Notes Need for Assessment generated from: MD Order,Education Initial or Follow up Brief Note Current Diagnosis Acute Kidney Injury,Diabetes, Hypertension,Heart Failure Other Pertinent Diagnosis CAP Current Diet NPO Labs/Tests BP 217/82 Subjective/Other Information MD consult for diet education. Pt accpeted HTN education. Pt reports eating fried food often. Pt is trying to gain weight and he does not want ONS. Pt open to double protein portions when diet advances. #1 Nutrition Diagnosis Food and nutrition-related knowledge deficit Etiology no prior HTN diet education As Evidenced by Signs and Symptoms pt had questions about high Na foods Nutrition Intervention Teaching Recipient Patient Learning Readiness Good Teaching Methods Discussion,Handout Response to Teaching Verbalize understanding Education Handouts Provided HTN Nutrition Therapy Barriers to Learning No Barriers RD phone number provided Yes Patient aware of follow up options Yes Revisit per MD consult or patient Sign Off request:
[2020-09-05] MEDS ORDERED: MAGNESIUM OXIDE 400 MG TAB PO SCH (10:00)
[2020-09-05] MEDS: TAMSULOSIN 0.4 MG CAP PO SCH (11:30)
[2020-09-05] MEDS: ASPIRIN EC 325 MG TAB PO SCH (11:30)
[2020-09-05] MEDS: PANTOPRAZOLE 40 MG TAB PO SCH (11:30)
[2020-09-05] MEDS: METOPROLOL SUCCINATE XL 25 MG TAB PO SCH (11:30)
[2020-09-05] MEDS: DEXAMETHASONE 4 MG TAB PO SCH (11:31)
[2020-09-05] MEDS: amLODIPine 10 MG TAB PO SCH (11:31)
[2020-09-05] MEDS: cefTRIAXone/NS 2 GM/100 ML 2 GM/100 ML BAG IV SCH (11:31)
[2020-09-05] MEDS: VALSARTAN 160MG TAB PO SCH (11:32)
--- NOTE | 2020-09-05 13:50 | Progress Note ---
Assessment and Plan - Patient Problems (1) Dizziness Current Visit: Yes Status: Acute Plan to address problem: Symptoms of headache and dizziness have resolved following optimal blood pressure control. Echocardiogram done on this presentation showed normal left ventricular systolic function. In addition, patient is on treatment with intravenous antibiotics for a pneumonia. Yesterday, he was noted on routine telemetry monitoring with a short burst of nonsustained ventricular tachycardia. The patient had no symptoms and has continued to do well clinically. Following the event, he returned promptly to a stable sinus rhythm and has remained in stable sinus with no other significant arrhythmias or ectopy. We checked a magnesium level which was low at 1.6. In addition to magnesium replacement, we recommend low-dose metoprolol. Otherwise, patient is stable for cardiac discharge. As outpatient, we will plan an exercise thallium stress test, to be done once his current pneumonia is optimally resolved. Subjective Date of service: 09/05/20 Interval history: Patient looks and feels well, no cardiac complaints, still on intravenous antibiotics for his presenting pneumonia. His blood pressure is well controlled. Yesterday, he was noted on routine telemetry monitoring with a short burst of nonsustained ventricular tachycardia. The patient had no symptoms and has continued to do well clinically. Following the event, he returned promptly to a stable sinus rhythm and has remained in stable sinus with no other significant arrhythmias or ectopy. We checked a magnesium level which was low at 1.6. We also started him on low- dose metoprolol. Objective Vital Signs Temp Pulse Resp BP BP Pulse Ox 09/05/20 13:38 97 F L 63 18 132/65 98 09/05/20 11:32 60 111/54 09/05/20 11:31 60 111/54 09/05/20 11:30 60 111/54 09/05/20 09:08 96.8 F L 09/05/20 09:00 60 111/54 97 09/05/20 06:00 58 L 153/71 09/05/20 05:31 97.7 F 58 L 18 153/71 95 09/05/20 02:00 70 09/04/20 23:48 97.5 F L 70 16 120/67 94 09/04/20 22:10 20 09/04/20 22:09 65 154/70 09/04/20 20:26 97.5 F L 65 20 154/70 94 09/04/20 17:10 60 147/71 09/04/20 15:53 97.8 F 60 16 147/71 98 09/04/20 15:01 69 114/61 - Physical Examination General: Appears Well, No Apparent Distress HEENT: Positive: PERRL Neck: Positive: neck supple Cardiac: Positive: Reg Rate and Rhythm Lungs: Positive: Decreased Breath Sounds Neuro: Positive: Grossly Intact Abdomen: Positive: Soft Skin: Positive: Clear Extremities: Absent: edema - Labs and Meds Comprehensive Metabolic Panel 09/05/20 Range/Units 09:01 Sodium 137 (137-145) mmol/L Potassium 4.0 D (3.6-5.0) mmol/L Chloride 102.5 (98-107) mmol/L Carbon Dioxide 27 (22-30) mmol/L BUN 21 H (9-20) mg/dL Creatinine 1.7 H (0.8-1.3) mg/dL Glucose 104 H (75-100) mg/dL Calcium 8.5 (8.4-10.2) mg/dL
--- NOTE | 2020-09-05 14:01 | Discharge Summary ---
Providers - Providers Date of Admission: 09/02/20 21:41 Date of discharge: 09/05/20 Attending physician: REHAN PATTERSON MD 09/02/20 Consult to Cardiac Rehabilitation [CONS] Routine Reason For Exam: Phase I 09/02/20 21:50 Consult to Cardiology [CONS] Routine Consulting Provider: LINDA GREGORIO Reason For Exam: Elevated troponin 09/02/20 22:09 Consult to Dietitian/Nutrition [CONS] Routine Physician Instructions: Reason For Exam: Reason for Consult: Diet education Primary care physician: NITIN DOSHI Hospitalization Condition: Stable Hospital course: Is a 55-year-old male who presents with dizziness and near syncope. All symptoms have resolved at this time, work-up for ACS is pending - Patient Problems ACS (acute coronary syndrome), ruled out Current Visit: No Status: Acute Plan to address problem: Cardiology consulted, conservative management for now, watch for severe bradycardia. Echocardiogram normal EF Elevated troponins CAP (community acquired pneumonia) Current Visit: Yes Status: Acute Qualifiers: Laterality: right Lung location: middle lobe of lung Qualified Code(s): J18.9 - Pneumonia, unspecified organism Plan to address problem: Continue Rocephin and Zithromax Blood cultures are no growth to date Hypomagnesia Slight, start p.o. magnesium Urinary tract infection Patient currently on ceftriaxone Urine cultures pending Acute kidney injury secondary to dehydration, resolved Current Visit: No Status: Acute Qualifiers: Acute renal failure type: unspecified Qualified Code(s): N17.9 - Acute kidney failure, unspecified Plan to address problem: Avoid nephrotoxic drug. We will monitor the renal function closely. Renally dose medication. Diabetes Current Visit: No Status: Acute Plan to address problem: Insulin sliding scale HTN (hypertension) Current Visit: No Status: Acute Plan to address problem: Hydralazine 50 mg p.o. every 8 hours. Valsartan 160 mg p.o. twice daily. Amlodipine 10 mg daily Urinary retention Flomax History Interval history: 09/03/2020: Patient eating, no shortness of breath, states that all symptoms have resolved. 09/04/2020: Patient eating, no shortness of breath or syncopal episodes, patient walking around. Telemetry stated patient's lowest heart rate was 53 bpm overnight. 09/05/2020: Patient states that he is feeling better, no chest pain shortness of breath. Patient did have 13 beats of V. tach last night, patient was started on metoprolol per cardiology. No additional V. tach overnight. Labs have improved with fluids. Spoke with cardiology, will replace magnesium, patient will need a stress test in the outpatient setting after treatment for pneumonia. Spoke with Sherie Saldana, . She will medicinal plant picker the patient at the time of discharge. Disposition: - TO HOME OR SELFCARE Final Discharge Diagnosis (Prints w/discharge instructions): Nonsustained ventricular tachycardia. Community-acquired pneumonia. Hypomagnesia. Urinary tract infection. Acute kidney injury with vasonephropathy. Dehydration. Diabetes mellitus type 2. Hypertension. Urinary retention Time spent for discharge: 35 minutes Core Measure Documentation - Palliative Care Palliative Care/ Comfort Measures: Not Applicable - Core Measures Any of the following diagnoses?: none Exam - Physical Exam Narrative exam: General appearance: no acute distress, thin EENT: PERRL, EOM intact, hearing intact, clear oral mucosa Neck: Present: supple, normal ROM Respiratory: bilateral CTA, negative: rales, rhonchi, wheezing Cardiovascular: Regular rate/rhythm, Normal S1 & S2. No gallop, rub Extremities: no ischemia, No edema, normal temperature, normal color, Full ROM Abdominal: soft, no tenderness, non-distended, normal bowel sounds Integumentary: Present: clear, warm, dry no wounds, no erythema noted Psychiatric: appropriate mood/affect, intact judgment & insight Neurologic: CNII-XII intact, moves all extremities, no sensory or motor abnormalities - Constitutional Vitals: Temp Pulse Resp BP Pulse Ox 97 F L 63 18 132/65 98 09/05/20 13:38 09/05/20 13:38 09/05/20 13:38 09/05/20 13:38 09/05/20 13:38 Plan Activity: no restrictions Weight Bearing Status: Weight Bear as Tolerated Diet: low salt, diabetic Follow up with: JONAH NORIEGA MD [Referring] - 3-5 Days NITIN DOSHI MD [Primary Care Provider] - 7 Days ARMANDO NOGUEIRA MD [Staff Physician] - 10 Days (Please follow-up with a full stack python developer, call to make an appointment. After your treatment for your pneumonia, please call the full stack python developer to have a stress test done in the outpatient setting.) Prescriptions: Cefdinir 300 mg PO BID #20 capsule Magnesium Oxide [Mag-Ox] 400 mg PO QDAY #100 tablet Metoprolol Xl [Metoprolol SUCCINATE ER TAB] 25 mg PO QDAY #90 tablet
[2020-09-05] MEDS ORDERED: MAGNESIUM SULFATE 2 GM/50 ML BAG IV ONE (15:00)
[2020-09-05 15:18] VITALS: BP 117/50
--- NOTE | 2020-09-07 09:07 | Electrocardiograph Report ---
[facility] Test Date: 2020-09-03 Test Time: 11:36:55 Pat Name: LETTY MUNOZ Department: [address] [place] [address] Room: A4 1 Gender: M Marketing Editor: HARJIT : 1965 Requested By: FREDRICK QUIÑONES Order Number: [id number] Reading MD: Kamran Kunz Measurements Intervals Williams Rate: 56 P: 61 WA: 138 QRS: 43 QRSD: 94 T: 79 QT: 474 QTc: 458 Interpretive Statements Sinus rhythm Atrial premature complexes Compared to ECG 09/03/2020 07:39:20 No significant changes Electronically Signed On 09-07-2020 9:06:54 EDT by Kamran Kunz
== END 2020-09-05 17:26 | disposition home or self-care (01) | DRG 682 ==
LOC: ED 14:58 → 4A 21:41
PROVIDERS: ADMIT Hospitalist; ATTEND Family Medicine
DX: N17.0 Acute kidney failure with tubular necrosis (principal); J18.9 Pneumonia, unspecified organism; I50.31 Acute diastolic (congestive) heart failure; N39.0 Urinary tract infection, site not specified; I47.1 Supraventricular tachycardia; I11.0 Hypertensive heart disease with heart failure; E83.42 Hypomagnesemia; E11.9 Type 2 diabetes mellitus without complications; M54.9 Dorsalgia, unspecified; G89.29 Other chronic pain; M19.90 Unspecified osteoarthritis, unspecified site; E87.5 Hyperkalemia; F41.9 Anxiety disorder, unspecified; R79.89 Other specified abnormal findings of blood chemistry; E86.0 Dehydration; K21.9 Gastro-esophageal reflux disease without esophagitis; Z79.899 Other long term (current) drug therapy; Z79.891 Long term (current) use of opiate analgesic; Z79.01 Long term (current) use of anticoagulants; Z90.49 Acquired absence of other specified parts of digestive tract
CPT/HCPCS: 36415; 71046; 80048; 80053; 80061; 81001; 82140; 82962; 83735; 84443; 84484; 85025; 87040; 87086; 87641; 93005; 93306; G0378; A9270-GY; J0360; J0456; J0696; J1644; J1815; J3475; J7030; J8540; Q0162

== ENCOUNTER 2020-09-14 11:18 | Emergency (ER) | payer MEDICARE | END 2020-09-14 16:00 | disposition left against medical advice (07) | LOC: ED 11:18 | DX: M79.672 Pain in left foot (principal); Z53.21 Procedure and treatment not carried out due to patient leaving prior to being seen by health care provider ==

== ENCOUNTER 2021-03-09 14:19 | Emergency (ER) | payer MEDICARE ==
[2021-03-09] MEDS ORDERED: diphenhydrAMINE 25 MG CAP PO ONE (21:09)
[2021-03-09] MEDS ORDERED: ACETAMINOPHEN 500 MG TAB PO ONE (21:09)
[2021-03-09] MEDS ORDERED: METOCLOPRAMIDE 10 MG TAB PO ONE (21:09)
--- NOTE | 2021-03-09 21:10 | Emergency Department Report ---
ED General Adult HPI - General Chief complaint: Headache Stated complaint: HEAD HAND BACK PAIN Source: patient Mode of arrival: Ambulatory Limitations: No Limitations - History of Present Illness Initial comments: Patient 56-year-old -Citizen Of [place] male with history of hypertension,DM II, CAD who presents for malaise with cough adductive thick x3 days. Patient denies shortness of breath, there is no wheezing no stridor. No chest pain no dizziness or lightheadedness. States is COVID vaccinated however and pending COVID booster. Patient denies other relieving or exacerbating factors. Patient is tolerating p.o. intake there is been no nausea nor vomiting. Patient concern for sick contacts. - Related Data Home Medications Medication Instructions Recorded Confirmed Last Taken Levothyroxine 100 mcg PO DAILY 02/12/20 02/12/20 Unknown Mupirocin 1 tab PO BID 02/12/20 02/13/20 Unknown Tramadol HCl/Acetaminophen 37.5 mg PO BID 02/12/20 02/13/20 Unknown Previous Rx's Medication Instructions Recorded Last Taken Type Ondansetron [Zofran ODT TAB] 8 mg PO Q8HR tab.rapdis 11/22/17 Unknown Rx Prochlorperazine [Compazine] 10 mg PO Q6HR PRN tablet 11/22/17 Unknown Rx Levothyroxine [Synthroid] 100 mcg PO 0600 tablet 02/22/20 Unknown Rx Tamsulosin [Flomax] 0.4 mg PO QDAY #30 capsule 02/22/20 Unknown Rx Valsartan [Diovan] 160 mg PO BID #60 tablet 02/22/20 Unknown Rx amLODIPine 10 mg PO QDAY #30 tablet 02/22/20 Unknown Rx dexAMETHasone [Decadron] 6 mg PO DAILY #3 tablet 02/22/20 Unknown Rx hydrALAZINE [Apresoline TAB] 50 mg PO Q8HR #90 tablet 02/22/20 Unknown Rx Cefdinir 300 mg PO BID #20 capsule 09/05/20 Unknown Rx Magnesium Oxide [Mag-Ox] 400 mg PO QDAY #100 tablet 09/05/20 Unknown Rx Metoprolol Xl [Metoprolol 25 mg PO QDAY #90 tablet 09/05/20 Unknown Rx SUCCINATE ER TAB] Amoxicillin/Potassium Clav 1 each PO BID 7 Days #14 03/09/21 Unknown Rx [Augmentin 875-125 Tablet] Azithromycin 500 mg PO DAILY 5 Days #5 03/09/21 Unknown Rx Ipratropium (Nf) [Atrovent HFA 2 puff IH Q6HR PRN #1 inha 03/09/21 Unknown Rx 17MCG/PUFF] Allergies Allergy/AdvReac Type Severity Reaction Status Date / Time No Known Allergies Allergy Verified 08/16/18 11:38 ED Review of Systems ROS: Stated complaint: HEAD HAND BACK PAIN Other details as noted in HPI Constitutional: chills, malaise Eyes: denies: eye pain, eye discharge, vision change ENT: congestion. denies: ear pain, throat pain Respiratory: cough. denies: shortness of breath, wheezing Cardiovascular: denies: chest pain, palpitations Endocrine: no symptoms reported Gastrointestinal: denies: abdominal pain, nausea, vomiting, diarrhea Genitourinary: denies: urgency, dysuria Musculoskeletal: back pain Skin: denies: rash, lesions Neurological: denies: headache, weakness, paresthesias, vertigo Psychiatric: denies: anxiety, depression Hematological/Lymphatic: denies: easy bleeding, easy bruising ED Past Medical Hx - Past Medical History Previous Medical History?: Yes Hx Hypertension: Yes Hx Congestive Heart Failure: No Hx Diabetes: Yes Hx GERD: Yes Hx Arthritis: Yes Hx Asthma: No Hx COPD: No Additional medical history: CHRONIC BACK PAIN/INJURY, anxiety - Surgical History Hx Cholecystectomy: Yes Hx Appendectomy: Yes Additional Surgical History: appendectomy - Social History Smoking Status: Never Smoker - Medications Home Medications: Home Medications Medication Instructions Recorded Confirmed Last Taken Type Ondansetron [Zofran ODT TAB] 8 mg PO Q8HR tab.rapdis 11/22/17 02/13/20 Unknown Rx Prochlorperazine [Compazine] 10 mg PO Q6HR PRN tablet 11/22/17 02/13/20 Unknown Rx Levothyroxine 100 mcg PO DAILY 02/12/20 02/12/20 Unknown History Mupirocin 1 tab PO BID 02/12/20 02/13/20 Unknown History Tramadol HCl/Acetaminophen 37.5 mg PO BID 02/12/20 02/13/20 Unknown History Levothyroxine [Synthroid] 100 mcg PO 0600 tablet 02/22/20 Unknown Rx Tamsulosin [Flomax] 0.4 mg PO QDAY #30 capsule 02/22/20 Unknown Rx Valsartan [Diovan] 160 mg PO BID #60 tablet 02/22/20 Unknown Rx amLODIPine 10 mg PO QDAY #30 tablet 02/22/20 Unknown Rx dexAMETHasone [Decadron] 6 mg PO DAILY #3 tablet 02/22/20 Unknown Rx hydrALAZINE [Apresoline TAB] 50 mg PO Q8HR #90 tablet 02/22/20 Unknown Rx Cefdinir 300 mg PO BID #20 capsule 09/05/20 Unknown Rx Magnesium Oxide [Mag-Ox] 400 mg PO QDAY #100 tablet 09/05/20 Unknown Rx Metoprolol Xl [Metoprolol 25 mg PO QDAY #90 tablet 09/05/20 Unknown Rx SUCCINATE ER TAB] Amoxicillin/Potassium Clav 1 each PO BID 7 Days #14 03/09/21 Unknown Rx [Augmentin 875-125 Tablet] Azithromycin 500 mg PO DAILY 5 Days #5 03/09/21 Unknown Rx Ipratropium (Nf) [Atrovent HFA 2 puff IH Q6HR PRN #1 inha 03/09/21 Unknown Rx 17MCG/PUFF] ED Physical Exam - General Limitations: No Limitations General appearance: alert, in no apparent distress - Head Head exam: Present: atraumatic, normocephalic - Eye Eye exam: Present: PERRL, EOMI Pupils: Present: normal accommodation - ENT ENT exam: Present: normal orophraynx, mucous membranes moist, TM's normal bilaterally, normal external ear exam - Expanded ENT Exam Expanded Throat exam: Negative: tonsillar erythema, tonsillomegaly, tonsillar exudate - Neck Neck exam: Present: normal inspection, full ROM. Absent: tenderness, lymphadenopathy, thyromegaly - Respiratory Respiratory exam: Present: normal lung sounds bilaterally. Absent: respiratory distress, wheezes, stridor, chest wall tenderness - Cardiovascular Cardiovascular Exam: Present: regular rate, normal rhythm, normal heart sounds. Absent: systolic murmur, diastolic murmur, rubs, gallop - GI/Abdominal GI/Abdominal exam: Present: soft, normal bowel sounds. Absent: guarding, rebound, rigid, bruit, hernia - Rectal Rectal exam: Present: deferred - Extremities Exam Extremities exam: Present: normal inspection, full ROM, normal capillary refill. Absent: tenderness, pedal edema - Back Exam Back exam: Present: normal inspection, full ROM. Absent: tenderness, CVA tenderness (R), CVA tenderness (L) - Neurological Exam Neurological exam: Present: alert, oriented X3, CN II-XII intact, normal gait - Psychiatric Psychiatric exam: Present: normal affect, normal mood - Skin Skin exam: Present: warm, dry, intact, normal color. Absent: rash ED Course Vital Signs 03/09/21 03/09/21 15:19 21:26 Temperature 97.7 F Pulse Rate 54 L Respiratory 16 16 Rate Blood Pressure 141/60 [Right] O2 Sat by Pulse 97 Oximetry ED Medical Decision Making - Radiology Data Radiology results: report reviewed, image reviewed cc: GLENNA VELIZ NP Fluoro Time In Minutes: CHEST 2 VIEWS INDICATION / CLINICAL INFORMATION: cough fever. COMPARISON: 09/02/2020 FINDINGS: SUPPORT DEVICES: None. HEART / MEDIASTINUM: No significant abnormality. LUNGS / PLEURA: Left lower lobe and lingular pulmonary opacities. No pneumothorax. ADDITIONAL FINDINGS: No significant additional findings. IMPRESSION: 1. Multifocal pneumonia. Signer Name: Juanito Peres DO Signed: 03/09/2021 9:35 PM Workstation Name: [id number] Transcribed By: SAMARA Dictated By: JUANITO PERES DO Electronically Authenticated By: JUANITO PERES DO Signed Date/Time: 03/09/212134 - Medical Decision Making Chest x-ray noted as above for multifocal pneumonia, however patient appears well well-nourished well-hydrated nontoxic patient is tolerating p.o. hydration without nausea or vomiting. There is no fever or chills. Patient given first dose antibiotics in ED Rocephin, azithromycin. Patient will be DC'd to home with prescriptions. Patient given strict instructions to return to ED should symptoms worsen. Patient verbalizes agreement and understanding with discharge plan. Patient DC'd home in stable condition at this time. Critical care attestation.: If time is entered above; I have spent that time in minutes in the direct care of this critically ill patient, excluding procedure time. ED Disposition Clinical Impression: CAP (community acquired pneumonia) Qualifiers: Laterality: left Lung location: lower lobe of lung Qualified Code(s): J18.9 - Pneumonia, unspecified organism Disposition: 01 HOME / SELF CARE / HOMELESS Is pt being admited?: No Does the pt Need Aspirin: No Condition: Stable Instructions: Bacterial Pneumonia (ED), Community-Acquired Pneumonia, Adult Additional Instructions: Take medications as prescribed, hydrate as directed, follow up with your doctor in 2-3 days. Return to emergency if symptoms worsen. Prescriptions: Ipratropium (Nf) [Atrovent HFA 17MCG/PUFF] 2 puff IH Q6HR PRN #1 inha PRN Reason: Shortness Of Breath Amoxicillin/Potassium Clav [Augmentin 875-125 Tablet] 1 each PO BID 7 Days #14 Azithromycin 500 mg PO DAILY 5 Days #5 Referrals: MARKO ROGERS MD [Staff Physician] - 3-5 Days Time of Disposition: 22:09
--- NOTE | 2021-03-09 21:40 | XRay Report ---
CHEST 2 VIEWS INDICATION / CLINICAL INFORMATION: cough fever. COMPARISON: 09/02/2020 FINDINGS: SUPPORT DEVICES: None. HEART / MEDIASTINUM: No significant abnormality. LUNGS / PLEURA: Left lower lobe and lingular pulmonary opacities. No pneumothorax. ADDITIONAL FINDINGS: No significant additional findings. IMPRESSION: 1. Multifocal pneumonia. Signer Name: Juanito Peres DO Signed: 03/09/2021 9:35 PM Workstation Name: [id number]
[2021-03-09] MEDS ORDERED: LIDOCAINE-MPF (1%) 10 MG/1 ML VIAL 5 ML INFILTRATI ONE (22:00)
[2021-03-09] MEDS ORDERED: AZITHROMYCIN 250 MG TAB PO ONE (22:01)
[2021-03-09 23:20] VITALS: BP 143/76
== END 2021-03-09 23:19 | disposition home or self-care (01) ==
LOC: ED 14:19
DX: J18.9 Pneumonia, unspecified organism (principal); I10 Essential (primary) hypertension; K21.9 Gastro-esophageal reflux disease without esophagitis; M19.90 Unspecified osteoarthritis, unspecified site; E11.8 Type 2 diabetes mellitus with unspecified complications; Z90.49 Acquired absence of other specified parts of digestive tract; Z98.890 Other specified postprocedural states; Z79.899 Other long term (current) drug therapy
CPT/HCPCS: 71046; 96372; 99283; J0696; J3490

== ENCOUNTER 2021-08-09 02:52 | Emergency (ER) | payer MEDICARE ==
--- NOTE | 2021-08-09 03:19 | Emergency Department Report ---
ED CPR HPI - General Chief Complaint: Cardiac Arrest/CPR Stated Complaint: CARDIAC ARREST Source: EMS Mode of arrival: Stretcher Limitations: Other - History of Present Illness Initial Comments: 56 yo M with h/o ESRD, diabetes and hypertension brought in cardiac arrest by the EMS since 30 minutes ago when the got to patients house with call for severe sob. According to EMS patient was in cardiac arrest when they arrived there and with unknown down time. CPR was started immediately according to EMS and patient was given epi x 2 and an amp of bicarb before getting to the ED. They reports asystole rhythm all throughout rhythm check. Pt was an attempt to intubated pt on the field failed. EMS was able to gain an IO access. Pt was given additional epinephrine in the emergency room with same results with asystole on the monitor. CPR continued as pit clerk was been placed. - Related Data Home Medications Medication Instructions Recorded Confirmed Last Taken Levothyroxine 100 mcg PO DAILY 02/12/20 02/12/20 Unknown Mupirocin 1 tab PO BID 02/12/20 02/13/20 Unknown Tramadol HCl/Acetaminophen 37.5 mg PO BID 02/12/20 02/13/20 Unknown Previous Rx's Medication Instructions Recorded Last Taken Type Ondansetron [Zofran ODT TAB] 8 mg PO Q8HR tab.rapdis 11/22/17 Unknown Rx Prochlorperazine [Compazine] 10 mg PO Q6HR PRN tablet 11/22/17 Unknown Rx Levothyroxine [Synthroid] 100 mcg PO 0600 tablet 02/22/20 Unknown Rx Tamsulosin [Flomax] 0.4 mg PO QDAY #30 capsule 02/22/20 Unknown Rx Valsartan [Diovan] 160 mg PO BID #60 tablet 02/22/20 Unknown Rx amLODIPine 10 mg PO QDAY #30 tablet 02/22/20 Unknown Rx dexAMETHasone [Decadron] 6 mg PO DAILY #3 tablet 02/22/20 Unknown Rx hydrALAZINE [Apresoline TAB] 50 mg PO Q8HR #90 tablet 02/22/20 Unknown Rx Cefdinir 300 mg PO BID #20 capsule 09/05/20 Unknown Rx Magnesium Oxide [Mag-Ox] 400 mg PO QDAY #100 tablet 09/05/20 Unknown Rx Metoprolol Xl [Metoprolol 25 mg PO QDAY #90 tablet 09/05/20 Unknown Rx SUCCINATE ER TAB] Amoxicillin/Potassium Clav 1 each PO BID 7 Days #14 03/09/21 Unknown Rx [Augmentin 875-125 Tablet] Azithromycin 500 mg PO DAILY 5 Days #5 03/09/21 Unknown Rx Ipratropium (Nf) [Atrovent HFA 2 puff IH Q6HR PRN #1 inha 03/09/21 Unknown Rx 17MCG/PUFF] Allergies Allergy/AdvReac Type Severity Reaction Status Date / Time No Known Allergies Allergy Verified 08/16/18 11:38 ED Review of Systems ROS: Stated complaint: CARDIAC ARREST Other details as noted in HPI Comment: Unobtainable due to pts medical conditions Cardiovascular: other (Cardiopulmonary arrest) ED Past Medical Hx - Past Medical History Hx Hypertension: Yes Hx Congestive Heart Failure: No Hx Diabetes: Yes Hx GERD: Yes Hx Arthritis: Yes Hx Asthma: No Hx COPD: No Additional medical history: CHRONIC BACK PAIN/INJURY, anxiety - Surgical History Hx Cholecystectomy: Yes Hx Appendectomy: Yes Additional Surgical History: appendectomy - Social History Smoking Status: Never Smoker - Medications Home Medications: Home Medications Medication Instructions Recorded Confirmed Last Taken Type Ondansetron [Zofran ODT TAB] 8 mg PO Q8HR tab.rapdis 11/22/17 02/13/20 Unknown Rx Prochlorperazine [Compazine] 10 mg PO Q6HR PRN tablet 11/22/17 02/13/20 Unknown Rx Levothyroxine 100 mcg PO DAILY 02/12/20 02/12/20 Unknown History Mupirocin 1 tab PO BID 02/12/20 02/13/20 Unknown History Tramadol HCl/Acetaminophen 37.5 mg PO BID 02/12/20 02/13/20 Unknown History Levothyroxine [Synthroid] 100 mcg PO 0600 tablet 02/22/20 Unknown Rx Tamsulosin [Flomax] 0.4 mg PO QDAY #30 capsule 02/22/20 Unknown Rx Valsartan [Diovan] 160 mg PO BID #60 tablet 02/22/20 Unknown Rx amLODIPine 10 mg PO QDAY #30 tablet 02/22/20 Unknown Rx dexAMETHasone [Decadron] 6 mg PO DAILY #3 tablet 02/22/20 Unknown Rx hydrALAZINE [Apresoline TAB] 50 mg PO Q8HR #90 tablet 01/03/21 Unknown Rx Cefdinir 300 mg PO BID #20 capsule 09/05/20 Unknown Rx Magnesium Oxide [Mag-Ox] 400 mg PO QDAY #100 tablet 09/05/20 Unknown Rx Metoprolol Xl [Metoprolol 25 mg PO QDAY #90 tablet 09/05/20 Unknown Rx SUCCINATE ER TAB] Amoxicillin/Potassium Clav 1 each PO BID 7 Days #14 03/09/21 Unknown Rx [Augmentin 875-125 Tablet] Azithromycin 500 mg PO DAILY 5 Days #5 03/09/21 Unknown Rx Ipratropium (Nf) [Atrovent HFA 2 puff IH Q6HR PRN #1 inha 03/09/21 Unknown Rx 17MCG/PUFF] ED Physical Exam - General Limitations: Other (cardiac arrest and unresponsive ) - Cardiovascular Cardiovascular Exam: Present: other (Cardiopulmonary arrest) ED Course - Reevaluation(s) Reevaluation #1: 08/09/21 03:20 Effective CPR continued in the emergency room. See medical decision making for details. ED Medical Decision Making - Medical Decision Making Pt brought in with cardiopulmonary arrest with effective CPR in progress. This was continued in the ER. Pt has had epi x 2 en route and notice to be in asystole on the initial rhythm check in the ER. Pt was given another round of epi and continue to in asystole. By now patient has had effective CPR and have had 3 round of epi with an amp BiCarb with no ROSC. His pupil was noted to be fully dilated and fixed with no chance of any meaningful neurological outcome. At this point at 02:57 AM CPR discontinued and patient pronounced . Differential diagnosis could be but not limited to myocardial infarction, pulmonary embolism, or cerebrovascular accident. No family member are present at this time so will continue to anticipate their arrival for update. Critical care attestation.: If time is entered above; I have spent that time in minutes in the direct care of this critically ill patient, excluding procedure time. ED Disposition Clinical Impression: Cardiopulmonary arrest, Cardiac arrest Disposition: 20 Is pt being admited?: No Does the pt Need Aspirin: No Condition: Serious
[2021-08-09] MEDS ORDERED: EPINEPHrine 1 MG/10 ML SYRINGE ONE (11:47)
== END 2021-08-09 07:03 ==
LOC: ED 02:52
DX: I46.9 Cardiac arrest, cause unspecified (principal); I10 Essential (primary) hypertension; E11.9 Type 2 diabetes mellitus without complications; Z90.89 Acquired absence of other organs; Z90.49 Acquired absence of other specified parts of digestive tract
CPT/HCPCS: 92950; 99285; J0171